=== PATIENT | male | born 1945 | race Caucasian/White ===

== ENCOUNTER 2019-01-21 10:11 | Outpatient (CLI) | payer BC, SELFPAY ==
[2019-01-23 10:56] LABS: PSA, Diagnostic <0.1 ng/ml (0-6.5)
== END 2019-01-21 10:31 ==
PROVIDERS: Urology; PCP Family Medicine; Visit Provider Nurse Practitioner
DX: C61 Malignant neoplasm of prostate (principal)
CPT/HCPCS: 36415; 84153

== ENCOUNTER 2020-08-07 11:25 | Outpatient (CLI) | payer BC, SELFPAY ==
[2020-08-09 11:47] LABS: PSA, Ultrasensitive 0.02 ng/mL (<= 6.5)
[2020-08-12 11:53] LABS: Testosterone, Total 380 ng/dL (240-950)
== END 2020-08-07 11:45 ==
PROVIDERS: PCP Family Medicine
DX: C61 Malignant neoplasm of prostate (principal)
CPT/HCPCS: 36415; 84153; 84403

== ENCOUNTER 2021-08-01 11:49 | Outpatient (CLI) | payer BC, SELFPAY ==
[2021-08-02 14:54] LABS: PSA, Ultrasensitive 0.03 ng/mL (<= 6.5)
[2021-08-05 15:25] LABS: Testosterone, Total 395 ng/dL (240-950)
== END 2021-08-01 11:50 | disposition home or self-care (01) ==
LOC: LBO 11:53
PROVIDERS: PCP Family Medicine; Visit Provider Nurse Practitioner Family
DX: C61 Malignant neoplasm of prostate (principal)
CPT/HCPCS: 36415; 84153; 84403

== ENCOUNTER 2022-07-24 15:08 | Outpatient (CLI) | payer BC, SELFPAY ==
--- OUTSIDE RECORDS SUMMARY | 2022-07-24 15:17 | XMS_ITS | Clinical Summary ---
:1945 Author Organization [facility] [place] [address] Care Team Providers Name Role Phone Santos Guallpa MD Primary Care Provider Allergies Active Allergy Reactions Severity Noted Date Comments Gentamicin Hives 03/30/2012 Medications Medication Sig Dispensed Refills Start Date End Date Status moxifloxacin (Vigamox) Place 1 drop 3 mL 0 05/31/2020 Active 0.5 % Drops into the left eye 4 times daily. Additional Information Patient not taking. Reported on 06/08/2022 levothyroxine (Synthroid) 100 Take 100 mcg by mouth 0 05/24/2020 Active mcg Tablet daily. aspirin EC 81 mg Tablet, TAKE ONE TABLET BY 0 2020 Active Delayed Release (E.C.) MOUTH EVERY DAY atorvastatin (Lipitor) 20 mg TAKE ONE TABLET BY 0 Active Tablet MOUTH EVERY DAY metoprolol succinate XL TAKE ONE TABLET BY 0 021 Active (Toprol-XL) 50 mg Tablet MOUTH EVERY DAY Sustained Release 24 hr lisinopriL (Zestril) 10 mg TAKE ONE TABLET BY 0 10/09 Active Tablet MOUTH EVERY DAY losartan (Cozaar) 50 mg Tablet TAKE ONE TABLET BY 0 12/08/2021 Active MOUTH EVERY DAY FOR 30 DAYS tamsulosin (Flomax) 0.4 mg Take 1 capsule by 90 tablet 3 01/26 Active Capsule mouth nightly. nitrofurantoin (Macrobid) 100 Take 1 capsule by 14 capsule 0 0 01/30/2022 Active mg Capsule mouth 2 times daily. Additional Information Patient not taking. Reported on 06/08/2022 Active Problems Problem Noted Date Lower urinary tract symptoms 01/26/2022 Lesion of left eyelid 05/26/2018 Malignant neoplasm of prostate 11/28/2013 Overview: Formatting of this note is dif ferent from the original. Prostate Cancer Notes 10/18/2015 Date of Presentation 11/19/2011 Age at Presentation 66 years old PSA at Presentation 7.7 on dutasteride Presence of Symptoms at Presentation Pos itive--urinary retention requiring CIC Ethnicity White Result of ANDREAS normal Date of TRUS and Biopsy 02/15/2012 Volume in cc 57 cc Maynor grade/score a+b=c 3+4=7 Total Cores 13 biopsy cores Positive cores 2 positive biopsy cores Bone Scan at Presentation -negative for bone met Prostate confined yes ELYSSA--extracapsular extension - negative for extension outside the prostate capsule SV--seminal vesicles - negative for exte nsion to the seminal vesicle Regular Lymph Nodes -negative Distant Mets -negative CT Abdomen/Pelvis at Presentation Done o n 01/04/2012 Prostate Confined positive Zacarias Involvement Negative node involvem ent on CT scan Metastasis No Metastases Primary Therapy Prostatectomy done by Dr Teresa Carey at [facility] Prostatectomy Date 06/03/2012 Pelvic Lymphnode Dissection 0 positive o f 18 lymph nodes removed Histologic Type/pathology detail 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 -[place] 3+3-=6 with tertiary Maynor 4 --bilateral lobes -margins negative -negative PNI (perineural invasion) --negative LVI (lymphovascular invasion) Percent of Gland Involvement 5 % Post Primary Therapy - Cristi Date 012 Bone scan 01/04/2014--negative Post Primary Therapy - Cristi PSA 0.04 ri sing to 0.30 prior to salvage radiation Salvage Therapy Radiation therapy under RTOG protocol 0534 Radiation Therapy Treatment prostate bed Total Dose (Gy) 68.4 Gy Number of fractions 38 treatments Post salvage cristi/date < 0.03 on -2014 Late effects of treatment Follow-up exam 06/22/2012 Urinary retention 02/15/2012 Chronic kidney disease, stage III (moderate) 1 Resolved Problems Problem Noted Date Resolved Date Elevated PSA 02/15/2012 06/08/2022 Encounters Date Type Specialty Care Team Description 06/08/2022 Office Visit Urology Teresa Carey, Elevated ser um creatinine; Lower urinary t ract symptoms; Urinary retenti on; Malignant neopl asm of prostate 06/08/2022 Laboratory Appointment Lab Boris gerber neoplasm of prostate 06/08/2022 Hospital Encounter Radiology Teresa Carey, Malign ant neoplasm of prostate from Last 3 Months Family History Medical History Relation Comments Breast Cancer Mother Breast Cancer Sister 1 Breast Cancer Sister 2 leukemia, at 53 Glaucoma Neg Hx Macular Degeneration Neg Hx Retinal Detachment Neg Hx Relation Status Comments Mother Sister 1 Sister 2 Social History Tobacco Use Types Packs/Day Years Used Date Never Smoker Smokeless Tobacco: Never Used Alcohol Use Standard Drinks/Week Comments No 0 (1 standard drink = 0.6 oz pure alcoho l) Sex Assigned at Date Recorded Not on file Last Filed Vital Signs Vital Sign Reading Time Taken Comments Blood Pressure 183/91 06/08/2022 3:24 PM EDT Pulse 70 06/08/2022 3:24 PM EDT Temperature 36.4 ??C (97.5 ??F) 08/12/2021 1:49 PM EDT Respiratory Rate 20 08/12/2021 1:49 PM EDT Oxygen Saturation 100% 08/12/2021 1:49 PM EDT Inhaled Oxygen Concentration - - Weight 76.9 kg (169 lb 9.6 oz) 08/12/2021 1:49 PM EDT Height 167.6 cm (5' 6) 01/27/2021 3:05 PM EDT Body Mass Index 27.37 01/27/2021 3:05 PM EDT Plan of Treatment Upcoming Encounters Date Type Specialty Care Team Description 07/30/2022 Office Visit Radiation Oncology Alecia Lion, STATISTICAL TYPIST [facility] [place], [place] [address] (Wo rk) Health Maintenance Due Date Last Done Comments Covid-19 Vaccine (#1) 1950 Hepatitis C Screening 1963 Tdap adult 1964 Tetanus vaccine 1964 Zoster vaccine (1 of 2) 1995 Advance Directive 2000 Pneumoccocal Vaccine: 65+ (1 - PCV) 2010 Influenza (Flu) vaccine (1 of 1 - Influenza standard 07/09/2022 series) Medical Devices Implanted Type Area Vaccine Specialist Device Shelf Model / Identifier Expiration Serial / Lot Date Mesh,Prolite Ultr,Std,6x4in ([id number]) - [id number] IMPLANTS Left: DO NOT USE 01/06/2017 [id number] / Implanted: Qty: 1 on 06/23/2012 at [facility] Pelvis [place] [id number] / [facility] - [id number] Procedures Procedure Name Priority Date/Time Associated Comments Diagnosis US RETROPERITONEAL Routine 06/08/2022 2:29 Malignant neoplasm Results for this COMPLETE PM EDT of prostate procedure are i n the results section. HC VENIPUNCTURE STAT 06/08/2022 1:20 Malignant neoplasm Res ults for this PM EDT of prostate procedure are i n the results section. from Last 3 Months Results US Retroperitoneal Complete (06/08/2022 2:29 PM EDT) Anatomical Region Laterality Modality Abdomen Ultrasound Specimen (Source) Anatomical Collection Method Collection Time Re ceived Time Location / / Volume Laterality 06/08/2022 2:30 PM EDT Impressions 06/08/2022 3:43 PM EDT 1. ??Limited visualization of the left kidney. Left renal cortical thinning/scarring with mild pelviectasi s and visualized proximal ureterectasis, which does not change significantly on post void imaging. 2. ??Normal right renal cortical thickn ess without collecting system dilatation. 3. ??Avascular septated right mid to in ferior pole renal cyst measuring up to 2.8 cm. 4. ??Mobile bladder debris present. No appreciable bladder wall thickening. Minimal post void bladder residual. Thank you for letting us participate in the care of this patient. If you are a health care [facility] er and have any questions regarding this report, please contact the number above. For patients who have ques tions, please contact the [facility] professio nal that requested your imaging first. ? Maritza Mustafa, Staff Physician Electronically Signed Final Report ?? 03:43 pm Narrative 06/08/2022 3:43 PM EDT Renal ? (Signed Final 06/08/2022 03:43 pm) PATIENT INFO: ID #: ? [id number] ?: ??[birth year] (76 yrs)(M) Name: ? MOLINA RANDHAWA ?Visit Date: 06/08/2022 02:30 pm PERFORMED BY: Performed By: ? Marisel WRIGHT, Da oglesby Attending: ?Moon KNAPP, Maritza Montiel Referred By: ?TERESA CAREY Location: ? [place] SERVICE(S) PROVIDED: URETRO - Retroperitoneal Complete - IM [id number] ? [id number] INDICATIONS: Hx of hydronephrosis likely due to poor bladder emptying. ? residual hydronephrosis. Please recheck for burnett ge in hydro after double void COMPARISON: CT pelvis 01/04/14, limited CT pelvis/lo wer abdomen (kidneys incompletely imaged) 01/12/14 RIGHT KIDNEY: Size (cm) ?L: ??11.0 Cortical Thickness: ?Normal Cortical Echogenicity: ?? Normal Hydronephrosis: ?No sonogr aphic evidence Ureter: ?Not v isualized Comment: ?Cyst with avascular septa tion mid/lower pole ? measuring 2.1 x 2.8 x 2.0 cm LEFT KIDNEY: Size (cm) ?L: ??9.5 Cortical Thickness: ?Thinning/sc arring Cortical Echogenicity: ?? Normal Hydronephrosis: ?Mild pelv iectasis Ureter: ?Mild dilatation where seen proximally Comment: ?Limited views. ??No signi ficant change in mild ? pelviectasis and prox imal ureterectasis on post- ? void images. URINARY BLADDER: Right Urinary Jet: Visualized Left Urinary Jet: ??Visualized Pre-void (cm) ? L: ??8.3 ? A P: ??7.5 ? TV: ??7.6 Vol (ml): ?247.7 Post-void (cm) ?L: ??2.8 ? A P: ??2.2 ? TV: ??3.1 Vol (ml): ?10.0 Comment: ?Partially distended, norm al contour. Mobile debris ? present. ??On pre-voi d images, no appreciable ? bladder wall thickeni ng. Procedure Note Maritza Mustafa MD - 06/08/2022Formatt ing of this note might be different from the original. Renal (Signed Final 06/08/2022 03:43 pm ) PATIENT INFO: ID #: [id number] : [birth year] (76 y rs)(M) Name: MOLINA RANDHAWA Visit Date: 11/2021 02:30 pm PERFORMED BY: Performed By: Catie Joiner RDMS Attending: Maritza Mustafa MD Referred By: TERESA CAREY Location: [place] SERVICE(S) PROVIDED: URETRO - Retroperitoneal Complete [place] [facility] [id number] [id number] INDICATIONS: Hx of hydronephrosis likely due to poor bladder emptying. ? residual hydronephrosis. Please recheck for burnett ge in hydro after double void COMPARISON: CT pelvis 01/04/14, limited CT pelvis/lo wer abdomen (kidneys incompletely imaged) 01/12/14 RIGHT KIDNEY: Size (cm) L: 11.0 Cortical Thickness: Normal Cortical Echogenicity: Normal Hydronephrosis: No sonographic evidence Ureter: Not visualized Comment: Cyst with avascular septation mid/lower pole measuring 2.1 x 2.8 x 2.0 cm LEFT KIDNEY: Size (cm) L: 9.5 Cortical Thickness: Thinning/scarring Cortical Echogenicity: Normal Hydronephrosis: Mild pelviectasis Ureter: Mild dilatation where seen prox imally Comment: Limited views. No significant change in mild pelviectasis and proximal ureterectasis on post- void images. URINARY BLADDER: Right Urinary Jet: Visualized Left Urinary Jet: Visualized Pre-void (cm) L: 8.3 AP: 7.5 TV: 7.6 Vol (ml): 247.7 Post-void (cm) L: 2.8 AP: 2.2 TV: 3.1 Vol (ml): 10.0 Comment: Partially distended, normal co ntour. Mobile debris present. On pre-void images, no appreci able bladder wall thickening. IMPRESSION 1. Limited visualization of the left ki dney. Left renal cortical thinning/scarring with mild pelviectasi s and visualized proximal ureterectasis, which does not change significantly on post void imaging. 2. Normal right renal cortical thicknes s without collecting system dilatation. 3. Avascular septated right mid to infe rior pole renal cyst measuring up to 2.8 cm. 4. Mobile bladder debris present. No ap preciable bladder wall thickening. Minimal post void bladder residual. Thank you for letting us participate in the care of this patient. If you are a [facility] er and have any questions regarding this report, please contact the number above. For patients who have ques tions, please contact the [facility] professio nal that requested your imaging first. Maritza Mustafa, Staff Physician Electronically Signed Final Report 06/08 03:43 pm Teresa Carey MD IMG GEN ORDERABLES (ABNORMAL) Basic Metabolic Panel (non-fasting) (06/08/2022 1:20 PM EDT) P athologist Signature Glucose Lvl 78 65 - 199 [facility] mg/dL [facility] Comment: Diabetes: >=200 mg/dL plus symp toms BUN 26 (H) 10 - 20 mg/dL [facility] Creatinine 1.57 (H) 0.80 - 1.50 mg/dL [facility] Sodium 138 135 - 145 mmol/L [facility] Potassium 4.7 3.5 - 5.0 mmol/L [facility] Comment: Please note: ??Patients with WBC >100,00 0 may have falsely elevated Potassium levels. ??For accurate Potassium quantif ication in these patients send serum separator tube (gold top) for subsequent determinations. ??Contact the Clinical Chemistry Laboratory if there are any qu estions. Chloride 104 98 - 107 mmol/L [facility] CO2 24 22 - 31 mmol/L [facility] Anion Gap 10 5 - 15 mmol/L [facility] Calcium 9.2 8.5 - 10.5 mg/dL [facility] Estimated GFR 45 (L) >=60 mL/min/1.73 m?? [facility] Comment: This patient's estimated GFR was calcula lev using the 2020 CKD-EPI equation. The estimated GFR can vary from the raghav ured GFR by up to 30% in the absence of rapidly changing kidney function. Assess ment of the estimated GFR is not appropriate when creatinine concentratio ns are rapidly changing. For clinical situations in which a more precise estim ate of GFR is necessary, consider alternative methods of GFR estimation faustin ch as a 24-hour urine creatinine clearance. Assignment of CKD stage 1-5 for patients with an eGFR near the transition point between stages may be based on clinical assessment of muscle mass and symptoms in addition to eGFR. Specimen Anatomical Collection Method Collection Time Receive d Time (Source) Location / / Volume Laterality Blood 06/08/2022 1:20 PM 2 1:30 EDT PM EDT Resulting Agency Comment Spec In Lab Teresa Carey MD CHEMISTRY ORDERABLES Performing Organization Address City/State/[place] [address] from Last 3 Months Insurance Payer Benefit Plan / Subscriber ID Effective Dates Phone Addre ss Type Group MEDICARE MEDICARE PART A [id number] 2010-Present [id number] [place] [phone] [employer] [facility] [id number] 2010-Present [address] [place] [address] Advance Directives Latest Code Status on File Code Status Date Activated Date Inactivated Comments Full Code 06/05/2012 6:04 PM 06/06/2012 3:55 PM Does patient have decision making capacity? Yes, order is based on Patient wishes. Full Code 06/03/2012 3:32 PM 06/04/2012 4:40 PM Order Status: Initial Order Does patient have decision making capacity? Yes, Order is based on Patients wishes. Full Code 04/11/2012 2:31 AM 04/12/2012 2:30 PM Does patient have decision making capacity? Yes, order is based on Patient wishes. Care Teams Conference Center Manager Relationship Specialty Start Date End Date Santos Guallpa MD PCP - General 10/14/11 [address] [place] [phone]
--- OUTSIDE RECORDS SUMMARY | 2022-07-24 15:17 | XMS_ITS | Encounter Summary ---
:1945 Author Organization [facility] Address [facility] [address] [place] [address] Care Team Providers Name Role Phone Santos Guallpa MD Primary Care Provider Encounter Details Date Type Department Care Team Description 06/08/2022 Office [place] [facility] [place] MD Elevated serum creatinine; [facility] er urinary tract symptoms; Drive DR Urinary retention; [place], [place] UROLOGY Malignant neoplasm of prostate [id number] [place] [address] [phone] Social History Tobacco Use Types Packs/Day Years Used Date Never Smoker Smokeless Tobacco: Never Used Alcohol Use Standard Drinks/Week Comments No 0 (1 standard drink = 0.6 oz pure alcoho l) Sex Assigned at Date Recorded Not on file documented as of this encounter Last Filed Vital Signs Vital Sign Reading Time Taken Comments Blood Pressure 183/91 06/08/2022 3:24 PM EDT Pulse 70 06/08/2022 3:24 PM EDT Temperature - - Respiratory Rate - - Oxygen Saturation - - Inhaled Oxygen Concentration - - Weight - - Height - - Body Mass Index - - documented in this encounter Progress Notes Mary Jane Hook APRN - 06/08/2022 3:00 PM EDT Patient Name: Date of Service: 06/08/2022 Primary Care Provider: Santos Guallpa MD Reason for Visit: Dalton Pereira is a 76 y.o. 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 Mildly dilated left ureter. 06/03/2012: Robot assisted radical prostatectomy fo [id number] Maynor 3+3=6 (with tertiary pattern 4) 18 nodes negative. Margins negative. Preop PSA 8.27 Preop patient in retention requiring CIC. Preop UDS s/w hypotonic bladder. 06/23/2012: Left inguinal hernia repair 03/2014 Completed 6840 CGy XRT for rising PSA to 0.3 Recovered well He last saw Dr. Wolfe in 03/2015 when his PSA was still <0.03. He will see [facility] in 07/2022. PSA due in 01/2022 He returns for follow up, generally doing well. Has had slow stream, unchanged, not better with flomax. He went to the ED for chest pain prior to 01/[address] showing bilateral hydro, possibly related to high pressure voiding. He had a cysto and was noted to have mild stricturing. He feels he is still voiding well. No gross hematuria. He is h ydrating. He does not want to cath. No kidney altering meds. He presents today for follow up. 01/26/2022: IPSS 20.5/35 (0/4.5/3.5/3.5/4/2/3) with a bother of 3 Prostate IPSS and CINDY(Pt Entered): last 5 values Prostate Today's Scores 08/26/2012 11/24/2012 05/16/2013 11/17/2013 06/08/2022 Sexual Health Inventory for Men Incomplete 1 (Severe ED) 3 (Severe ED) 3 (Severe ED) - International Prostate Symptom Score 8 (Moderate LUTS) 2 ( Mild LUTS) 1 ( Mild LUTS) 3 ( Mild LUTS) 12 (Moderate LUTS) No erections. His erections were minimal preop and he was not sexually active. This is stable and heis content. No new back or bone pain, no weight loss that is unexpected. , or appetite change. Patient Active Problem List Diagnosis Code ??? Urinary retention R33.9 ??? Elevated PSA R97.20 ??? Follow-up exam Z09 ??? Malignant neoplasm of prostate C61 ??? Lesion of left eyelid H02.9 ??? Chronic kidney disease, stage III (moderate) N18.30 ??? Lower urinary tract symptoms R39.9 Past Surgical History: Procedure Laterality Date ??? APPENDECTOMY ??? CORNEA LESION EXCISION Right FB removed 1992 ??? PRO COLONOSCOPY, DIAGNOSTIC 12/12/2013 COLONOSCOPY, DIAGNOSTIC performed by Kenna Knapp MD at [facility] ENDOSCOPY ??? PRO LAP, PROSTATECTOMY, RADICAL, W/NERVE SPARE 06/03/2012 @LAPAROSCOPIC PROSTATECTOMY, ROBOTICS ASSISTED performed by TERESA RODRIGUEZ at [facility] MAIN OR ??? PRO REMOVE PELVIS LYMPH NODES 06/03/2012 @LYMPHADENECTOMY, PELVIC, INCLUDING MULTIPLE NODES-JAZMINE performed by TERESA RODRIGUEZ at [facility] MAIN OR ??? PRO REPAIR ING HERNIA, 5+Y/O, THERESA 06/23/2012 HERNIA REPAIR, INITIAL INGUINAL AGE 5 OR OVER, REDUCIBLE INCARCERATED performed by JARVIS IRWIN at [facility] MAIN OR Examination: Appears well Abd: soft, nontender, no masses or CVA tenderness Musculoskeletal and neurologic: grossly normal Labs: PSA 04/2014 0.08 05/2013 0.09 02/2013 0.1 08/2012 PSA 0.13 11/2012 PSA 0.12 09/2013 0.14 11/2013 PSA 0.18 03/2015: < 0.03 06/2015: 0.04 10/2015: <0.03 12/2014 <0.03 06/2016: <0.03 06/2017: 0.02 06/218 0.03 12/2019 0.02 01/2021: 0.04 01/2022: 0.03 01/2021 U/A 60 WBC 1 RBC. Culture enterococcus 02/2022 Cr 1.4, LFT's normal Hb 16.7, Plt 222 06/2022: cre 1.57 and GFR 45 PVR 11/2012: 52cc 01/2022: with scanner: 279-300 cc 02/2022 PVR 11cc after double void (and cystodilitation 06/2022: with scanner Imaging 02/08/2022 CT [place] Bilateral hydronephrosis L>R. No clear cause. No other significant abnormality 06/2022: renal US: right renal cyst, no stones or masses. Left hydro even postvoid. Bilateral jets noted. Something is being measured at the dome of the bladder-reviewed with Dr. Rodriguez likely collapsedbladder, renal US and labs reviewed with Dr. Rodriguez. Renal cyst with septation PVR 10 cc. Cystoscopy 02/2022: Slightly narrow prostatic urethra able to pass the 17 cystoscope with mild difficulty. Mildly dilated left ureter. Cytology 01/2022 Negative Impression: #1: pT2 Juliette 3+3=6 prostate cancer sp Radical prostatectomy & XRT JOSÉ LUIS. PSA undetectable #2: Inguinal hernia repair #3: poor emptying, some degree of urethral stricture sp dilitation #4: Bilateral hydronephrosis L>R, but 06/2022 right resolved. Persistent left hydro even postvoid. #5: dome of bladder finding-collapsed bladder #6: septated renal cyst Plan: PSA 01/2023. He will see [facility] in 07/2022. We discussed CIC and his renal function. He is not interested in cathing. His PVR is low today. We discussed overhydration, which he will pursue. We will consider nephrology referral in the future. Repeat labs in 6 weeks, they will call me for the results. Will consider repeat cysto if gross hematuria given what they are marking on the bladder today. 02/2022 cysto was normal, likely collapsed bladder. Renal cyst not obviously concerning, no renal imaging in 6 months. epf in 01/2023 with us. All questions answered to his apparent satisfaction. This is a joint note in which the patient was seen by both Mary Jane Arce APRN and RICCO Matos. Parts of which were written by Dr. Teresa Rodriguez and others by Mary Jane Arce APRN. Mary Jane Arce APRN: history and physical examination/documentation Reviewed labs and imaging with RICCO Gates : Reviewed he history and physical examination and confirmed the pertinent findings Reviewed the labs and imaging Contributed to the Impression and Plan Mary Jane Arce APRN and RICCO Matos documented in this encounter Plan of Treatment Upcoming Encounters Date Type Specialty Care Team Description 07/30/2022 Office Visit Radiation Oncology Alecia Lion, COMMUNITY ADMINISTRATOR [facility] [place], [place] [address] (Wo rk) Scheduled Orders Name Type Priority Associated Diagnoses Order S chedule Comprehensive metabolic Lab STAT Elevated serum Ex pected: 06/08/2022, panel (non-fasting) creatinine Expires: 12/08/2022 PSA (Ultrasensitive) Lab STAT Malignant neoplasm o f Expected: 12/09/2022 prostate (Approximate), Expires: 2022 documented as of this encounter Visit Diagnoses Diagnosis Elevated serum creatinine Other nonspecific findings on examinatio n of blood Lower urinary tract symptoms Other symptoms involving urinary system Urinary retention Retention of urine, unspecified Malignant neoplasm of prostate documented in this encounter Care Teams Memory Care Program Director Relationship Specialty Start Date End Date Santos Guallpa MD PCP - General 10/14/[address] [place] [phone] documented as of this encounter
--- OUTSIDE RECORDS SUMMARY | 2022-07-24 15:17 | XMS_ITS | Encounter Summary ---
:1945 Author Organization [facility] Address [address] [place] [place] [address] Care Team Providers Name Role Phone Santos Guallpa MD Primary Care Provider Encounter Details Date Type Department Care Team Description 03/06/2022 Office Visit Urology at [facility] Teresa Rodriguez MD Malignant neoplasm of [facility] pro state (Primary Dx) Drive [facility] [id number] [place] [id number] [phone] Social History Tobacco Use Types Packs/Day Years Used Date Never Smoker Smokeless Tobacco: Never Used Alcohol Use Standard Drinks/Week Comments No 0 (1 standard drink = 0.6 oz pure alcoho l) Sex Assigned at Date Recorded Not on file documented as of this encounter Last Filed Vital Signs Vital Sign Reading Time Taken Comments Blood Pressure 157/84 03/06/2022 1:21 PM EDT Pulse 67 03/06/2022 1:21 PM EDT Temperature - - Respiratory Rate - - Oxygen Saturation - - Inhaled Oxygen Concentration - - Weight - - Height - - Body Mass Index - - documented in this encounter Patient Instructions Patient InstructionsRafferChe gilliam CCMA - 03/06/2022 1:53 PM EDT Instructions following Cystoscopy Activity: As tolerated by your comfort level. Fluids: You should increase your water today. Avoid coffee, tea and cola. You do not need to exceed 64 ounces of water today. Urination: You will likely have a small amount of blood in your urine for the next several days. This is normal; however, if you are passing large amounts of blood clots or are unable to void please call our office at [phone] before 5PM or [phone] after hours. Please call if: * you have copious blood in your urine * fevers greater than 101.3 F * you are unable to void The number for questions is [phone] before 5 PM weekdays and [phone] after 5 PM and weekends. Follow-up: documented in this encounter Progress Notes Teresa Rodriguez MD - 03/06/2022 1:00 PM EDT Patient Name: Date of Service: 03/06/2022 Primary Care Provider: Santos Guallpa MD Reason for Visit: Molina Pereira is a 76 y.o. male who returns for a cystoscopy for evaluation ofvoiding dysfunction. 06/03/2012: Robot assisted radical prostatectomy fo [id number] Maynor 3+3=6 (with tertiary pattern 4) 18 nodes negative. Margins negative. Preop PSA 8.27 Preop patient in retention requiring CIC. Preop UDS s/w hypotonic bladder. 06/23/2012: Left inguinal hernia repair 03/2014 Completed 6840 CGy XRT for rising PSA to 0.3 Recovered well He last saw Dr. Wolfe in 03/2015 when his PSA was still <0.03. He returns for follow up, generally doing well. He has a slow stream, sometimes fine, maybe slightly worsening over time. Has to strain at times. Can't write his name in the snow. He never wants a cath if he doesn't have to. He wakes 3 times at night. Voids small amounts, sometimes frequently. If he strains, he leaks urine, he will wear a washcloth. Drinks only water. Bowels normal. No hematuria or UTIs. Biggest problem: waking at night. Flomax did not help No erections. His erections were minimal preop and he was not sexually active. This is stable and heis content. No bowel problems No new back or bone pain, no weight loss that is unexpected. , or appetite change. Since I last saw him urinary symptoms unchanged, not improved by flomax. Went to ER for chest pain. CT showed bilateral hydronephroisis to the bladder. I suspect this maybe related to some high pressure voiding 01/26/2022: IPSS 20.5/35 (0/4.5/3.5/3.5/4//) with a bother of 3 Examination: Appears well Abd: soft, nontender, no [...] 1.4, LFT's normal Hb 16.7, Plt 222 PVR 11/2012: 52cc 01/2022: with scanner: 279-300 cc 02/2022 PVR 11cc after double void (and cystodilitation Imaging 02/08/2022 CT [place] country Bilateral hydronephrosis L>R. No clear cause. No other significant abnormality Cystoscopy 02/2022 Slightly narrow prostatic urethra able to pass the 17 cystoscope with mild difficulty. Mildly dilated left ureter. 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 PSA undetectable #2: Inguinal hernia repair #3: poor emptying, some degree of urethral stricture sp dilitation #4: Bilateral hydronephrosis L>R Plan: Films for review 6 weeks with renal U/S, PVR, IPSS and BMP May need to do CIC Discussed l All questions answered to his apparent satisfaction. documented in this encounter Procedure Notes Teresa Rodriguez MD - 03/06/2022 1:00 PM EDTAssociated Order(s): CYSTOSCOPY Pre-Procedure Diagnose(s): Malignant neoplasm of prostate Procedure: Flexible Cystoscopy Surgeon: Teresa Rodriguez Preoperative Diagnosis: History of prostatectomy, now voiding issues Post Operative Diagnosis: Mild membranous urethral stricture Complications: None Procedure: Urinalysis revealed no evidence of an active urinary tract infection. After informed consent was obtained and the external genitalia appropriately cleaned and draped, lidocaine was instilled into the urethra to achieve topical anaesthesia. The flexible telescope was inserted into the urethra and advanced into the bladder under direct vision. The bladder was systematically inspected through 360 degrees with the flexible telescope including retroversion. The anterior urethroscopy was normal. There was some mild narrowing at the level of the membranous urethra. I was able to pass 17 jamaican scope thrpugh with mild pressure The prostatic fossa was absemt The ureteral orifices were in normal position and effluxed clear urine. The left appeared to be refluxing The bladder was otherwise normal. There were no bladder tumors, mucosal abnormalities or bladder stones. The cystoscope was removed. The patient tolerated the procedure without difficulty. There were no complications. Teresa Rodriguez documented in this encounter Plan of Treatment Upcoming Encounters Date Type Specialty Care Team Description 07/30/2022 Office Visit Radiation Oncology Alecia Lion, EXPLOSIVE ORDNANCE MANAGER [facility] RADIATION [place], [place] [address] (Wo rk) documented as of this encounter Procedures Procedure Name Priority Date/Time Associated Diagnosis Comme nts CYSTOSCOPY Routine 03/06/2022 1:00 PM Malignant neoplasm of Results for this EDT prostate procedure are i n the results section . documented in this encounter Results US Retroperitoneal Complete (06/08/2022 2:29 PM [...] wall thickening. Minimal post void bladder residual. Electronically signed by: Maritza Mustafa MD, [facility] ([phone]), at 06/08/2022 3:37 PM Thank you for letting us participate in the care of this patient. If you are a [facility] er and have any questions regarding this report, please contact the number above. For patients who have ques tions, please contact the [facility] professio nal that requested your imaging first. ? Maritza Mustafa, Staff Physician Electronically Signed Final Report ?? 03:43 pm Narrative 06/08/2022 3:43 PM EDT Renal ? (Signed Final 06/08/2022 03:43 pm) PATIENT INFO: ID #: ? [id number] ?: ??[birth year] (76 yrs)(M) Name: ? MOLINA PEREIRA ?Visit Date: 06/08/2022 02:30 pm PERFORMED BY: Performed By: ? Da Joiner RDMS Attending: ?Maritza Mustafa MD Referred By: ?TERESA RODRIGUEZ Location: ? [facility] SERVICE(S) PROVIDED: URETRO - Retroperitoneal Complete - IMG 3517 ? [id number] INDICATIONS: Hx of hydronephrosis likely due to [...] 03:43 pm ) PATIENT INFO: ID #: [id number] : [birth year] (76 y rs)(M) Name: MOLINA PEREIRA Visit Date: 11/2021 02:30 pm PERFORMED BY: Performed By: Catie Joiner RDMS Attending: Maritza Mustafa MD Referred By: TERESA RODRIGUEZ Location: [facility] SERVICE(S) PROVIDED: URETRO - Retroperitoneal Complete - [facility] 3517 [id number] INDICATIONS: Hx of hydronephrosis likely due to [...] of this patient. If you are a [facility] er and have any questions regarding this report, please contact the number above. For patients who have ques tions, please contact the [facility] professio nal that requested your imaging first. Maritza Mustafa, Staff Physician Electronically Signed Final Report 06/08 03:43 pm Teresa Rodriguez MD IMG US GEN ORDERABLES (ABNORMAL) Basic Metabolic Panel (non-fasting) (06/08/2022 1:20 PM EDT) athologist Signature Glucose Lvl 78 65 - 199 [facility] mg/dL [facility] Comment: Diabetes: >=200 mg/dL plus symp toms BUN 26 (H) 10 - 20 mg/dL [facility] Creatinine 1.57 (H) 0.80 - 1.50 mg/dL [facility] Sodium 138 135 - 145 mmol/L [facility] Potassium 4.7 3.5 - 5.0 mmol/L [facility] Comment: Please note: ??Patients with WBC >100,00 0 may have falsely elevated Potassium levels. ??For accurate Potassium quantif ication in these patients send serum separator tube (gold top) for subsequent determinations. ??Contact the Clinical Chemistry Laboratory if there are any qu estions. Chloride 104 98 - 107 mmol/L [facility] CO2 24 22 - 31 mmol/L [facility] Anion Gap 10 5 - 15 mmol/L [facility] Calcium 9.2 8.5 - 10.5 mg/dL [facility] Estimated GFR 45 (L) >=60 mL/min/1.73 m?? [facility] Comment: This patient's estimated GFR was [...] Resulting Agency Comment Spec In Lab Teresa Rodriguez MD CHEMISTRY ORDERABLES Performing Organization Address City/State/ZIP [place] [address] Cystoscopy (03/06/2022 1:00 PM EDT) Narrative Teresa Rodriguez MD - 03/06/2022 1:00 PM EDT Teresa Rodriguez MD ? 03/06/2022 ??2:08 PM Procedure: Flexible Cystoscopy Surgeon: Teresa Rodriguez Preoperative Diagnosis: History of prost atectomy, now voiding issues Post Operative Diagnosis: Mild membranou s urethral stricture Complications: None Procedure: Urinalysis revealed no evidence of an ac tive urinary tract infection. After informed consent was obtained and the external genitalia appropriately cleaned and draped, lidoca ine was instilled into the urethra to achieve topical anaesthes ia. The flexible telescope was inserted into the urethra and advanced into the bladder under direct vision. Th e bladder was systematically inspected through 360 deg heide with the flexible telescope including retroversion. The anterior urethroscopy was normal. Th ere was some mild narrowing at the level of the membranous urethra. I was able to pass 17 jamaican scope thrpugh with mild p ressure The prostatic fossa was absemt The ureteral orifices were in normal pos ition and effluxed clear urine. The left appeared to be refluxing The bladder was otherwise normal. There were no bladder tumors, mucosal abnormalities or bladder stones. The cystoscope was removed. The patient tolerated the procedure without difficulty. There were no compli cations. Teresa Rodriguez Teresa Rodriguez MD PROCEDURE ORDERABLES documented in this encounter Visit Diagnoses Diagnosis Malignant neoplasm of prostate - Primary Malignant neoplasm of prostate documented in this encounter Care Teams Net Architect Relationship Specialty Start Date End Date Santos Guallpa MD PCP - General 10/14/[address] [place] [phone] documented as of this encounter
--- OUTSIDE RECORDS SUMMARY | 2022-07-24 15:17 | XMS_ITS | Encounter Summary ---
:1945 [place] [address] Care Team Providers Name Role Phone Santos Guallpa MD Primary Care Provider Encounter Details Date Type Department Care Team Description 06/08/2022 Laboratory Appointment Lab 3L [facility] Mike Malignant neoplasm of [facility] [place] [phone] Social History Tobacco Use Types Packs/Day Years Used Date Never Smoker Smokeless Tobacco: Never Used Alcohol Use Standard Drinks/Week Comments No 0 (1 standard drink = 0.6 oz pure alcoho l) Sex Assigned at Date Recorded Not on file documented as of this encounter Plan of Treatment Upcoming Encounters Date Type Specialty Care Team Description 07/30/2022 Office Visit Radiation Oncology Alecia Lion APRN [facility] RADIATION [place], [place] [address] (Wo rk) documented as of this encounter Procedures Procedure Name Priority Date/Time Associated Diagnosis Comme nts VENIPUNCTURE STAT 06/08/2022 1:20 PM Malignant neoplasm of Results for this EDT prostate procedure are i n the results section. documented in this encounter Results (ABNORMAL) Basic Metabolic Panel (non-fasting) (06/08/2022 1:20 PM EDT) athologist Signature Glucose Lvl 78 65 - 199 [facility] mg/dL [facility] Comment: Diabetes: >=200 mg/dL plus symp toms BUN 26 (H) 10 - 20 mg/dL [facility] Creatinine 1.57 (H) 0.80 - 1.50 mg/dL [facility] Sodium 138 135 - 145 mmol/L [facility] Potassium 4.7 3.5 - 5.0 mmol/L [facility] Comment: Please note: ??Patients with WBC >100,00 0 may have falsely elevated Potassium levels. ??For accurate Potassium quantif ication in these patients send serum separator tube (gold top) for subsequent determinations. ??Contact the Clinical Chemistry Laboratory if there are any qu estions. Chloride 104 98 - 107 mmol/L [facility] CO2 24 22 - 31 mmol/L [facility] Anion Gap 10 5 - 15 mmol/L [facility] Calcium 9.2 8.5 - 10.5 mg/dL [facility] Estimated GFR 45 (L) >=60 mL/min/1.73 m?? [facility] Comment: This patient's estimated GFR [...] EDT Resulting Agency Comment Spec In Lab John Rodriguez MD CHEMISTRY ORDERABLES Performing Organization Address City/State/[place] [address] documented in this encounter Visit Diagnoses Diagnosis Malignant neoplasm of prostate documented in this encounter Care Teams Clip On Sunglasses Assembler Relationship Specialty Start Date End Date Santos Guallpa MD PCP - General 10/14/[address] [place] [phone] documented as of this encounter
--- OUTSIDE RECORDS SUMMARY | 2022-07-24 15:17 | XMS_ITS | Encounter Summary ---
:1945 [place] [address] Care Team Providers Name Role Phone Santos Guallpa MD Primary Care Provider Encounter Details Date Type Department Care Team Description 01/26/2022 Laboratory Appointment Lab 3L Ghassan Mckeon [place] [phone] Social History Tobacco Use Types Packs/Day Years Used Date Never Smoker Smokeless Tobacco: Never Used Alcohol Use Standard Drinks/Week Comments No 0 (1 standard drink = 0.6 oz pure alcoho l) Sex Assigned at Date Recorded Not on file documented as of this encounter Plan of Treatment Upcoming Encounters Date Type Specialty Care Team Description 07/30/2022 Office Visit Radiation Oncology Alecia Lion APRN [facility] RADIATION [place], [place] [address] (Wo rk) documented as of this encounter Procedures Procedure Name Priority Date/Time Associated Diagnosis Comme [facility] PROSTATE STAT 01/26/2022 11:06 AM Malignant neoplasm Re sults for this SPECIFIC ANTIGEN EDT of prostate procedure a re in the results section. documented in this encounter Results PSA (Ultrasensitive) (01/26/2022 11:06 AM EDT) P athologist Signature PSA Total 0.03 0.00 - GHASSAN BROWNECOCK (Ultrasensitiv 4.00 ng/mL [facility] Comment: PLEASE NOTE: The above reference interva l is intended for healthy males with an intact prostate. Values within this refe rence interval may indicate recurrence in men who have undergone radical prosta tectomy. Specimen Anatomical Collection Method Collection Time Receive d Time (Source) Location / / Volume Laterality Blood 01/26/2022 11:06 01/26/2022 AM EDT 11:14 AM EDT Resulting Agency Comment Spec In Lab Mary Jane Arce APRN CHEMISTRY ORDERABLES Performing Organization Address City/State/ZIP Code Phon e Number [place] [phone] H[address] documented in this encounter Visit Diagnoses Diagnosis Malignant neoplasm of prostate documented in this encounter Care Teams Structural Steel Erector Relationship Specialty Start Date End Date Santos Guallpa MD PCP - General 10/14/[address] [place] [phone] documented as of this encounter
--- OUTSIDE RECORDS SUMMARY | 2022-07-24 15:17 | XMS_ITS | Encounter Summary ---
:1945 Author Organization [facility] [place] [address] Care Team Providers Name Role Phone Santos Guallpa MD Primary Care Provider Encounter Details Date Type Department Care Team Description 06/08/2022 Hospital Encounter Ultrasound at [facility] Teresa Rodriguez, Malignant neoplasm [facility] of prostate Drive [place], [place] CENTER [address] UROLOGY [phone] [place] [address] Social History Tobacco Use Types Packs/Day Years Used Date Never Smoker Smokeless Tobacco: Never Used Alcohol Use Standard Drinks/Week Comments No 0 (1 standard drink = 0.6 oz pure alcoho l) Sex Assigned at Date Recorded Not on file documented as of this encounter Medications at Time of Discharge Medication Sig Dispensed Refills Start Date End Date nitrofurantoin (Macrobid) Take 1 capsule by 14 capsule 0 100 mg Capsule mouth 2 times daily. lisinopriL (Zestril) 10 mg TAKE ONE TABLET BY 0 1 12/30/2020 Tablet MOUTH EVERY DAY losartan (Cozaar) 50 mg TAKE ONE TABLET BY 0 11/10 Tablet MOUTH EVERY DAY FOR 30 DAYS tamsulosin (Flomax) 0.4 mg Take 1 capsule by 90 tablet 3 Capsule mouth nightly. aspirin EC 81 mg Tablet, TAKE ONE TABLET BY 0 03/2021 Delayed Release (E.C.) MOUTH EVERY DAY atorvastatin (Lipitor) 20 TAKE ONE TABLET BY 0 mg Tablet MOUTH EVERY DAY metoprolol succinate XL TAKE ONE TABLET BY 0 03/2021 (Toprol-XL) 50 mg Tablet MOUTH EVERY DAY Sustained Release 24 hr levothyroxine (Synthroid) Take 100 mcg by 0 05/24 100 mcg Tablet mouth daily. moxifloxacin (Vigamox) 0.5 Place 1 drop into 3 mL 0 % Drops the left eye 4 times daily. documented as of this encounter Plan of Treatment Upcoming Encounters Date Type Specialty Care Team Description 07/30/2022 Office Visit Radiation Oncology Alecia Lion, [facility] RADIATION [place], [place] [address] (Wo rk) documented as of this encounter Procedures Procedure Name Priority Date/Time Associated Comments Diagnosis US RETROPERITONEAL Routine 06/08/2022 2:29 Malignant neoplasm Results for this COMPLETE PM EDT of prostate procedure are i n the results section. documented in this encounter Results US Retroperitoneal [...] residual. Electronically signed by: Maritza Mustafa MD, [facility] ([phone]), at 06/08/2022 3:37 PM Thank you for letting us participate in the care of this patient. If you are a health care [facility] er and have any questions regarding this report, please contact the number above. For patients who have ques tions, please contact the [facility] that requested your imaging first. ? Maritza Mustafa, Staff Physician Electronically Signed Final Report ?? 03:43 pm Narrative 06/08/2022 3:43 PM EDT Renal ? (Signed Final 06/08/2022 03:43 pm) PATIENT INFO: ID #: ? [id number] ?: ??[birth year] (76 yrs)(M) Name: ? MOLINA PEREIRA ?Visit Date: 06/08/2022 02:30 pm PERFORMED BY: Performed By: ? Da Joiner RDMS Attending: ?Moon KNAPP, Maritza Montiel Referred By: ?TERESA RODRIGUEZ Location: ? [place] SERVICE(S) PROVIDED: URETRO - Retroperitoneal Complete - IMG 3517 ? [id number] INDICATIONS: Hx of hydronephrosis likely due to [...] 03:43 pm ) PATIENT INFO: ID #: [id number] : [birth year] (76 y rs)(M) Name: MOLINA PEREIRA Visit Date: 11/2021 02:30 pm PERFORMED BY: Performed By: Catie Joiner RDMS Attending: Maritza Mustafa MD Referred By: TERESA RODRIGUEZ Location: [place] SERVICE(S) PROVIDED: URETRO - Retroperitoneal Complete - [facility] 3517 [id number] INDICATIONS: Hx of hydronephrosis likely due to [...] of this patient. If you are a [facility] care [facility] er and have any questions regarding this report, please contact the number above. For patients who have ques tions, please contact the [facility] professio nal that requested your imaging first. Maritza Mustafa, Staff Physician Electronically Signed Final Report 06/08 03:43 pm Teresa Rodriguez MD IMG US GEN ORDERABLES documented in this encounter Visit Diagnoses Diagnosis Malignant neoplasm of prostate documented in this encounter Care Teams Budget Manager Relationship Specialty Start Date End Date Santos Guallpa MD PCP - General 10/14/[address] [place] [phone] documented as of this encounter
--- OUTSIDE RECORDS SUMMARY | 2022-07-24 15:17 | XMS_ITS | Encounter Summary ---
:1945 Author Organization [facility] [place] [address] Care Team Providers Name Role Phone Santos Guallpa MD Primary Care Provider Encounter Details Date Type Department Care Team Description 01/30/2022 Telephone Urology at [facility] Mary Jane Hook, [facility] [place] [phone] [facility] [phone] UROLOGY DEPT. [place], [place] [address] (Wo rk) Social History Tobacco Use Types Packs/Day Years Used Date Never Smoker Smokeless Tobacco: Never Used Alcohol Use Standard Drinks/Week Comments No 0 (1 standard drink = 0.6 oz pure alcoho l) Sex Assigned at Date Recorded Not on file documented as of this encounter Miscellaneous Notes Telephone Encounter - Mary Jane Hook APRN - 01/30/2022 4:48 PM EDT Images from the original note were not included. Urine culture Clean Catch Urine Order: [id number] Status: Edited Result - FINAL ?? Visible to patient: Yes (not seen) ?? Next appt: 03/06/2022 at 01:00 PM in Urology (TERESA CAREY MD) ?? Dx: Malignant neoplasm of prostate; Urina... ?? Specimen Information: Clean Catch Urine ?? 0 Result Notes ?? 1 Patient Communication Component Urine Culture ??Abnormal?? 10,000-49,000 cfu/ml Enterococcus faecalis 1,000-9,000 cfu/ml mixed mucosal valerie Resulting Agency [facility] Lab Susceptibility Enterococcus faecalis MICROSCAN METHOD Ampicillin Sensitive Ciprofloxacin Sensitive Levofloxacin Sensitive Nitrofurantoin Sensitive Penicillin Sensitive Vancomycin Sensitive ?? Linear View Called pt with culture results. Allergies to gent. Will prescribe him macrobid 100 mg po twice dailyfor 7 days. Will see if this helps his urinary symptoms. He feels well, but will try the antibiotics to see if this helps overall with his emptying. documented in this encounter Plan of Treatment Upcoming Encounters Date Type Specialty Care Team Description 07/30/2022 Office Visit Radiation Oncology Alecia Lion APRN [facility] RADIATION [place], [place] [address] (Wo rk) documented as of this encounter Visit Diagnoses Not on filedocumented in this encounter Care Teams Video Software Engineer Relationship Specialty Start Date End Date Santos Guallpa MD PCP - General 10/14/11 [address] [place] [phone] documented as of this encounter
--- OUTSIDE RECORDS SUMMARY | 2022-07-24 15:18 | XMS_ITS | Encounter Summary ---
:1945 Author Organization [facility] [place] [address] Care Team Providers Name Role Phone Santos Guallpa MD Primary Care Provider Encounter Details Date Type Department Care Team Description 03/09/2017 Orders Only Urology at [facility] John Rodriguez [place] [phone] UROLOGY [phone] [place], [place] [address] (Wo rk) Social History Tobacco [...] Office Visit Radiation Oncology Alecia Lion APRN [facility] ER RADIATION [place], [place] [address] (Wo rk) documented as of this encounter Visit Diagnoses Not on filedocumented in this encounter Care Teams Ham Smoker Relationship Specialty Start Date End Date Santos Guallpa MD PCP - General 10/14/11 [address] [place] [phone] documented as of this encounter
--- OUTSIDE RECORDS SUMMARY | 2022-07-24 15:18 | XMS_ITS | Encounter Summary ---
:1945 Author Organization [facility] [place] [address] Care Team Providers Name Role Phone Santos Guallpa MD Primary Care Provider Encounter Details Date Type Department Care Team Description 02/28/2020 Notes Only Radiation Oncology a t [facility] Radha Parisi APRN [facility] [place] [address] [place] [address] [phone] (Wo rk) Social History Tobacco Use Types Packs/Day Years Used Date Never Smoker Smokeless Tobacco: Never Used Alcohol Use Standard Drinks/Week Comments No 0 (1 standard drink = 0.6 oz pure alcoho l) Sex Assigned at Date Recorded Not on file documented as of this encounter Progress Notes Radha Parisi APRN - 02/28/2020 2:44 PM EDT I called and spoke with Mrs. Pereira (patient not available) re: follow up schedule. I saw him in 08/26 for evaluation. The payroll secretary called to schedule him for his six month follow up in February, however he declined the visit. It turns out that the patient was seen by Dr. Rodriguez in urology on 01/22/20 with PSA level (stable). No ANDREAS or exam. Dr. Seigne plans on seeing him annually with PSA. The patient declined my follow up visit because he was just here less than a month ago, due to long distance travel, and pandemic risk. He does plan on continuing follow up- I will make our next visit six months from 01/22/20- around midSept- lab and exam including ANDREAS per protocol. The protocol calls for every 6 months PSA/Testosterone and Annual H/P/ANDREAS. He can see Dr. Rodriguez every January/ I'll see him (or arrange for him to be seen in [facility] every July for labs, exam and ANDREAS per protocol. Radha Parisi, ASHLYN, ANP, POULTRY DRESSER, AOCNP Radiation Oncology documented in this encounter Plan of Treatment Upcoming Encounters Date Type Specialty Care Team Description 07/30/2022 Office Visit Radiation Oncology Alecia Lion APRN [facility] ER RADIATION [place], [place] [address] (Wo rk) documented as of this encounter Visit Diagnoses Not on filedocumented in this encounter Care Teams Sole Molder Relationship Specialty Start Date End Date Santos Guallpa MD PCP - General 10/14/[address] [place] [phone] documented as of this encounter
--- OUTSIDE RECORDS SUMMARY | 2022-07-24 15:18 | XMS_ITS | Encounter Summary ---
:1945 [place] [address] Care Team Providers Name Role Phone Santos Guallpa MD Primary Care Provider Encounter Details Date Type Department Care Team Description 08/15/2019 Orders Only Radiation Oncology at [place], Joshua Lozada alignant neoplasm of [facility] prostate [facility] [place] [address] RADIATION ONCOLOGY [phone] [place], [place] [address] Social History Tobacco Use Types Packs/Day Years Used Date Never Smoker Smokeless Tobacco: Never Used Alcohol Use Standard Drinks/Week Comments No 0 (1 standard drink = 0.6 oz pure alcoho l) Sex Assigned at Date Recorded Not on file documented as of this encounter Plan of Treatment Upcoming Encounters Date Type Specialty Care Team Description 07/30/2022 Office Visit Radiation Oncology Alecia Lion APRN [facility] RADIATION [place] [address] (Wo rk) documented as of this encounter Results Research Venipuncture (08/21/2019 12:15 PM EDT) Analysis Performed At [facility] Time Signature Research [facility] Venipuncture [facility] Specimen Anatomical Collection Method Collection Time Receive d Time (Source) Location / / Volume Laterality Blood specimen 08/21/2019 12:15 9 (specimen) PM EDT 12:23 PM EDT Resulting Agency Comment Spec In Lab Alexis Rhoades MD CHEMISTRY ORDERABLES Performing Organization Address City/State/ZIP [place] [address] documented in this encounter Visit Diagnoses Diagnosis Malignant neoplasm of prostate documented in this encounter Care Teams Respiratory Care Assistant Relationship Specialty Start Date End Date Santos Guallpa MD PCP - General 10/14/[address] [place] [phone] documented as of this encounter
--- OUTSIDE RECORDS SUMMARY | 2022-07-24 15:18 | XMS_ITS | Encounter Summary ---
:1945 Author Organization [facility] [place] [address] Care Team Providers Name Role Phone Santos Guallpa MD Primary Care Provider Reason for Visit Reason Onset Date Comments Appointment 06/03/2020 Encounter Details Date Type Department Care Team Description 06/03/2020 Telephone Ophthalmology [facility] Chelsea Hutchinson, MELANI Appointment [facility] [place] [address] OPHTHALMOLOGY DEPT [phone] [place], [place] [address] (Wo rk) Social History Tobacco Use Types Packs/Day Years Used Date Never Smoker Smokeless Tobacco: Never Used Alcohol Use Standard Drinks/Week Comments No 0 (1 standard drink = 0.6 oz pure alcoho l) Sex Assigned at Date Recorded Not on file documented as of this encounter Miscellaneous Notes Telephone Encounter - Claudia Taylor - 06/03/2020 4:53 PM EDT Called pt to [facility] appt for: 1 week (around 06/07/2020), or if symptoms worsen or fail to improve. Check out comments: NO DILATION, cornea check Pt said the eye was feeling as good as it going to and declined to [facility] appt. He said It isn't wortha day on the road, the eye was as good as it was going to get but would not answer the question putto him when he asked if he was declining appt. He would not rogelio. documented in this encounter Plan of Treatment Upcoming Encounters Date Type Specialty Care Team Description 07/30/2022 Office Visit Radiation Oncology Alecia Lion, EQUITY RESEARCH ASSOCIATE [facility] ER RADIATION [place], [place] [address] (Wo rk) documented as of this encounter Visit Diagnoses Not on filedocumented in this encounter Care Teams Field Identification Specialist Relationship Specialty Start Date End Date Santos Guallpa MD PCP - General 10/14/[address] [place] [phone] documented as of this encounter
--- OUTSIDE RECORDS SUMMARY | 2022-07-24 15:18 | XMS_ITS | Encounter Summary ---
:1945 Author Organization [facility] [place] [address] Care Team Providers Name Role Phone Santos Guallpa MD Primary Care Provider Reason for Visit Reason Comments Radiation Follow-up Encounter Details Date Type Department Care Team Description 03/18/2015 Office Visit Radiation Oncology at [facility], Alec Sunshine Ma lignant neoplasm of [facility] prostate [facility] [address] [place], [place]IATION [place] [address] [place] [address] [phone] Social History Tobacco Use Types Packs/Day Years Used Date Never Smoker Smokeless Tobacco: Never Used Alcohol Use Standard Drinks/Week Comments No 0 (1 standard drink = 0.6 oz pure alcoho l) Sex Assigned at Date Recorded Not on file documented as of this encounter Last Filed Vital Signs Vital Sign Reading Time Taken Comments Blood Pressure 172/86 03/18/2015 1:44 PM EDT Pulse 78 03/18/2015 1:44 PM EDT Temperature 37.2 ??C (99 ??F) 03/18/2015 1:44 PM EDT Respiratory Rate - - Oxygen Saturation 95% 03/18/2015 1:44 PM EDT Inhaled Oxygen Concentration - - Weight 80.3 kg (177 lb) 03/18/2015 1:44 PM EDT Height - - Body Mass Index 28.57 05/21/2014 8:19 AM EDT documented in this encounter Progress Notes Alec Wolfe MD - 03/18/2015 1:36 PM EDT RADIATION ONCOLOGY FOLLOW-UP VISIT NOTE Identification: Dalton Pereira is a 69 y.o. year-old male with history of prostate cancer s/p Radical Prostatectomy 05/2012, pT2c, Bulverde 3+3=6, Margin negative, Node negative (Pre-operative [id number] 3+4=7, PSA 7.7 on dutasteride) with detectable PSA post-operatively was is rising, at 0.30. Radiotherapy: 6840 cGy to the Prostatic fossa, completed 03/21/14 On study RTOG 0534 Interim History: Mr. Pereira returns his PSA is undetectable and he is not limited at all functionally. No incontinence. No hematuria or dysuria. Normal bowels without pain, blood or diarrhea. 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 IPSS stable, 5. CINDY=0 Allergies: Allergies Allergen Reactions ??? Gentamicin Hives Medications: No current outpatient prescriptions on file prior to visit. No current facility-administered medications on file prior to visit. Review of Systems: Gen: Energy good. No fevers. : See interim history GI: See interim history Physical Exam: There were no vitals filed for this visit. Gen: Well appearing, NAD ANDREAS: Empty fossa, no nodules. AAOX3, interactive and asks appropriate questions. Ambulatory Labs: . PSA Total Date Value Ref Range Status 03/18/2015 <0.03 0.00 - 4.00 ng/mL Final 12/17/2014 0.04 0.00 - 4.00 ng/mL Final 09/20/2014 0.04 0.00 - 4.00 ng/mL Final 06/21/2014 0.04 0.00 - 4.00 ng/mL Final 05/02/2014 0.08 0.00 - 4.00 ng/mL Final 01/01/2014 0.30 0.00 - 4.00 ng/mL Final 11/20/2013 0.18 0.00 - 4.00 ng/mL Final 09/29/2013 0.14 0.00 - 4.00 ng/mL Final 05/17/2013 0.09 0.00 - 4.00 ng/mL Final 11/28/2012 0.12 0.00 - 4.00 ng/mL Final 08/29/2012 0.13 0.00 - 4.00 ng/mL Final 01/13/2012 7.71* 0.00 - 4.00 ng/mL Final 12/21/2011 8.27* 0.00 - 4.00 ng/mL Final Recent Results (from the past 24 hour(s)) PSA Result Value Ref Range PSA Total <0.03 0.00 - 4.00 ng/mL TESTOSTERONE, TOTAL Result Value Ref Range Testo Total 3.29 2.80 - 8.00 ng/mL COMPREHENSIVE METABOLIC PANEL (NON-FASTING) Result Value Ref Range Glucose Lvl 77 60 - 199 mg/dL BUN 20 10 - 20 mg/dL Creatinine 1.24 0.80 - 1.50 mg/dL Sodium 140 135 - 145 mmol/L Potassium 4.0 3.5 - 5.0 mmol/L Chloride 101 98 - 107 mmol/L CO2 26 22 - 31 mmol/L Anion Gap 13 5 - 15 mmol/L Calcium 9.2 8.5 - 10.5 mg/dL Total Protein 7.2 6.1 - 8.0 gm/dL Albumin 4.3 3.2 - 5.2 gm/dL AST 16 0 - 39 unit/L ALT 20 0 - 55 unit/L Alk Phos 85 40 - 120 unit/L Total Bilirubin 0.8 0.2 - 1.3 mg/dL Bili, Direct 0.1 0.0 - 0.3 mg/dL Estimated GFR 58 (*) >=60 Testo Total Date Value Ref Range Status 03/18/2015 3.29 2.80 - 8.00 ng/mL Final Reference Ranges: Males (7to18 years) Females (8-18 years) Mynor Stage ng/ml ng/ml 1 <0.03 <0.03 to 0.06 2 <0.03 to 4.32 <0.03 to 0.10 3 0.65 to 7.78 <0.03 to 0.24 4 1.80 to 7.63 <0.03 to 0.27 5 1.88 to 8.82 <0.05 to 0.38 Males 18 years to adult Females 18 years to adult 2.80 to 8.00 ng/ml 0.06 to 0.82 ng/ml Stated adult reference ranges derived from review of Jeff E170 Testosterone reagent package insert Stated pediatric reference ranges derived from review of Jeff E170 Testosterone II reagent package insert 05/17, V2. 12/17/2014 3.34 2.80 - 8.00 ng/mL Final Reference Ranges: Males (7to18 years) Females (8-18 years) Mynor Stage ng/ml ng/ml 1 <0.03 <0.03 to 0.06 2 <0.03 to 4.32 <0.03 to 0.10 3 0.65 to 7.78 <0.03 to 0.24 4 1.80 to 7.63 <0.03 to 0.27 5 1.88 to 8.82 <0.05 to 0.38 Males 18 years to adult Females 18 years to adult 2.80 to 8.00 ng/ml 0.06 to 0.82 ng/ml Stated adult reference ranges derived from review of Jeff E170 Testosterone reagent package insert 09/12, Stated pediatric reference ranges derived from review of Jeff E170 Testosterone II reagent package insert 05/17, V2. 09/20/2014 2.72* 2.80 - 8.00 ng/mL Final Reference Ranges: Males (7to18 years) Females (8-18 years) Mynor Stage ng/ml ng/ml 1 <0.03 <0.03 to 0.06 2 <0.03 to 4.32 <0.03 to 0.10 3 0.65 to 7.78 <0.03 to 0.24 4 1.80 to 7.63 <0.03 to 0.27 5 1.88 to 8.82 <0.05 to 0.38 Males 18 years to adult Females 18 years to adult 2.80 to 8.00 ng/ml 0.06 to 0.82 ng/ml Stated adult reference ranges derived from review of Jeff E170 Testosterone reagent package insert 09/12, Stated pediatric reference ranges derived from review of Jeff E170 Testosterone II reagent package insert 05/17, V2. 06/21/2014 3.60 2.80 - 8.00 ng/mL Final Reference Ranges: Males (7to18 years) Females (8-18 years) Mynor Stage ng/ml ng/ml 1 <0.03 <0.03 to 0.06 2 <0.03 to 4.32 <0.03 to 0.10 3 0.65 to 7.78 <0.03 to 0.24 4 1.80 to 7.63 <0.03 to 0.27 5 1.88 to 8.82 <0.05 to 0.38 Males 18 years to adult Females 18 years to adult 2.80 to 8.00 ng/ml 0.06 to 0.82 ng/ml Stated adult reference ranges derived from review of Doctor Evidence E170 Testosterone reagent package insert Stated pediatric reference ranges derived from review of Jeff E170 Testosterone II reagent package insert 05/17, V2. 05/02/2014 3.68 2.80 - 8.00 ng/mL Final Reference Ranges: Males (7to18 years) Females (8-18 years) Mynor Stage ng/ml ng/ml 1 <0.03 <0.03 to 0.06 2 <0.03 to 4.32 <0.03 to 0.10 3 0.65 to 7.78 <0.03 to 0.24 4 1.80 to 7.63 <0.03 to 0.27 5 1.88 to 8.82 <0.05 to 0.38 Males 18 years to adult Females 18 years to adult 2.80 to 8.00 ng/ml 0.06 to 0.82 ng/ml Stated adult reference ranges derived from review of Jeff E170 Testosterone reagent package insert Stated pediatric reference ranges derived from review of Jeff E170 Testosterone II reagent package insert 05/17, V2. 01/01/2014 4.00 2.80 - 8.00 ng/mL Final Reference Ranges: Males (7to18 years) Females (8-18 years) Mynor Stage ng/ml ng/ml 1 <0.03 <0.03 to 0.06 2 <0.03 to 4.32 <0.03 to 0.10 3 0.65 to 7.78 <0.03 to 0.24 4 1.80 to 7.63 <0.03 to 0.27 5 1.88 to 8.82 <0.05 to 0.38 Males 18 years to adult Females 18 years to adult 2.80 to 8.00 ng/ml 0.06 to 0.82 ng/ml Stated adult reference ranges derived from review of Doctor Evidence E170 Testosterone reagent package insert 11/05, V8 Stated pediatric reference ranges derived from review of Jeff E170 Testosterone II reagent package insert 05/17, V2. Assessment: Dalton Pereira is a 69 y.o. year-old male with history of prostate cancer s/p RadicalProstatectomy 05/2012, pT2c, Bulverde 3+3=6, Margin negative, Node negative (Pre-operative [id number] Bulverde 3+4=7, PSA 7.7 on dutasteride) with detectable PSA post-operatively was is rising, at 0.30, he is s/p nichols radiation completed 03/21/14, PSA undetectable. We discussed his undetectable PSA today, he has JOSÉ LUIS. PSA monitoring will need to continue. No toxicity. We discussed potential late toxicities. He is fully functional All questions addressed. Plan: 1. FU in 6 months with PSA. He has FU with Urology planned for June. Total visit time was 10 minutes. 5 minutes were spent in face to face counseling and coordination ofcare. documented in this encounter Plan of Treatment Upcoming Encounters Date Type Specialty Care Team Description 07/30/2022 Office Visit Radiation Oncology Alecia Lion, [employer] [employer] [facility] ER RADIATION [place], [place] [address] (Wo rk) documented as of this encounter Procedures Procedure Name Priority Date/Time Associated Comments Diagnosis TESTOSTERONE, TOTAL Routine 03/18/2015 11:33 Malignant neoplas m Results for this AM EDT of prostate procedure are i n the results section. PSA (ULTRASENSITIVE) Routine 03/18/2015 11:33 Malignant neopla sm Results for this AM EDT of prostate procedure are i n the results section. COMPREHENSIVE Routine 03/18/2015 11:33 Malignant neoplasm Resu lts for this METABOLIC PANEL AM EDT of prostate procedure ar e in (NON-FASTING) the results section. documented in this encounter Results PSA (10/16/2015 7:53 AM EST) P athologist Signature PSA Total <0.03 0.00 - CERNER (Ultrasensitiv 4.00 ng/mL MILLENNIUM e) Specimen Anatomical Collection Method Collection Time Receive d Time (Source) Location / / Volume Laterality Blood specimen 10/16/2015 7:53 AM 015 8:05 (specimen) EST AM EST Resulting Agency Comment Spec In Lab Alec Wolfe MD CHEMISTRY ORDERABLES Performing Organization Address City/State/ZIP Code [place] [address] CERNER MILLENNIUM (ABNORMAL) Comprehensive metabolic panel (non-fasting) (03/18/2015 11:33 AM EDT) P athologist Signature Glucose Lvl 77 60 - 199 CERNER mg/dL MILLENNIUM Comment: Diabetes: >=200 mg/dL plus symp toms BUN 20 10 - 20 mg/dL CERNER MILLENNIU M Creatinine 1.24 0.80 - 1.50 mg/dL CERNER MILL ENNIUM Comment: Please note that the pediatric reference intervals supplied above were not validated at [facility]. Results from pediatri c patients should be interpreted in conjunction to the patient's age, height and muscle mass. Sodium 140 135 - 145 mmol/L CERNER SOFIA NIUM Potassium 4.0 3.5 - 5.0 mmol/L CERNER SOFIA NIUM Comment: Please note: ??Patients with WBC >100,00 0 may have falsely elevated Potassium levels. ??For accurate Potassium quantif ication in these patients send serum separator tube (gold top) for subsequent determinations. ??Contact the Clinical Chemistry Laboratory if there are any qu estions. Chloride 101 98 - 107 mmol/L CERNER MILLENN IUM CO2 26 22 - 31 mmol/L CERNER MILLENNI UM Anion Gap 13 5 - 15 mmol/L CERNER MILLENNIU M Calcium 9.2 8.5 - 10.5 mg/dL CERNER SOFIA NIUM Total Protein 7.2 6.1 - 8.0 gm/dL CERNER MIL LENNIUM Albumin 4.3 3.2 - 5.2 gm/dL CERNER MILLENN IUM AST 16 0 - 39 unit/L CERNER MILLENNIU M ALT 20 0 - 55 unit/L CERNER MILLENNIU M Alk Phos 85 40 - 120 unit/L CERNER MILLENN IUM Total Bilirubin 0.8 0.2 - 1.3 mg/dL CERNER M ILLENNIUM Bili, Direct 0.1 0.0 - 0.3 mg/dL VIKTOR MILL ENNIUM Estimated GFR 58 (L) >=60 VIKTOR CORNEJO M Comment: This estimated GFR (eGFR) value was calc ulated using the MDRD equation which has been validated on patients between t he ages of 18 and 70. The MDRD should not be used to assess kidney function in patients < 18 years of age or in patients with extremes of body mass, or in patients with acute kidney failure. This value should be multiplied by 1.2 f or patients. For further information please copy and past e the following links into your internet browser. http://[employer]/DHnkdep http://[employer]/DHMCnkf Specimen Anatomical Collection Method Collection Time Receive d Time (Source) Location / / Volume Laterality Blood specimen 03/18/2015 11:33 5 (specimen) AM EDT 11:51 AM EDT Resulting Agency Comment Spec In Lab Alec Wolfe MD CHEMISTRY ORDERABLES Performing Organization Address City/State/ZIP Code Phon e Number [place] [phone] VIKTOR GALVAN Testosterone, total (03/18/2015 11:33 AM EDT) athologist Signature Testo Total 3.29 2.80 - 8.00 CERNER ng/mL [facility] Comment: Reference Ranges: ? Males (7t o18 years) ?Females (8-18 years) Mynor Stage ?ng/m l ? ng/ml ? 1 ? <0.0 3 ? <0.03 to 0.06 ? 2 ? <0.0 3 to 4.32 ? <0.03 to 0.10 ? 3 ? 0.65 to 7.78 ?<0.03 to 0.24 ? 4 ? 1.80 to 7.63 ?<0.03 to 0.27 ? 5 ? 1.88 to 8.82 ?<0.05 to 0.38 ?Males 1 8 years to adult ? Females 18 years to adult ? 2.80 t o 8.00 ng/ml ?0.06 to 0.82 ng/ml Stated adult reference ranges derived fr om review of Jeff E170 Testosterone reagent package insert 09/12, V8 Stated pediatric reference ranges derive d from review of Jeff E170 Testosterone II reagent package insert 0 05/17, V2. Specimen Anatomical Collection Method Collection Time Receive d Time (Source) Location / / Volume Laterality Blood specimen 03/18/2015 11:33 5 (specimen) AM EDT 11:51 AM EDT Resulting Agency Comment Spec In Lab Alec Wolfe MD CHEMISTRY ORDERABLES Performing Organization Address City/State/[place] [address] VIKTOR VARMAIUM PSA (03/18/2015 11:33 AM EDT) P athologist Signature PSA Total <0.03 0.00 - CERNER (Ultrasensitiv 4.00 ng/mL MILLENNIUM e) Specimen Anatomical Collection Method Collection Time Receive d Time (Source) Location / / Volume Laterality Blood specimen 03/18/2015 11:33 5 (specimen) AM EDT 11:51 AM EDT Resulting Agency Comment Spec In Lab Alec Wolfe MD CHEMISTRY ORDERABLES Performing Organization Address City/State/ZIP Code Phon e Number [place] [phone] [facility] documented in this encounter Visit Diagnoses Diagnosis Malignant neoplasm of prostate documented in this encounter Care Teams Pattern Grader Cutter Relationship Specialty Start Date End Date Santos Guallpa MD PCP - General 10/14/[address] [place] [phone] documented as of this encounter
--- OUTSIDE RECORDS SUMMARY | 2022-07-24 15:18 | XMS_ITS | Encounter Summary ---
:1945 [place] [address] Care Team Providers Name Role Phone Santos Guallpa MD Primary Care Provider Encounter Details Date Type Department Care Team Description 07/04/2018 Laboratory Appointment Lab 3L Ghassan [place] [phone] Social History Tobacco Use Types Packs/Day Years Used Date Never Smoker Smokeless Tobacco: Never Used Alcohol Use Standard Drinks/Week Comments No 0 (1 standard drink = 0.6 oz pure alcoho l) Sex Assigned at Date Recorded Not on file documented as of this encounter Plan of Treatment Upcoming Encounters Date Type Specialty Care Team Description 07/30/2022 Office Visit Radiation Oncology Alecia Lion APRN [facility] RADIATION [place], [place] [address] (Wo rk) documented as of this encounter Procedures Procedure Name Priority Date/Time Associated Diagnosis Comme nts PSA STAT 07/04/2018 8:16 AM Malignant neoplasm Res ults for this (ULTRASENSITIVE) EDT of prostate procedure a re in the results section. documented in this encounter Results PSA (07/04/2018 8:16 AM EDT) P athologist Signature PSA Total 0.03 0.00 - GHASSAN MCKEON (Ultrasensitiv 4.00 ng/mL [facility] LABORATORY Specimen Anatomical Collection Method Collection Time Receive d Time (Source) Location / / Volume Laterality Blood specimen 07/04/2018 8:16 AM 018 8:30 (specimen) EDT AM EDT Resulting Agency Comment Spec In Lab John Rodriguez MD CHEMISTRY ORDERABLES Performing Organization Address City/State/ZIP Code Phon e Number [place] [phone] documented in this encounter Visit Diagnoses Diagnosis Malignant neoplasm of prostate documented in this encounter Care Teams Operations Support Coordinator Relationship Specialty Start Date End Date Santos Guallpa MD PCP - General 10/14/[address] [place] [phone] documented as of this encounter
--- OUTSIDE RECORDS SUMMARY | 2022-07-24 15:18 | XMS_ITS | Encounter Summary ---
:1945 Author Organization [facility] [place] [address] Care Team Providers Name Role Phone Santos Guallpa MD Primary Care Provider Encounter Details Date Type Department Care Team Description 08/12/2021 Office Visit Radiation Oncology at [facility] Ma lignant neoplasm of [facility] RETORT COOLER prostate (Primary Dx) [address] [place] [address] RADIATION ONCOLOGY [phone] [place], [place] [address] Social History Tobacco Use Types Packs/Day Years Used Date Never Smoker Smokeless Tobacco: Never Used Alcohol Use Standard Drinks/Week Comments No 0 (1 standard drink = 0.6 oz pure alcoho l) Sex Assigned at Date Recorded Not on file documented as of this encounter Last Filed Vital Signs Vital Sign Reading Time Taken Comments Blood Pressure 163/69 08/12/2021 1:49 PM EDT Pulse 69 08/12/2021 1:49 PM EDT Temperature 36.4 ??C (97.5 ??F) 08/12/2021 1:49 PM EDT Respiratory Rate 20 08/12/2021 1:49 PM EDT Oxygen Saturation 100% 08/12/2021 1:49 PM EDT Inhaled Oxygen Concentration - - Weight 76.9 kg (169 lb 9.6 oz) 08/12/2021 1:49 PM EDT Height - - Body Mass Index 27.37 01/27/2021 3:05 PM EDT documented in this encounter Progress Notes AyadAlecia madrigal, RETORT COOLER - 08/12/2021 1:45 PM EDTSummary: 75 year old male dx prostate cancer s/p Radical Prostatectomy 05/2012. Rising PSA post prostatectomy and tx w/ salvage radiaiton completed o 03/21/2014 [facility] [place] [address] Phone: RADIATION ONCOLOGY FOLLOW UP NOTE Date of visit: 08/12/2021 Patient Dalton Pereira 1945 PCP: Santos Guallpa MD Urologist: Radiation oncologist: Dr. Alexis Rhoades Chief Complaint: follow up/labs/leuprolide for prostate cancer Time since completed RT: completed on 03/21/2014 ADT:Never had ADT Current treatment:surveillance post prostatectomy 2011 and salvage xrt in 2013. Dalton Pereira is a 74 y.o. male with history of prostate cancer s/p Radical Prostatectomy 05/2012, pT2c, [place] 3+3=6, Margin negative, Node negative (Pre- operative [id number] Maynor 3+4=7, PSA 7.7 on dutasteride) with detectable PSA post-operatively that hanh to 0.30. He was treated with salvage radiation therapy to a dose of 68.4 Gy which was completed on 03/21/2014 under RTOG trial 0534. He is inclinic for scheduled follow up. ? HPI Mr. Dalton Pereira has history of prostate cancer ([id number] Maynor 3+4=7, PSA 7.7 on dutasteride with neurogenic bladder and need for CIC who is s/p prostatectomy that presents due to rising PSA. ?? He had surgery performed on 06/03/12 which revealed: ---Pathologic Diagnosis--- A - Soft tissue, (additional tissue): Fibroadipose tissue, negative for malignancy. B - Additional bladder and neck, biopsies: Benign prostatic glands and stroma. C - Left pelvic lymph nodes, lymphadenectomy: Seven lymph nodes, negative for malignancy (0/7). D - Right pelvic lymph nodes, lymphadenectomy: Eleven lymph nodes, negative for malignancy (0/11). E - Specimen type: Proctectomy Histologic type: Adenocarcinoma Maynor grades: 3 + 3, teritary pattern 4 is 3% Maynor score: 6 Location of tumor: Bilateral lobes % prostate involved by tumor: 5% Extracapsular extension (ELYSSA):Absent Seminal vesicle invasion: Absent Margins: Margins uninvolved by invasive carcinoma Perineural invasion: Present Lymphovascular invasion: Absent Additional findings: Stromal and glandular hyperplasia ?? Salvage Therapy On study RTOG 0534 TREATMENT PLAN: Salvage radiation therapy Interim HPI: Mr Pereira states that he feels quite well, no complaints. Energy and being able to get things done. 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 He is usually outside working with any of these things and so is very physically active and busy. Removes potato bugs from plants 3x day! 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 He basically has no new symptoms from his last visit he states he is up about 3 times at night but goes right back to sleep. If he has problems falling asleep he discussed the rosary until he nods off. He denies any hematuria no blood in stool he does not have any bone pain. 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 . ?? Medications 01/27/21 4696 Medication Sig Taking? aspirin EC 81 mg Tablet, Delayed Release (E.C.) TAKE ONE TABLET BY MOUTH EVERY DAY atorvastatin (Lipitor) 20 mg Tablet TAKE ONE TABLET BY MOUTH EVERY DAY metoprolol succinate XL (Toprol-XL) 50 mg Tablet Sustained Release 24 hr TAKE ONE TABLET BY MOUTH EVERY DAY levothyroxine (Synthroid) 100 mcg Tablet Take 100 mcg by mouth daily. moxifloxacin (Vigamox) 0.5 % Drops Place 1 drop into the left eye 4 times daily. Patient not taking: Reported on 08/09/2020 Allergies Allergen Reactions ??? Gentamicin Hives Past Medical History: Diagnosis Date ??? Allergic state ??? Chronic kidney disease has urine retention issue, has improved ??? Follow-up exam 06/22/2012 ??? Hyperlipidemia ??? Malignant neoplasm of prostate 11/28/2013 ??? Urinary retention 02/15/2012 ??? 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 APPENDECTOMY ??? CORNEA LESION EXCISION Right FB removed 1992 ??? PRO COLONOSCOPY, DIAGNOSTIC 12/12/2013 COLONOSCOPY, DIAGNOSTIC performed by Kenna Knapp MD at [facility] ENDOSCOPY ??? PRO LAP, PROSTATECTOMY, RADICAL, W/NERVE SPARE 06/03/2012 @LAPAROSCOPIC PROSTATECTOMY, ROBOTICS ASSISTED performed by TERESA CAREY at [facility] MAIN OR ??? PRO REMOVE PELVIS LYMPH NODES 06/03/2012 @LYMPHADENECTOMY, PELVIC, INCLUDING MULTIPLE NODES-JAZMINE performed by TERESA CAREY at [facility] MAIN OR ??? PRO REPAIR ING HERNIA, 5+Y/O, THERESA 06/23/2012 HERNIA REPAIR, INITIAL INGUINAL AGE 5 OR OVER, REDUCIBLE INCARCERATED performed by JARVIS IRWIN at [facility] MAIN OR Family History Problem Relation Age of Onset ??? Breast Cancer Mother ??? Breast Cancer Sister ??? Breast Cancer Sister leukemia, at 53 ??? Glaucoma Neg Hx ??? Macular Degeneration Neg Hx ??? Retinal Detachment Neg Hx Social History Tobacco Use ??? Smoking status: Never Smoker ??? Smokeless tobacco: Never Used Vaping Use ??? Vaping Use: Never used Substance Use Topics ??? Alcohol use: No ??? 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 Fatigue:He can work all day! Has cows and gardens and stays very active Weight/appetite/diet, no changes, eats well Respiratory:no resp probs GI:no issues, no blood in urine :doing well, no hematuria Endocrine:not on lupron Sexual health:ED And has had difficulty with sex earlier in years past. This is not an issue for them Muscle skeletal:no problems Bone health: taking Vit D/ Calcium Neuro:no focal deficits Mood:Mood is good Sleep: sleeps well, gets to sleep saying rosary Function:romo Exercise:everyday with cows, treadmill in the winter Smoking:no Alcohol:NO Support/ social relationships: primary support and children and grandchildren Advanced directives not discussed Financial/transportation concerns:all set for now Performance Status: KPS Score ECOG Grade Definition x 90-100 0 Fully active, able to carry on all pre-disease performance without restriction 70-80 1 Restricted in physically strenuous activity but ambulatory and able to carry out work of a light or sedentary nature, e.g., light house work, office work 50-60 2 Ambulatory and capable of all selfcare but unable to carry out any work activities; up and about more than 50% of waking hours 30-40 3 Capable of only limited selfcare; confined to bed or chair more than 50% of waking hours 10-20 4 Completely disabled; cannot carry on any selfcare; totally confined to bed or chair Physical Examination: Body mass index is 27.37 kg/m??. BP 163/69 (Patient Position: Sitting) Pulse 69 Temp 36.4 ??C (97.5 ??F) (Temporal) Resp 20 Wt 76.9 kg (169 lb 9.6 oz) Constitutional: seen in clinic , no distress HENT: normocephalic, anicteric, neck supple, no adenopathy Cardiovascular: Rate and Rhythm: Normal rate and regular rhythm. Heart sounds: Normal heart sounds. No murmur Pulmonary: Effort: Pulmonary effort is normal. Breath sounds: Normal breath sounds. No wheezing or rales. Abdomen: Soft, flat, no HSM, no masses, non-tender, active bowel sounds Genitourinary: Rectum: deferred No inguinal adenopathy Musculoskeletal: Normal range of motion. General: No swelling or deformity. No spinal percussion tenderness No CVA tenderness Comments: Ambulates without assistance Skin: General: Skin is warm and dry. Hygiene not priority, works in garden and with cows all day and is mid-day in his chores Neurological: General: No focal deficit present. Mental Status: alert and oriented to person, place, and time. Gait: Gait normal. Psychiatric: Mood and Affect: Mood normal. Behavior: Behavior normal. Thought Content: Thought content normal. Judgment: Judgment normal. New Labs Reviewed this visit: Date PSA Test Notes 08/01/21 0.03 395 01/25/21 0.04 08/07/2020 0.02 12/2019 0.02 06/2018 0.03 06/2017 0.02 10/2015 <0.03 06/2015 0.04 03/2015 < 0.03 11/2013 0.18 09/2013 0.14 11/2012 0.12 08/2012 0.13 Assessment: 75 y.o. presenting for follow up/ lab for prostate cancer. He is s/p Radical Prostatectomy 05/2012. Rising PSA post prostatectomy and tx w/ salvage radiaiton completed o 03/21/2014. He has minimal LUTs, no hematuria, no blood in stool or bowel irregularity. He has had ED for years and not a problem for him. 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 Has a low stable PSA 0.03 and we reviewed the hx of his PSAs. He is quite firm about no covid vaccination. No respiratory sx at this time. He and really raise their own food as he believes tough times ahead and believes in being self sufficient. 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 His parents remembered the Sinhala flu pandemic and shared stories. He is happy to return in 6 months for recheck of his PSA. Medical Decision Making/Recommendations/Plan: # prostate cancer: reviewed PSA results . No concerning reported symptoms or physical examination findings today # effects of EBRT: Acute: 1. LUTS (lower urinary tract symptoms) 2. Bowel dysfunction 3. Sexual health/Erectile Dysfunction 4. Fatigue 5. Mood changes Late: We reviewed potential late effects of radiation that require medical evaluation including : 1. Changes in urinary flow/difficulty passing urine (scarring from radiation) 2. Blood in urine (may be infection, inflammation bladder wall (cystitis), formation of telangiectasia (small, thin blood vessels that are dilated or broken, near the surface of the bladder and may bleed) or bladder/genitourinary cancer 3. Blood in bowel movements (stools)- maybe from hemorrhoids, telangiectasia from radiation, colorectal cancer Symptoms that you should bring to the attention of your provider: Difficulty or changes in your urine flow Blood in your urine or stool # ADT: No ADT being used # survivorship/lifestyle/wellness: Genetic Risk Evaluation: Body weight/nutrition, no changes Exercise:all day every day with farm. Bone health:no bone pain Annual exam with PCP: Up to date on vaccinations:He will NOT get covid vaccine as does not believe in it. # resources provided:none at this time # referrals done: None at this time # follow up: Per NCCN guidelines, PSA and history/physical every 6-12 months X 5 years, then annually. Annual ANDREAS (unless PSA undetectable or prostatectomy). PSA may be checked more frequently depending on risk level or other patient specific factors. Next visit:6 month f/u Labs: PSA, testosterone Dalton Pereira had the opportunity to ask questions and I answered them to the best of my knowledge. Dalton Pereira agreed to contact radiation oncology in between visits if he has any questions/concerns or new symptoms in regards to the radiation therapy/prostate cancer Alecia Lion MSN, RETORT COOLER, CUSTOM CLOTHIER-C Nurse Practitioner Radiation Oncology documented in this encounter Plan of Treatment Upcoming Encounters Date Type Specialty Care Team Description 07/30/2022 Office Visit Radiation Oncology Alecia Lion APRN [facility] RADIATION ONCOLO [place], [place] [address] (Wo rk) Scheduled Orders Name Type Priority Associated Diagnoses Order S chedule PSA (Ultrasensitive) Lab Routine Malignant neoplasm o f Expected: 02/13/2022 prostate (Approximate), Expires: 08/15/2022 Testosterone, total Lab Routine Malignant neoplasm of Expected: 02/13/2022 prostate (Approximate), Expires: 08/13/2022 documented as of this encounter Visit Diagnoses Diagnosis Malignant neoplasm of prostate - Primary documented in this encounter Care Teams Utility Helicopter Repairer Relationship Specialty Start Date End Date Santos Guallpa MD PCP - General 10/14/[address] [place] [address] [phone] documented as of this encounter
--- OUTSIDE RECORDS SUMMARY | 2022-07-24 15:18 | XMS_ITS | Encounter Summary ---
:1945 Author Organization [facility] [address] Care Team Providers Name Role Phone Santos Guallpa MD Primary Care Provider Encounter Details Date Type Department Care Team Description 10/16/2015 Transcribe Orders Laboratory Santos Guallpa [facility] [place] [address] [phone] [place] [address] (Wo rk) Social History Tobacco Use Types [...] Office Visit Radiation Oncology Alecia Lion APRN [facility] RADIATION [place], [place] [address] (Wo rk) documented as of this encounter Visit Diagnoses Not on filedocumented in this encounter Care Teams Customs Port Director Relationship Specialty Start Date End Date Santos Guallpa MD PCP - General 10/14/[address] [place] [address] documented as of this encounter
--- OUTSIDE RECORDS SUMMARY | 2022-07-24 15:18 | XMS_ITS | Encounter Summary ---
:1945 Author Organization [facility] [place] [address] Care Team Providers Name Role Phone Santos Guallpa MD Primary Care Provider Encounter Details Date Type Department Care Team Description 03/16/2016 Telephone Hematology and Oncol ogy at [facility] Natalia Hicks, [place] [address] Social History Tobacco Use Types Packs/Day Years Used Date Never Smoker Smokeless Tobacco: Never Used Alcohol Use Standard Drinks/Week Comments No 0 (1 standard drink = 0.6 oz pure alcoho l) Sex Assigned at Date Recorded Not on file documented as of this encounter Miscellaneous Notes Telephone Encounter - Natalia Hicks RN - 03/16/2016 1:23 PM EDT [id number] A Phase III Trial of Short Term Androgen Deprivation with Pelvic Lymph Node or Prostate Bed Only Radiotherapy (SPPORT) in Prostate Cancer Patients with a Rising PSA After Radical Prostatectomy Dalton Maravilla was scheduled for 2 year f/u today with Alyson LOVING. He was to have blood drawn for PSA and testosterone and study kit. He was scheduled to see the research nurse. He was a no show for this appointment. Called his home phone to ask to re schedule-left message. He lives in [facility] so may want to be seen in [facility] office. documented in this encounter Plan of Treatment Upcoming Encounters Date Type Specialty Care Team Description 07/30/2022 Office Visit Radiation Oncology Alecia Lion, PULLBOAT ENGINEER [facility] RADIATION [place], [place] [address] (Wo rk) documented as of this encounter Visit Diagnoses Not on filedocumented in this encounter Care Teams Telegraph Service Rater Relationship Specialty Start Date End Date Santos Guallpa MD PCP - General 10/14/[address] [place] [phone] documented as of this encounter
--- OUTSIDE RECORDS SUMMARY | 2022-07-24 15:18 | XMS_ITS | Encounter Summary ---
:1945 Author Organization [facility] [place] [address] Care Team Providers Name Role Phone Ho Parham MD Primary Care Provider Encounter Details Date Type Department Care Team Description 06/10/2015 Follow-Up Urology at [facility] John Rodriguez MD Malignant neoplasm of [facility] [place] [address] UROLOGY [phone] [place] [id number] (Wo rk) Social History Tobacco Use Types Packs/Day Years Used Date Never Smoker Smokeless Tobacco: Never Used Alcohol Use Standard Drinks/Week Comments No 0 (1 standard drink = 0.6 oz pure alcoho l) Sex Assigned at Date Recorded Not on file documented as of this encounter Last Filed Vital Signs Vital Sign Reading Time Taken Comments Blood Pressure 154/78 06/10/2015 1:38 PM EDT Pulse 82 06/10/2015 1:38 PM EDT Temperature - - Respiratory Rate - - Oxygen Saturation 97% 06/10/2015 1:38 PM EDT Inhaled Oxygen Concentration - - Weight 79.4 kg (175 lb) 06/10/2015 1:38 PM EDT Height 167.6 cm (5' 6) 06/10/2015 1:38 PM EDT Body Mass Index 28.25 06/10/2015 1:38 PM EDT documented in this encounter Progress Notes Mary Jane Hook APRN - 06/10/2015 1:17 PM EDT Patient Name: Date of Service: 06/10/2015 Primary Care Provider: HO PARHAM MD (General) Reason for Visit: Dalton Pereira is a 69 y.o. male who returns for follow up. 06/03/2012: Robot assisted radical prostatectomy fo [id number] [place] 3+3=6 (with tertiary pattern 4) 18 nodes negative. Margins negative. Preop PSA 8.27 Preop patient in retention requiring CIC. Preop UDS s/w hypotonic bladder. 06/23/2012: Left inguinal hernia repair 03/2014 Completed 6840 CGy XRT for rising PSA to 0.3 Recovered well He last saw Dr. Wolfe in 03/2015 when his PSA was still <0.03. He returns for follow up Currently: He is voiding well. Stream good. No leaking. No pads No erections. His erections were minimal preop and he was not sexually active. This is stable and heis content. No bowel problems No new back or bone pain, no weight loss, or appetite change. There has been no change in PMhx/Pshx since last visit. Examination: Appears well No adenoapthy in neck or groin Abdomen Benign. Labs: PSA 04/2014 0.08 05/2013 0.09 02/2013 0.1 08/2012 PSA 0.13 11/2012 PSA 0.12 09/2013 0.14 11/2013 PSA 0.18 03/2015: < 0.03 06/2015: 0.04 X-rays: None PVR 11/2012: 52cc Impression: #1: pT2 [place] 3+3=6 prostate cancer sp Radical prostatectomy & XRT JOSÉ LUIS #2: Inguinal hernia repair #3: Substantial improvement in urinary function Plan: 3 month with a PSA with PCP epf in 6 months with us with PSA. We discussed his PSA today and that it is slightly up from < 0.03. He understands this and that we are monitoring Care was discussed with Dr. Rodriguez. Mary Jane Arce APRN documented in this encounter Plan of Treatment Upcoming Encounters Date Type Specialty Care Team Description 07/30/2022 Office Visit Radiation Oncology Alecia Lion, SALES AGENT [facility] RADIATION [place], [place] [address] (Wo rk) documented as of this encounter Procedures Procedure Name Priority Date/Time Associated Diagnosis Comme nts PSA STAT 06/10/2015 12:45 PM Malignant neoplasm Re sults for this (ULTRASENSITIVE) EDT of prostate procedure a re in the results section. documented in this encounter Results PSA (12/16/2015 11:28 AM EST) P athologist Signature PSA Total <0.03 0.00 - CERNER (Ultrasensitiv 4.00 ng/mL MILLENNIUM e) Specimen Anatomical Collection Method Collection Time Receive d Time (Source) Location / / Volume Laterality Blood specimen 12/16/2015 11:28 6 (specimen) AM EST 11:32 AM EST Resulting Agency Comment Spec In Lab John Rodriguez MD CHEMISTRY ORDERABLES Performing Organization Address City/State/ZIP [place] [address] [facility] PSA (06/10/2015 12:45 PM EDT) P athologist Signature PSA Total 0.04 0.00 - CERNER (Ultrasensitiv 4.00 ng/mL MILLENNIUM e) Specimen Anatomical Collection Method Collection Time Receive d Time (Source) Location / / Volume Laterality Blood specimen 06/10/2015 12:45 5 (specimen) PM EDT 12:58 PM EDT Resulting Agency Comment Spec In Lab John Rodriguez MD CHEMISTRY ORDERABLES Performing Organization Address City/State/ZIP [place] [address] [facility] documented in this encounter Visit Diagnoses Diagnosis Malignant neoplasm of prostate documented in this encounter Care Teams Bottom Buffer Relationship Specialty Start Date End Date Ho Parham MD PCP - General 10/14/[address] [place] [phone] documented as of this encounter
--- OUTSIDE RECORDS SUMMARY | 2022-07-24 15:18 | XMS_ITS | Encounter Summary ---
:1945 Author Organization [facility] [place] [address] Care Team Providers Name Role Phone Santos Guallpa MD Primary Care Provider Reason for Visit Reason Onset Date Comments Procedure 05/26/2018 Encounter Details Date Type Department Care Team Description 05/26/2018 Procedure visit Ophthalmology at [facility] Ronda Lamb, Lesion of eyelid [facility] [place] [phone] [facility] [phone] OPHTHALMOLOGY DEPT [place], [place] [address] Social History Tobacco Use Types Packs/Day Years Used Date Never Smoker Smokeless Tobacco: Never Used Alcohol Use Standard Drinks/Week Comments No 0 (1 standard drink = 0.6 oz pure alcoho l) Sex Assigned at Date Recorded Not on file documented as of this encounter Patient Instructions Patient InstructionsRonda Cuellar MD - 05/26/2018 11:45 AM EDT - Use erythromycin ointment 3x/day to the left eyelid incisions for 3 days. This may blur your vision slightly. - There are no activity restrictions. - Please call ROSA M for worsening eyelid redness, pain, discharge. - I will call you with the pathology results. - F/u in 2 weeks documented in this encounter Progress Notes Ronda uCellar MD - 05/26/2018 10:56 AM EDT Please see procedure note for details. Ronda Cuellar MD documented in this encounter Plan of Treatment Upcoming Encounters Date Type Specialty Care Team Description 07/30/2022 Office Visit Radiation Oncology Alecia Lion, STEEL ERECTING PUSHER [facility] ER RADIATION ON[place], [place] [address] (Wo rk) documented as of this encounter Procedures Procedure Name Priority Date/Time Associated Diagnosis Comme nts SURGICAL PATHOLOGY Routine 05/26/2018 11:05 AM Re sults for this REPORT EDT procedure are i n the results section. EXCISION OF LID Routine 05/26/2018 10:57 AM Lesion of eyelid R esults for this LESION - OS - LEFT EDT procedure are in EYE the results section. SPECIMEN TO Routine 05/26/2018 10:56 AM Results for this PATHOLOGY EDT procedure are i n the results section. SPECIMEN TO Routine 05/26/2018 10:56 AM Lesion of eyelid Resu lts for this PATHOLOGY EDT procedure are i n the results section. documented in this encounter Results Surgical Pathology Report (05/26/2018 11:05 AM EDT) Component Value Ref Test Analysis Performed At [facility] Range Method Time Signature Surgical [id number] ? Location: [address] [place] [address] Report The signing pathologist has (i) examined the relevant preparation(s) for the [facility]ORIAL specimen(s) and (ii) rendered or confirmed the diagnosis(es) . HOSPITAL LABORATORY . ?Surgic al Pathology DIAGNOSIS A. Skin, left lower lid, biopsy: - Squamous papilloma B. Skin, left upper lid, biopsy: - Verruca vulgaris Electronically signed by: ??Dalton Pastor MD Verified: ??05/31/2018 ?Dermatopathologist Performed at: ??-[facility] [place], [place], [place] CLINICAL INFORMATION Specimen Submitted: A - Skin, left lower lid, biopsy (1) B - Skin, left upper lid, biopsy (1) Clinical History and Diagnosis: A - Left lower lid lesion, slowly growing over 10 years B - Left upper lid lesion growing x months SPECIMEN PROCESSING A - Labeled/Fixative: Lower, formalin. Quantity/Size: Single, 0.6 x 0.5 x 0.1 cm. Tissue Description: Shave of a brown skin papule. Sections/Processing: Inked and bisected. (T1) B - Labeled/Fixative: Upper, formalin. Quantity/Size: Single, 0.3 x 0.3 x 0.1 cm. Tissue Description: Gaxiola-trevizo skin papule. Sections/Processing: Submitted in toto. (T1) pee Specimen (Source) Anatomical Collection Method Collection Time Re ceived Time Location / / Volume Laterality 05/26/2018 11:05 AM EDT Ronda Cuellar MD PATHOLOGY/CYTOLOGY ORDERABLE S Performing Organization Address City/State/Z[place] [address] Lid Lesion Excision - OS - Left Eye (05/26/2018 10:57 AM EDT) Anatomical Region Laterality Modality Other Specimen (Source) Anatomical Location Collection Method / Collectio n Time Received Time / Laterality Volume Narrative 05/26/2018 10:57 AM EDT Pre-Op Patient understands the risks and benefi ts of the treatment as outlined on the consent. Anesthesia Anesthetic medications included Lidocain e 2%. Post-op The patient tolerated the procedure well . There were no complications. The patient received written and verbal post procedure care education. Notes Pre op diagnosis: Lid lesion x2, left up per and lower eyelid Postop diagnosis: same Procedure: Excisional biopsy of lid lesi on x2, left upper and lower eyelid Anesthesia: local Surgeon: Ronda Cuellar MD Specimen: lid lesion Indications for procedure: Dalton ohara with left upper and lower eyelid lesions that were growing. ??Surg keila was recommended for diagnostic purposes and not for cosmetic reasons. Description of procedure: Indications, r isks, benefits, and alternatives of the procedure were reviewed with Valente hernandez and informed consent was signed. ??A time out was performed. ??Th en 2% lidocaine + epi was injected underneath each lesion. Good analgesia w as achieved. Each lesion was grasped one at a time with toothed force ps and excised with Henrietta scissors, and then passed off as separat e specimens. Hemostasis was achieved with gentle pressure and high t emp cautery. The patient tolerated the procedure well and was discharged in stable condition. Post op instructions: - Erythromycin ointment 3x/day to the le ft eyelid incisions for 3 days. ?? - No activity restrictions. ?? - F/u in 2 weeks, sooner if worsening ey elid redness, pain, discharge - Dalton expressed understanding. Ronda Cuellar MD OPHTHALMOLOGY SERVICES ORDER SUSAN Specimen to Pathology (05/26/2018 10:56 AM EDT) Specimen Anatomical Collection Method Collection Time Receive d Time (Source) Location / / Volume Laterality AP Specimen 05/26/2018 10:56 05/26/2018 AM EDT 10:56 AM EDT Narrative [facility] - 05/26/2018 10:56 AM EDT Specimen requisition ordered. ??Separate Pathology report to follow Ronda Cuellar MD PATHOLOGY/CYTOLOGY ORDERABLE S Performing Organization Address [facility]/[place] [address] Specimen to Pathology (05/26/2018 10:56 AM EDT) Specimen Anatomical Collection Method Collection Time Receive d Time (Source) Location / / Volume Laterality AP Specimen 05/26/2018 10:56 05/26/2018 AM EDT 10:56 AM EDT Narrative [facility] - 05/26/2018 10:56 AM EDT Specimen requisition ordered. ??Separate Pathology report to follow Ronda Cuellar MD PATHOLOGY/CYTOLOGY ORDERABLE S Performing Organization Address [facility] [place] [address] documented in this encounter Visit Diagnoses Diagnosis Lesion of eyelid Unspecified disorder of eyelid documented in this encounter Care Teams Couturiere Relationship Specialty Start Date End Date Santos Guallpa MD PCP - General 10/14/11 [address] [place] [phone] documented as of this encounter
--- OUTSIDE RECORDS SUMMARY | 2022-07-24 15:18 | XMS_ITS | Encounter Summary ---
:1945 Author Organization [facility] [place] [address] Care Team Providers Name Role Phone Santos Guallpa MD Primary Care Provider Encounter Details Date Type Department Care Team Description 03/28/2019 Orders Only Radiation Oncology at [place], Joshua Lozada alignant neoplasm of [facility] [place] [place] [facility] [place] [phone] RADIATION ONCOLOGY [phone] [place], [place] [address] Social History Tobacco Use Types [...] Office Visit Radiation Oncology Alecia Lion APRN [facility] RADIATION [place] [address] (Wo rk) documented as of this encounter Visit Diagnoses Diagnosis Malignant neoplasm of prostate documented in this encounter Care Teams Test Carrier Relationship Specialty Start Date End Date Santos Guallpa MD PCP - General 10/14/[address] [place] [phone] documented as of this encounter
--- OUTSIDE RECORDS SUMMARY | 2022-07-24 15:18 | XMS_ITS | Encounter Summary ---
:1945 [place] [address] Care Team Providers Name Role Phone Santos Guallpa MD Primary Care Provider Encounter Details Date Type Department Care Team Description 01/22/2020 Laboratory Appointment Lab 3L Ghassan Mckeon [place] [id number] Social History Tobacco Use Types Packs/Day Years Used Date Never Smoker Smokeless Tobacco: Never Used Alcohol Use Standard Drinks/Week Comments No 0 (1 standard drink = 0.6 oz pure alcoho l) Sex Assigned at Date Recorded Not on file documented as of this encounter Plan of Treatment Upcoming Encounters Date Type Specialty Care Team Description 07/30/2022 Office Visit Radiation Oncology Alecia Lion APRN [facility] RADIATION [place], [place] [address] (Wo rk) documented as of this encounter Procedures Procedure Name Priority Date/Time Associated Diagnosis Comme nts PROSTATE Routine 01/22/2020 1:25 PM Malignant neoplasm Res ults for this SPECIFIC ANTIGEN EDT of prostate procedure a re in the results section. documented in this encounter Results PSA (Ultrasensitive) (01/22/2020 1:25 PM EDT) athologist Signature PSA Total 0.02 0.00 - GHASSAN MCKEON (Ultrasensitiv 4.00 ng/mL [facility] LABORATORY Specimen Anatomical Collection Method Collection Time Receive d Time (Source) Location / / Volume Laterality Blood specimen 01/22/2020 1:25 PM 020 1:33 (specimen) EDT PM EDT Resulting Agency Comment Spec In Lab Radha Parisi MOLD PULLER CHEMISTRY ORDERABLES Performing Organization Address City/State/[place] [address] documented in this encounter Visit Diagnoses Diagnosis Malignant neoplasm of prostate documented in this encounter Care Teams Tape Transferrer Relationship Specialty Start Date End Date Santos Guallpa MD PCP - General 10/14/[address] [place] [phone] documented as of this encounter
--- OUTSIDE RECORDS SUMMARY | 2022-07-24 15:18 | XMS_ITS | Encounter Summary ---
:1945 Author Organization [facility] Address [facility] [place] [address] Care Team Providers Name Role Phone Santos Guallpa MD Primary Care Provider Reason for Visit Reason Comments Follow-up Encounter Details Date Type Department Care Team Description 01/26/2022 Office Visit Urology at [facility] John Rodriguez MD Malignant neoplasm of prostate; [facility] Low er urinary tract symptoms; Drive DR Urinary retention [place], [place] UROLOGY [phone] [place] [address] [phone] Social History Tobacco Use Types Packs/Day Years Used Date Never Smoker Smokeless Tobacco: Never Used Alcohol Use Standard Drinks/Week Comments No 0 (1 standard drink = 0.6 oz pure alcoho l) Sex Assigned at Date Recorded Not on file documented as of this encounter Last Filed Vital Signs Vital Sign Reading Time Taken Comments Blood Pressure 156/77 01/26/2022 1:03 PM EDT Pulse 67 01/26/2022 1:03 PM EDT Temperature - - Respiratory Rate - - Oxygen Saturation - - Inhaled Oxygen Concentration - - Weight - - Height - - Body Mass Index - - documented in this encounter Progress Notes Mary Jane Hook APRN - 01/26/2022 1:00 PM EDT Patient Name: Date of Service: 01/26/2022 Primary Care Provider: Santos Guallpa MD Reason for Visit: Dalton Pereira is a 76 y.o. male who returns for follow up. 06/03/2012: Robot assisted radical prostatectomy fo [id number] [place] 3+3=6 (with tertiary pattern 4) 18 nodes [...] or UTIs. Biggest problem: waking at night. No erections. His erections were minimal preop and he was not sexually active. This is stable and heis content. No bowel problems 01/26/2022: IPSS 20.5/35 (0/4.5/3.5/3.5/4/2/3) with a bother of 3 He does not want a catheter though No new back or bone pain, no weight loss that is unexpected. , or appetite change. His PCP has been following his PCP. There has been no change in PMhx/Pshx since last visit. Examination: Appears well Abd: soft, nontender, no masses or CVA tenderness Musculoskeletal and neurologic: grossly normal Labs: PSA 04/2014 0.08 05/2013 0.09 02/2013 0.1 08/2012 PSA 0.13 11/2012 PSA 0.12 09/2013 0.14 11/2013 PSA 0.18 03/2015: < 0.03 06/2015: 0.04 10/2015: <0.03 12/2014 <0.03 06/2016: <0.03 06/2017: 0.02 06/218 0.03 12/2019 0.02 01/2021: 0.04 01/2022: 0.03 PVR 11/2012: 52cc 01/2022: with scanner: 279-300 cc Impression: #1: pT2 [place] 3+3=6 prostate cancer sp Radical prostatectomy & XRT JOSÉ LUIS. PSA undetectable #2: Inguinal hernia repair #3: poor emptying Plan: We discussed the risk of urethral stricture and poor emptying vs bladder function issues and poor emptying. Dr. Rodriguez discussed alpha vlad with patient vs possible cysto and dilation. He has opted to try flomax 0.4 mg po nightly-teaching done Cytology, UA and culture today IPSS today and in 4-6 weeks. PVR in 4-6 weeks as well. cre with PCP tomorrow. epf in 4-6 weeks with possible cystoscopy. He would like to come back here or f/u in 1 year with a PSA All questions answered to his apparent satisfaction. This is a joint note in which the patient was seen by both Mary Jane Arce APRN and RICCO Matos. Parts of which were written by Dr. John Rodriguez and others by Mary Jane Arce APRN. Mary Jane Arce APRN: history and physical examination/documentation Reviewed labs and imaging with RICCO Gates : Reviewed he history and physical examination and confirmed the pertinent findings Reviewed the labs and imaging Contributed to the Impression and Plan Mary Jane Arce APRN and RICCO Matos APRN documented in this encounter Plan of Treatment Upcoming Encounters Date Type Specialty Care Team Description 07/30/2022 Office Visit Radiation Oncology Alceia Lion APRN [facility] RADIATION ONCAHSAN [facility] [place] [address] (Wo rk) Scheduled Orders Name Type Priority Associated Diagnoses Order S chedule PSA (Ultrasensitive) Lab STAT Malignant neoplasm o f Expected: 01/26/2023 prostate (Approximate), Expires: 01/26/2023 documented as of this encounter Procedures Procedure Name Priority Date/Time Associated Comments Diagnosis NON-POT FIRER FINAL REPORT Routine 01/26/2022 1:59 PM R esults for this EDT procedure are i n the results section. CYTOPATHOLOGY Routine 01/26/2022 1:59 PM Malignant neoplasm Re sults for this NON-GYNECOLOGICAL EDT of prostate procedure are in Urinary retention the result s section. HC URINALYSIS ROUTINE Routine 01/26/2022 1:58 PM Malignant navjot plasm Results for this EDT of prostate procedure are in Lower urinary tract the resu lts symptoms section. Urinary retention HC URINE CULTURE Routine 01/26/2022 1:58 PM Malignant neoplasm Results for this EDT of prostate procedure are in Lower urinary tract the resu lts symptoms section. Urinary retention documented in this encounter Results Non-Business Services Tech Final Report (01/26/2022 1:59 PM EDT) Component Value Ref Test Analysis Performed At [facility] Range Method Time Signature Non-Business Services Tech Final [id number] ? Location: [address] [place] [address] The signing pathologist has (i) examined the relevant preparation(s) for the [facility] specimen(s) and (ii) rendered or confirmed the diagnosis(es) . HOSPITAL LABORATORY . ? No n-Business Services Tech Final DIAGNOSIS Negative for High Grade Urothelial Carcinoma See discussion. Electronically signed by: ?Raleigh Caicedo MD Verified: ??01/28/2022 16:14 ??Pathologist Performed at: ??-[facility] Dept. of Pathology, [place], [place] DISCUSSION Urine, voided: Predominantly mixed inflammatory cells. Reference: Verna DL, ?? Kristina JANSEN, Eda ??DFI. The [employer] System for Reporting Urinary Cytology. Woods: Larson; 2016. CLINICAL INFORMATION Specimen Source : Urine, voided Pertinent Clinical Data and Significant Therapy: Hematuria Clinical Impression : Urinary retention Pertinent Radiologic Findings ??: (not provided) Gross Description: Received ??fresh, approximately 20 mL to fernando volume of ?? cloudy, yellow fluid. Total Preparation: Liquid-Based Prep 1. Specimen (Source) Anatomical Collection Method Collection Time Re ceived Time Location / / Volume Laterality 01/26/2022 1:59 PM EDT Mary Jane Arce APRN PATHOLOGY/CYTOLOGY ORDERABLE S Performing Organization Address City/[facility]/[place] [address] Cytopathology Non-Gynecological (01/26/2022 1:59 PM EDT) Specimen Anatomical Collection Method Collection Time Receive d Time (Source) Location / / Volume Laterality AP Specimen 01/26/2022 1:59 PM 2 1:59 EDT PM EDT Narrative [facility] - 01/26/2022 1:59 PM EDT Specimen requisition ordered. ??Separate Pathology report to follow Mary Jane Arce APRN PATHOLOGY/CYTOLOGY ORDERABLE S Performing Organization Address City/[facility]/[place] [address] (ABNORMAL) Urine culture Clean Catch Urine (01/26/2022 1:58 PM EDT) [facility] Method Time Signature Urine Culture 10,000-49,000 cfu/ml Gerald FERRELL 1,000-9,000 cfu/ml mixed mucosal valerie [facility] LABORATORY Organism Enterococcus GHASSAN faecalis (A) [facility] Specimen Anatomical Collection Method Collection Time Receive d Time (Source) Location / / Volume Laterality Clean Catch 01/26/2022 1:58 PM 2 4:31 Urine EDT PM EDT Resulting Agency Comment Spec In Lab Organism Antibiotic Method Susceptibility Enterococcus faecalis Ampicillin MICROSCAN METHOD Sensitive Enterococcus faecalis Ciprofloxacin MICROSCAN METHOD Sensitive Enterococcus faecalis Levofloxacin MICROSCAN METHOD Sensitive Enterococcus faecalis Nitrofurantoin MICROSCAN METHOD Sensitive Enterococcus faecalis Penicillin MICROSCAN METHOD Sensitive Enterococcus faecalis Vancomycin MICROSCAN METHOD Sensitive Mary Jane Arce APRN MICROBIOLOGY - GENERAL ORDER SUSAN Performing Organization Address City/[facility]/ZIP [facility] [place] [address] (ABNORMAL) _Urinalysis with microscopic (01/26/2022 1:58 PM EDT) [facility] Method Time Signature Glucose UA Negative Negative [facility] mg/dL [facility] Protein UA Negative Negative [facility] mg/dL [facility] Bilirubin UA Negative Negative [facility] mg/dL [facility] Comment: Clinical correlation required for positi ve Urine Bilirubin results as false positive may occur with some drugs and d rug related products. If a false positive is suspected a serum total bili abad should be considered if clinically indicated. Urobilinogen UA Normal Normal mg/dL [facility] LAB[facility] pH UA 6.0 5.0 - 8.0 [facility] LABOR[facility] Blood UA Negative Negative mg/dL [facility] Ketones UA Negative Negative mg/dL [facility] Nitrite UA Negative Negative [facility] Leukocytes UA Large (A) Negative [facility] LABORATORY Appearance UA Clear Clear [facility] Spec Dilley UA 1.009 1.005 - 1.030 [facility] LAB[facility] Color UA Yellow Yellow [facility] RBC UA 1 0 - 3 /HPF [facility] WBC UA 51 (H) 0 - 3 /HPF [facility] Bacteria UA Occasional (A) None /HPF [facility] LABOR[facility]ORY Squam Epith UA 2 <=4 /HPF [facility] Specimen Anatomical Collection Method Collection Time Receive d Time (Source) Location / / Volume Laterality Urine 01/26/2022 1:58 PM 2 3:36 EDT PM EDT Resulting Agency Comment Spec In Lab Mary Jane Arce APRN URINE ORDERABLES Performing Organization Address City/State/[place] [address] documented in this encounter Visit Diagnoses Diagnosis Malignant neoplasm of prostate Lower urinary tract symptoms Other symptoms involving urinary system Urinary retention Retention of urine, unspecified documented in this encounter Care Teams Research Assistant Relationship Specialty Start Date End Date Santos Guallpa MD PCP - General 10/14/11 [address] [place] [phone] documented as of this encounter
--- OUTSIDE RECORDS SUMMARY | 2022-07-24 15:18 | XMS_ITS | Encounter Summary ---
:1945 Author Organization [facility] [place] [address] Care Team Providers Name Role Phone Santos Guallpa MD Primary Care Provider Reason for Visit Reason Comments Radiation Follow-up prostate cancer Encounter Details Date Type Department Care Team Description 08/06/2016 Office Visit Radiation Oncology at [place], Andrew Banegas neoplasm of [facility] ART CONSERVATOR prostate [address] [place], [place] RADIATION ONCOL OGY [address] [place], [place] [phone] (Wo rk) Social History Tobacco Use Types Packs/Day Years Used Date Never Smoker Smokeless Tobacco: Never Used Alcohol Use Standard Drinks/Week Comments No 0 (1 standard drink = 0.6 oz pure alcoho l) Sex Assigned at Date Recorded Not on file documented as of this encounter Last Filed Vital Signs Vital Sign Reading Time Taken Comments Blood Pressure 176/71 08/06/2016 2:44 PM EDT Pulse 56 08/06/2016 2:44 PM EDT Temperature 36.5 ??C (97.7 ??F) 08/06/2016 2:44 PM EDT Respiratory Rate 18 08/06/2016 2:44 PM EDT Oxygen Saturation 96% 08/06/2016 2:44 PM EDT Inhaled Oxygen Concentration - - Weight 78.8 kg (173 lb 12.8 oz) 08/06/2016 2:44 PM EDT Height - - Body Mass Index 28.05 06/17/2016 4:10 PM EDT documented in this encounter Progress Notes Alyson Reaves, ART CONSERVATOR - 08/06/2016 2:30 PM EDT Patient ID: Dalton Pereira is a 70 y.o. male with history of prostate cancer s/p Radical Prostatectomy 05/2012, pT2c, Belleville 3+3=6, Margin negative, Node negative (Pre-operative [id number] Belleville 3+4=7, PSA 7.7 on dutasteride) with detectable PSA post-operatively that hanh to 0.30. He was treated with salvage radiation therapy to a dose of 68.4 Gy which was completed on 03/21/2014 under RTOG trial 0534. He is in clinic for scheduled follow up. HPI Mr. Dalton Pereira has history of prostate cancer ([id number] Belleville 3+4=7, PSA 7.7 on dutasteride with neurogenic bladder and need for CIC who is s/p prostatectomy that presents due to rising PSA. He had surgery performed on 06/03/12 which [...] - Specimen type: Proctectomy Histologic type: Adenocarcinoma Belleville grades: 3 + 3, teritary pattern 4 is 3% Maynor score: 6 Location of tumor: Bilateral lobes % prostate involved by tumor: 5% Extracapsular extension (ELYSSA):Absent Seminal vesicle invasion: Absent Margins: Margins uninvolved by invasive carcinoma Perineural invasion: Present Lymphovascular invasion: Absent Additional findings: Stromal and glandular hyperplasia His urinary function is much improved. He has no incontinence, he does has some frequency. He is impotent. Overall he feels well. He has had a detectable PSA post surgery that has been stable in the range of0.1-0.13. An outside PSA was performed in August that was 0.4. Last PSA here in May was 0.09. Salvage Therapy On study RTOG 0534 TREATMENT PLAN: Salvage radiation therapy Course: C1 PROSTATE BED 185 Plan Start Tx Last Tx Elapsed Days Fractions Dose (cGy) PROS BED VMAT 01/29/2014 03/21/2014 51 38 /38 @ 180.0 cGy 6840 / 6840 Energy Mode: 10X Treatment Type: Rapid Arc Reference Point: PROS BED RX Total C1 PROSTATE BED dose: 6840.0 cGy Prostate cancer survivor care plan reviewed with patient 12/16/2015--copy mailed to PCP Prostate Cancer Notes 10/18/2015 Date of Presentation 11/19/2011 Age at Presentation 66 years old PSA at Presentation 7.7 on dutasteride Presence of Symptoms at Presentation Positive--urinary retention requiring CIC Ethnicity White Result of ANDREAS normal Date of TRUS and Biopsy 02/15/2012 Volume in cc 57 cc Belleville grade/score a+b=c 3+4=7 Total Cores 13 biopsy cores Positive cores 2 positive biopsy cores Bone Scan at Presentation -negative for bone met Prostate confined yes ELYSSA--extracapsular extension - negative for extension outside the prostate capsule SV--seminal vesicles - negative for extension to the seminal vesicle Regular Lymph Nodes -negative Distant Mets -negative CT Abdomen/Pelvis at Presentation Done on 01/04/2012 Prostate Confined positive Zacarias Involvement Negative node involvement on CT scan Metastasis No Metastases Primary Therapy Prostatectomy done by Dr Teresa Rodriguez at [facility] Prostatectomy Date 06/03/2012 Pelvic Lymphnode Dissection 0 positive of 18 lymph nodes removed Histologic Type/pathology detail Adenocarcinoma --negative extracapsular extension -negative seminal vesicle -Belleville 3+3-=6 with tertiary Maynor 4 --bilateral lobes -margins negative -negative PNI (perineural invasion) --negative LVI (lymphovascular invasion) Percent of Gland Involvement 5 % Post Primary Therapy - Cristi Date 06/21/2012 Post Primary Therapy - Cristi PSA 0.04 rising to 0.30 prior to salvage radiation Bone scan 01/04/2014--negative Salvage Therapy Radiation therapy under RTOG protocol 0534 Radiation Therapy Treatment prostate bed Total Dose (Gy) 68.4 Gy Number of fractions 38 treatments Post salvage cristi/date < 0.03 on -03/18/2015 Late effects of treatment Patient Active Problem List Diagnosis Code ??? Urinary retention R33.9 ??? Elevated PSA R97.2 ??? Follow-up exam Z09 ??? Malignant neoplasm of prostate C61 Past Surgical History Procedure Laterality Date ??? Pro lap, prostatectomy, radical, w/nerve spare 06/03/2012 @LAPAROSCOPIC PROSTATECTOMY, ROBOTICS ASSISTED performed by TERESA RODRIGUEZ at [facility] OR ??? Pro remove pelvis lymph nodes 06/03/2012 @LYMPHADENECTOMY, PELVIC, INCLUDING MULTIPLE NODES-JAZMINE performed by TERESA RODRIGUEZ at [facility] MA[facility] OR ??? Pro repair ing hernia, 5+y/o, charlie 06/23/2012 HERNIA REPAIR, INITIAL INGUINAL AGE 5 OR OVER, REDUCIBLE INCARCERATED performed by JARVIS IRWIN at [facility] MA[facility] OR ??? Appendectomy ??? Pro colonoscopy, diagnostic 12/12/2013 COLONOSCOPY, DIAGNOSTIC performed by Kenna Knapp MD at [facility] ENDOSCOPY Allergies Allergen Reactions ??? Gentamicin Hives No current outpatient prescriptions on file prior to visit. No current facility-administered medications on file prior to visit. Social History Social History ??? Marital status: Spouse name: N/A ??? Number of children: N/A ??? 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 [employer] Social History Main Topics ??? Smoking status: Never Smoker ??? Smokeless tobacco: Never Used ??? Alcohol use No ??? Drug use: No ??? Sexual activity: Yes Partners: Female Comment: none since surgery Other Topics Concern ??? 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 Advance Directive: See advance care planning note--wants his to be his DPOA Interim History: Mr Pereira reports that he is doing well at this time. 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 He remains very active and busyand tolerates the activity well. He reports no urinary issues at this time with an IPSS of 3. He has no urinary retention, no dysuria, no hematuria and he denies incontinence. He indicates that he is delighted with his current urinaryfunction International Prostate Symptom Score Total Score__3__ 0 1 2 3 4 5 Not at all Less than one time in five Less than half of the time About half of the time More than half of the time Almost always Incomplete emptying X frequency X intermittency X urgency X Weak streamX X Flow resistance X Not at all Every eight hours Every four hours Every three hours Every 2 hours Every hour nocturia X His bowels have been moving regularly with no hematochezia, no melena, no constipation and no diarrhea. He is not sexually active which preceded his cancer treatment by many years. This is not an issue for him. He otherwise is well. He reports no pain. Review of Systems Constitutional: Negative. Negative for activity change, appetite change, fatigue and unexpected weight change. HENT: Negative. Respiratory: Negative. Negative for cough, chest tightness and shortness of breath. Cardiovascular: Negative. Negative for chest pain and leg swelling. Gastrointestinal: Negative. Negative for abdominal distention, abdominal pain, anal bleeding, blood in stool, constipation and diarrhea. Genitourinary: Negative. Negative for decreased urine volume, difficulty urinating, dysuria, enuresis, frequency, hematuria and urgency. See interim history Musculoskeletal: Negative. Negative for arthralgias and back pain. Skin: Negative. Neurological: Negative. Hematological: Negative. Psychiatric/Behavioral: Negative. Performance Status Assessment: ?? KPS ?? Score?? ECOG Grade?? Definition?X 90-100?? 0?? Fully active, able to carry on all pre-disease performance without restriction?? KPS: 100 Objective: Physical Exam Constitutional: He is oriented to person, place, and time. He appears well- developed and well-nourished. No distress. HENT: Head: Normocephalic and atraumatic. Eyes: Conjunctivae and EOM are normal. Right eye exhibits no discharge. Left eye exhibits no discharge. No scleral icterus. Neck: Neck supple. Cardiovascular: Normal rate, regular rhythm and normal heart sounds. Exam reveals no gallop and no friction rub. No murmur heard. Pulmonary/Chest: Effort normal and breath sounds normal. No respiratory distress. He has no wheezes.He has no rales. He exhibits no tenderness. Abdominal: Soft. Normal appearance and bowel sounds are normal. He exhibits no distension. There is no hepatomegaly. There is no tenderness. There is no rebound and no CVA tenderness. Genitourinary: Genitourinary Comments: Post prostatectomy Musculoskeletal: Normal range of motion. He exhibits no edema, tenderness or deformity. Lymphadenopathy: Head (right side): No submental, no submandibular, no tonsillar, no preauricular, no posterior auricular and no occipital adenopathy present. Head (left side): No submental, no submandibular, no tonsillar, no preauricular, no posterior auricular and no occipital adenopathy present. He has no cervical adenopathy. He has no axillary adenopathy. Right: No inguinal and no supraclavicular adenopathy present. Left: No inguinal and no supraclavicular adenopathy present. Neurological: He is alert and oriented to person, place, and time. He exhibits normal muscle tone. Coordination normal. Skin: Skin is warm and dry. No rash noted. He is not diaphoretic. No erythema. No pallor. Sun damaged skin Psychiatric: He has a normal mood and affect. His behavior is normal. Judgment and thought content normal. Vitals reviewed. date PSA Testosterone 06/17/2016 < 0.03 04/01/2016 < 0.1 (undetectable 256 12/16/2015 < 0.03 10/16/2015 < 0.03 06/10/2015 0.04 03/18/2015 <0.03 3.29 12/17/2014 0.04 09/20/2014 0.04 2.72 06/21/2014 0.04 3.60 05/02/2014 0.08 3.68 01/01/2014 0.30 4.00 11/20/2013 0.18 09/29/2013 0.14 05/17/2013 0.09 11/28/2012 0.12 08/29/2012 0.13 01/13/2012 7.71* 12/21/2011 8.27* Assessment and Plan: Dalton Pereira is a very pleasant 70 y.o. year-old male with history of prostate cancer s/p Radical Prostatectomy 05/2012, pT2c, Maynor 3+3=6, Margin negative, Node negative (Pre-operative [id number] Maynor 3+4=7, PSA 7.7 on dutasteride) with detectable PSA post-operatively which hanh to 0.30, prior to salvage radiation therapy.. He was treated with salvage radiation 68.4 Gy which was completed 03/21/14. His PSA remains undetectable which is reassuring. We reviewed his labs and clinical status. He is to return to clinic per RTOG protocol for repeat PSA and ongoing monitoring. He is to call with any questions or concerns. documented in this encounter Plan of Treatment Upcoming Encounters Date Type Specialty Care Team Description 07/30/2022 Office Visit Radiation Oncology Alecia Lion APRN [facility] RADIATION ONCOLO [place], [place] [address] (Wo rk) documented as of this encounter Results PSA (07/06/2017 9:20 AM EDT) athologist Signature PSA Total 0.02 0.00 - [facility] (Ultrasensitiv 4.00 ng/mL [facility] LABORATORY Specimen Anatomical Collection Method Collection Time Receive d Time (Source) Location / / Volume Laterality Blood specimen 07/06/2017 9:20 AM 017 9:23 (specimen) EDT AM EDT Resulting Agency Comment Spec In Lab Isaiah Jung MD CHEMISTRY ORDERABLES Performing Organization Address City/State/[place] [address] documented in this encounter Visit Diagnoses Diagnosis Malignant neoplasm of prostate documented in this encounter Care Teams Software Test Manager Relationship Specialty Start Date End Date Santos Guallpa MD PCP - General 10/14/[address] [place] [phone] documented as of this encounter
--- OUTSIDE RECORDS SUMMARY | 2022-07-24 15:18 | XMS_ITS | Encounter Summary ---
:1945 Author Organization [facility] [place] [address] Care Team Providers Name Role Phone Santos Guallpa MD Primary Care Provider Reason for Visit Reason Comments Lid Lesion Encounter Details Date Type Department Care Team Description 05/26/2018 Office Visit Ophthalmology at [facility] C Ronda Cuellar, Lesion of left eyelid [facility] [place] [address] [place] [address] OPHTHALMOLOGY [place], [place] [address] Social History Tobacco Use Types Packs/Day Years Used Date Never Smoker Smokeless Tobacco: Never Used Alcohol Use Standard Drinks/Week Comments No 0 (1 standard drink = 0.6 oz pure alcoho l) Sex Assigned at Date Recorded Not on file documented as of this encounter Progress Notes Ronda Cuellar MD - 05/26/2018 10:45 AM EDT Images from the original note were not included. Encounter Diagnosis Name Primary? Lesion of left eyelid Dalton Pereira, a 72 y.o. male with the following problem(s): 1. Lid lesion, left lower lid and left upper lid: growing, recommend excisional biopsy. - Discussed risks, benefits, and alternatives including bleeding, infection, recurrence, and need for additional surgery. - Findings and concerns discussed with Dalton and he expressed understanding. FOLLOW UP - same day MSO Photo(s) taken by Ronda Cuellar MD with patient's verbal permission for use for clinical and education purposes documented in this encounter Plan of Treatment Upcoming Encounters Date Type Specialty Care Team Description 07/30/2022 Office Visit Radiation Oncology Ayad Alecia M, LINEN TECH [facility] RADIATION [place], [place] [address] (Wo rk) documented as of this encounter Procedures Procedure Name Priority Date/Time Associated Comments Diagnosis EXTERNAL PHOTOGRAPHY Routine 05/26/2018 10:54 Lesion of left R esults for this - OS - LEFT EYE AM EDT eyelid procedure ar e in the results section. documented in this encounter Results EXTERNAL PHOTOGRAPHY - OS - LEFT EYE (05/26/2018 10:54 AM EDT) Anatomical Region Laterality Modality Other Specimen (Source) Anatomical Location Collection Method / Collectio n Time Received Time / Laterality Volume Narrative 05/26/2018 10:54 AM EDT This result has an attachment that is no t available. BIBI and LLL lesions Ronda Cuellar MD OPHTHALMOLOGY SERVICES ORDER SUSAN documented in this encounter Visit Diagnoses Diagnosis Lesion of left eyelid documented in this encounter Care Teams Hospital Superintendent Relationship Specialty Start Date End Date Santos Guallpa MD PCP - General 10/14/[address] [place] [phone] documented as of this encounter
--- OUTSIDE RECORDS SUMMARY | 2022-07-24 15:18 | XMS_ITS | Encounter Summary ---
:1945 Author Organization [facility] [place] [address] Care Team Providers Name Role Phone Santos Guallpa MD Primary Care Provider Reason for Visit Reason Comments Follow-up Encounter Details Date Type Department Care Team Description 07/04/2018 Office Visit [place] [facility] [place] Rodriguez MD Malignant neoplasm of [facility] [address] [place], [place] UROLOGY [address] [place] [address] [phone] Social History Tobacco Use Types Packs/Day Years Used Date Never Smoker Smokeless Tobacco: Never Used Alcohol Use Standard Drinks/Week Comments No 0 (1 standard drink = 0.6 oz pure alcoho l) Sex Assigned at Date Recorded Not on file documented as of this encounter Last Filed Vital Signs Vital Sign Reading Time Taken Comments Blood Pressure 195/87 07/04/2018 9:54 AM EDT Pulse 68 07/04/2018 9:54 AM EDT Temperature 36.6 ??C (97.8 ??F) 07/04/2018 9:54 AM EDT Respiratory Rate - - Oxygen Saturation 96% 07/04/2018 9:54 AM EDT Inhaled Oxygen Concentration - - Weight - - Height - - Body Mass Index - - documented in this encounter Progress Notes John Rodriguez MD - 07/04/2018 10:00 AM EDT Patient Name: Date of Service: 07/04/2018 Primary Care Provider: Santos Guallpa MD Reason for Visit: Dalton Pereira is a 72 y.o. male who returns for follow up. 06/03/2012: Robot assisted radical prostatectomy fo [id number] Maynor 3+3=6 (with tertiary pattern 4) 18 [...] voiding well. Stream good. No leaking. No pads. nocturria No erections. His erections were minimal preop and he was not sexually active. This is stable and heis content. No bowel problems No new back or bone pain, no weight loss, or appetite change. There has been no change in PMhx/Pshx since last visit. Examination: Appears well Not examined today Labs: PSA 04/2014 0.08 05/2013 0.09 02/2013 0.1 08/2012 PSA 0.13 11/2012 PSA 0.12 09/2013 0.14 11/2013 PSA 0.18 03/2015: < 0.03 06/2015: 0.04 10/2015: <0.03 12/2014 <0.03 06/2016: <0.03 06/2017: 0.02 06/218 0.03 X-rays: None PVR 11/2012: 52cc Impression: #1: pT2 Maynor 3+3=6 prostate cancer sp Radical prostatectomy & XRT JOSÉ LUIS. PSA undetectable #2: Inguinal hernia repair #3: Substantial improvement in urinary function Plan: PSA with Alyson Juarez in 6 months 1 year with ia documented in this encounter Plan of Treatment Upcoming Encounters Date Type Specialty Care Team Description 07/30/2022 Office Visit Radiation Oncology Ayad, Alecia M, BAKERY ASSOCIATE [facility] RADIATION [place]COL[place], [place] [address] (Wo rk) documented as of this encounter Visit Diagnoses Diagnosis Malignant neoplasm of prostate documented in this encounter Care Teams Order Desk Caller Relationship Specialty Start Date End Date Santos Guallpa MD PCP - General 10/14/[address] [place] [phone] documented as of this encounter
--- OUTSIDE RECORDS SUMMARY | 2022-07-24 15:18 | XMS_ITS | Encounter Summary ---
:1945 Author Organization [facility] [place] [address] Care Team Providers Name Role Phone Santos Guallpa MD Primary Care Provider Encounter Details Date Type Department Care Team Description 10/16/2015 Hospital Encounter Hematology and Maligna nt neoplasm of Oncology at [facility] [place] [place] [address] Social History Tobacco Use Types Packs/Day [...] Office Visit Radiation Oncology Alecia Lion APRN [facility] RADIATION [place], [place] [address] (Wo rk) documented as of this encounter Procedures Procedure Name Priority Date/Time Associated Diagnosis Comme nts PSA Routine 10/16/2015 7:53 AM Malignant neoplasm Res ults for this (ULTRASENSITIVE) EST of prostate procedure a re in the [...] Organization Address City/State/[place] [address] [facility] documented in this encounter Visit Diagnoses Diagnosis Malignant neoplasm of prostate documented in this encounter Care Teams Director Social Relationship Specialty Start Date End Date Santos Guallpa MD PCP - General 10/14/[address] [place] [phone] documented as of this encounter
--- OUTSIDE RECORDS SUMMARY | 2022-07-24 15:18 | XMS_ITS | Encounter Summary ---
:1945 Author Organization [facility] Address [facility] [place] [address] Care Team Providers Name Role Phone Santos Guallpa MD Primary Care Provider Reason for Visit Reason Comments Follow-up Encounter Details Date Type Department Care Team Description 01/22/2020 Office [place] [facility] [place] Rodriguez MD Malignant neoplasm of [facility] pro state (Primary Dx) Drive [address] [place], [place] UROLOGY [address] [place] [id number] [phone] Social History Tobacco Use Types Packs/Day Years Used Date Never Smoker Smokeless Tobacco: Never Used Alcohol Use Standard Drinks/Week Comments No 0 (1 standard drink = 0.6 oz pure alcoho l) Sex Assigned at Date Recorded Not on file documented as of this encounter Last Filed Vital Signs Vital Sign Reading Time Taken Comments Blood Pressure 186/102 01/22/2020 3:30 PM EDT Pulse 74 01/22/2020 3:30 PM EDT Temperature 36.7 ??C (98 ??F) 01/22/2020 3:30 PM EDT Respiratory Rate - - Oxygen Saturation - - Inhaled Oxygen Concentration - - Weight - - Height - - Body Mass Index - - documented in this encounter Progress Notes John Rodriguez MD - 01/22/2020 3:20 PM EDT Patient Name: Date of Service: 01/22/2020 Primary Care Provider: Santos Guallpa MD Reason for Visit: Dalton Pereira is a 74 y.o. male who returns for follow up. 06/03/2012: Robot assisted radical prostatectomy fo [id number] Maynor 3+3=6 (with tertiary pattern 4) 18 [...] <0.03 06/2017: 0.02 06/218 0.03 12/2019 0.02 X-rays: None PVR 11/2012: 52cc Impression: #1: pT2 Maynor 3+3=6 prostate cancer sp Radical prostatectomy & XRT JOSÉ LUIS. PSA undetectable #2: Inguinal hernia repair #3: Substantial improvement in urinary function Plan: He would like to come back here or f/u in 1 year with a PSA documented in this encounter Plan of Treatment Upcoming Encounters Date Type Specialty Care Team Description 07/30/2022 Office Visit Radiation Oncology Ayad, Alecia M, FOOD MOBILE DRIVER [facility] RADI[facility] ONCOLO [facility] [place] [address] (Wo rk) documented as of this encounter Visit Diagnoses Diagnosis Malignant neoplasm of prostate - Primary documented in this encounter Care Teams Mathematics Education Professor Relationship Specialty Start Date End Date Santos Guallpa MD PCP - General 10/14/[address] [place] [phone] documented as of this encounter
--- OUTSIDE RECORDS SUMMARY | 2022-07-24 15:18 | XMS_ITS | Encounter Summary ---
:1945 Author Organization [facility] [place] [address] Care Team Providers Name Role Phone Santos Guallpa MD Primary Care Provider Encounter Details Date Type Department Care Team Description 02/03/2016 Orders Only Hematology and Alexis Rhoades Malignan t [place]oplasm [place] [facility] [place] [facility] [place] [address] RADIATION ONCOLOGY [phone] [place], [place] [address] Social History Tobacco Use Types [...] Office Visit Radiation Oncology Alecia Lion APRN [facility] RADIATION [place] [address] (Wo rk) documented as of this encounter Visit Diagnoses Diagnosis Malignant neoplasm of prostate documented in this encounter Care Teams Director Medical Economics Relationship Specialty Start Date End Date Santos Guallpa MD PCP - General 10/14/[address] [place] [phone] documented as of this encounter
--- OUTSIDE RECORDS SUMMARY | 2022-07-24 15:18 | XMS_ITS | Encounter Summary ---
:1945 Author Organization [facility] [address] Care Team Providers Name Role Phone Santos Guallpa MD Primary Care Provider Encounter Details Date Type Department Care Team Description 05/26/2019 Telephone Hematology and Oncology at Jing Antonio, [place] [phone] Social History Tobacco Use Types Packs/Day Years Used Date Never Smoker Smokeless Tobacco: Never Used Alcohol Use Standard Drinks/Week Comments No 0 (1 standard drink = 0.6 oz pure alcoho l) Sex Assigned at Date Recorded Not on file documented as of this encounter Miscellaneous Notes Telephone Encounter - Dianna Antonio RN - 05/26/2019 11:16 AM EDT RESEARCH NURSE TELEPHONE NOTE R0534: A Phase III Trial Of Short Term Androgen Deprivation With Pelvic Lymph Node Or Prostate Bed Only Radiotherapy (SPPORT) In Prostate Cancer Patients With A Rising Psa After Radical Prostatectomy Date: 26 May 2019 Time: 1115 Reason for call: Missed Study Lab Draw Call placed to phone number of record in an attempt to reach Mr. Pereira, who was here today for anannual ophthalmology appointment, and a study lab kit draw per protocol. Mr. Maravilla was noted to have failed to arrive at any Lab for the scheduled draw. Reached voicemail, left message explaining the missed draw appointment and asked for return call to reschedule at their convenience. documented in this encounter Plan of Treatment Upcoming Encounters Date Type Specialty Care Team Description 07/30/2022 Office Visit Radiation Oncology Alecia Lion, SLIDING JOINT MAKER [facility] ER RADIATION [place], [place] [address] (Wo rk) documented as of this encounter Visit Diagnoses Diagnosis Malignant neoplasm of prostate documented in this encounter Care Teams Crewman Armoured Personnel Carrier M113 Relationship Specialty Start Date End Date Santos Guallpa MD PCP - General 10/14/[address] [place] [address] [phone] documented as of this encounter
--- OUTSIDE RECORDS SUMMARY | 2022-07-24 15:18 | XMS_ITS | Encounter Summary ---
:1945 Author Organization [facility] [place] [address] Care Team Providers Name Role Phone Santos Guallpa MD Primary Care Provider Encounter Details Date Type Department Care Team Description 03/18/2015 Office Visit [place] [phone] Social History Tobacco Use Types Packs/Day [...] Office Visit Radiation Oncology Alecia Lion APRN [facility] ER RADIATION [place], [place] [address] (Wo rk) documented as of this encounter Visit Diagnoses Not on filedocumented in this encounter Care Teams Customer Program Manager Relationship Specialty Start Date End Date Santos Guallpa MD PCP - General 10/14/[address] [place] [phone] documented as of this encounter
--- OUTSIDE RECORDS SUMMARY | 2022-07-24 15:18 | XMS_ITS | Encounter Summary ---
:1945 [place] [address] Care Team Providers Name Role Phone Santos Guallpa MD Primary Care Provider Reason for Visit Reason Comments Radiation Follow-up Prostate Cancer Encounter Details Date Type Department Care Team Description 12/16/2015 Office Visit Radiation Oncology at Alyson Reaves Mal ignant neoplasm of [address] [place] [address] [phone] (Wo rk) Social History Tobacco Use Types Packs/Day Years Used Date Never Smoker Smokeless Tobacco: Never Used Alcohol Use Standard Drinks/Week Comments No 0 (1 standard drink = 0.6 oz pure alcoho l) Sex Assigned at Date Recorded Not on file documented as of this encounter Progress Notes Alyson Reaves APRN - 12/16/2015 11:44 AM EST Patient ID: Dalton Pereira is a 70 y.o. male with history of prostate cancer s/p Radical Prostatectomy 05/2012, pT2c, [place] 3+3=6, Margin negative, Node negative (Pre-operative [id number] [place] 3+4=7, PSA 7.7 on dutasteride) with detectable PSA post-operatively that hanh to 0.30. He was treated with salvage radiation therapy to a dose of 68.4 Gy which was completed on 03/21/2014 under RTOG trial 0534. He is in clinic for scheduled follow up. HPI Mr. Dalton Pereira has history of prostate cancer ([id number] Maynor 3+4=7, PSA 7.7 on dutasteride with [...] - Specimen type: Proctectomy Histologic type: Adenocarcinoma Leetsdale grades: 3 + 3, teritary pattern 4 [...] Prostatectomy done by Dr Teresa Rodriguez at [facility] Prostatectomy Date 06/03/2012 Pelvic Lymphnode Dissection 0 positive of 18 lymph nodes removed Histologic Type/pathology detail Adenocarcinoma --negative extracapsular extension -negative seminal vesicle -Maynor 3+3-=6 with tertiary Leetsdale 4 --bilateral lobes -margins negative -negative PNI [...] ROBOTICS ASSISTED performed by TERESA RODRIGUEZ at [facility] MAIN OR ??? Pro remove pelvis lymph nodes 06/03/2012 @LYMPHADENECTOMY, PELVIC, INCLUDING MULTIPLE NODES-JAZMINE performed by TERESA RODRIGUEZ at [facility] MAIN OR ??? Pro repair ing hernia, 5+y/o, charlie 06/23/2012 HERNIA REPAIR, INITIAL INGUINAL AGE 5 OR OVER, REDUCIBLE INCARCERATED performed by JARVIS IRWIN at [facility] MAIN OR ??? Appendectomy ??? Pro colonoscopy, diagnostic 12/12/2013 COLONOSCOPY, DIAGNOSTIC performed by Kenna Knapp MD at [facility] ENDOSCOPY Allergies Allergen Reactions ??? Gentamicin Hives No current outpatient prescriptions on file prior to visit. No current facility-administered medications on file prior to visit. History Social History ??? Marital Status: Spouse Name: N/A Number of Children: N/A ??? 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 [employer] Social History Main Topics ??? Smoking status: Never Smoker ??? Smokeless tobacco: Never Used ??? Alcohol Use: No ??? Drug Use: No ??? 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 He remains very active and busy and tolerates the activity well. He reports no urinary issues at this time with an IPSS of 3. He has no urinary retention, no dysuria, no hematuria and he denies incontinence. International Prostate Symptom Score Total Score__3__ 0 [...] Every 2 hours Every hour nocturia X X His bowels have been moving regularly [...] leg swelling. Gastrointestinal: Negative. Negative for abdominal pain, diarrhea, constipation, blood in stool, abdominal distention and anal bleeding. Genitourinary: Negative. Negative for dysuria, urgency, frequency, hematuria, decreased urine volume, enuresis and difficulty urinating. See interim history Musculoskeletal: Negative. Negative for back pain and arthralgias. Skin: Negative. Neurological: Negative. Hematological: Negative. Psychiatric/Behavioral: Negative. Vitals Office Visit from 12/16/2015 in Urology Weight - Scale 79.379 kg (175 lb) Height 167.6 cm (5' 6) BSA (Calculated - sq m) 1.92 sq meters BMI (Calculated) 28.3 Heart Rate 64 BP 164/74 mmHg KPS: 100 Objective: Physical Exam Constitutional: He [...] rales. He exhibits no tenderness. Abdominal: Soft. Bowel sounds are normal. He exhibits no distension. There is no tenderness. There is no rebound. Genitourinary: Post prostatectomy Musculoskeletal: Normal range of motion. He exhibits no edema or tenderness. Lymphadenopathy: Head (right side): No submental, no [...] is not diaphoretic. No erythema. No pallor. Psychiatric: He has a normal mood and affect. His behavior is normal. Judgment and thought content normal. Vitals reviewed. Recent Results (from the past 24 hour(s)) PSA Result Value Ref Range PSA Total <0.03 0.00 - 4.00 ng/mL date PSA Testosterone 12/16/2015 < 0.03 10/16/2015 < 0.03 06/10/2015 0.04 03/18/2015 <0.03 3.29 12/17/2014 0.04 09/20/2014 0.04 2.72 06/21/2014 0.04 3.60 05/02/2014 0.08 3.68 01/01/2014 0.30 4.00 11/20/2013 0.18 09/29/2013 0.14 05/17/2013 0.09 11/28/2012 0.12 08/29/2012 0.13 01/13/2012 7.71* 12/21/2011 8.27* Assessment and Plan: Dalton Pereira is a very pleasant 69 y.o. year-old male with history of prostate cancer s/p Radical Prostatectomy 05/2012, pT2c, [place] 3+3=6, Margin negative, Node negative (Pre-operative [id number] [place] 3+4=7, PSA 7.7 on dutasteride) with detectable PSA post-operatively which hanh to 0.30, prior to salvage radiation therapy.. He was treated with nichols radiation 68.4 Gy which was completed 03/21/14. His PSA is undetectable today which is reassuring. We reviewed his labs and clinical status. Follow-up for a total of 35 minutes, with 30 minutes of that time spent discussing his current clinical condition, reviewing his prostate Cancer Survivor Care Plan which includes review of his prostatecancer history, treatment history, health behaviors to promote wellness, ongoing surveillance, late effects of treatments and symptoms to report as well as planning further management. He is to return to clinic per RTOG protocol for repeat PSA and ongoing monitoring. We will arrange to see him in [facility] given proximity to his home. documented in this encounter Plan of Treatment Upcoming Encounters Date Type Specialty Care Team Description 07/30/2022 Office Visit Radiation Oncology Alecia Lion APRN [facility] ER [address] [place], [place] [address] (Wo rk) documented as of this encounter Procedures Procedure Name Priority Date/Time Associated Diagnosis Comme nts LAB SCAN 04/01/2016 12:00 AM EDT documented in this encounter Results SCAN DOC: LAB (04/01/2016 12:00 AM EDT) Narrative This result has an attachment that is no t available. Scanning Provider MEDIA MGR SCAN EXT ORDR/RSLT documented in this encounter Visit Diagnoses Diagnosis Malignant neoplasm of prostate documented in this encounter Care Teams Scraper Tender Relationship Specialty Start Date End Date Santos Guallpa MD PCP - General 10/14/[address] [place] [phone] documented as of this encounter
--- OUTSIDE RECORDS SUMMARY | 2022-07-24 15:18 | XMS_ITS | Encounter Summary ---
:1945 Author Organization [facility] [place] [address] Care Team Providers Name Role Phone Santos Guallpa MD Primary Care Provider Encounter Details Date Type Department Care Team Description 08/09/2020 Office Visit Radiation Oncology at Elza Gutierrez Ma lignant neoplasm of [facility] [address] [address] RADIATION ONCOLOGY [phone] [place], [place] [address] Social History Tobacco Use Types Packs/Day Years Used Date Never Smoker Smokeless Tobacco: Never Used Alcohol Use Standard Drinks/Week Comments No 0 (1 standard drink = 0.6 oz pure alcoho l) Sex Assigned at Date Recorded Not on file documented as of this encounter Last Filed Vital Signs Vital Sign Reading Time Taken Comments Blood Pressure 186/92 08/09/2020 10:36 AM EDT Pulse 63 08/09/2020 10:36 AM EDT Temperature 36.4 ??C (97.5 ??F) 08/09/2020 10:36 AM EDT Respiratory Rate 20 08/09/2020 10:36 AM EDT Oxygen Saturation 98% 08/09/2020 10:36 AM EDT Inhaled Oxygen Concentration - - Weight 81.2 kg (179 lb) 08/09/2020 10:36 AM EDT Height - - Body Mass Index 28.89 01/26/2019 1:02 PM EDT documented in this encounter Patient Instructions Patient InstructionsElza Gutierrez APRN - 08/09/2020 10:30 AM EDT He will be seen in [address] Rodriguez and then 1 yr in [facility] per protocol documented in this encounter Progress Notes Elza Gutierrez APRN - 08/09/2020 10:30 AM EDT Images from the original note were not included. Patient ID: Dalton Pereira is a 74 y.o. male with history of prostate cancer s/p Radical Prostatectomy 05/2012, pT2c, Casco 3+3=6, Margin negative, Node negative (Pre-operative [id number] Casco 3+4=7, PSA 7.7 on dutasteride) with detectable PSA post-operatively that hanh to 0.30. He was treated with salvage radiation therapy to a dose of 68.4 Gy which was completed on 03/21/2014 under RTOG trial 0534. He is in clinic for scheduled follow up. HPI Mr. Dalton Pereira has history of prostate cancer ([id number] Maynor 3+4=7, PSA 7.7 on dutasteride with [...] + 3, teritary pattern 4 is 3% Casco score: 6 Location of tumor: Bilateral lobes % prostate involved by tumor: 5% Extracapsular extension (ELYSSA):Absent Seminal vesicle invasion: Absent Margins: Margins uninvolved by invasive carcinoma Perineural invasion: Present Lymphovascular invasion: Absent Additional findings: Stromal and glandular hyperplasia Interim history His urinary function is much improved. He has no incontinence, he does has some frequency. He is impotent.this is unchanged from his previous visit. He does have nocturia and is up about 3 times at night but this is not bothersome to him. Overall he feels well. He has some vision issues which he is being seen for. He is not on any new medications and has no new medical problems. 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 Salvage Therapy On study RTOG 0534 TREATMENT [...] Prostatectomy done by Dr Teresa Rodriguez at [facility] Prostatectomy Date 06/03/2012 Pelvic Lymphnode Dissection 0 positive of 18 lymph nodes removed Histologic Type/pathology detail Adenocarcinoma --negative extracapsular extension -negative seminal vesicle -Casco 3+3-=6 with tertiary Maynor 4 --bilateral lobes [...] Chronic kidney disease, stage III (moderate) N18.30 Past Surgical History: Procedure Laterality Date ??? APPENDECTOMY ??? CORNEA LESION EXCISION Right FB removed 1992 ??? PRO COLONOSCOPY, DIAGNOSTIC 12/12/2013 COLONOSCOPY, DIAGNOSTIC performed by Kenna Knapp MD at [facility] ENDOSCOPY ??? PRO LAP, PROSTATECTOMY, RADICAL, W/NERVE SPARE 06/03/2012 @LAPAROSCOPIC PROSTATECTOMY, ROBOTICS ASSISTED performed by TERESA RODRIGUEZ at [facility] MAIN OR ??? PRO REMOVE PELVIS LYMPH NODES 06/03/2012 @LYMPHADENECTOMY, PELVIC, INCLUDING MULTIPLE NODES-JAZMINE performed by TERESA RODRIGUEZ at [facility] MAIN OR ??? PRO REPAIR ING HERNIA, 5+Y/O, THERESA 06/23/2012 HERNIA REPAIR, INITIAL INGUINAL AGE 5 OR OVER, REDUCIBLE INCARCERATED performed by JARVIS IRWIN at [facility] MAIN OR Allergies Allergen Reactions ??? Gentamicin Hives Current Outpatient Medications on File Prior to Visit Medication Sig Dispense Refill ??? [DISCONTINUED] levothyroxine (SYNTHROID) 75 mcg Tablet ??? levothyroxine (Synthroid) 100 mcg Tablet Take 100 mcg by mouth daily. ??? moxifloxacin (Vigamox) 0.5 % Drops Place 1 drop into the left eye 4 times daily. (Patient not taking: Reported on 08/09/2020) 3 mL 0 No current facility-administered medications on file prior to visit. Social History Socioeconomic History ??? Marital status: Spouse name: Not on file ??? Number of children: Not on file ??? Years of education: Not on file ??? Highest education level: Not on file Occupational History ??? 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 Occupation: [employer] Social Needs ??? Financial resource strain: Not on file ??? Food insecurity Worry: Not on file Inability: Not on file ??? Transportation needs Medical: Not on file Non-medical: Not on file Tobacco Use ??? Smoking status: Never Smoker ??? Smokeless tobacco: Never Used Substance and Sexual Activity ??? Alcohol use: No ??? Drug use: No ??? Sexual activity: Yes Partners: Female Comment: none since surgery Lifestyle ??? Physical activity Days per week: Not on file Minutes per session: Not on file ??? Stress: Not on file Relationships ??? Social connections Talks on phone: Not on file Gets together: Not on file Attends bahai service: Not on file Active member of club or organization: Not on file Attends meetings of clubs or organizations: Not on file Relationship status: Not on file ??? Intimate partner violence Fear of current or ex partner: Not on file Emotionally abused: Not on file Physically abused: Not on file Forced sexual activity: Not on file Other Topics Concern ??? 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 Advance Directive: See advance care planning note--wants his to be his DPO Review of Systems Constitutional: Negative. Negative for [...] all pre-disease performance without restriction?? KPS: 100 Temp: [36.4 ??C (97.5 ??F)] Heart Rate: [63] Resp: [20] BP: (186)/(92) SpO2: [98 %] Heart Rate from SpO2: -- Objective: Physical Exam Constitutional: He is oriented [...] There is no hepatomegaly. There is no abdominal tenderness. There is no rebound and no CVA tenderness. Genitourinary: Genitourinary Comments: Post prostatectomy ANDREAS declined. Musculoskeletal: Normal range of motion. General: No tenderness, deformity or edema. Lymphadenopathy: Head (right side): No submental, no submandibular, no tonsillar, no preauricular, no posterior auricular and no occipital adenopathy present. Head (left side): No submental, no submandibular, no tonsillar, no preauricular, no posterior auricular and no occipital adenopathy present. He has no cervical adenopathy. He has no axillary adenopathy. Right: No supraclavicular adenopathy present. Left: No supraclavicular adenopathy present. Neurological: He is alert and oriented to person, place, and time. He exhibits normal muscle tone. Coordination normal. Skin: Skin is warm and dry. No rash noted. He is not diaphoretic. No erythema. No pallor. Sun damaged skin Psychiatric: He has a normal mood and affect. His behavior is normal. Judgment and thought content normal. Vitals reviewed. date PSA Testosterone 08/07/2020 0.02 01/12/2020 0.02 08/21/19 0.03 01/21/2019 < 0.1 12/17/2017 < 0.1 -undetectable 01/26/2017 < 0.1 --UNDETECTABLE) 06/17/2016 < 0.03 04/01/2016 < 0.1 (undetectable 256 12/16/2015 < 0.03 10/16/2015 < 0.03 06/10/2015 0.04 03/18/2015 <0.03 3.29 12/17/2014 0.04 09/20/2014 0.04 2.72 06/21/2014 0.04 3.60 05/02/2014 0.08 3.68 01/01/2014 0.30 4.00 11/20/2013 0.18 09/29/2013 0.14 05/17/2013 0.09 11/28/2012 0.12 08/29/2012 0.13 01/13/2012 7.71* 12/21/2011 8.27* Assessment and Plan: Dalton Pereira is a very pleasant 74 y.o. male with history of prostate cancer s/p Radical Prostatectomy 05/2012, pT2c, Maynor 3+3=6, Margin negative, Node negative (Pre-operative [id number] Maynor 3+4=7, PSA 7.7 on dutasteride) with detectable PSA post-operatively which hanh to 0.30, prior to salvage radiation therapy.. He was treated with salvage radiation 68.4 Gy which was completed 03/21/14. I reviewed his lab results with him. He is pleased that he continues to do well. In regards to his elevated blood pressure, he needs to see his PCP - which he will do in the near future. He is to return to clinic per RTOG protocol for repeat PSA and ongoing monitoring. He will see Dr Rodriguez in six months and be seen in rad onc in a year He is to call with any questions or concerns. documented in this encounter Plan of Treatment Upcoming Encounters Date Type Specialty Care Team Description 07/30/2022 Office Visit Radiation Oncology Alecia Lion APRN [facility] RADIATION [place], [place] [address] (Wo rk) documented as of this encounter Visit Diagnoses Diagnosis Malignant neoplasm of prostate documented in this encounter Care Teams Document Control Clerk Relationship Specialty Start Date End Date Santos Guallpa MD PCP - General 10/14/[address] [place] [address] [phone] documented as of this encounter
--- OUTSIDE RECORDS SUMMARY | 2022-07-24 15:18 | XMS_ITS | Encounter Summary ---
:1945 Author Organization [facility] [address] Care Team Providers Name Role Phone Santos Guallpa MD Primary Care Provider Reason for Visit Reason Comments Follow-up Encounter Details Date Type Department Care Team Description 07/06/2017 [place] [facility] [place] MD Malignant ne[place] [facility] [address] [place] [address] [phone] Social History Tobacco Use Types Packs/Day Years Used Date Never Smoker Smokeless Tobacco: Never Used Alcohol Use Standard Drinks/Week Comments No 0 (1 standard drink = 0.6 oz pure alcoho l) Sex Assigned at Date Recorded Not on file documented as of this encounter Last Filed Vital Signs Vital Sign Reading Time Taken Comments Blood Pressure 158/87 07/06/2017 10:21 AM EDT Pulse 71 07/06/2017 10:21 AM EDT Temperature - - Respiratory Rate - - Oxygen Saturation - - Inhaled Oxygen Concentration - - Weight - - Height - - Body Mass Index - - documented in this encounter Progress Notes John Rodriguez MD - 07/06/2017 10:40 AM EDT Patient Name: Date of Service: 07/06/2017 Primary Care Provider: Santos Guallpa MD Reason for Visit: Dalton Pereira is a 71 y.o. male who returns for follow up. 06/03/2012: Robot assisted radical prostatectomy fo [id number] Maynor 3+3=6 (with tertiary pattern 4) 18 [...] <0.03 12/2014 <0.03 06/2016: <0.03 06/2017: 0.02 X-rays: None PVR 11/2012: 52cc Impression: #1: pT2 Purvis 3+3=6 prostate cancer sp Radical prostatectomy & XRT JOSÉ LUIS. PSA undetectable #2: Inguinal hernia repair #3: Substantial improvement in urinary function Plan: PSA with Alyson Juarez in 6 months 1 year with nm documented in this encounter Plan of Treatment Upcoming Encounters Date Type Specialty Care Team Description 07/30/2022 Office Visit Radiation Oncology Alecia Lion APRN [facility] RADIATION [place], [place] [address] (Wo rk) Scheduled Orders Name Type Priority Associated Diagnoses Order S chedule PSA Lab STAT Malignant neoplasm of prosta te Expected: 07/06/2018 (Approximate), Expires: 2017 documented as of this encounter Results PSA (07/04/2018 8:16 AM EDT) P athologist Signature PSA Total 0.03 0.00 - [facility] (Ultrasensitiv 4.00 ng/mL [facility] LABORATORY Specimen Anatomical Collection Method Collection Time Receive d Time (Source) Location / / Volume Laterality Blood specimen 07/04/2018 8:16 AM 018 8:30 (specimen) EDT AM EDT Resulting Agency Comment Spec In Lab John Rodriguez MD CHEMISTRY ORDERABLES Performing Organization Address City/State/ZIP Code Phon e Number [place] [phone] documented in this encounter Visit Diagnoses Diagnosis Malignant neoplasm of prostate documented in this encounter Care Teams Offset Printing Operator Relationship Specialty Start Date End Date Santos Guallpa MD PCP - General 10/14/[address] [place] [phone] documented as of this encounter
--- OUTSIDE RECORDS SUMMARY | 2022-07-24 15:18 | XMS_ITS | Encounter Summary ---
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 CLERK prostate [address] [place], [place] RADIATION ONCOL OGY [address] [place], [place] [phone] (Wo rk) Social History Tobacco Use Types Packs/Day Years Used Date Never Smoker Smokeless Tobacco: Never Used Alcohol Use Standard Drinks/Week Comments No 0 (1 standard drink = 0.6 oz pure alcoho l) Sex Assigned at Date Recorded Not on file documented as of this encounter Last Filed Vital Signs Vital Sign Reading Time Taken Comments Blood Pressure 158/80 02/04/2017 1:07 PM EDT Pulse 81 02/04/2017 1:07 PM EDT Temperature 36.5 ??C (97.7 ??F) 02/04/2017 1:07 PM EDT Respiratory Rate 18 02/04/2017 1:07 PM EDT Oxygen Saturation 97% 02/04/2017 1:07 PM EDT Inhaled Oxygen Concentration - - Weight 77 kg (169 lb 12.8 oz) 02/04/2017 1:07 PM EDT Height - - Body Mass Index 27.41 06/17/2016 4:10 PM EDT documented in this encounter Patient Instructions Patient InstructionsPaAlyson scott APRN - 02/04/2017 1:00 PM EDT date PSA Testosterone 01/26/2017 < 0.1 --UNDETECTABLE) 06/17/2016 < 0.03 04/01/2016 < 0.1 (undetectable 256 12/16/2015 < 0.03 10/16/2015 < 0.03 06/10/2015 0.04 03/18/2015 <0.03 3.29 12/17/2014 0.04 09/20/2014 0.04 2.72 06/21/2014 0.04 3.60 05/02/2014 0.08 3.68 01/01/2014 0.30 4.00 11/20/2013 0.18 09/29/2013 0.14 05/17/2013 0.09 11/28/2012 0.12 08/29/2012 0.13 01/13/2012 7.71* 12/21/2011 8.27* Vitals Office Visit from 02/04/2017 in [facility] Radiation Oncology Weight - Scale 77 kg (169 lb 12.8 oz) Temp 36.5 ??C (97.7 ??F) Temp Source Oral Heart Rate 81 Heart Rate Source NIBP Resp 18 BP 158/80 BP Location Right arm Patient Position Sitting SpO2 97 % documented in this encounter Progress Notes Alyson Reaves APRN - 02/04/2017 1:00 PM EDT Patient ID: Dalton Pereira is a 71 y.o. male with history of prostate cancer s/p Radical Prostatectomy 05/2012, pT2c, Warren 3+3=6, Margin negative, Node negative (Pre-operative [id number] Warren 3+4=7, PSA 7.7 on dutasteride) with detectable PSA post-operatively that hanh to 0.30. He was treated with salvage radiation therapy to a dose of 68.4 Gy which was completed on 03/21/2014 under RTOG trial 0534. He is in clinic for scheduled follow up. 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 APPENDECTOMY ??? PRO COLONOSCOPY, DIAGNOSTIC 12/12/2013 COLONOSCOPY, DIAGNOSTIC performed by Kenna Knapp MD at [facility] ENDOSCOPY ??? PRO LAP, PROSTATECTOMY, RADICAL, W/NERVE SPARE 06/03/2012 @LAPAROSCOPIC PROSTATECTOMY, ROBOTICS ASSISTED performed by TERESA RODRIGUEZ at [facility] MAIN OR ??? PRO REMOVE PELVIS LYMPH NODES 06/03/2012 @LYMPHADENECTOMY, PELVIC, INCLUDING MULTIPLE NODES-JAZMINE performed by TERESA RODRIGUEZ at [facility] MAIN OR ??? PRO REPAIR ING HERNIA, 5+Y/O, THERESA 06/23/2012 HERNIA REPAIR, INITIAL INGUINAL AGE 5 OR OVER, REDUCIBLE INCARCERATED performed by JARVIS IRWIN at [facility] MAIN OR Allergies Allergen Reactions ??? Gentamicin Hives No current outpatient prescriptions on file prior to visit. No current facility-administered medications on file prior to visit. Social History Social History ??? Marital status: Spouse name: N/A ??? Number of children: N/A ??? 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 The winter has been more quiet for him and he is eager to have the warmer weather return. He reports no urinary issues at this time with an IPSS of 4. He has no urinary retention, no dysuria, [...] all pre-disease performance without restriction?? KPS: 100 Vitals Office Visit from 02/04/2017 in [facility] Radiation Oncology Weight - Scale 77 kg (169 lb 12.8 oz) Temp 36.5 ??C (97.7 ??F) Temp Source Oral Heart Rate 81 Heart Rate Source NIBP Resp 18 BP 158/80 BP Location Right arm Patient Position Sitting SpO2 97 % Objective: Physical Exam Constitutional: He is oriented [...] content normal. Vitals reviewed. date PSA Testosterone 01/26/2017 < 0.1 --UNDETECTABLE) 06/17/2016 < 0.03 [...] Maynor 3+3=6, Margin negative, Node negative (Pre-operative [id number] Warren 3+4=7, PSA 7.7 on dutasteride) with detectable [...] Office Visit Radiation Oncology Alecia Lion APRN [facility] MEDICAL [facility] RADIATION [place], [place] [address] (Wo rk) documented as of this encounter Visit Diagnoses Diagnosis Malignant neoplasm of prostate documented in this encounter Care Teams Tooth Clerk Relationship Specialty Start Date End Date Santos Guallpa MD PCP - General 10/14/[address] [place] [phone] documented as of this encounter
--- OUTSIDE RECORDS SUMMARY | 2022-07-24 15:18 | XMS_ITS | Encounter Summary ---
:1945 Author Organization [facility] [place] [address] Care Team Providers Name Role Phone Santos Guallpa MD Primary Care Provider Encounter Details Date Type Department Care Team Description 12/16/2015 Hospital Encounter Hematology and Maligna nt neoplasm of Oncology [place] [facility] [place] [address] Social History Tobacco Use Types Packs/Day [...] Office Visit Radiation Oncology Alecia Lion APRN [facility] RADIATION [place], [place] [address] (Wo rk) documented as of this encounter Procedures Procedure Name Priority Date/Time Associated Diagnosis Comme nts PSA STAT 12/16/2015 11:28 AM Malignant neoplasm Re sults for this (ULTRASENSITIVE) EST of prostate procedure a re in the results section. documented in this encounter Results PSA (12/16/2015 11:28 AM EST) P athologist Signature PSA Total <0.03 0.00 - CERNER (Ultrasensitiv 4.00 ng/mL [facility]) Specimen Anatomical Collection Method Collection Time Receive d Time (Source) Location / / Volume Laterality Blood specimen 12/16/2015 11:28 6 (specimen) AM EST 11:32 AM EST Resulting Agency Comment Spec In Lab John Rodriguez MD CHEMISTRY ORDERABLES Performing Organization Address City/State/[place] [address] [facility] documented in this encounter Visit Diagnoses Diagnosis Malignant neoplasm of prostate documented in this encounter Care Teams Fruit Distributor Relationship Specialty Start Date End Date Santos Guallpa MD PCP - General 10/14/[address] [place] [phone] documented as of this encounter
--- OUTSIDE RECORDS SUMMARY | 2022-07-24 15:18 | XMS_ITS | Encounter Summary ---
:1945 Author Organization [facility] [place] [address] Care Team Providers Name Role Phone Santos Guallpa MD Primary Care Provider Encounter Details Date Type Department Care Team Description 10/16/2015 Hospital Encounter Hematology [place] [address] Social History Tobacco Use Types Packs/Day [...] Office Visit Radiation Oncology Alecia Lion APRN [facility] RADIATION [place], [place] [address] (Wo rk) documented as of this encounter Procedures Procedure Name Priority Date/Time Associated Comments Diagnosis HEMOGRAM Routine 10/16/2015 7:53 AM Results f or this EST procedure are i n the results section. DIFFERENTIAL, Routine 10/16/2015 7:53 AM Results for this AUTOMATED EST procedure are i n the results section. GOLD TUBE HOLD Routine 10/16/2015 7:53 AM Results for this EST procedure are i n the results section. PHOSPHORUS Routine 10/16/2015 7:53 AM Results f or this EST procedure are i n the results section. ALBUMIN LEVEL Routine 10/16/2015 7:53 AM Results for this EST procedure are i n the results section. LIPID PANEL (REFLEX Routine 10/16/2015 7:53 AM Re sults for this DIRECT LDL) EST procedure are i n the results section. BASIC METABOLIC Routine 10/16/2015 7:53 AM Result s for this PANEL (NON-FASTING) EST procedur e are in the results section. documented in this encounter Results (ABNORMAL) Phosphorus (10/16/2015 7:53 AM EST) athologist Signature Phosphorus 2.4 (L) 2.5 - 4.5 CERNER mg/dL MILLENNIUM Specimen Anatomical Collection Method Collection Time Receive d Time (Source) Location / / Volume Laterality Blood specimen Venous Draw / 10/16/2015 7:53 AM 2014 8:34 (specimen) Unknown EST AM EST Resulting Agency Comment Spec In Lab Santos Guallpa MD CHEMISTRY ORDERABLES Performing Organization Address City/[facility]/ZIP Code Phon e Number [address] CERNER MILLENNIUM Albumin Level (10/16/2015 7:53 AM EST) athologist Signature Albumin 4.3 3.2 - 5.2 CERNER gm/dL MILLENNIUM Specimen Anatomical Collection Method Collection Time Receive d Time (Source) Location / / Volume Laterality Blood specimen Venous Draw / 10/16/2015 7:53 AM 2014 8:34 (specimen) Unknown EST AM EST Resulting Agency Comment Spec In Lab Santos Guallpa MD CHEMISTRY ORDERABLES Performing Organization Address City/[facility]/ZIP [facility] Phon e Number [address] CERNER MILLENNIUM (ABNORMAL) Basic Metabolic Panel (non-fasting) (10/16/2015 7:53 AM EST) athologist Signature Glucose Lvl 113 65 - 199 CERNER mg/dL MILLENNIUM Comment: Diabetes: >=200 mg/dL plus symp toms BUN 19 10 - 20 mg/dL CERNER MILLENNIU M Creatinine 1.24 0.80 - 1.50 mg/dL CERNER MILL ENNIUM Comment: Please note that the pediatric reference intervals supplied above were not validated at [facility]. Results from pediatri c patients should be interpreted in conjunction to the patient's age, height and muscle mass. Sodium 139 135 - 145 mmol/L CERNER SOFIA NIUM Potassium 4.1 3.5 - 5.0 mmol/L CERNER SOFIA NIUM Comment: Please note: ??Patients with WBC >100,00 0 may have falsely elevated Potassium levels. ??For accurate Potassium quantif ication in these patients send serum separator tube (gold top) for subsequent determinations. ??Contact the Clinical Chemistry Laboratory if there are any qu estions. Chloride 101 98 - 107 mmol/L CERNER MILLENN IUM CO2 Not Perf 22 - 31 mmol/L CERNER MILLENNI UM Comment: Cap removed prior to being reci eved for testing unable to perform test. Anion Gap Unable to Calculate 5 - 15 mmol/L CERNER MILLENNIUM Calcium 9.2 8.5 - 10.5 mg/dL CERNER SOFIA NIUM Estimated GFR 58 (L) >=60 CERNER MILLENNIU M Comment: This estimated GFR (eGFR) value [...] the following links into your internet browser. http://[employer]/DHnkdep http://[employer]/DHnkf Specimen Anatomical Collection Method Collection Time Receive d Time (Source) Location / / Volume Laterality Blood specimen Venous Draw / 10/16/2015 7:53 AM 2014 8:34 (specimen) Unknown EST AM EST Resulting Agency Comment Spec In Lab Santos Guallpa MD CHEMISTRY ORDERABLES Performing Organization Address City/State/ZIP [place] [address] CERNER MILLENNIUM Gold Tube HOLD (10/16/2015 7:53 AM EST) P athologist Signature Gold Hold Sample in [facility] lab. [facility] Specimen Anatomical Collection Method Collection Time Receive d Time (Source) Location / / Volume Laterality Blood specimen Venous Draw / 10/16/2015 7:53 AM 2014 8:05 (specimen) Unknown EST AM EST Santos Guallpa MD CHEMISTRY ORDERABLES Performing Organization Address City/State/[place]IP [place] [address] [facility] (ABNORMAL) Lipid panel (fasting) (10/16/2015 7:53 AM EST) athologist Signature Chol, Total 208 (H) <=199 CERNER mg/dL [facility] Comment: Recommendations of the NCEP Adult Treatm ent Panel for the following risk cutoff thresholds for the [place] populatio n: Desirable: <200 mg/dL Borderline High: 200-239 mg/dL High: > or = 240 mg/dL Triglycerides 93 <=149 mg/dL [facility] Comment: Reference Range: Normal triglycerides: ??<150 mg/dL Borderline high: ??150-199 mg/dL High: ??200-499 mg/dL Very high: ??>oo=654 mg/dL JUSTINO 2001; 285(19):0206-9125 HDL 52 >=40 mg/dL [facility] Comment: Reference range: ??Low HDL: ?? < 40 mg/dL ??Normal: ?40-60 mg/dL ??Desirable: > 60 mg/dL JUSTINO 2001; 285(19):3933-9003 LDL Cholesterol 137 (H) <=99 mg/dL [facility] Comment: Reference range: ?? Optimal: ?<100 mg/dL ?? Near Optimal/Above Optimal: ?? 100-1 29 mg/dL ?? Borderline high: ?130-159 mg/dL ?? High: ? 160-189 mg/dL ?? Very high: ?>vo=232 mg/dL JUSTINO 2001: 285(19):9924-0563 Chol/HDL Ratio 4.0 ratio CERNER MILLENNI UM Comment: A Cholesterol to HDL ratio below 4:1 is desirable. ??Studies suggest that increased CAD risk occurs at ratios abov e 5 for females and above 6 for men. ? [place] Heart Association ??(htt p://www.americanheart.org) ? [place] Int Med, 1994; 121:641 ? AM J Med, 1998; 105(1A):48S Specimen Anatomical Collection Method Collection Time Receive d Time (Source) Location / / Volume Laterality Blood specimen Venous Draw / 10/16/2015 7:53 AM 2014 8:33 (specimen) Unknown EST AM EST Resulting Agency Comment Spec In Lab Santos Guallpa MD CHEMISTRY ORDERABLES Performing Organization Address City/State/[place] [address] CERNER MILLENNIUM (ABNORMAL) Differential, Automated (10/16/2015 7:53 AM EST) [facility] gist Method Time Signature Neutrophils % 74.6 % CERNER MILLENNIUM Neutr Abs (ANC) 4.79 1.50 - CERNER 6.30 MILLENNIUM x10(3)/mcL Lymphocytes % 14.0 % CERNER MILLENNIUM Lymphocytes Abs 0.9 (L) 1.0 - 3.6 CERNER x10(3)/mcL MILLENNIUM Monocytes % 9.3 % CERNER MILLENNIUM Monocyte Abs 0.6 0.2 - 1.0 CERNER x10(3)/mcL MILLENNIUM Eosinophils % 1.7 % CERNER MILLENNIUM Eosinophils Abs 0.1 0.0 - 0.5 CERNER x10(3)/mcL MILLENNIUM Basophils % 0.2 % CERNER MILLENNIUM Basophils Abs 0.0 0.0 - 0.2 CERNER x10(3)/mcL MILLENNIUM Immature Gran % 0.20 % CERNER MILLENNIUM Comment: Immature granulocytes(IG's)percentage an d absolute count will include metamyelocytes, myelocytes, and promyelo cytes. Blood smears from CBCs yielding IG's will be scanned manually for levi fung. If this scan disagrees with the automated IG or if promyelocytes are not ed, a manual differential will be performed. Mitzi Gran Abs 0.01 0.00 - 0.05 x10(3)/mcL CER NER MILLENNIUM Specimen Anatomical Collection Method Collection Time Receive d Time (Source) Location / / Volume Laterality Blood specimen Venous Draw / 10/16/2015 7:53 AM 2014 8:05 (specimen) Unknown EST AM EST Resulting Agency Comment Spec In Lab Santos Guallpa MD HEMATOLOGY ORDERABLES Performing Organization Address City/State/[place] [address] CERNER MILLENNIUM (ABNORMAL) Hemogram (10/16/2015 7:53 AM EST) P athologist Signature WBC 6.4 4.0 - 10.0 CERNER x10(3)/mcL MILLENNIUM RBC 5.81 4.63 - CERNER 6.08 MILLENNIUM x10(6)/mcL Hemoglobin 17.6 (H) 13.7 - CERNER 17.5 gm/dL MILLENNIUM Hematocrit 49.9 40.0 - CERNER 51.0 % MILLENNIUM MCV 85.9 79.0 - CERNER 92.0 fL MILLENNIUM MCH 30.3 25.6 - CERNER 32.2 pg MILLENNIUM MCHC 35.3 32.0 - CERNER 36.5 gm/dL MILLENNIUM Platelets 187 145 - 370 CERNER x10(3)/mcL MILLENNIUM RDWSD 43.3 35.0 - CERNER 46.0 fL MILLENNIUM RDWCV 14.0 10.9 - CERNER 14.4 % MILLENNIUM MPV 11.9 9.0 - 12.0 CERNER fL MILLENNIUM Specimen Anatomical Collection Method Collection Time Receive d Time (Source) Location / / Volume Laterality Blood specimen Venous Draw / 10/16/2015 7:53 AM 2014 8:05 (specimen) Unknown EST AM EST Resulting Agency Comment Spec In Lab Santos Guallpa MD HEMATOLOGY ORDERABLES Performing Organization Address City/[facility]/[place] [address] CERNER MILLENNIUM documented in this encounter Visit Diagnoses Not on filedocumented in this encounter Care Teams Technical Service Engineer Relationship Specialty Start Date End Date Santos Guallpa MD PCP - General 10/14/[address] [place] [phone] documented as of this encounter
--- OUTSIDE RECORDS SUMMARY | 2022-07-24 15:18 | XMS_ITS | Encounter Summary ---
:1945 Author Organization [facility] Address [facility] [place] [address] Care Team Providers Name Role Phone Santos Guallpa MD Primary Care Provider Encounter Details Date Type Department Care Team Description 06/10/2015 Orders Only Urology at [facility] [place] [place] John Rodriguez MD Malignant neoplasm of [facility] [place] [address] UROLOGY [phone] [place], [place] [address] Social History Tobacco Use Types [...] Office Visit Radiation Oncology Alecia Lion APRN [facility] RADIATION [place] [address] (Wo rk) documented as of this encounter Results PSA (06/10/2015 12:45 PM EDT) athologist Signature PSA Total 0.04 0.00 - CERNER (Ultrasensitiv 4.00 ng/mL MILLENNIUM e) Specimen Anatomical Collection Method Collection Time Receive d Time (Source) Location / / Volume Laterality Blood specimen 06/10/2015 12:45 5 (specimen) PM EDT 12:58 PM EDT Resulting Agency Comment Spec In Lab John Rodriguez MD CHEMISTRY ORDERABLES Performing Organization Address City/State/[place] [address] [facility] documented in this encounter Visit Diagnoses Diagnosis Malignant neoplasm of prostate documented in this encounter Care Teams Toys And Games Hand Finisher Relationship Specialty Start Date End Date Santos Guallpa MD PCP - General 10/14/[address] [place] [phone] documented as of this encounter
--- OUTSIDE RECORDS SUMMARY | 2022-07-24 15:18 | XMS_ITS | Encounter Summary ---
:1945 Author Organization [facility] Address [facility] [place] [address] Care Team Providers Name Role Phone Santos Guallpa MD Primary Care Provider Encounter Details Date Type Department Care Team Description 01/27/2021 Orders Only [place] [facility] [place] MD Malignant neoplasm of [facility] [place] [address] UROLOGY [phone] [place], [place] [address] Social History Tobacco Use Types [...] Office Visit Radiation Oncology Alecia Lion APRN [facility] RADIATION [place] [address] (Wo rk) documented as of this encounter Results PSA (Ultrasensitive) (01/27/2021 1:25 PM EDT) athologist Signature PSA Total 0.04 0.00 - [facility] (Ultrasensitiv 4.00 ng/mL [facility] LABORATORY Comment: PLEASE NOTE: The above reference interva l is intended for healthy males with an intact prostate. Values within this refe rence interval may indicate recurrence in men who have undergone radical prosta tectomy. Specimen Anatomical Collection Method Collection Time Receive d Time (Source) Location / / Volume Laterality Blood specimen 01/27/2021 1:25 PM 021 1:41 (specimen) EDT PM EDT Resulting Agency Comment Spec In Lab John Rodriguez MD CHEMISTRY ORDERABLES Performing Organization Address City/State/ZIP Code Phon e Number [place] [phone] documented in this encounter Visit Diagnoses Diagnosis Malignant neoplasm of prostate documented in this encounter Care Teams Health Center Assistant Relationship Specialty Start Date End Date Santos Guallpa MD PCP - General 10/14/[address] [place] [phone] documented as of this encounter
--- OUTSIDE RECORDS SUMMARY | 2022-07-24 15:18 | XMS_ITS | Encounter Summary ---
:1945 Author Organization [facility] [place] [address] Care Team Providers Name Role Phone Ho Parham MD Primary Care Provider Reason for Visit Reason Comments Follow-up Encounter Details Date Type Department Care Team Description 12/16/2015 Office Visit Urology at [facility] John Rodriguez MD Malignant neoplasm of [facility] [address] [place] UROLOGY [address] [place] [phone] Social History Tobacco Use Types Packs/Day Years Used Date Never Smoker Smokeless Tobacco: Never Used Alcohol Use Standard Drinks/Week Comments No 0 (1 standard drink = 0.6 oz pure alcoho l) Sex Assigned at Date Recorded Not on file documented as of this encounter Last Filed Vital Signs Vital Sign Reading Time Taken Comments Blood Pressure 164/74 12/16/2015 10:49 AM EST Pulse 64 12/16/2015 10:49 AM EST Temperature - - Respiratory Rate - - Oxygen Saturation - - Inhaled Oxygen Concentration - - Weight 79.4 kg (175 lb) 12/16/2015 10:49 AM EST Height 167.6 cm (5' 6) 12/16/2015 10:49 AM EST Body Mass Index 28.25 12/16/2015 10:49 AM EST documented in this encounter Progress Notes John Rodriguez MD - 12/16/2015 11:02 AM EST Patient Name: Date of Service: 12/16/2015 Primary Care Provider: HO PARHAM MD Reason for Visit: Dalton Pereira is a 70 y.o. male who returns for follow up. 06/03/2012: Robot assisted radical prostatectomy fo [id number] Maynor 3+3=6 (with tertiary pattern 4) 18 [...] < 0.03 06/2015: 0.04 10/2015: <0.03 12/2014 Pending X-rays: None PVR 11/2012: 52cc Impression: #1: pT2 [place] 3+3=6 prostate cancer sp Radical prostatectomy & XRT JOSÉ LUIS. PSA undetectable 10/2015 #2: Inguinal hernia repair #3: Substantial improvement in urinary function Plan: If PSA OK 6 months with PSA. documented in this encounter Plan of Treatment Upcoming Encounters Date Type Specialty Care Team Description 07/30/2022 Office Visit Radiation Oncology Alecia Lion, GENERAL LABORER [facility] RADIATION [place], [place] [address] (Wo rk) documented as of this encounter Procedures Procedure Name Priority Date/Time Associated Diagnosis Comme nts LAB SCAN 04/01/2016 12:00 AM EDT documented in this encounter Results PSA (06/17/2016 2:36 PM EDT) P athologist Signature PSA Total <0.03 0.00 - [facility] (Ultrasensitiv 4.00 ng/mL [facility] LABORATORY Specimen Anatomical Collection Method Collection Time Receive d Time (Source) Location / / Volume Laterality Blood specimen 06/17/2016 2:36 PM 016 3:00 (specimen) EDT PM EDT Resulting Agency Comment Spec In Lab John Rodriguez MD CHEMISTRY ORDERABLES Performing Organization Address City/State/[place] [address] SCAN DOC: LAB (04/01/2016 12:00 AM EDT) Narrative This result has an attachment that is no t available. Scanning Provider MEDIA MGR SCAN EXT ORDR/RSLT documented in this encounter Visit Diagnoses Diagnosis Malignant neoplasm of prostate documented in this encounter Care Teams Logging Contractor Relationship Specialty Start Date End Date Ho Parham MD PCP - General 10/14/[address] [place] [phone] documented as of this encounter
--- OUTSIDE RECORDS SUMMARY | 2022-07-24 15:18 | XMS_ITS | Encounter Summary ---
:1945 Author Organization [facility] Address [address] [place] [address] Care Team Providers Name Role Phone Santos Guallpa MD Primary Care Provider Reason for Visit Reason Comments Eye Exam Encounter Details Date Type Department Care Team Description 05/26/2019 Office Visit Ophthalmology at [facility] C Chelsea Hutchinson, Combined forms of age-relate d cataract of both eyes; [facility] Pterygium of right eye; Drive [facility] Lesion of eyelid; [place] [address] CENTER Astigmatism with presbyopia, bilateral [phone] OPHTHALMOLOGY DEPT [place], [place] [address] Social History Tobacco Use Types Packs/Day Years Used Date Never Smoker Smokeless Tobacco: Never Used Alcohol Use Standard Drinks/Week Comments No 0 (1 standard drink = 0.6 oz pure alcoho l) Sex Assigned at Date Recorded Not on file documented as of this encounter Patient Instructions Patient InstructionsChelsea Hutchinson, OD - 05/26/2019 10:20 AM EDT , use AM and PM PRESERVATIVE FREE drops noted below 4 to 6 times per day. Do NOT use ???Visine or anything that says ???gets the red out?? . AM Drops (Use 4-6 times per day) - DAYTIME DROPS TheraTears Refresh GenTeal Systane PM Drops (Use once at night in both eyes before you go to bed) - NIGHT-TIME DROPS Refresh PM Systane Gel GenTeal Gel documented in this encounter Progress Notes Chelsea Hutchinson, OD - 05/26/2019 10:20 AM EDT Encounter Diagnoses Name Primary? Combined forms of age-related cataract of both eyes ??? Pterygium of right eye ??? Lesion of eyelid ??? Astigmatism with presbyopia, bilateral Dalton Pereira is a 73 y.o. with the following ophthalmic problems: Assessment and Plan: Cataracts OU - Monitor for now, sooner with changes in vision. H/O Eyelid Lesions OS, removed. - Managed by Dr. Cuellar Pterygium OD - UV protection & PF ATs for comfort advised. Refractive Error OU - Pt declined. - Findings and concerns discussed with Dalton and he expressed understanding. -Upon Return CEE in 1 year, sooner with changes in sx/vision. documented in this encounter Plan of Treatment Upcoming Encounters Date Type Specialty Care Team Description 07/30/2022 Office Visit Radiation Oncology Alecia Lion, CRYPTOLOGIC SUPPORT SPECIALIST [facility] RADIATION [place], [place] [address] (Wo rk) documented as of this encounter Visit Diagnoses Diagnosis Combined forms of age-related cataract o f both eyes Other and combined forms of senile catar act Pterygium of right eye Pterygium, unspecified Lesion of eyelid Unspecified disorder of eyelid Astigmatism with presbyopia, bilateral documented in this encounter Care Teams Clinical Secretary Relationship Specialty Start Date End Date Santos Guallpa MD PCP - General 10/14/[address] [place] [phone] documented as of this encounter
--- OUTSIDE RECORDS SUMMARY | 2022-07-24 15:18 | XMS_ITS | Encounter Summary ---
:1945 Author Organization [facility] [place] [address] Care Team Providers Name Role Phone Santos Guallpa MD Primary Care Provider Reason for Visit Reason Comments Radiation Follow-up Encounter Details Date Type Department Care Team Description 08/21/2019 Office Visit Radiation Oncology at [facility], Malignant neoplasm of [facility] [employer] RE[employer]TER prostate [facility] [address] [place], [place] [phone] Social History Tobacco Use Types Packs/Day Years Used Date Never Smoker Smokeless Tobacco: Never Used Alcohol Use Standard Drinks/Week Comments No 0 (1 standard drink = 0.6 oz pure alcoho l) Sex Assigned at Date Recorded Not on file documented as of this encounter Last Filed Vital Signs Vital Sign Reading Time Taken Comments Blood Pressure 172/76 08/21/2019 1:14 PM EDT Pulse 68 08/21/2019 1:14 PM EDT Temperature 36.6 ??C (97.9 ??F) 08/21/2019 1:14 PM EDT Respiratory Rate 22 08/21/2019 1:14 PM EDT Oxygen Saturation 96% 08/21/2019 1:14 PM EDT room ai r Inhaled Oxygen Concentration - - Weight - - Height - - Body Mass Index - - documented in this encounter Progress Notes Radha Parisi APRN - 08/21/2019 2:00 PM EDT Subjective: Patient ID: Dalton Pereira is a 73 y.o. male. CC: follow up prostate cancer Time since completed salvage EBRT: 03/21/14: 5 years, 5 mos Current tx: surveillance Protocol: RTOG 0534 HPI Dalton Pereira is a 73 y.o. male presenting for follow up after completion of salvage EBRT for prostate cancer on 03/21/14. Hx: s/p Radical Prostatectomy 06/03/2012, pT2c, Maynor 3+3=6, Margin negative, Node negative (Pre-operative [id number] Maynor 3+4=7, PSA 7.7 on dutasteride) with detectable PSA post-operatively that roseto 0.30. He was treated with salvage radiation therapy to a dose of 68.4 Gy (prostate bed) completedon 03/21/14, under RTOG trial 0534. No ADT. Last seen by Alyson Reaves APRN on 01/26/19- PSA undetectable. INTERIM HX: No new medical problems or hospitalizations Review of Systems Constitutional: Negative for appetite change, fatigue and unexpected weight change. Eyes: Positive for visual disturbance (has noticed grainess/floaters in left eye that resolved; wears readers). Respiratory: Negative for cough, chest tightness and shortness of breath. Cardiovascular: Negative for chest pain and leg swelling. Gastrointestinal: Negative for blood in stool, constipation and diarrhea. Regular; had screening colonoscopy in past Genitourinary: Negative for dysuria, frequency, hematuria and urgency. Notes urine stream slower at night; up around 3-4 X night no big deal; during day, no problem with urination frequency, no blood in urine ED: no erection since surgery; okay with him and Musculoskeletal: Positive for back pain (only if he works really hard- extreme work ). Less steady on feet; more careful, occasional falls when outside working, climbing Neurological: Negative for dizziness, seizures, numbness and headaches. Psychiatric/Behavioral: Positive for sleep disturbance (up to urinate). Negative for dysphoric mood.The patient is not nervous/anxious. 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 KPS Score ECOG Grade Definition x 90-100 0 Fully active, able to carry on all pre-disease performance without restriction ?? Objective: Physical Exam Constitutional: He is oriented to person, place, and time. He appears well- developed and well-nourished. No distress. Seen alone HENT: Head: Normocephalic. Mouth/Throat: No oropharyngeal exudate. Eyes: Conjunctivae are normal. No scleral icterus. Neck: Normal range of motion. Neck supple. Cardiovascular: Normal rate, regular rhythm and normal heart sounds. No murmur heard. Pulmonary/Chest: Effort normal and breath sounds normal. No respiratory distress. He has no wheezes.He has no rales. Abdominal: Soft. Bowel sounds are normal. He exhibits no distension and no mass. There is no tenderness. There is no guarding. Genitourinary: Genitourinary Comments: Patient declined rectal exam; no inguinal adenopathy Musculoskeletal: Normal range of motion. He exhibits no edema or deformity. Neurological: He is alert and oriented to person, place, and time. Skin: Skin is warm and dry. Psychiatric: He has a normal mood and affect. His behavior is normal. Judgment and thought content normal. Most Recent Vitals: 08/21/19 1314 BP: 172/76 Pulse: 68 Resp: 22 Temp: 36.6 ??C (97.9 ??F) SpO2: 96% Wt & BMI By Encounter Date Office Visit from 01/26/2019 in Radiation Oncology at [facility] Office Visit from 12/23/2017 in Radiation Oncology at [facility] Weight 78.7 kg (173 lb 6.4 oz) 1 01/26/2019 1302 78.3 kg (172 lb 9.6 oz) 1 12/23/2017 1141 BMI 27.98 1 01/26/2019 1302 -- Labs reviewed today: 08/21/19 Recent Results (from the past 24 hour(s)) Research Venipuncture Result Value Ref Range Research Venipuncture Drawn PSA Result Value Ref Range PSA Total 0.03 0.00 - 4.00 ng/mL Date PSA Testo Notes 08/21/19 0.03 [facility] 01/21/2019 < 0.1 ?? Outside lab 12/17/2017 < 0.1 ?? 01/26/2017 < 0.1 ?? 06/17/2016 < 0.03 ?? 04/01/2016 < 0.1 256 12/16/2015 < 0.03 ?? 10/16/2015 < 0.03 ?? 06/10/2015 0.04 ?? 03/18/2015 <0.03 3.29 12/17/2014 0.04 ?? 09/20/2014 0.04 2.72 06/21/2014 0.04 3.60 05/02/2014 0.08 3.68 Completed salvage EBRT 03/21/14 01/01/2014 0.30 4.00 11/20/2013 0.18 ?? 09/29/2013 0.14 ?? 05/17/2013 0.09 ?? 11/28/2012 0.12 ?? 08/29/2012 0.13 ?? Prostatectomy 06/03/12 01/13/2012 7.71* ?? 12/21/2011 8.27* Assessment and Plan: Dalton Pereira is a 73 y.o. male presenting for follow up after completion of salvage EBRT for prostate cancer on 03/21/14. # Prostate cancer: discussed with patient PSA result 0.03- previous level was done at a different hospital lab- result was <0.1- not it's not clear if this is an increase or not. Per protocol, definition of biochemical relapse is PSA >2.0. I reviewed this with Mr. Pereira. He has no clinical signs of disease today # effects of EBRT: he did not complete the IPSS/CINDY surveys. ED since surgery. Mild urinary slowingand up 3-4 X times at night but not a problem for him. No change from previous. # follow up per protocol in six months for labs , exam. Note [place] [facility]. I'll check with ur coordinator/nurse to see if he can be followed in [facility] after his 6 year visit here in [place]. Dalton Pereira had the opportunity to ask questions and I answered them to the best of my knowledge. Dalotn Pereira agreed to call radiation oncology in between visits if he/she has any questions/concerns or new symptoms in regards to the radiation therapy. [facility]ha Parisi, ASHLYN, ANP, MARKET NEWS REPORTER, AOCNP Nurse Practitioner Radiation Oncology documented in this encounter Plan of Treatment Upcoming Encounters Date Type Specialty Care Team Description 07/30/2022 Office Visit Radiation Oncology Alecia Lion APRN [facility] RADIATION [place], [place] [address] (Wo rk) documented as of this encounter Results PSA (Ultrasensitive) (01/22/2020 1:25 PM EDT) athologist Signature PSA Total 0.02 0.00 - [facility] (Ultrasensitiv 4.00 ng/mL [facility] LABORATORY Specimen Anatomical Collection Method Collection Time Receive d Time (Source) Location / / Volume Laterality Blood specimen 01/22/2020 1:25 PM 020 1:33 (specimen) EDT PM EDT Resulting Agency Comment Spec In Lab Radha Parisi APRN CHEMISTRY ORDERABLES Performing Organization Address City/State/[place] [address] documented in this encounter Visit Diagnoses Diagnosis Malignant neoplasm of prostate documented in this encounter Care Teams Allied Health Professional Relationship Specialty Start Date End Date Santos Guallpa MD PCP - General 10/14/[address] [place] [address] [phone] documented as of this encounter
--- OUTSIDE RECORDS SUMMARY | 2022-07-24 15:18 | XMS_ITS | Encounter Summary ---
:1945 Author Organization [facility] [place] [address] Care Team Providers Name Role Phone Santos Guallpa MD Primary Care Provider Encounter Details Date Type Department Care Team Description 01/27/2021 Laboratory Appointment Lab 3L Ghassan Mckeon Malignant neoplasm of [facility] [place] [phone] Social History Tobacco Use Types Packs/Day Years Used Date Never Smoker Smokeless Tobacco: Never Used Alcohol Use Standard Drinks/Week Comments No 0 (1 standard drink = 0.6 oz pure alcoho l) Sex Assigned at Date Recorded Not on file documented as of this encounter Plan of Treatment Upcoming Encounters Date Type Specialty Care Team Description 07/30/2022 Office Visit Radiation Oncology Alecia Lion APRN [facility] RADIATION [place], [place] [address] (Wo rk) documented as of this encounter Procedures Procedure Name Priority Date/Time Associated Diagnosis Comme [facility] VENIPUNCTURE STAT 01/27/2021 1:25 PM Malignant neoplasm of Results for this EDT prostate procedure are i n the results section. documented in this encounter Results PSA (Ultrasensitive) (01/27/2021 1:25 PM EDT) athologist Signature PSA Total 0.04 0.00 - GHASSAN MCKEON (Ultrasensitiv 4.00 ng/mL [facility] LABORATORY Comment: PLEASE NOTE: The above reference [...] Organization Address City/State/[place] [address] documented in this encounter Visit Diagnoses Diagnosis Malignant neoplasm of prostate documented in this encounter Care Teams Traffic Control Supervisor Relationship Specialty Start Date End Date Santos Guallpa MD PCP - General 10/14/[address] [place] [phone] documented as of this encounter
--- OUTSIDE RECORDS SUMMARY | 2022-07-24 15:18 | XMS_ITS | Encounter Summary ---
:1945 Author Organization [facility] Address [address] [place] [address] Care Team Providers Name Role Phone Santos Guallpa MD Primary Care Provider Reason for Visit Reason Comments Eye Exam Encounter Details Date Type Department Care Team Description 05/31/2020 Office Visit Ophthalmology at [facility] C Chelsea Hutchinson, Combined forms of age-relate d cataract of both eyes; [facility] Pteryg[facility] of right eye; Drive [facility] Corneal foreign body, left, initial encounter; [place] [address] CENTER Astigmatism with presbyopia, bilateral [phone] OPHTHALMOLOGY DEPT [place], [place] [address] Social History Tobacco Use Types Packs/Day Years Used Date Never Smoker Smokeless Tobacco: Never Used Alcohol Use Standard Drinks/Week Comments No 0 (1 standard drink = 0.6 oz pure alcoho l) Sex Assigned at Date Recorded Not on file documented as of this encounter Patient Instructions Patient InstructionsChelsea Hutchinson, OD - 05/31/2020 10:00 AM EDT For dry eye, use AM and PM PRESERVATIVE FREE drops [...] encounter Progress Notes Chelsea Hutchinson, OD - 05/31/2020 10:00 AM EDT Encounter Diagnoses Name Primary? Combined forms of age-related cataract of both eyes ??? Pterygium of right eye ??? Corneal foreign body, left, initial encounter ??? Astigmatism with presbyopia, bilateral Dalton Pereira is a 74 y.o. with the following ophthalmic problems: Assessment and Plan: Cataracts OU - Monitor for now, sooner with changes in vision. Corneal Foreign Body OS, removed without complications - Rx Vigamox QID OS only x 10 days, PF ATs hourly while awake OU - RTC 1 week for follow up for cornea/ant seg check H/O Eyelid Lesions OS, removed. - Managed by Dr. Cuellar Pterygium OD - UV protection & PF ATs for comfort advised. Refractive Error OU - Pt declined. - Findings and concerns discussed with Dalton and he expressed understanding. -Upon Return - RTC 1 week for follow up for cornea/ant seg check documented in this encounter Plan of Treatment Upcoming Encounters Date Type Specialty Care Team Description 07/30/2022 Office Visit Radiation Oncology Alecia Lion APRN [facility] RADIATION [place], [place] [address] (Wo rk) documented as of this encounter Visit Diagnoses Diagnosis Combined forms of age-related cataract o f both eyes Other and combined forms of senile catar act Pterygium of right eye Pterygium, unspecified Corneal foreign body, left, initial enco unter Astigmatism with presbyopia, bilateral documented in this encounter Care Teams Rod Buster Helper Relationship Specialty Start Date End Date Santos Guallpa MD PCP - General 10/14/[address] [place] [phone] documented as of this encounter
--- OUTSIDE RECORDS SUMMARY | 2022-07-24 15:18 | XMS_ITS | Encounter Summary ---
:1945 Author Organization [facility] Address [place] [address] Care Team Providers Name Role Phone Santos Guallpa MD Primary Care Provider Reason for Visit Reason Comments Eye Exam Lid Lesion Encounter Details Date Type Department Care Team Description 05/19/2018 Office Visit Ophthalmology at [facility] C Chelsea Hutchinson, Combined forms of age-relate d cataract of both eyes; [facility] Lesion of right eyelid; Drive [facility] Pterygium of right eye; [place] [address] CENTER Astigmatism with presbyopia, bilateral [phone] OPHTHALMOLOGY DEPT [place], [place] [address] Social History Tobacco Use Types Packs/Day Years Used Date Never Smoker Smokeless Tobacco: Never Used Alcohol Use Standard Drinks/Week Comments No 0 (1 standard drink = 0.6 oz pure alcoho l) Sex Assigned at Date Recorded Not on file documented as of this encounter Patient Instructions Patient InstructionsChelsea Hutchinson, OD - 05/19/2018 8:15 AM EDT use AM and PM PRESERVATIVE FREE drops [...] encounter Progress Notes Chelsea Hutchinson, OD - 05/19/2018 8:15 AM EDT Encounter Diagnoses Name Primary? Combined forms of age-related cataract of both eyes ??? Lesion of right eyelid ??? Pterygium of right eye ??? Astigmatism with presbyopia, bilateral Dalton Pereira is a 72 y.o. with the following ophthalmic problems: Assessment and Plan: Cataracts OU - Monitor for now, sooner with changes in vision. Eyelid Lesions OS - Refer to Dr. Cuellar for eval in 4-6 wks Pterygium OD - UV protection & PF ATs for comfort advised. Refractive Error OU - Pt declined. - Findings and concerns discussed with Dalton and he expressed understanding. -Upon Return Refer to Dr. Cuellar for eval in 4-6 wks CEE in 1 year, sooner with changes in sx/vision. documented in this encounter Plan of Treatment Upcoming Encounters Date Type Specialty Care Team Description 07/30/2022 Office Visit Radiation Oncology Alecia Lion, SHADE CLASSIFIER [facility] RADIATION [place], [place] [address] (Wo rk) documented as of this encounter Visit Diagnoses Diagnosis Combined forms of age-related cataract o f both eyes Other and combined forms of senile catar act Lesion of right eyelid Pterygium of right eye Pterygium, unspecified Astigmatism with presbyopia, bilateral documented in this encounter Care Teams Racecourse Barrier Attendant Relationship Specialty Start Date End Date Santos Guallpa MD PCP - General 10/14/[address] [place] [phone] documented as of this encounter
--- OUTSIDE RECORDS SUMMARY | 2022-07-24 15:18 | XMS_ITS | Encounter Summary ---
:1945 Author Organization [facility] [place] [address] Care Team Providers Name Role Phone Santos Guallpa MD Primary Care Provider Encounter Details Date Type Department Care Team Description 06/17/2016 Laboratory Appointment Lab at [facility] Malignant neoplasm of [facility] [place] [phone] Social History Tobacco Use Types Packs/Day Years Used Date Never Smoker Smokeless Tobacco: Never Used Alcohol Use Standard Drinks/Week Comments No 0 (1 standard drink = 0.6 oz pure alcoho l) Sex Assigned at Date Recorded Not on file documented as of this encounter Plan of Treatment Upcoming Encounters Date Type Specialty Care Team Description 07/30/2022 Office Visit Radiation Oncology Alecia Lion APRN [facility] RADIATION [place], [place] [address] (Wo rk) documented as of this encounter Procedures Procedure Name Priority Date/Time Associated Diagnosis Comme nts PSA STAT 06/17/2016 2:36 PM Malignant neoplasm Res ults for this (ULTRASENSITIVE) EDT of prostate procedure a re in the results section. documented in this encounter Results PSA (06/17/2016 2:36 PM EDT) P athologist Signature PSA Total <0.03 0.00 - [facility] JONES (Ultrasensitiv 4.00 ng/mL [facility] LABORATORY Specimen Anatomical Collection Method Collection Time Receive d Time (Source) Location / / Volume Laterality Blood specimen 06/17/2016 2:36 PM 016 3:00 (specimen) EDT PM EDT Resulting Agency Comment Spec In Lab John Rodriguez MD CHEMISTRY ORDERABLES Performing Organization Address City/State/[place] [address] documented in this encounter Visit Diagnoses Diagnosis Malignant neoplasm of prostate documented in this encounter Care Teams Receiving Coordinator Relationship Specialty Start Date End Date Santos Guallpa MD PCP - General 10/14/[address] [place] [phone] documented as of this encounter
--- OUTSIDE RECORDS SUMMARY | 2022-07-24 15:18 | XMS_ITS | Encounter Summary ---
:1945 Author Organization [facility] [place] [address] Care Team Providers Name Role Phone Santos Guallpa MD Primary Care Provider Encounter Details Date Type Department Care Team Description 08/16/2019 Telephone Radiation Oncology a t [facility] [place] [address] Social History Tobacco Use Types Packs/Day [...] Alecia Lion APRN [facility] ER RADIATION [place], [place] [address] (Wo rk) documented as of this encounter Visit Diagnoses Not on filedocumented in this encounter Care Teams Hand Bookbinder Relationship Specialty Start Date End Date Santos Guallpa MD PCP - General 10/14/[address] [place] [phone] documented as of this encounter
--- OUTSIDE RECORDS SUMMARY | 2022-07-24 15:18 | XMS_ITS | Encounter Summary ---
:1945 Author Organization [facility] [address] Care Team Providers Name Role Phone Santos Guallpa MD Primary Care Provider Encounter Details Date Type Department Care Team Description 06/02/2018 Telephone Ophthalmology at [facility] C Ronda Cuellar MD [facility] [phone] OPHTHALMOLOGY DEPT [phone] [place], [place] [address] (Wo rk) Social History Tobacco Use Types Packs/Day Years Used Date Never Smoker Smokeless Tobacco: Never Used Alcohol Use Standard Drinks/Week Comments No 0 (1 standard drink = 0.6 oz pure alcoho l) Sex Assigned at Date Recorded Not on file documented as of this encounter Miscellaneous Notes Telephone Encounter - Ronda Cuellar MD - 06/02/2018 9:56 AM EDT The lesion that I biopsied showed: DIAGNOSIS A. Skin, left lower lid, biopsy: - Squamous papilloma B. Skin, left upper lid, biopsy: - Verruca vulgaris This lesion is benign and no further treatment is required. I called Dalton to discuss the results. I left a message. documented in this encounter Plan of Treatment Upcoming Encounters Date Type Specialty Care Team Description 07/30/2022 Office Visit Radiation Oncology Alecia Lion, BENCH ASSEMBLER OPERATOR [facility] ER RADIATION [place], [place] [address] (Wo rk) documented as of this encounter Visit Diagnoses Not on filedocumented in this encounter Care Teams Electron Beam Welding Machine Operator Relationship Specialty Start Date End Date Santos Guallpa MD PCP - General 10/14/[address] [place] [phone] documented as of this encounter
--- OUTSIDE RECORDS SUMMARY | 2022-07-24 15:18 | XMS_ITS | Encounter Summary ---
:1945 Author Organization [facility] [place] [address] Care Team Providers Name Role Phone Santos Guallpa MD Primary Care Provider Encounter Details Date Type Department Care Team Description 03/19/2016 Telephone Radiation Oncology a t [facility] [place] [address] Social History Tobacco Use Types Packs/Day Years Used Date Never Smoker Smokeless Tobacco: Never Used Alcohol Use Standard Drinks/Week Comments No 0 (1 standard drink = 0.6 oz pure alcoho l) Sex Assigned at Date Recorded Not on file documented as of this encounter Miscellaneous Notes Telephone Encounter - Parris Zimmerman I - 03/19/2016 8:20 AM EDT Left message to reschedule 2 yr f/u with Alyson Reaves documented in this encounter Plan of Treatment Upcoming Encounters Date Type Specialty Care Team Description 07/30/2022 Office Visit Radiation Oncology Alecia Lion, ONLINE [facility] RADIATION [place], [place] [address] (Wo rk) documented as of this encounter Visit Diagnoses Not on filedocumented in this encounter Care Teams Power Wheelchair Mechanic Relationship Specialty Start Date End Date Santos Guallpa MD PCP - General 10/14/[address] [place] [address] [phone] documented as of this encounter
--- OUTSIDE RECORDS SUMMARY | 2022-07-24 15:18 | XMS_ITS | Encounter Summary ---
:1945 [place] [address] Care Team Providers Name Role Phone Santos Guallpa MD Primary Care Provider Reason for Visit Reason Comments Radiation Follow-up prostate cancer Encounter Details Date Type Department Care Team Description 10/16/2015 Office Visit Radiation Oncology at Alyson Reaves Mal ignant neoplasm of [address] [place] [address] [phone] (Wo rk) Social History Tobacco Use Types Packs/Day Years Used Date Never Smoker Smokeless Tobacco: Never Used Alcohol Use Standard Drinks/Week Comments No 0 (1 standard drink = 0.6 oz pure alcoho l) Sex Assigned at Date Recorded Not on file documented as of this encounter Last Filed Vital Signs Vital Sign Reading Time Taken Comments Blood Pressure 156/83 10/16/2015 8:41 AM EST Pulse 72 10/16/2015 8:41 AM EST Temperature - - Respiratory Rate 16 10/16/2015 8:41 AM EST Oxygen Saturation 97% 10/16/2015 8:41 AM EST Inhaled Oxygen Concentration - - Weight 78.8 kg (173 lb 12.8 oz) 10/16/2015 8:41 AM EST Height - - Body Mass Index 28.05 06/10/2015 1:38 PM EDT documented in this encounter Patient Instructions Patient InstructionsPace, Alyson Lewis, CHAIRMAN & CEO - 10/16/2015 8:34 AM EST Recent Results (from the past 24 hour(s)) PSA Result Value Ref Range PSA Total <0.03 0.00 - 4.00 ng/mL Hemogram Result Value Ref Range WBC 6.4 4.0 - 10.0 x10(3)/mcL RBC 5.81 4.63 - 6.08 x10(6)/mcL Hemoglobin 17.6 (H) 13.7 - 17.5 gm/dL Hematocrit 49.9 40.0 - 51.0 % MCV 85.9 79.0 - 92.0 fL MCH 30.3 25.6 - 32.2 pg MCHC 35.3 32.0 - 36.5 gm/dL Platelets 187 145 - 370 x10(3)/mcL RDWSD 43.3 35.0 - 46.0 fL RDWCV 14.0 10.9 - 14.4 % MPV 11.9 9.0 - 12.0 fL Differential, Automated Result Value Ref Range Neutrophils % 74.6 % Neutr Abs (ANC) 4.79 1.50 - 6.30 x10(3)/mcL Lymphocytes % 14.0 % Lymphocytes Abs 0.9 (L) 1.0 - 3.6 x10(3)/mcL Monocytes % 9.3 % Monocyte Abs 0.6 0.2 - 1.0 x10(3)/mcL Eosinophils % 1.7 % Eosinophils Abs 0.1 0.0 - 0.5 x10(3)/mcL Basophils % 0.2 % Basophils Abs 0.0 0.0 - 0.2 x10(3)/mcL Immature Gran % 0.20 % Mitzi Gran Abs 0.01 0.00 - 0.05 x10(3)/mcL Lipid panel (fasting) Result Value Ref Range Chol, Total 208 (H) <=199 mg/dL Triglycerides 93 <=149 mg/dL HDL 52 >=40 mg/dL LDL Cholesterol 137 (H) <=99 mg/dL Chol/HDL Ratio 4.0 ratio Gold Tube HOLD Result Value Ref Range Gold Hold Sample in lab. Basic Metabolic Panel (non-fasting) Result Value Ref Range Glucose Lvl 113 65 - 199 mg/dL BUN 19 10 - 20 mg/dL Creatinine 1.24 0.80 - 1.50 mg/dL Sodium 139 135 - 145 mmol/L Potassium 4.1 3.5 - 5.0 mmol/L Chloride 101 98 - 107 mmol/L CO2 Not Perf 22 - 31 mmol/L Anion Gap Unable to Calculate 5 - 15 mmol/L Calcium 9.2 8.5 - 10.5 mg/dL Estimated GFR 58 (L) >=60 Albumin Level Result Value Ref Range Albumin 4.3 3.2 - 5.2 gm/dL Phosphorus Result Value Ref Range Phosphorus 2.4 (L) 2.5 - 4.5 mg/dL Vitals Office Visit from 10/16/2015 in [facility] Rad Onc 2K Weight - Scale 78.835 kg (173 lb 12.8 oz) Heart Rate 72 Resp 16 BP 156/83 mmHg BP Location Right arm Patient Position Sitting SpO2 97 % documented in this encounter Progress Notes Alyson Reaves APRN - 10/16/2015 8:28 AM EST Patient ID: Dalton Pereira is a 69 y.o. male with history of prostate cancer s/p Radical Prostatectomy 05/2012, pT2c, [place] 3+3=6, Margin negative, Node negative (Pre-operative [id number] Maynor 3+4=7, PSA 7.7 on dutasteride) with detectable PSA post-operatively that hanh to 0.30. He was treated with salvage radiation therapy to a dose of 68.4 Gy which was completed on 03/21/2014 under RTOG trial 0534. He is in clinic for scheduled follow up. HPI Mr. Dalton Pereira has history of prostate cancer ([id number] [place] 3+4=7, PSA 7.7 on dutasteride with neurogenic [...] + 3, teritary pattern 4 is 3% [place] score: 6 Location of tumor: Bilateral lobes [...] Total C1 PROSTATE BED dose: 6840.0 cGy Treatment summary Prostate Cancer Notes 10/18/2015 Date of Presentation 11/19/2011 Age at Presentation 66 years old PSA at Presentation 7.7 on dutasteride Presence of Symptoms at Presentation Positive--urinary retention requiring CIC Ethnicity White Result of ANDREAS normal Date of TRUS and Biopsy 02/15/2012 Volume in cc 57 cc [place] grade/score a+b=c 3+4=7 Total Cores 13 biopsy cores Positive cores 2 positive biopsy cores Bone Scan at Presentation -negative for bone met Date of Bone Scan 01/04/2015 Prostate confined yes ELYSSA--extracapsular extension - negative for extension outside the prostate capsule SV--seminal vesicles - negative for extension to the seminal vesicle Regular Lymph Nodes -negative Distant Mets -negative CT Abdomen/Pelvis at Presentation Done on 01/04/2012 Prostate Confined positive Zacarias Involvement Negative node involvement on CT scan Metastasis No Metastases Primary Therapy Prostatectomy done by Dr Teresa Rodriguez at [facility] Prostatectomy Date 06/03/2012 Pelvic Lymphnode Dissection 0 positive of 18 lymph nodes removed Histologic Type/pathology detail Adenocarcinoma --negative extracapsular extension -negative seminal vesicle -May[place] 3+3-=6 with tertiary Maynor 4 --bilateral lobes -margins negative -negative PNI (perineural invasion) --negative LVI (lymphovascular invasion) Percent of Gland Involvement 5 % Post Primary Therapy - Cristi Date 06/21/2012 Post Primary Therapy - Cristi PSA 0.04 rising to 0.30 prior to salvage radiation Salvage [...] ROBOTICS ASSISTED performed by TERESA RODRIGUEZ at [facility] OR ??? Pro remove pelvis lymph nodes 06/03/2012 @LYMPHADENECTOMY, PELVIC, INCLUDING MULTIPLE NODES-JAZMINE performed by TERESA RODRIGUEZ at [facility] MAIN OR ??? Pro repair ing hernia, 5+y/o, charlie 06/23/2012 HERNIA REPAIR, INITIAL INGUINAL AGE 5 OR OVER, REDUCIBLE INCARCERATED performed by JARVIS IRWIN at [facility] OR ??? Appendectomy ??? Pro colonoscopy, diagnostic 12/12/2013 COLONOSCOPY, DIAGNOSTIC performed by Kenna Knapp MD at [facility] ENDOSCOPY Allergies Allergen Reactions ??? Gentamicin Hives No current outpatient prescriptions on file prior to visit. No current facility-administered medications on file prior to visit. History Social History ??? Marital Status: Spouse Name: N/A Number of Children: N/A ??? 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 [employer] Social History Main Topics ??? [...] time. 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 He reports no urinary issues at this time with an IPSS of 5. He has no urinary retention, no dysuria, no hematuria and he denies incontinence. International Prostate Symptom Score Total Score__5__ 0 1 2 3 4 5 Not [...] issue for him. He otherwise is well. Review of Systems Constitutional: Negative. Negative for diaphoresis, activity change, fatigue and unexpected weight change. HENT: Negative. Respiratory: Negative. Negative for cough, chest tightness and shortness of breath. Cardiovascular: Negative. Negative for chest pain and leg swelling. Gastrointestinal: Negative. Negative for abdominal pain, diarrhea, constipation, blood in stool and abdominal distention. Genitourinary: Negative. Negative for dysuria, urgency, frequency, hematuria, decreased urine volume, enuresis and difficulty urinating. Musculoskeletal: Negative. Negative for back pain and arthralgias. Skin: Negative. Neurological: Negative. Hematological: Negative. Psychiatric/Behavioral: Negative. Vitals Office Visit from 10/16/2015 in [facility] Onc 2K Weight - Scale 78.835 kg (173 lb 12.8 oz) Heart Rate 72 Resp 16 BP 156/83 mmHg BP Location Right arm Patient Position Sitting SpO2 97 % KPS: 100 Objective: Physical Exam Constitutional: He appears well-developed and well-nourished. No distress. HENT: Head: Normocephalic and atraumatic. Eyes: Conjunctivae and EOM are normal. Right eye exhibits no discharge. Left eye exhibits no discharge. No scleral icterus. Neck: Neck supple. Lymphadenopathy: Head (right side): No submental, no [...] No inguinal and no supraclavicular adenopathy present. Skin: He is not diaphoretic. Vitals reviewed. Recent Results (from the past 72 hour(s)) PSA Result Value Ref Range PSA Total <0.03 0.00 - 4.00 ng/mL Hemogram Result Value Ref Range WBC 6.4 4.0 - 10.0 x10(3)/mcL RBC 5.81 4.63 - 6.08 x10(6)/mcL Hemoglobin 17.6 (H) 13.7 - 17.5 gm/dL Hematocrit 49.9 40.0 - 51.0 % MCV 85.9 79.0 - 92.0 fL MCH 30.3 25.6 - 32.2 pg MCHC 35.3 32.0 - 36.5 gm/dL Platelets 187 145 - 370 x10(3)/mcL RDWSD 43.3 35.0 - 46.0 fL RDWCV 14.0 10.9 - 14.4 % MPV 11.9 9.0 - 12.0 fL Differential, Automated Result Value Ref Range Neutrophils % 74.6 % Neutr Abs (ANC) 4.79 1.50 - 6.30 x10(3)/mcL Lymphocytes % 14.0 % Lymphocytes Abs 0.9 (L) 1.0 - 3.6 x10(3)/mcL Monocytes % 9.3 % Monocyte Abs 0.6 0.2 - 1.0 x10(3)/mcL Eosinophils % 1.7 % Eosinophils Abs 0.1 0.0 - 0.5 x10(3)/mcL Basophils % 0.2 % Basophils Abs 0.0 0.0 - 0.2 x10(3)/mcL Immature Gran % 0.20 % Mitzi Gran Abs 0.01 0.00 - 0.05 x10(3)/mcL Lipid panel (fasting) Result Value Ref Range Chol, Total 208 (H) <=199 mg/dL Triglycerides 93 <=149 mg/dL HDL 52 >=40 mg/dL LDL Cholesterol 137 (H) <=99 mg/dL Chol/HDL Ratio 4.0 ratio Gold Tube HOLD Result Value Ref Range Gold Hold Sample in lab. Basic Metabolic Panel (non-fasting) Result Value Ref Range Glucose Lvl 113 65 - 199 mg/dL BUN 19 10 - 20 mg/dL Creatinine 1.24 0.80 - 1.50 mg/dL Sodium 139 135 - 145 mmol/L Potassium 4.1 3.5 - 5.0 mmol/L Chloride 101 98 - 107 mmol/L CO2 Not Perf 22 - 31 mmol/L Anion Gap Unable to Calculate 5 - 15 mmol/L Calcium 9.2 8.5 - 10.5 mg/dL Estimated GFR 58 (L) >=60 Albumin Level Result Value Ref Range Albumin 4.3 3.2 - 5.2 gm/dL Phosphorus Result Value Ref Range Phosphorus 2.4 (L) 2.5 - 4.5 mg/dL date PSA Testosterone 10/16/2015 < 0.03 06/10/2015 0.04 03/18/2015 <0.03 3.29 12/17/2014 0.04 09/20/2014 0.04 2.72 06/21/2014 0.04 3.60 05/02/2014 0.08 3.68 01/01/2014 0.30 4.00 11/20/2013 0.18 09/29/2013 0.14 05/17/2013 0.09 11/28/2012 0.12 08/29/2012 0.13 01/13/2012 7.71* 12/21/2011 8.27* Assessment and Plan: Dalton Pereira is a 69 y.o. year-old male with history of prostate cancer s/p Radical Prostatectomy 05/2012, pT2c, [place] 3+3=6, Margin negative, Node negative (Pre-operative [id number] [place] 3+4=7, PSA 7.7 on dutasteride) with detectable PSA post-operatively which hanh to 0.30, prior to salvage radiation therapy.. He was treated with nichols radiation 68.4 Gy which was completed 03/21/14. His PSA isundetectable today which is reassuring. We reviewed his labs and clinical status. He is to return to clinic per RTOG criteria in six months for repeat PSA and ongoing monitoring and to review his prostate cancer survivor care plan. We will arrange to see him in [facility] given proximity to his home. documented in this encounter Plan of Treatment Upcoming Encounters Date Type Specialty Care Team Description 07/30/2022 Office Visit Radiation Oncology Alecia Lion APRN [facility] ER RADIATION [place], [place] [address] (Wo rk) documented as of this encounter Visit Diagnoses Diagnosis Malignant neoplasm of prostate documented in this encounter Care Teams Child Care Giver Relationship Specialty Start Date End Date Santos Guallpa MD PCP - General 10/14/[address] [place] [phone] documented as of this encounter
--- OUTSIDE RECORDS SUMMARY | 2022-07-24 15:18 | XMS_ITS | Encounter Summary ---
:1945 Author Organization [facility] [place] [address] Care Team Providers Name Role Phone Ho Parham MD Primary Care Provider Reason for Visit Reason Comments Follow-up Encounter Details Date Type Department Care Team Description 06/17/2016 Office Visit Urology at [facility] John Rodriguez MD Malignant neoplasm of [facility] [address] [place]OLOGY [address] [place] [address] [phone] Social History Tobacco Use Types Packs/Day Years Used Date Never Smoker Smokeless Tobacco: Never Used Alcohol Use Standard Drinks/Week Comments No 0 (1 standard drink = 0.6 oz pure alcoho l) Sex Assigned at Date Recorded Not on file documented as of this encounter Last Filed Vital Signs Vital Sign Reading Time Taken Comments Blood Pressure 151/75 06/17/2016 4:10 PM EDT Pulse 64 06/17/2016 4:10 PM EDT Temperature 36.5 ??C (97.7 ??F) 06/17/2016 4:10 PM EDT Respiratory Rate 20 06/17/2016 4:10 PM EDT Oxygen Saturation 96% 06/17/2016 4:10 PM EDT Inhaled Oxygen Concentration - - Weight 79.4 kg (175 lb) 06/17/2016 4:10 PM EDT Height 167.6 cm (5' 6) 06/17/2016 4:10 PM EDT Body Mass Index 28.25 06/17/2016 4:10 PM EDT documented in this encounter Progress Notes John Rodriguez MD - 06/17/2016 4:00 PM EDT Patient Name: Date of Service: 06/17/2016 Primary Care Provider: HO PARHAM MD Reason for Visit: Dalton Pereira is a 70 y.o. male who returns for follow up. 06/03/2012: Robot assisted radical prostatectomy fo [id number] Margie 3+3=6 (with tertiary pattern 4) 18 nodes [...] 0.04 10/2015: <0.03 12/2014 <0.03 06/2016: <0.03 X-rays: None PVR 11/2012: 52cc Impression: #1: pT2 [place] 3+3=6 prostate cancer sp Radical prostatectomy & XRT JOSÉ LUIS. PSA undetectable #2: Inguinal hernia repair #3: Substantial improvement in urinary function Plan: PSA with Alyson Juarez in 6 months 1 year with ut documented in this encounter Plan of Treatment Upcoming Encounters Date Type Specialty Care Team Description 07/30/2022 Office Visit Radiation Oncology Alecia Lion, BOOKSTORE CLERK [facility] ER RADIATION [place], [place] [address] (Wo rk) documented as of this encounter Visit Diagnoses Diagnosis Malignant neoplasm of prostate documented in this encounter Care Teams Production Machine Shop Supervisor Relationship Specialty Start Date End Date Ho Parham MD PCP - General 10/14/[address] [place] [address] [phone] documented as of this encounter
--- OUTSIDE RECORDS SUMMARY | 2022-07-24 15:18 | XMS_ITS | Encounter Summary ---
:1945 Author Organization [place] [address] Care Team Providers Name Role Phone Santos Guallpa MD Primary Care Provider Reason for Visit Reason Comments Radiation Follow-up prostate cancer Encounter Details Date Type Department Care Team Description 12/23/2017 Office Visit Radiation Oncology at [place], Andrew Banegas neoplasm of [facility] VP INFORMATICS prostate [address] [place], [place] RADIATION ONCOL OGY [address] [place], [place] [phone] (Wo rk) Social History Tobacco Use Types Packs/Day Years Used Date Never Smoker Smokeless Tobacco: Never Used Alcohol Use Standard Drinks/Week Comments No 0 (1 standard drink = 0.6 oz pure alcoho l) Sex Assigned at Date Recorded Not on file documented as of this encounter Last Filed Vital Signs Vital Sign Reading Time Taken Comments Blood Pressure 169/75 12/23/2017 11:41 AM EST Pulse 78 12/23/2017 11:41 AM EST Temperature 36.6 ??C (97.9 ??F) 12/23/2017 11:41 AM EST Respiratory Rate 18 12/23/2017 11:41 AM EST Oxygen Saturation 96% 12/23/2017 11:41 AM EST Inhaled Oxygen Concentration - - Weight 78.3 kg (172 lb 9.6 oz) 12/23/2017 11:41 AM EST Height - - Body Mass Index 27.86 06/17/2016 4:10 PM EDT documented in this encounter Patient Instructions Patient InstructionsAlyson Reaves APRN - 12/23/2017 11:15 AM EST date PSA Testosterone 12/17/2017 < 0.1 -undetectable 01/26/2017 < 0.1 --UNDETECTABLE) 06/17/2016 < 0.03 04/01/2016 < 0.1 (undetectable 256 12/16/2015 < 0.03 10/16/2015 < 0.03 06/10/2015 0.04 03/18/2015 <0.03 3.29 12/17/2014 0.04 09/20/2014 0.04 2.72 06/21/2014 0.04 3.60 05/02/2014 0.08 3.68 01/01/2014 0.30 4.00 11/20/2013 0.18 09/29/2013 0.14 05/17/2013 0.09 11/28/2012 0.12 08/29/2012 0.13 01/13/2012 7.71* 12/21/2011 8.27* Vitals Office Visit from 12/23/2017 in Radiation Oncology at [facility] Weight 78.3 kg (172 lb 9.6 oz) Temp 36.6 ??C (97.9 ??F) Heart Rate 78 Resp 18 BP 169/75 SpO2 96 % documented in this encounter Progress Notes Alyson Reaves APRN - 12/23/2017 11:15 AM EST Images from the original note were not included. Patient ID: Dalton Pereira is a 72 y.o. male with history of prostate cancer s/p Radical Prostatectomy 05/2012, pT2c, [place] 3+3=6, Margin negative, Node negative (Pre-operative [id number] [place] 3+4=7, PSA 7.7 on dutasteride) with detectable PSA post-operatively that hanh to 0.30. He was treated with salvage radiation therapy to a dose of 68.4 Gy which was completed on 03/21/2014 under RTOG trial 0534. He is in clinic for scheduled follow up. HPI MrAbad Pereira has history of prostate cancer ([id number] [place] 3+4=7, PSA 7.7 on dutasteride with [...] - Specimen type: Proctectomy Histologic type: Adenocarcinoma Hamer grades: 3 + 3, teritary pattern 4 is 3% Hamer score: 6 Location of tumor: Bilateral lobes [...] Prostatectomy done by Dr Teresa Rodriguez at [facility] Prostatectomy Date 06/03/2012 Pelvic Lymphnode Dissection [...] DIAGNOSTIC performed by Kenna Knapp MD at [facility] ENDOSCOPY ??? PRO LAP, PROSTATECTOMY, RADICAL, W/NERVE SPARE 06/03/2012 @LAPAROSCOPIC PROSTATECTOMY, ROBOTICS ASSISTED performed by TERESA RODRIGUEZ at [facility] OR ??? PRO REMOVE PELVIS LYMPH NODES 06/03/2012 @LYMPHADENECTOMY, PELVIC, INCLUDING MULTIPLE NODES-JAZMINE performed by TERESA RODRIGUEZ at [facility] OR ??? PRO REPAIR ING HERNIA, 5+Y/O, THERESA 06/23/2012 HERNIA REPAIR, INITIAL INGUINAL AGE 5 OR OVER, REDUCIBLE INCARCERATED performed by JARVIS IRWIN at [facility] OR Allergies Allergen Reactions ??? Gentamicin Hives No current outpatient prescriptions on file prior to visit. No current facility-administered medications on file prior to visit. Social History Social History ??? Marital status: Spouse name: N/A ??? Number of children: N/A ??? 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 [employer] Social History Main Topics ??? [...] Mr Pereira reports that he is doing generally well at this time. 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 The winter has been more quietfor him and he is eager to have the warmer weather return. He reports no urinary issues at this time with an IPSS of 5. He has no urinary retention, no dysuria, no hematuria and he denies incontinence. He indicates that he is delighted with his current urinaryfunction International Prostate Symptom Score Total Score__5__ 0 [...] otherwise is well. He reports no pain. Distress screening; score is 0 Review of Systems Constitutional: Negative. Negative for [...] restriction?? KPS: 100 Vitals Office Visit from 12/23/2017 in Radiation Oncology at [facility] Weight 78.3 kg (172 lb 9.6 oz) Temp 36.6 ??C (97.9 ??F) Heart Rate 78 Resp 18 BP 169/75 SpO2 96 % Objective: Physical Exam Constitutional: He is [...] content normal. Vitals reviewed. date PSA Testosterone 12/17/2017 < 0.1 -undetectable 01/26/2017 < 0.1 [...] Plan: Dalton Pereira is a very pleasant 71 y.o. year-old male with history of prostate cancer s/p Radical Prostatectomy 05/2012, pT2c, [place] 3+3=6, Margin negative, Node negative (Pre-operative [id number] [place] 3+4=7, PSA 7.7 on dutasteride) with detectable [...] Office Visit Radiation Oncology Ayad, Alecia M, VP INFORMATICS [facility] ER RADIATION [place], [place] [address] (Wo rk) documented as of this encounter Procedures Procedure Name Priority Date/Time Associated Diagnosis Comme nts LAB SCAN 12/17/2017 12:00 AM Results for this EST procedure are i n the results section . LAB SCAN 01/26/2017 12:00 AM Results for this EDT procedure are i n the results section . documented in this encounter Results SCAN DOC: LAB (12/17/2017 12:00 AM EST) Narrative 12/17/2017 12:00 AM EST This result has an attachment that is no t available. Ordered by an unspecified provider. Scanning Provider MEDIA MGR SCAN EXT ORDR/RSLT SCAN DOC: LAB (01/26/2017 12:00 AM EDT) Narrative 01/26/2017 12:00 AM EDT This result has an attachment that is no t available. Ordered by an unspecified provider. Scanning Provider MEDIA MGR SCAN EXT ORDR/RSLT documented in this encounter Visit Diagnoses Diagnosis Malignant neoplasm of prostate documented in this encounter Care Teams Pass Worker Relationship Specialty Start Date End Date Santos Guallpa MD PCP - General 10/14/[address] [place] [address] [phone] documented as of this encounter
--- OUTSIDE RECORDS SUMMARY | 2022-07-24 15:18 | XMS_ITS | Encounter Summary ---
:1945 Author Organization [facility] [place] [address] Care Team Providers Name Role Phone Santos Guallpa MD Primary Care Provider Reason for Visit Reason Comments Radiation Follow-up prostate cancer Encounter Details Date Type Department Care Team Description 04/02/2016 Office Visit Radiation Oncology at [place], Andrew Banegas neoplasm of [facility] [employer] prostate [address] [place], [place] RADIATION ONCOL OGY [address] [place], [place] [phone] (Wo rk) Social History Tobacco Use Types Packs/Day Years Used Date Never Smoker Smokeless Tobacco: Never Used Alcohol Use Standard Drinks/Week Comments No 0 (1 standard drink = 0.6 oz pure alcoho l) Sex Assigned at Date Recorded Not on file documented as of this encounter Last Filed Vital Signs Vital Sign Reading Time Taken Comments Blood Pressure 148/72 04/02/2016 1:56 PM EDT Pulse 71 04/02/2016 1:56 PM EDT Temperature 36.6 ??C (97.9 ??F) 04/02/2016 1:56 PM EDT Respiratory Rate - - Oxygen Saturation 96% 04/02/2016 1:56 PM EDT Inhaled Oxygen Concentration - - Weight 79.8 kg (176 lb) 04/02/2016 1:56 PM EDT Height - - Body Mass Index 28.41 12/16/2015 10:49 AM EST documented in this encounter Patient Instructions Patient InstructionsPaAlyson scott APRN - 04/02/2016 2:08 PM EDT date PSA Testosterone 04/01/2016 < 0.1 (undetectable ) 256 12/16/2015 < 0.03 10/16/2015 < 0.03 06/10/2015 0.04 03/18/2015 <0.03 3.29 12/17/2014 0.04 09/20/2014 0.04 2.72 06/21/2014 0.04 3.60 05/02/2014 0.08 3.68 01/01/2014 0.30 4.00 11/20/2013 0.18 09/29/2013 0.14 05/17/2013 0.09 11/28/2012 0.12 08/29/2012 0.13 01/13/2012 7.71* 12/21/2011 8.27* Vitals Office Visit from 04/02/2016 in [facility] Radiation Oncology Weight - Scale 79.8 kg (176 lb) Temp 36.6 ??C (97.9 ??F) Temp Source Oral Heart Rate 71 Heart Rate Source NIBP BP 148/72 BP Location Left arm Patient Position Sitting SpO2 96 % documented in this encounter Progress Notes Alyson Reaves APRN - 04/02/2016 11:27 AM EDT Patient ID: Dalton Pereira is a 70 y.o. male with history of prostate cancer s/p Radical Prostatectomy 05/2012, pT2c, [place] 3+3=6, Margin negative, Node negative (Pre-operative [id number] [place] 3+4=7, PSA 7.7 on dutasteride) with detectable PSA post-operatively that hanh to 0.30. He was treated with salvage radiation therapy to a dose of 68.4 Gy which was completed on 03/21/2014 under RTOG trial 0534. He is in clinic for scheduled follow up. HPI Mr. Dalton Pereira has history of prostate cancer ([id number] [place] 3+4=7, PSA 7.7 on dutasteride with neurogenic [...] - Specimen type: Proctectomy Histologic type: Adenocarcinoma [place] grades: 3 + 3, teritary pattern 4 [...] Prostatectomy done by Dr Teresa Rodriguez at [facility] Prostatectomy Date 06/03/2012 Pelvic Lymphnode Dissection 0 positive of 18 lymph nodes removed Histologic Type/pathology detail Adenocarcinoma --negative extracapsular extension -negative seminal vesicle -[place] 3+3-=6 with tertiary [place] 4 --bilateral lobes -margins negative -negative PNI [...] ROBOTICS ASSISTED performed by TERESA RODRIGUEZ at [facility] MAIN OR ??? Pro remove pelvis lymph nodes 06/03/2012 @LYMPHADENECTOMY, PELVIC, INCLUDING MULTIPLE NODES-JAZMINE performed by TERESA RODRIGUEZ at [facility] MAIN OR ??? Pro repair ing hernia, 5+y/o, charlie 06/23/2012 HERNIA REPAIR, INITIAL INGUINAL AGE 5 OR OVER, REDUCIBLE INCARCERATED performed by JARVIS IRWIN at [facility] MAIN OR ??? Appendectomy ??? Pro colonoscopy, diagnostic 12/12/2013 COLONOSCOPY, DIAGNOSTIC performed by Kenna Knapp MD at [facility] ENDOSCOPY Allergies Allergen Reactions ??? Gentamicin Hives No current outpatient prescriptions on file prior to visit. No current facility-administered medications on file prior to visit. History Social History ??? Marital status: Spouse name: N/A ??? Number of children: N/A ??? 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 [employer] Social History Main Topics ??? Smoking status: Never Smoker ??? Smokeless tobacco: Never Used ??? Alcohol use: No ??? Drug use: [...] no tenderness. There is no rebound. Genitourinary: Genitourinary Comments: Post prostatectomy Musculoskeletal: Normal [...] content normal. Vitals reviewed. date PSA Testosterone 04/01/2016 < 0.1 (undetectable 256 12/16/2015 < [...] [place] 3+3=6, Margin negative, Node negative (Pre-operative [id number] [place] 3+4=7, PSA 7.7 on dutasteride) with detectable [...] Visit Radiation Oncology Alecia Lion APRN [facility] [place] [address] (Wo rk) documented as of this encounter Visit Diagnoses Diagnosis Malignant neoplasm of prostate documented in this encounter Care Teams Charge Entry Relationship Specialty Start Date End Date Santos Guallpa MD PCP - General 10/14/[address] [place] [phone] documented as of this encounter
--- OUTSIDE RECORDS SUMMARY | 2022-07-24 15:18 | XMS_ITS | Encounter Summary ---
:1945 Author Organization [facility] [place] [address] Care Team Providers Name Role Phone Santos Guallpa MD Primary Care Provider Encounter Details Date Type Department Care Team Description 12/17/2014 Hospital Encounter Laboratory John Rodriguez MD Prostate cancer [facility] [address] [place] UROLOGY [address] [place] [address] [phone] Social History Tobacco Use Types Packs/Day Years Used Date Never Smoker Smokeless Tobacco: Never Used Alcohol Use Standard Drinks/Week Comments No 0 (1 standard drink = 0.6 oz pure alcoho l) Sex Assigned at Date Recorded Not on file documented as of this encounter Plan of Treatment Upcoming Encounters Date Type Specialty Care Team Description 07/30/2022 Office Visit Radiation Oncology Alecia Lion APRN [facility] RADIATION [place], [place] [address] (Wo rk) documented as of this encounter Visit Diagnoses Diagnosis Prostate cancer Malignant neoplasm of prostate documented in this encounter Care Teams Accordion Repairer Relationship Specialty Start Date End Date Santos Guallpa MD PCP - General 10/14/11 [address] [place] [phone] documented as of this encounter
--- OUTSIDE RECORDS SUMMARY | 2022-07-24 15:18 | XMS_ITS | Encounter Summary ---
:1945 [place] [address] Care Team Providers Name Role Phone Santos Guallpa MD Primary Care Provider Encounter Details Date Type Department Care Team Description 10/11/2014 Orders Only Radiation Oncology at [facility], Alec Sunshine Ma lignant neoplasm of Rolanda Mckeon MD [facility] [address] [place] [address] [place] [address] [phone] Social History Tobacco Use Types Packs/Day Years [...] Lion APRN [facility] RADIATION [place], [place] [address] (Wo rk) documented as of this encounter Results Testosterone, total (12/17/2014 8:47 AM EST) athologist Signature Testo Total 3.34 2.80 - 8.00 CERNER ng/mL MILLENNIUM Comment: Reference Ranges: ? Males (7t o18 [...] reference ranges derived fr om review of [employer] E170 Testosterone reagent package insert 09/12, V8 Stated pediatric reference ranges derive d from review of Jeff E170 Testosterone II reagent package insert 0 05/17, V2. Specimen Anatomical Collection Method Collection Time Receive d Time (Source) Location / / Volume Laterality Blood specimen 12/17/2014 8:47 AM 015 8:50 (specimen) EST AM EST Resulting Agency Comment Spec In Lab Alec Wolfe MD CHEMISTRY ORDERABLES Performing Organization Address City/State/ZIP Code Phon e Number [address] [facility] documented in this encounter Visit Diagnoses Diagnosis Malignant neoplasm of prostate documented in this encounter Care Teams Food Mobile Driver Relationship Specialty Start Date End Date Santos Guallpa MD PCP - General 10/14/[address] [place] [phone] documented as of this encounter
--- OUTSIDE RECORDS SUMMARY | 2022-07-24 15:18 | XMS_ITS | Encounter Summary ---
:1945 Author Organization [facility] [place] [address] Care Team Providers Name Role Phone Santos Guallpa MD Primary Care Provider Encounter Details Date Type Department Care Team Description 08/21/2019 Hospital Encounter Hematology and Maligna [place] [address] Social History Tobacco Use Types Packs/Day Years Used Date Never Smoker Smokeless Tobacco: Never Used Alcohol Use Standard Drinks/Week Comments No 0 (1 standard drink = 0.6 oz pure alcoho l) Sex Assigned at Date Recorded Not on file documented as of this encounter Medications at Time of Discharge Medication Sig Dispensed Refills Start Date End Date levothyroxine (SYNTHROID) 75 mcg Tablet 0 08/17/2019 08/09/2020 documented as of this encounter Plan of Treatment Upcoming Encounters Date Type Specialty Care Team Description 07/30/2022 Office Visit Radiation Oncology Alecia Lion APRN [facility] RADIATION [place], [place] [address] (Wo rk) Scheduled Orders Name Type Priority Associated Diagnoses Order S chedule PSA Lab Routine Malignant neoplasm of prosta te 1 Occurrences starting 08/21/2019 until 9 documented as of this encounter Procedures Procedure Name Priority Date/Time Associated Comments Diagnosis PSA (ULTRASENSITIVE) Routine 08/21/2019 12:20 Res ults for this PM EDT procedure are i n the results section. HC VENIPUNCTURE Routine 08/21/2019 12:15 Malignant neoplasm Re sults for this PM EDT of prostate procedure are i n the results section. documented in this encounter Results PSA (08/21/2019 12:20 PM EDT) athologist Signature PSA Total 0.03 0.00 - [facility] (Ultrasensitiv 4.00 ng/mL [facility] LABORATORY Specimen Anatomical Collection Method Collection Time Receive d Time (Source) Location / / Volume Laterality Blood specimen Venous Draw / 08/21/2019 12:20 08/21/20 19 (specimen) Unknown PM EDT 12:30 PM EDT Resulting Agency Comment Spec In Lab Alyson Reaves APRN CHEMISTRY ORDERABLES Performing Organization Address City/State/ZIP Code Phon e Number [address] Research Venipuncture (08/21/2019 12:15 PM EDT) Analysis Performed At Patho logist Time Signature Research Drawn [facility] Venipuncture [facility] Specimen Anatomical Collection Method Collection Time Receive d Time (Source) Location / / Volume Laterality Blood specimen 08/21/2019 12:15 9 (specimen) PM EDT 12:23 PM EDT Resulting Agency Comment Spec In Lab Alexis Rhoades MD CHEMISTRY ORDERABLES Performing Organization Address City/[facility]/[place] [address] documented in this encounter Visit Diagnoses Diagnosis Malignant neoplasm of prostate documented in this encounter Care Teams Three Dimensional Art Instructor Relationship Specialty Start Date End Date Santos Guallpa MD PCP - General 10/14/[address] [place] [phone] documented as of this encounter
--- OUTSIDE RECORDS SUMMARY | 2022-07-24 15:18 | XMS_ITS | Encounter Summary ---
:1945 [place] [address] Care Team Providers Name Role Phone Santos Guallpa MD Primary Care Provider Reason for Visit Reason Comments Radiation Follow-up Encounter Details Date Type Department Care Team Description 12/17/2014 Office Visit Radiation Oncology at Alec Wolfe Ma lignant neoplasm of Rolanda Mckeon MD [facility] [address] RADIATION ONCOLOGY [place], [place] [address] [phone] Social History Tobacco Use Types Packs/Day Years Used Date Never Smoker Smokeless Tobacco: Never Used Alcohol Use Standard Drinks/Week Comments No 0 (1 standard drink = 0.6 oz pure alcoho l) Sex Assigned at Date Recorded Not on file documented as of this encounter Last Filed Vital Signs Vital Sign Reading Time Taken Comments Blood Pressure 150/80 12/17/2014 9:47 AM EST Pulse - - Temperature - - Respiratory Rate 16 12/17/2014 9:47 AM EST Oxygen Saturation - - Inhaled Oxygen Concentration - - Weight 79.8 kg (176 lb) 12/17/2014 9:47 AM EST Height - - Body Mass Index 28.41 05/21/2014 8:19 AM EDT documented in this encounter Progress Notes Alec Wolfe MD - 12/17/2014 9:58 AM EST RADIATION ONCOLOGY FOLLOW-UP VISIT NOTE Identification: Dalton Pereira is a 69 y.o. year-old male with history of prostate cancer s/p Radical Prostatectomy 05/2012, pT2c, [place] 3+3=6, Margin negative, Node negative (Pre-operative [id number] 3+4=7, PSA 7.7 on dutasteride) with detectable PSA post-operatively was is rising, at 0.30. Radiotherapy: 6840 cGy to the Prostatic fossa, completed 03/21/14 On study RTOG 0534 Interim History: Mr. Pereira returns and continues to do well. 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 Prior visit had intermittent urgent stools, this has resolved. No pain or blood. No diarrhea. Urinary function remains good. No incontinence. No hematuria or dysuria. Nocturia 1-2X. IPSS today 5, last visit 3. PSA today remains at 0.04 Allergies: Allergies Allergen Reactions ??? Gentamicin Hives Medications: No current outpatient prescriptions on file prior to visit. No current facility-administered medications on file prior to visit. Review of Systems: Gen: Energy good. No fevers. : See interim history GI: See interim history Physical Exam: Filed Vitals: 12/17/14 0947 BP: 150/80 Resp: 16 Gen: Well appearing, NAD ANDREAS: Empty fossa, no nodules. AAOX3, interactive and asks appropriate questions. Ambulatory Labs: . PSA Total Date Value Ref Range Status 12/17/2014 0.04 0.00 - 4.00 ng/mL Final [...] PSA Result Value Ref Range PSA Total 0.04 0.00 - 4.00 ng/mL Testo Total Date Value Ref Range Status 12/17/2014 3.34 2.80 - 8.00 ng/mL Final [...] insert 09/12, V8 Stated pediatric reference ranges derived from [...] insert 09/12, V8 Stated pediatric reference ranges derived from [...] Jeff E170 Testosterone reagent package insert 09/12, V Stated pediatric reference ranges derived from review [...] insert 09/12, V8 Stated pediatric reference ranges derived from [...] insert 09/12, V8 Stated pediatric reference ranges derived from review of Jeff E170 Testosterone II reagent package insert 05/17, V2. Assessment: Dalton Pereira is a 69 y.o. year-old male with history of prostate cancer s/p RadicalProstatectomy 05/2012, pT2c, [place] 3+3=6, Margin negative, Node negative (Pre-operative [id number] [place] 3+4=7, PSA 7.7 on dutasteride) with detectable PSA post-operatively was is rising, at 0.30, he is s/p nichols radiation completed 03/21/14, PSA stable at 0.04 We discussed his PSA today, remains at 0.04. We discussed again that is is nearly undetectable. We reviewed that a PSA rise would mean disease has not been cured. PSA monitoring will need to continue. His toxicity from radiation is minimal, bowel irritation improved. He is fully functional All questions addressed. Plan: 1. FU in 3 months with labs. Total visit time was 10 minutes. 5 minutes were spent in face to face counseling and coordination ofcare. documented in this encounter Plan of Treatment Upcoming Encounters Date Type Specialty Care Team Description 07/30/2022 Office Visit Radiation Oncology Alecia Lion APRN [facility] [place] [address] (Wo rk) documented as of this encounter Procedures Procedure Name Priority Date/Time Associated Comments Diagnosis TESTOSTERONE, TOTAL STAT 12/17/2014 8:47 AM Malignant neopl asm Results for this EST of prostate procedure are i n the results section. PSA (ULTRASENSITIVE) Routine 12/17/2014 8:47 AM Malignant neop lasm Results for this EST of prostate procedure are i n the results section. COMPREHENSIVE Routine 12/17/2014 8:47 AM Results for this METABOLIC PANEL EST procedure ar e in (NON-FASTING) the results section. documented in this encounter Results (ABNORMAL) Comprehensive metabolic panel (non-fasting) (03/18/2015 11:33 AM EDT) P athologist Signature Glucose Lvl 77 60 - 199 CERNER mg/dL MILLENNIUM Comment: Diabetes: >=200 mg/dL plus symp toms BUN 20 10 - 20 mg/dL CERNER MILLENNIU M Creatinine 1.24 0.80 - 1.50 mg/dL CERNER MILL ENNIUM Comment: Please note that the pediatric reference intervals supplied above were not validated at [facility]. Results from pediatri c patients should be [...] Bili, Direct 0.1 0.0 - 0.3 mg/dL CERNER MILL ENNIUM Estimated GFR 58 (L) >=60 CERNER MILLENNIU [...] the following links into your internet browser. [email or web address] Specimen Anatomical Collection Method Collection Time Receive d Time (Source) Location / / Volume Laterality Blood specimen 03/18/2015 11:33 5 (specimen) AM EDT 11:51 AM EDT Resulting Agency Comment Spec In Lab Alec Wolfe MD CHEMISTRY ORDERABLES Performing Organization Address City/State/[place] [address] CERNER MILLENNIUM Testosterone, total (03/18/2015 11:33 AM EDT) athologist Signature Testo Total 3.29 2.80 - 8.00 CERNER ng/mL [facility] Comment: Reference Ranges: ? Males (7t [...] reference ranges derived fr om review of [employer] E170 Testosterone reagent package insert 09/12, V8 Stated pediatric reference ranges derive d from review of [employer] E170 Testosterone II reagent package insert 0 05/17, V2. Specimen Anatomical Collection Method Collection Time Receive d Time (Source) Location / / Volume Laterality Blood specimen 03/18/2015 11:33 5 (specimen) AM EDT 11:51 AM EDT Resulting Agency Comment Spec In Lab Alec Wolfe MD CHEMISTRY ORDERABLES Performing Organization Address City/State/ZIP Code Phon e Number [address] [facility] PSA (03/18/2015 11:33 AM EDT) P athologist [...] Organization Address City/State/[place] [address] CERNER MILLENNIUM (ABNORMAL) Comprehensive metabolic panel (non-fasting) (12/17/2014 8:47 AM EST) athologist Signature Glucose Lvl 101 60 - 199 CERNER mg/dL MILLENNIUM Comment: Diabetes: >=200 mg/dL plus symp toms BUN 24 (H) 10 - 20 mg/dL CERNER MILLENNIU M Creatinine 1.18 0.80 - 1.50 mg/dL CERNER MILL ENNIUM Comment: Please note that the pediatric reference intervals supplied above were not validated at [facility]. Results from pediatri c patients should be interpreted in conjunction to the patient's age, height and muscle mass. Sodium 139 135 - 145 mmol/L CERNER SOFIA NIUM Potassium 4.2 3.5 - 5.0 mmol/L CERNER SOFIA NIUM Comment: Please note: ??Patients with WBC >100,00 0 may have falsely elevated Potassium levels. ??For accurate Potassium quantif ication in these patients send serum separator tube (gold top) for subsequent determinations. ??Contact the Clinical Chemistry Laboratory if there are any qu estions. Chloride 102 98 - 107 mmol/L CERNER MILLENN IUM CO2 Not Perf 22 - 31 mmol/L CERNER MILLENNI UM Comment: Add-on request. Sample too old to perform test. Anion Gap Unable to Calculate 5 - 15 mmol/L CERNER MILLENNIUM Calcium 9.5 8.5 - 10.5 mg/dL CERNER SOFIA NIUM Total Protein 7.0 6.4 - 8.3 gm/dL CERNER MIL LENNIUM Albumin 4.4 3.2 - 5.2 gm/dL CERNER MILLENN IUM AST 17 0 - 39 unit/L CERNER MILLENNIU M ALT 15 0 - 55 unit/L CERNER MILLENNIU M Alk Phos 77 40 - 120 unit/L CERNER MILLENN IUM Total Bilirubin 0.6 0.2 - 1.3 mg/dL CERNER M ILLENNIUM Bili, Direct 0.1 0.0 - 0.3 mg/dL CERNER MILL ENNIUM Estimated GFR >60 >=60 CERNER MILLENNIU M Comment: This estimated [...] the following links into your internet browser. [email or web address] Specimen Anatomical Collection Method Collection Time Receive d Time (Source) Location / / Volume Laterality Blood specimen Venous Draw / 12/17/2014 8:47 AM 2014 8:51 (specimen) Unknown EST AM EST Resulting Agency Comment Spec In Lab Alec Wolfe MD CHEMISTRY ORDERABLES Performing Organization Address City/State/[place] [address] CERNER MILLENNIUM Testosterone, total (12/17/2014 8:47 AM EST) athologist Signature Testo Total 3.34 2.80 - 8.00 CERNER ng/mL [facility] Comment: Reference Ranges: ? Males (7t o18 [...] reference ranges derived fr om review of [employer] E170 Testosterone reagent package insert 09/12, V8 Stated pediatric reference ranges derive d from review of [employer] E170 Testosterone II reagent package insert 0 05/17, V2. Specimen Anatomical Collection Method Collection Time Receive d Time (Source) Location / / Volume Laterality Blood specimen 12/17/2014 8:47 AM 015 8:50 (specimen) EST AM EST Resulting Agency Comment Spec In Lab Alec Wolfe MD CHEMISTRY ORDERABLES Performing Organization Address City/[facility]/ZIP Code Phon e Number [address] CERNER MILLENNIUM PSA (12/17/2014 8:47 AM EST) P athologist Signature PSA Total 0.04 0.00 - CERNER (Ultrasensitiv 4.00 ng/mL MILLENNIUM e) Specimen Anatomical Collection Method Collection Time Receive d Time (Source) Location / / Volume Laterality Blood specimen 12/17/2014 8:47 AM 015 8:50 (specimen) EST AM EST Resulting Agency Comment Spec In Lab Alec Wolfe MD CHEMISTRY ORDERABLES Performing Organization Address City/[facility]/ZIP Code Phon e Number [address] LABOR[address] [facility] documented in this encounter Visit Diagnoses Diagnosis Malignant neoplasm of prostate documented in this encounter Care Teams Supply Chain Director Relationship Specialty Start Date End Date Santos Guallpa MD PCP - General 10/14/[address] [place] [phone] documented as of this encounter
--- OUTSIDE RECORDS SUMMARY | 2022-07-24 15:18 | XMS_ITS | Encounter Summary ---
:1945 [place] [address] Care Team Providers Name Role Phone Santos Guallpa MD Primary Care Provider Encounter Details Date Type Department Care Team Description 07/06/2017 Laboratory Appointment Lab 3L Ghassan Mckeon [place] [phone] Social History Tobacco Use Types Packs/Day Years Used Date Never Smoker Smokeless Tobacco: Never Used Alcohol Use Standard Drinks/Week Comments No 0 (1 standard drink = 0.6 oz pure alcoho l) Sex Assigned at Date Recorded Not on file documented as of this encounter Plan of Treatment Upcoming Encounters Date Type Specialty Care Team Description 07/30/2022 Office Visit Radiation Oncology Alecia Lion APRN [facility] RADIATION [place], [place] [address] (Wo rk) documented as of this encounter Procedures Procedure Name Priority Date/Time Associated Diagnosis Comme nts PSA Routine 07/06/2017 9:20 AM Malignant neoplasm Res ults for this (ULTRASENSITIVE) EDT of prostate procedure a re in the results section. documented in this encounter Results PSA (07/06/2017 9:20 AM EDT) P athologist Signature PSA Total 0.02 0.00 - GHASSAN MCKEON (Ultrasensitiv 4.00 ng/mL [facility] LABORATORY Specimen Anatomical Collection Method Collection Time Receive d Time (Source) Location / / Volume Laterality Blood specimen 07/06/2017 9:20 AM 017 9:23 (specimen) EDT AM EDT Resulting Agency Comment Spec In Lab Isaiah Jung MD CHEMISTRY ORDERABLES Performing Organization Address City/State/ZIP Code Phon e Number [place] [phone] documented in this encounter Visit Diagnoses Diagnosis Malignant neoplasm of prostate documented in this encounter Care Teams Classification Analyst Relationship Specialty Start Date End Date Santos Guallpa MD PCP - General 10/14/[address] [place] [phone] documented as of this encounter
--- OUTSIDE RECORDS SUMMARY | 2022-07-24 15:18 | XMS_ITS | Encounter Summary ---
:1945 Author Organization [facility] [place] [address] Care Team Providers Name Role Phone Santos Guallpa MD Primary Care Provider Reason for Visit Reason Comments Radiation Follow-up prostate cancer Encounter Details Date Type Department Care Team Description 01/26/2019 Office Visit Radiation Oncology at [place], Andrwe Banegas neoplasm of [facility] FLAT KNITTER HELPER prostate [address] [place], [place] RADIATION ONCOL OGY [address] [place], [place] [phone] (Wo rk) Social History Tobacco Use Types Packs/Day Years Used Date Never Smoker Smokeless Tobacco: Never Used Alcohol Use Standard Drinks/Week Comments No 0 (1 standard drink = 0.6 oz pure alcoho l) Sex Assigned at Date Recorded Not on file documented as of this encounter Last Filed Vital Signs Vital Sign Reading Time Taken Comments Blood Pressure 173/85 01/26/2019 1:02 PM EDT Pulse 82 01/26/2019 1:02 PM EDT Temperature 36.9 ??C (98.4 ??F) 01/26/2019 1:02 PM EDT Respiratory Rate 20 01/26/2019 1:02 PM EDT Oxygen Saturation 95% 01/26/2019 1:02 PM EDT Inhaled Oxygen Concentration - - Weight 78.7 kg (173 lb 6.4 oz) 01/26/2019 1:02 PM EDT Height 167.6 cm (5' 6) 01/26/2019 1:02 PM EDT Body Mass Index 27.99 01/26/2019 1:02 PM EDT documented in this encounter Patient Instructions Patient InstructionsAlyson Reaves APRN - 01/26/2019 1:00 PM EDT date PSA Testosterone 01/21/2019 < 0.1 12/17/2017 < 0.1 -undetectable 01/26/2017 < 0.1 --UNDETECTABLE) 06/17/2016 < 0.03 04/01/2016 < 0.1 (undetectable 256 12/16/2015 < 0.03 10/16/2015 < 0.03 06/10/2015 0.04 03/18/2015 <0.03 3.29 12/17/2014 0.04 09/20/2014 0.04 2.72 06/21/2014 0.04 3.60 05/02/2014 0.08 3.68 01/01/2014 0.30 4.00 11/20/2013 0.18 09/29/2013 0.14 05/17/2013 0.09 11/28/2012 0.12 08/29/2012 0.13 01/13/2012 7.71* 12/21/2011 8.27* documented in this encounter Progress Notes Alyson Reaves APRN - 01/26/2019 1:00 PM EDT Images from the original note were not included. Patient ID: Dalton Pereira is a 73 y.o. male with history of prostate cancer s/p Radical Prostatectomy 05/2012, pT2c, Maynor 3+3=6, Margin negative, Node negative (Pre-operative [id number] Belding 3+4=7, PSA 7.7 on dutasteride) with detectable PSA post-operatively that hanh to 0.30. He was treated with salvage radiation therapy to a dose of 68.4 Gy which was completed on 03/21/2014 under RTOG trial 0534. He is in clinic for scheduled follow up. HPI Mr. Dalton Pereira has history of prostate cancer ([id number] Belding 3+4=7, PSA 7.7 on dutasteride with neurogenic [...] - Specimen type: Proctectomy Histologic type: Adenocarcinoma Belding grades: 3 + 3, teritary pattern 4 is 3% Belding score: 6 Location of tumor: Bilateral lobes [...] Prostatectomy done by Dr Teresa Rodriguez at [facility] Prostatectomy Date 06/03/2012 Pelvic Lymphnode Dissection [...] C61 ??? Lesion of left eyelid H02.9 Past Surgical History: Procedure Laterality Date ??? APPENDECTOMY ??? CORNEA LESION EXCISION Right FB removed 1992 ??? PRO COLONOSCOPY, DIAGNOSTIC 12/12/2013 COLONOSCOPY, DIAGNOSTIC performed by Kenna Knapp MD at [facility] ENDOSCOPY ??? PRO LAP, PROSTATECTOMY, RADICAL, W/NERVE SPARE 06/03/2012 @LAPAROSCOPIC PROSTATECTOMY, ROBOTICS ASSISTED performed by TERESA RODRIGUEZ at [facility] MAIN OR ??? PRO REMOVE PELVIS LYMPH NODES 06/03/2012 @LYMPHADENECTOMY, PELVIC, INCLUDING MULTIPLE NODES-JAZMINE performed by TERESA RODRIGUEZ at [facility] MAIN OR ??? PRO REPAIR ING HERNIA, 5+Y/O, THERESA 06/23/2012 HERNIA REPAIR, INITIAL INGUINAL AGE 5 OR OVER, REDUCIBLE INCARCERATED performed by JARVIS IRWIN at [facility] MAIN OR Allergies Allergen Reactions ??? Gentamicin Hives No current outpatient medications on file prior to visit. No current facility-administered medications on file prior to visit. Social History Socioeconomic History ??? Marital status: Spouse name: Not on file ??? Number of children: Not on file ??? Years of education: Not on file ??? Highest education level: Not on file Occupational History ??? 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 Occupation: [employer] Social Needs ??? Financial resource strain: Not on file ??? Food insecurity: Worry: Not on file Inability: Not on file ??? Transportation needs: Medical: Not on file Non-medical: Not on file Tobacco Use ??? Smoking status: Never Smoker ??? Smokeless tobacco: Never Used Substance and Sexual Activity ??? Alcohol use: No ??? Drug use: No ??? Sexual activity: Yes Partners: Female Comment: none since surgery Lifestyle ??? Physical activity: Days per week: Not on file Minutes per session: Not on file ??? Stress: Not on file Relationships ??? Social connections: Talks on phone: Not on file Gets together: Not on file Attends caodaism service: Not on file Active member of club or organization: Not on file Attends meetings of clubs or organizations: Not on file Relationship status: Not on file ??? Intimate partner violence: Fear of current or ex partner: Not [...] grains for feed. The winter has been quiet for him and he is eager to have the warmer weather return. He reports no urinary issues at this time with an IPSS that is unchange. He has no urinary retention, no dysuria, no hematuria and he denies incontinence. He indicates that he is delighted with his current urinary function International Prostate Symptom Score Total Score__5__ 0 [...] otherwise is well. He reports no pain. Expanded Prostate Cancer Index Composite For Clinical Practice (Epic-Cp) Question 01/26/2019 ??1:57 PM EDT - Filed by Alyson Reaves APRN on 01/26/2019 Urinary function problem Very small problem Urinary control Occasional dribbling # of pads used per day None Urinary dripping/leakage problem Very small problem 5. How big a problem, if any, has each of the following been for you? Pain or burning with urination No problem Weak urine stream/incomplete bladder emptying Very small problem Need to urinate frequently Very small problem 6. How big a problem, if any, has each of the following been for you? Rectal pain or urgency of bowel movements No problem Increased frequency of your bowel movements No problem Overall problems with your bowel movements No problem Bloody stools No problem Ability to reach orgasm Very poor to none Quality of your erections None at all Problem with sexual function or lack of it No problem 10. How big a problem, if any, has each of the following been for you? Hot flashes or breast tenderness/enlargement No problem Feeling depressed No problem Lack of energy Very small problem Urinary Incontinence Symptom Score (range: 0 - 12) 2 Urinary Irritation/Obstructive Symptom Score (range: 0 - 12) 2 Bowel Symptom Score (range: 0 - 16) 0 Vitality/Hormonal Symptom Score (range: 0 - 12) 1 Overall Prostate Cancer QOL Score (range: 0 - 60) 5 Review of Systems Constitutional: Negative. Negative for [...] restriction?? KPS: 100 Vitals Office Visit from 01/26/2019 in Radiation Oncology at [facility] Weight 78.7 kg (173 lb 6.4 oz) Height 167.6 cm (5' 6) BSA (Calculated - sq m) 1.91 sq meters BMI (Calculated) 27.98 Temp 36.9 ??C (98.4 ??F) Temp src Oral Heart Rate 82 Heart Rate Source NIBP Resp 20 BP 173/85 BP Location Right arm Patient Position Sitting SpO2 95 % Objective: Physical Exam Constitutional: He is [...] content normal. Vitals reviewed. date PSA Testosterone 01/21/2019 < 0.1 12/17/2017 < 0.1 -undetectable [...] Plan: Dalton Pereira is a very pleasant 73 y.o. year-old male with history of prostate cancer s/p Radical Prostatectomy 05/2012, pT2c, Belding 3+3=6, Margin negative, Node negative (Pre-operative [id number] Maynor 3+4=7, PSA 7.7 on dutasteride) with [...] Radiation Oncology Alecia Lion APRN [facility] RADIATION [facility] [place] [address] (Wo rk) Scheduled Orders Name Type Priority Associated Diagnoses Order S chedule PSA Lab Routine Malignant neoplasm of prosta te Expected: 01/26/2020 (Approximate), Expires: 2019 documented as of this encounter Visit Diagnoses Diagnosis Malignant neoplasm of prostate documented in this encounter Care Teams Sales And Operations Trainee Relationship Specialty Start Date End Date Santos Guallpa MD PCP - General 10/14/[address] [place] [phone] documented as of this encounter
--- OUTSIDE RECORDS SUMMARY | 2022-07-24 15:18 | XMS_ITS | Encounter Summary ---
:1945 Author Organization [facility] [place] [address] Care Team Providers Name Role Phone Santos Guallpa MD Primary Care Provider Encounter Details Date Type Department Care Team Description 01/27/2021 Office Visit Urology at [facility] John Rodriguez MD Malignant neoplasm of [facility] [address] [place] [facility] [address] [place] [address] [phone] Social History Tobacco Use Types Packs/Day Years Used Date Never Smoker Smokeless Tobacco: Never Used Alcohol Use Standard Drinks/Week Comments No 0 (1 standard drink = 0.6 oz pure alcoho l) Sex Assigned at Date Recorded Not on file documented as of this encounter Last Filed Vital Signs Vital Sign Reading Time Taken Comments Blood Pressure 204/90 01/27/2021 3:05 PM EDT Pulse 64 01/27/2021 3:05 PM EDT Temperature - - Respiratory Rate - - Oxygen Saturation 99% 01/27/2021 3:05 PM EDT Inhaled Oxygen Concentration - - Weight 78.5 kg (173 lb) 01/27/2021 3:05 PM EDT Height 167.6 cm (5' 6) 01/27/2021 3:05 PM EDT Body Mass Index 27.92 01/27/2021 3:05 PM EDT documented in this encounter Progress Notes Mary Jane Hook, BORING AND FILLING MACHINE OPERATOR - 01/27/2021 3:40 PM EDT Patient Name: Date of Service: 01/27/2021 Primary Care Provider: Santos Guallpa MD Reason for Visit: Dalton Pereira is a 75 y.o. male who returns for follow up. 06/03/2012: Robot assisted radical prostatectomy fo [id number] Maynor 3+3=6 (with tertiary pattern 4) 18 nodes negative. Margins negative. Preop PSA 8.27 Preop patient in retention requiring CIC. Preop UDS s/w hypotonic bladder. 06/23/2012: Left inguinal hernia repair 03/2014 Completed 6840 CGy XRT for rising PSA to 0.3 Recovered well He last saw Dr. Wolfe in 03/2015 when his PSA was still <0.03. He returns for follow up He is voiding well. Stream good. No leaking. No pads. nocturia x 2 and he can tolerate this. He is not interested in cathing. He does not want a PVR today. He double voids. Rarely leaks if shoveling hard. No erections. His erections were minimal preop and he was not sexually active. This is stable and heis content. No bowel problems No new back or bone pain, no weight loss, or appetite change. His PCP has been following his PCP. There has been no change in PMhx/Pshx since last visit. Examination: Appears well Not examined today otherwise Labs: PSA 04/2014 0.08 05/2013 0.09 02/2013 0.1 08/2012 PSA 0.13 11/2012 PSA 0.12 09/2013 0.14 11/2013 PSA 0.18 03/2015: < 0.03 06/2015: 0.04 10/2015: <0.03 12/2014 <0.03 06/2016: <0.03 06/2017: 0.02 06/218 0.03 12/2019 0.02 01/2021: 0.04 PVR 11/2012: 52cc Impression: #1: pT2 Maynor 3+3=6 prostate cancer sp Radical prostatectomy & XRT JOSÉ LUIS. PSA undetectable #2: Inguinal hernia repair #3: Substantial improvement in urinary function Plan: He would like to come back here or f/u in 1 year with a PSA He defers PVR today, he feels he empties well. BP follow up with PCP. We discussed how high his BP is today. He is not taking one of his meds. His blood pressure is 145/80s at home. He has no symptoms today, he will follow up with his PCP. He is exercising and trying to eat well now. All questions answered to his apparent satisfaction. [...] Radiation Oncology Alecia Lion APRN [facility] RADIATION [place], [place] [address] (Wo rk) documented as of this encounter Results PSA (Ultrasensitive) (01/26/2022 11:06 AM EDT) athologist Signature PSA Total 0.03 0.00 - GHASSAN ROBERT (Ultrasensitiv 4.00 ng/mL [facility] LABORATORY Comment: PLEASE NOTE: The [...] Organization Address City/State/ZIP Code Phon e Number [place] [id number] documented in this encounter Visit Diagnoses Diagnosis Malignant neoplasm of prostate documented in this encounter Care Teams Tube Turner Relationship Specialty Start Date End Date Santos Guallpa MD PCP - General 10/14/[address] [place] [phone] documented as of this encounter
--- OUTSIDE RECORDS SUMMARY | 2022-07-24 15:19 | XMS_ITS | Encounter Summary ---
:1945 Author Organization [facility] [address] Care Team Providers Name Role Phone Santos Guallpa MD Primary Care Provider Reason for Visit Reason Comments Follow-up Cath removal Encounter Details Date Type Department Care Team Description 07/14/2012 Office Visit [facility]rology at [facility] Follow-up exam (Primary Dx); [facility] Nita dyer [place] [address] Social History Tobacco Use Types Packs/Day Years Used Date Never Smoker Smokeless Tobacco: Never Used Alcohol Use Standard Drinks/Week Comments No 0 (1 standard drink = 0.6 oz pure alcoho l) Sex Assigned at Date Recorded Not on file documented as of this encounter Patient Instructions Patient InstructionsIsai Benedict LPN - 07/14/2012 3:27 PM EDT Please remember to pickle pumper your prescription for the antibiotic Ciprofloxacin from your pharmacy. Please take the antibiotic twice daily for 3 days. Remember to take the second tablet today. Your urine was sent for culture to determine if you have a urinary tract infection or not. The culture will take approximately 48hrs to finalize. If the culture is positive, meaning you had an infection, we will call you and treat you. If the results are negative, meaning you do not have an infection,there is no further treatment required. Please call if you are unable to urinate and if you are unable to urinate and experience abdominal discomfort. Over the weekend and after 5pm, please call the main hospital number [phone] and ask for the Urology Resident government relations director. During the day please call [phone] for the main Urology Department. Please follow up with Dr. Rodriguez 3 months after your surgery with a PSA prior. documented in this encounter Progress Notes Isai Benedict LPN - 07/14/2012 2:00 PM EDT Patient presents today for a voiding trial and catheter removal s/p prostatectomy with Dr. Rodriguez on06/03/12 and left inguinal hernia with Dr. Fernandez on 06/22/12. A urine sample was obtained prior to thefoley catheter removal and sent for culture.The patient will take Ciprofloxacin 500mg 1 po bid x's 3days pending culture results. All incisions well approximated. No signs of infection noted. Procedure: 180cc normal saline instilled via nielsen catheter. Balloon deflated. Nielsen gently removed. Patient voided 200 cc's. FOS good. Good control. Kegals practiced at this time. All instructions and literature reviewed with patient. Patient verbalized understanding of instructions. The patient will be notified when the culture results are available. PVR: 30cc measured in the supine position with the bladder scanner shortly after the patient had voided. Follow up 3 months after surgery with Dr. Rodriguez with a PSA prior. Appointment was made today on [facility] out of clinic. ISAI BENEDICT LPN documented in this encounter Plan of Treatment Upcoming Encounters Date Type Specialty Care Team Description 07/30/2022 Office Visit Radiation Oncology Alecia Lion, [facility] RADIATION [place], [place] [address] (Wo rk) documented as of this encounter Results PSA (08/29/2012 1:47 PM EDT) P athologist Signature PSA Total 0.13 0.00 - CERNER (Ultrasensitiv 4.00 ng/mL MILLENNIUM e) Specimen Anatomical Collection Method Collection Time Receive d Time (Source) Location / / Volume Laterality Blood specimen 08/29/2012 1:47 PM 012 1:51 (specimen) EDT PM EDT Resulting Agency Comment Spec In Lab John Rodriguez MD CHEMISTRY ORDERABLES Performing Organization Address City/State/[place] [address] CERNER MILLENNIUM documented in this encounter Visit Diagnoses Diagnosis Follow-up exam - Primary Unspecified follow-up examination Malignant neoplasm of prostate documented in this encounter Care Teams Cigar Tobacco Processing Supervisor Relationship Specialty Start Date End Date Santos Guallpa MD PCP - General 10/14/[address] [place] [phone] documented as of this encounter
--- OUTSIDE RECORDS SUMMARY | 2022-07-24 15:19 | XMS_ITS | Encounter Summary ---
:1945 Author Organization [facility] Address [facility] [place] [address] Care Team Providers Name Role Phone Santos Guallpa MD Primary Care Provider Reason for Visit Reason Comments Follow Up Surgery Encounter Details Date Type Department Care Team Description 07/14/2012 Office Visit General Surgery at [facility], Pos t-operative [facility] MANAGER PROCESS (Primary Dx) [facility] [address] [place], [place] GENERAL SURGERY [address] [place] [address] [phone] Social History Tobacco Use Types Packs/Day Years Used Date Never Smoker Smokeless Tobacco: Never Used Alcohol Use Standard Drinks/Week Comments No 0 (1 standard drink = 0.6 oz pure alcoho l) Sex Assigned at Date Recorded Not on file documented as of this encounter Progress Notes Kathi Veloz, MANAGER PROCESS - 07/15/2012 3:48 PM EDT Dalton Pereira is here for hospital check 06/22/12: left inguinal hernia repair with mesh-Fernandez Feel very well, denies fever malaise, new bulges. Eating well, voiding via nielsen and moving bowels Dalton is s/p prostatectomy and will have his nielsen removed in urology today. Denies any abdominal pain, denies any incisional pain. Exam:well appearing, moves easily about the exam room and onto the exam table. Abd soft non tender non distended, no bulge with valsalva, incision nicely healed, no erythema, fluctuance or calor. Examined standing and supine. Impression/Plan: Unremarkable post discharge course No palpable or visual evidence of recurrence At this time there is no scheduled general surgery FU indicated. However, the patient knows to feel free to call us should there be any question, concern, or should anything specific arise. documented in this encounter Plan of Treatment Upcoming Encounters Date Type Specialty Care Team Description 07/30/2022 Office Visit Radiation Oncology Alecia Lion APRN [facility] RADIATION [place], [place] [address] (Wo rk) documented as of this encounter Visit Diagnoses Diagnosis Post-operative state - Primary Other postprocedural status documented in this encounter Care Teams Patient Services Manager Relationship Specialty Start Date End Date Santos Guallpa MD PCP - General 10/14/11 [address] [place] [phone] documented as of this encounter
--- OUTSIDE RECORDS SUMMARY | 2022-07-24 15:19 | XMS_ITS | Encounter Summary ---
:1945 Author Organization [facility] [place] [address] Care Team Providers Name Role Phone Santos Guallpa MD Primary Care Provider Encounter Details Date Type Department Care Team Description 03/01/2014 Orders Only Radiation Oncology at [facility], [place] Blue cancer Rolanda Mckeon MD (Primary Dx) [facility] [address] [address] [place] [address] [phone] Social History Tobacco Use Types Packs/Day Years [...] Visit Radiation Oncology Alecia Lion APRN [facility] RADIATION [place], [place] [address] (Wo rk) documented as of this encounter Visit Diagnoses Diagnosis Prostate cancer - Primary Malignant neoplasm of prostate documented in this encounter Care Teams Ground Defence Officer Relationship Specialty Start Date End Date Santos Guallpa MD PCP - General 10/14/[address] [place] [phone] documented as of this encounter
--- OUTSIDE RECORDS SUMMARY | 2022-07-24 15:19 | XMS_ITS | Encounter Summary ---
:1945 Author Organization [facility] Address [facility] [place] [address] Care Team Providers Name Role Phone Ho Parham MD Primary Care Provider Reason for Visit Reason Comments Follow-up Encounter Details Date Type Department Care Team Description 11/20/2013 Office Visit Urology at [facility] John Rodriguez MD Malignant neoplasm of [facility] pro state (Primary Dx) Drive [address] [place] [facility] [address] [place] [address] [phone] Social History Tobacco Use Types Packs/Day Years Used Date Never Smoker Smokeless Tobacco: Never Used Alcohol Use Standard Drinks/Week Comments No 0 (1 standard drink = 0.6 oz pure alcoho l) Sex Assigned at Date Recorded Not on file documented as of this encounter Last Filed Vital Signs Vital Sign Reading Time Taken Comments Blood Pressure 136/81 11/20/2013 2:52 PM EST Pulse 90 11/20/2013 2:52 PM EST Temperature - - Respiratory Rate 18 11/20/2013 2:52 PM EST Oxygen Saturation - - Inhaled Oxygen Concentration - - Weight 77.1 kg (170 lb) 11/20/2013 2:52 PM EST Height 168.9 cm (5' 6.5) 11/20/2013 2:52 PM EST Body Mass Index 27.03 11/20/2013 2:52 PM EST documented in this encounter Progress Notes John Rodriguez MD - 11/20/2013 3:01 PM EST Patient Name: Date of Service: 11/20/2013 Primary Care Provider: HO PARHAM MD Reason for Visit: Dalton Pereira is a 67 y.o. male who returns for follow up. 06/03/2012: Robot assisted radical prostatectomy fo [id number] Maynor 3+3=6 (with tertiary pattern 4) 18 nodes negative. Margins negative. Preop PSA 8.27 Preop patient in retention requiring CIC. Preop UDS s/w hypotonic bladder. 06/23/2012: Left inguinal hernia repair Currently: He is voiding well. Stream good. His urine control is good. He does wear a pad for heavy work No erections. His erections were minimal preop and he was not sexually active. There has been no change in PMhx/Pshx since last visit. Examination: No adenoapthy Abdomen Benign. Rectal flat prostatic fossa Labs: 05/2013 0.09 02/20130.1 08/2012 PSA 0.13 11/2012 PSA 0.12 09/2013 0.14 11/2013 PSA0.18 X-rays: None PVR 11/2012: 52cc Impression: #1: pT2 [place] 3+3=6 prostate cancer sp Radical prostatectomy with slowly rising PSA #2: Inguinal hernia repair #3: Substantial improvement in urinary function Plan: Proceed with XRT to prostatic bed F/U in 6 months with a PSA John Rodriguez documented in this encounter Miscellaneous Notes Addendum Note - Isai Benedict LPN - 04/20/2014 7:49 AM EDT Addended by: ISAI BENEDICT on: 04/20/2014 07:49 AM Modules accepted: Orders documented in this encounter Plan of Treatment Upcoming Encounters Date Type Specialty Care Team Description 07/30/2022 Office Visit Radiation Oncology Alecia Lion, SUPERVISOR SEWING DEPARTMENT [facility] RADIATION [place], [place] [address] (Wo rk) documented as of this encounter Visit Diagnoses Diagnosis Malignant neoplasm of prostate - Primary documented in this encounter Care Teams Wax Pot Tender Relationship Specialty Start Date End Date Ho Parham MD PCP - General 10/14/11 [address] [place] [phone] documented as of this encounter
--- OUTSIDE RECORDS SUMMARY | 2022-07-24 15:19 | XMS_ITS | Encounter Summary ---
:1945 Author Organization [facility] [place] [address] Care Team Providers Name Role Phone Santos Guallpa MD Primary Care Provider Encounter Details Date Type Department Care Team Description 03/01/2013 Telephone [place]rology [place] [facility] [place] Rodriguez MD [facility] [place] [phone] UROLOGY [phone] [place], [place] [address] (Wo rk) Social History Tobacco Use Types Packs/Day Years Used Date Never Smoker Smokeless Tobacco: Never Used Alcohol Use Standard Drinks/Week Comments No 0 (1 standard drink = 0.6 oz pure alcoho l) Sex Assigned at Date Recorded Not on file documented as of this encounter Miscellaneous Notes Telephone Encounter - John Rodriguez MD - 03/01/2013 1:49 PM EDT 02/27/2013; PSA with PCP 0.1 Would not recommend any changes. He has appt with me in 05/2013 with a PSA I left a message to this effect on his answering machine. John Rodriguez documented in this encounter Plan of Treatment Upcoming Encounters Date Type Specialty Care Team Description 07/30/2022 Office Visit Radiation Oncology Alecia Lion, CRUDE OIL TREATER [facility] RADIATION [place], [place] [address] (Wo rk) documented as of this encounter Visit Diagnoses Not on filedocumented in this encounter Care Teams Eligibility Technician Relationship Specialty Start Date End Date Santos Guallpa MD PCP - General 10/14/[address] [place] [address] [phone] documented as of this encounter
--- OUTSIDE RECORDS SUMMARY | 2022-07-24 15:19 | XMS_ITS | Encounter Summary ---
:1945 [place] [address] Care Team Providers Name Role Phone Santos Guallpa MD Primary Care Provider Reason for Visit Reason Comments Simulation Encounter Details Date Type Department Care Team Description 01/12/2014 Ancillary Radiation Oncology Alec Wolfe Malig nant neoplasm Appointment at Rolanda Mckeon MD of [facility]i RADIATION [place], [place] ONCOLOGY [address] [place], [place] [phone] [facility] Social History Tobacco Use Types Packs/Day Years Used Date Never Smoker Smokeless Tobacco: Never Used Alcohol Use Standard Drinks/Week Comments No 0 (1 standard drink = 0.6 oz pure alcoho l) Sex Assigned at Date Recorded Not on file documented as of this encounter Last Filed Vital Signs Vital Sign Reading Time Taken Comments Blood Pressure 155/77 01/12/2014 2:03 PM EST Pulse 76 01/12/2014 2:03 PM EST Temperature 36.4 ??C (97.5 ??F) 01/12/2014 2:03 PM EST Respiratory Rate 18 01/12/2014 2:03 PM EST Oxygen Saturation 97% 01/12/2014 2:03 PM EST Inhaled Oxygen Concentration - - Weight 79.4 kg (175 lb) 01/12/2014 2:03 PM EST Height - - Body Mass Index 27.82 11/20/2013 2:52 PM EST documented in this encounter Progress Notes Alec Wolfe MD - 01/12/2014 3:58 PM EST RADIATION ONCOLOGY SIMULATION NOTE Identification: Gilson Pereira is a 68 y.o. male with history of prostate cancer s/p Radical Prostatectomy 05/2012, pT2c, Morrison 3+3=6, Margin negative, Node negative (Pre- operative [id number] Morrison 3+4=7, PSA 7.7 on dutasteride) with detectable PSA post-operatively that is rising Narrative: The patient was consented and brought back to the CT simulation suite. He laid supine on the CT table. His head rested in a neutral cup , his legs were positioned appropriately. A urethrogram was performed using a penile clamp and betadyne prior to contrast administration. 2.[address] slices were obtained through the pelvis . These images were reconstructed and reviewed . The isocenter was set . He was tattooed for integrity of set-up. He tolerated this procedure well without any complications. Treatment Plan: Post-prostatectomy radiotherapy. IMRT/IGRT will be utilized to spare normal tissues such as rectum, bladder, and the femoral heads. Jessica Garcia RN - 01/12/2014 2:18 PM EST Radiation Oncology Simulation Note gilson is here for radiation planning , undergoing a simulation to the pelvis for prostate cancer treatment . Usual radiation oncology routines and purpose of on treatment visits were explained. Site to be treated: prostate Anticipatory Guidance: Pt on study, requirements done. Discussed knowledge of treatment area and monitoring for skin changes, also reviewed potential side effects for him to be aware. documented in this encounter Plan of Treatment Upcoming Encounters Date Type Specialty Care Team Description 07/30/2022 Office Visit Radiation Oncology Alecia Lion APRN [facility] [address] [place], [place] [address] (Wo rk) documented as of this encounter Visit Diagnoses Diagnosis Malignant neoplasm of prostate documented in this encounter Care Teams Patient Coordinator Relationship Specialty Start Date End Date Santos Guallpa MD PCP - General 10/14/[address] [place] [address] [phone] documented as of this encounter
--- OUTSIDE RECORDS SUMMARY | 2022-07-24 15:19 | XMS_ITS | Encounter Summary ---
:1945 Author Organization [facility] [place] [address] Care Team Providers Name Role Phone Santos Guallpa MD Primary Care Provider Encounter Details Date Type Department Care Team Description 02/01/2014 Ancillary Appointment Hematology Oncology at [facility] [address] [place] [phone] Social History Tobacco Use Types Packs/Day Years Used Date Never Smoker Smokeless Tobacco: Never Used Alcohol Use Standard Drinks/Week Comments No 0 (1 standard drink = 0.6 oz pure alcoho l) Sex Assigned at Date Recorded Not on file documented as of this encounter Progress Notes [facility] RD - 02/01/2014 9:22 AM EDT [facility] Initial Dietitian Assessment Seen By: Kia Pro, MS, RD, LD Referred by: Bibi Walls APRN Reason for visit: Doesn't want to get how we was and wants to prevent dialysis from ever happening. Patient and diagnosis: Dalton Pereira is a 68 y.o. male with history of prostate cancer s/p Radical Prostatectomy 05/2012, pT2c, Maynor 3+3=6, Margin negative, Node negative (Pre-operative [id number] Maynor 3+4=7, PSA 7.7 on dutasteride) with detectable PSA post-operatively that is rising Assessment: HPI: Patient Active Problem List Diagnosis Code ??? Urinary retention 788.20 ??? Elevated PSA 790.93 ??? Follow-up exam V67.9 ??? Malignant neoplasm of prostate 185 Meds: none Labs: NNL Ht: 168.9 cm Wt: 79.4 kg Or 175 lbs on 01/12/14 Wt Hx: UBW: On home scale, 165 lbs % UBW: IBW: 63.4 +/- 10% % IBW: 125% BMI: 26.2 ___ Edema ___ Ascites ___Muscle wasting Calorie needs: 1300 - 1500 Protein needs: 76 Fluid needs: 1.5 - 2 L Food Intake: Food availability/purchasing, meal planning and preparation: He and do. 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 He mentioned he was told sugar feeds cancer. We discussed this theory and I also provided him written information explaining this. I also outlined and discussed the evidence outlining how to reduce recurrence including the following: -- Obtain and maintain a healthy weight. -- Vigorous physical activity: 300 min/wk of moderate-vigorous physical activity with 2 days resistance/strength training. -- Adopt a plant-based diet: this would include lean meat sources (fish, skinless poultry, eggs, low-fat dairy), fruits, vegetables, and whole grains. Minimize processed foods. -- Avoid excess use of MVI and heavily fortified foods -- Soy is safe to consume, yet choose foods in whole, most-complete form (i.e. Soy milk, tofu, edemame) -- Eat 3 oz of O-3 fish X3/wk -- Limit consumption of dairy to > 1500 mg/d -- Supplement Vit D or get adequate sun exposure. Nutrition Intervention: Educational Handouts provided: -- [email or web address]: Sugar and Cancer: Is there a Connection? -- ON_DPG: Reduce Risk of Prostate Recurrance Other Recommendations: Monitoring and Evaluation: Will follow up with Mr. Pereira per his request. More than 30 of this 60 minute visit was spent in direct patient nutrition counseling. Thank you for this consult. documented in this encounter Plan of Treatment Upcoming Encounters Date Type Specialty Care Team Description 07/30/2022 Office Visit Radiation Oncology Alecia Lion, LIAISON PLANNER [facility] RADIATION [place], [place] [address] (Wo rk) documented as of this encounter Visit Diagnoses Not on filedocumented in this encounter Care Teams Rooming House Inspector Relationship Specialty Start Date End Date Santos Guallpa MD PCP - General 10/14/[address] [place] [phone] documented as of this encounter
--- OUTSIDE RECORDS SUMMARY | 2022-07-24 15:19 | XMS_ITS | Encounter Summary ---
:1945 Author Organization [facility] [place] [address] Care Team Providers Name Role Phone Santos Guallpa MD Primary Care Provider Encounter Details Date Type Department Care Team Description 12/12/2013 Hospital Encounter [place] [facility] [place]uleyka Fofana MD [facility] [address] [place]STRO[place] [address] [facility] Kenna Joyner MD [facility] [address] GASTROENTER[place] [address] [place] [phone] Social History Tobacco Use Types Packs/Day Years Used Date Never Smoker Smokeless Tobacco: Never Used Alcohol Use Standard Drinks/Week Comments No 0 (1 standard drink = 0.6 oz pure alcoho l) Sex Assigned at Date Recorded Not on file documented as of this encounter Last Filed Vital Signs Vital Sign Reading Time Taken Comments Blood Pressure 127/74 12/12/2013 1:50 PM EST Pulse 78 12/12/2013 1:50 PM EST Temperature 36.6 ??C (97.9 ??F) 12/12/2013 12:17 PM EST Respiratory Rate 20 12/12/2013 1:50 PM EST Oxygen Saturation 95% 12/12/2013 1:50 PM EST Inhaled Oxygen Concentration - - Weight - - Height - - Body Mass Index - - documented in this encounter Discharge Instructions Discharge InstructionsBerny Gutierrez RN - 12/12/2013 2:03 PM EST Colonoscopy What to expect after the procedure You may feel a little more gassy or bloated than usual. This is normal. You should expect the return of normal bowel function in the 2 to 3 days. Activity Because of the sedation that you received your judgement and reaction time are effected ?? Go home and rest quietly for the remainder of the day. You may resume your normal activities tomorrow. ?? Change from one position to the next slowly. You may lose your balance unexpectedly ?? Be careful on stairs, as you may be unsteady on your feet FOR THE NEXT 24 HRS ?? DO NOT DRIVE OR OPERATE ANY MACHINERY ?? DO NOT DRINK ALCOHOLIC BEVERAGES ?? DO NOT SIGN LEGAL DOCUMENTS ?? If you are a smoker: DO NOT SMOKE WHILE YOU ARE ALONE Diet ?? Start by eating small portions of foods that ordinarily will not upset your stomach . Avoid gas producing foods for the next few days. ?? Be gentle with what you choose to start eating. ?? Drink plenty of fluids ( unless your doctor has told you not to). IV SITE-- slight redness, or tenderness is normal. You can use warm compresses if you become concerned. If the tenderness +/or redness increases or foul drainage and a red streak occurs, please contact your primary doctor immediately. When shoud you call for help? Call 911 anytime you think you may need emergency care. For example: If you pass out ( loss of consciousness) If you pass maroon or bloody stools If you have severe belly pain Call your doctor now or seek immediate medical care: If your stools are black and tarlike If your stools have streaks of blood, but you did not have a biopsy or any polyps removed If you have belly pain, or your belly is swollen and firm If you vomit If you have a fever If you are very dizzy Watch closely for changes in your health, and be sure to contact your doctor if you have any problems Your doctor will let you know when you will need your next colonoscopy. The results of your test andyour risk for colorectal cancer will help your doctor decide how often you need to be checked. If you have questions or concerns, you can call us: [facility] [phone] 8a-5p Same Day Endo [phone] 7a-8p Otherwise contact [phone] and ask to speak to the cloth shader television camera operator. Follow up care is a parekh part of your treatment and safety. Be sure to make and go to all appointments, and call your doctor if you are having problems. Discharge instructions reviewed with patient who expresses understanding. Patient InstructionsButKenna womack MD - 12/12/2013 1:54 PM EST Please see Recommendations in the Provation procedure report which is documented in the procedural note in E-DH. documented in this encounter H&P Notes Kenna Knapp MD - 12/12/2013 1:17 PM EST Gastroenterology and Hepatology Pre-Procedure History and Physical Exam Procedure: Colonoscopy: Indication: screening Patient Active Problem List Diagnosis Code ??? Urinary retention 788.20 ??? Elevated PSA 790.93 ??? Follow-up exam V67.9 ??? Malignant neoplasm of prostate 185 EXAM: HEENT: Airway examined, oropharynx clear LUNGS: Clear to auscultation HEART: Regular rate and rhythm, normal S1, S2 ABDOMEN: Normal bowel sounds, soft, non tender, non distended, A/P Proceed with the planned endoscopic procedure. Risks and benefits of the procedure explained to the patient. Consent signed. documented in this encounter Miscellaneous Notes Miscellaneous - Provider, Scanning - 12/12/2013 11:01 PM EST Miscellaneous - Provider, Scanning - 12/12/2013 2:56 PM EST Op Note - Kenna Knapp MD - 12/12/2013 1:54 PM EST [facility] [place] Note Patient Name: Dalton Pereira : [id number] MR#: [id number] Case Date: 12/12/2013 Surgeon: Surgeon(s) and Role: * Kenna Knapp MD - Primary Preoperative diagnosis: Screening Full procedure note is documented under the Procedure section of eD. documented in this encounter Plan of Treatment Upcoming Encounters Date Type Specialty Care Team Description 07/30/2022 Office Visit Radiation Oncology Alecia Lion APRN [facility] RADIATION [place], [place] [address] (Wo rk) documented as of this encounter Procedures Procedure Name Priority Date/Time Associated Comments Diagnosis COLONOSCOPY, 12/12/2013 1:24 PM Screening DIAGNOSTIC EST COLONOSCOPY Routine 12/12/2013 1:04 PM Results f or this EST procedure are i n the results section. documented in this encounter Results COLONOSCOPY (12/12/2013 1:04 PM EST) Component Value Ref Test Analysis Performed At [facility] gist Range Method Time Signature COLONOSCOPY [facility] PROVATION Endoscopy Patient Name: Dalton Pereira ? Procedure Date: 12/12/2013 1:04 PM ? Date of : 1945 ? Age: 68 ? Order #: [id number] ? Procedure: ? Colonoscopy Indications: ? Screening for colorectal malignant ? neoplasm Patient Profile: ? s/p prostate ca, hernia repair, ? appendectomy Providers: ? Kenna Knapp MD, Félix landry, ? RN, Heath Billings N, ? Alec Choudhary, Retirement Manager Referring MD: ?Santos Guallpa MD Medicines: ? Midazolam 3.5 mg IV, Meperidine 10 0 ? mg IV. This resulted in the p atient ? being appropriately sedated a nd ? comfortable throughout the pr ocedure, ? which he tolerated extremely well Complications: ? No immediate complications. Procedure: ? Pre-Anesthesia Assessment: ? - Prior to the procedure, a H istory ? and Physical was performed, a nd ? patient medications, allergie s and ? sensitivities were reviewed. The ? patient's tolerance of previo us ? anesthesia was reviewed. ? - The risks and benefits of t he ? procedure and the sedation op tions ? and risks were discussed with the ? patient. All questions were a nswered ? and informed consent was obta ined. ? - Airway Examination: normal ? oropharyngeal airway and neck ? mobility. ? - Respiratory Examination: cl ear to ? auscultation. ? - CV Examination: normal. ? - ASA Grade Assessment: II - A ? patient with mild systemic di sease. ? - After reviewing the risks a nd ? benefits, the patient was cruz med in ? satisfactory condition to und ergo the ? procedure. ? - The anesthesia plan was to use ? moderate sedation/analgesia ? (conscious sedation). ? - Immediately prior to admini stration ? of medications, the patient w as ? re-assessed for adequacy to r eceive ? sedatives. ? - Sedation was administered b y an ? endoscopy nurse. The sedation level ? attained was moderate. ? - The heart rate, respiratory rate, ? oxygen saturations, blood pre ssure, ? adequacy of pulmonary ventila tion, ? and response to care were mon itored ? throughout the procedure. ? - The physical status of the patient ? was re-assessed after the pro cedure. ? The procedure, indications, b enefits, ? risks and alternatives were e xplained ? to the patient. Specifically ? discussed were potential ? complications including, but not ? limited to, bleeding, perfora tion, ? infection, missing a cancer, and ? adverse medication reactions. The ? patient was placed in the lef t ? lateral decubitus position, a nd a ? digital rectal exam was perfo rmed. ? The Colonoscope was inserted in the ? anus and under direct visuali zation, ? advanced to the terminal ileu m, with ? identification of the appendi ceal ? orifice and IC valve. Careful ? inspection was made as the ? colonoscope was withdrawn. Th e ? quality of the bowel preparat ion was ? good. ? Findings: ? The entire examined colon appeared normal. ? Impression: ?- The entire examined colon is nor mal. Recommendation: ?- Current recommendations for averag e ? risk individuals is to repeat ? colonoscopy in 10 years for s creening ? purposes. He will f/u with hi s PCP ? - Return to primary care phys ician. ? Kenna Knapp MD 12/12/2013 1:59 PM This report has been signed electronically. Number of Addenda: 0 Note Initiated On: 12/12/2013 1:04 PM Specimen (Source) Anatomical Collection Method Collection Time Re ceived Time Location / / Volume Laterality 12/12/2013 1:04 PM EST Santos Guallpa MD GENERAL SURGICAL ORDERABLES Performing Organization Address City/State/ZIP Code Phon e Number PROVATION documented in this encounter Visit Diagnoses Not on filedocumented in this encounter Administered Medications Inactive Administered Medications - up to 3 most recent administrations Medication Order MAR Action Action Date Dose Rate Site sodium chloride 0.9% New Bag 12/12/2013 12:45 PM EST 30 mL/hr 30 mL/hr infusion 30 mL/hr, Intravenous, CONTINUOUS, Starting on Tu12/12/13 at 1245, Until Wed12/12/13 at 1443, Endoscopy (Day of Procedure) documented in this encounter Active and Recently Administered Medications Times are shown in EST. Continuous Medication Order 12/10/2013 12/11/2013 12/12/2013 sodium chloride 0.9% infusion (CANCELED) 1245 (New Bag - Provider: Mark Kline RN) 30 mL/hr, at 30 mL/hr, Intravenous, CONT INUOUS, Starting 12/12/13 at 1245, Until 12/12/13 at 1443, Endo (Day of Procedure) PRN Medication Order 12/10/2013 12/11/2013 12/12/2013 meperidine (PF) (DEMEROL) 100 mg/mL carpuject (CANCELED) 1328 (Given - Provider: Dianna Chavez RN)1336 (Given - Provider: Dianna Chavez RN)1341 (Given - Provider: Dianna Chavez RN) ONCE PRN, Starting 12/12/13 at 1328, U ntil 12/12/13 at 1443, Pain, Intra- Operative (Intra-Procedure), Routine midazolam (PF) (VERSED) 1 mg/mL injection (CANCELED) 1328 (Given - Provider: Dianna Chavez RN)1331 (Given - Provider: Dianna Chavez, JESSICA)1336 (Given - Provider: Dianna Chavez RN)1341 (Given - Provider: Dianna Chavez RN) ONCE PRN, Starting 12/12/13 at 1328, U ntil 12/12/13 at 1443, Sleep, Intra- Operative (Intra-Procedure), Routine documented in this encounter Care Teams Store Stock Help Relationship Specialty Start Date End Date Santos Guallpa MD PCP - General 10/14/[address] [place] [phone] documented as of this encounter
--- OUTSIDE RECORDS SUMMARY | 2022-07-24 15:19 | XMS_ITS | Encounter Summary ---
:1945 [place] [address] Care Team Providers Name Role Phone Santos Guallpa MD Primary Care Provider Reason for Visit Reason Comments Radiation Follow-up Encounter Details Date Type Department Care Team Description 09/20/2014 Office Visit Radiation Oncology at [facility] Wolfe Ma lignant neoplasm of Rolanda Mckeon MD [facility] [address] RADIATION ONCOLOGY [place], [place] [phone] Social History Tobacco Use Types Packs/Day Years Used Date Never Smoker Smokeless Tobacco: Never Used Alcohol Use Standard Drinks/Week Comments No 0 (1 standard drink = 0.6 oz pure alcoho l) Sex Assigned at Date Recorded Not on file documented as of this encounter Last Filed Vital Signs Vital Sign Reading Time Taken Comments Blood Pressure 170/85 09/20/2014 1:46 PM EST Pulse 78 09/20/2014 1:46 PM EST Temperature - - Respiratory Rate 18 09/20/2014 1:46 PM EST Oxygen Saturation - - Inhaled Oxygen Concentration - - Weight - - Height - - Body Mass Index - - documented in this encounter Progress Notes Alec Wolfe MD - 09/20/2014 2:02 PM EST RADIATION ONCOLOGY FOLLOW-UP VISIT NOTE Identification: Dalton Pereira is a 68 y.o. year-old male with history of prostate cancer s/p Radical Prostatectomy 05/2012, pT2c, [place] 3+3=6, Margin negative, Node negative (Pre-operative [id number] 3+4=7, PSA 7.7 on dutasteride) with detectable PSA post-operatively was is rising, at 0.30. Radiotherapy: 6840 cGy to the Prostatic fossa, completed 03/21/14 On study RTOG [id number] Interim History: Mr. Pereira returns for follow-up now 6 months post salvage radiation. 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 No limitations. KPS 100. Urgent stools are intermittent. He doesn't feel this is much different than his baseline prior to treatment. No diarrhea or blood. Urinary function remains good. No incontinence. No hematuria or dysuria. Nocturia stable at X2. IPSS today 3, last visit 3. PSA today remains 0.04 Allergies: Allergies Allergen Reactions ??? Gentamicin Hives Medications: No current outpatient prescriptions on file prior to visit. No current facility-administered medications on file prior to visit. Review of Systems: Gen: Energy good. No fevers. : See interim history GI: See interim history Physical Exam: Filed Vitals: 09/20/14 1346 BP: 170/85 Pulse: 78 Resp: 18 Gen: Well appearing, NAD ANDREAS: Empty fossa, no nodules. AAOX3, interactive and asks appropriate questions. Ambulatory Labs: . PSA Total Date Value Range Status 09/20/2014 0.04 0.00 - 4.00 ng/mL Final [...] Recent Results (from the past 24 hour(s)) COMPREHENSIVE METABOLIC PANEL (NON-FASTING) Result Value Range Glucose Lvl 96 60 - 199 mg/dL BUN 21 (*) 10 - 20 mg/dL Creatinine 1.22 0.80 - 1.50 mg/dL Sodium 142 135 - 145 mmol/L Potassium 4.0 3.5 - 5.0 mmol/L Chloride 104 98 - 107 mmol/L CO2 25 22 - 31 mmol/L Anion Gap 13 5 - 15 mmol/L Calcium 9.4 8.5 - 10.5 mg/dL Total Protein 6.9 6.4 - 8.3 gm/dL Albumin 4.4 3.2 - 5.2 gm/dL AST 19 0 - 39 unit/L ALT 20 0 - 55 unit/L Alk Phos 85 40 - 120 unit/L Total Bilirubin 0.7 0.2 - 1.3 mg/dL Bili, Direct 0.2 0.0 - 0.3 mg/dL Estimated GFR 59 (*) >=60 PSA Result Value Range PSA Total 0.04 0.00 - 4.00 ng/mL TESTOSTERONE, TOTAL Result Value Range Testo Total 2.72 (*) 2.80 - 8.00 ng/mL HEMOGRAM Result Value Range WBC 8.1 4.0 - 10.0 x10(3)/mcL RBC 5.59 4.63 - 6.08 x10(6)/mcL Hemoglobin 17.1 13.7 - 17.5 gm/dL Hematocrit 49.3 40.0 - 51.0 % MCV 88.2 79.0 - 92.0 fL MCH 30.6 25.6 - 32.2 pg MCHC 34.7 32.0 - 36.5 gm/dL Platelets 196 145 - 370 x10(3)/mcL RDWSD 42.9 35.0 - 46.0 fL RDWCV 13.3 10.9 - 14.4 % MPV 11.6 9.0 - 12.0 fL DIFFERENTIAL, AUTOMATED Result Value Range Neutrophils % 75.2 Neutr Abs (ANC) 6.06 1.50 - 6.30 x10(3)/mcL Lymphocytes % 10.2 Lymphocytes Abs 0.8 (*) 1.0 - 3.6 x10(3)/mcL Monocytes % 11.9 Monocyte Abs 1.0 0.2 - 1.0 x10(3)/mcL Eosinophils % 2.2 Eosinophils Abs 0.2 0.0 - 0.5 x10(3)/mcL Basophils % 0.4 Basophils Abs 0.0 0.0 - 0.2 x10(3)/mcL Immature Gran % 0.10 Mizti Gran Abs 0.01 0.00 - 0.05 x10(3)/mcL Assessment: Dalton Pereira is a 68 y.o. year-old male with history of prostate cancer s/p RadicalProstatectomy 05/2012, pT2c, [place] 3+3=6, Margin negative, Node negative (Pre-operative [id number] [place] 3+4=7, PSA 7.7 on dutasteride) with detectable PSA post-operatively was is rising, at 0.30, he is s/p nichols radiation completed 03/21/14, PSA stable at 0.04 We discussed his PSA today, remains at 0.04. We discussed that is is nearly undetectable. PSA monitoring will need to continue. His toxicity from radiation is minimal. He is fully functional All questions addressed. [...] [facility] RADIATION [place], [place] [address] (Wo rk) documented as of this encounter Procedures Procedure Name Priority Date/Time Associated Comments Diagnosis HEMOGRAM STAT 09/20/2014 12:33 Malignant neoplasm Resul ts for this PM EST of prostate procedure are i n the results section. DIFFERENTIAL, STAT 09/20/2014 12:33 Malignant neoplasm Resu lts for this AUTOMATED PM EST of prostate procedure are i n the results section. CBC (WITH DIFF) STAT 09/20/2014 12:33 Malignant neoplasm PM EST of prostate TESTOSTERONE, TOTAL STAT 09/20/2014 12:33 Malignant neoplas m Results for this PM EST of prostate procedure are i n the results section. PSA (ULTRASENSITIVE) STAT 09/20/2014 12:33 Malignant neopla sm Results for this PM EST of prostate procedure are i n the results section. COMPREHENSIVE STAT 09/20/2014 12:33 Malignant neoplasm Resu lts for this METABOLIC PANEL PM EST of prostate procedure ar e in (NON-FASTING) the results section. documented in this encounter Results PSA (12/17/2014 8:47 AM EST) P athologist [...] Organization Address City/State/[place] [address] CERNER MILLENNIUM (ABNORMAL) Differential, Automated (09/20/2014 12:33 PM EST) Patholo gist Method Time Signature Neutrophils % 75.2 % CERNER MILLENNIUM Neutr Abs (ANC) 6.06 1.50 - CERNER 6.30 MILLENNIUM x10(3)/mcL Lymphocytes % 10.2 % CERNER MILLENNIUM Lymphocytes Abs 0.8 (L) 1.0 - 3.6 CERNER x10(3)/mcL MILLENNIUM Monocytes % 11.9 % CERNER MILLENNIUM Monocyte Abs 1.0 0.2 - 1.0 CERNER x10(3)/mcL MILLENNIUM Eosinophils % 2.2 % CERNER MILLENNIUM Eosinophils Abs 0.2 0.0 - 0.5 CERNER x10(3)/mcL MILLENNIUM Basophils % 0.4 % CERNER MILLENNIUM Basophils Abs 0.0 0.0 - 0.2 CERNER x10(3)/mcL MILLENNIUM Immature Gran % 0.10 % CERNER MILLENNIUM Comment: Immature granulocytes(IG's)percentage an d absolute count will include metamyelocytes, myelocytes, and promyelo cytes. Blood smears from CBCs yielding IG's will be scanned manually for concor dance. If this scan disagrees with the automated IG or if promyelocytes are not ed, a manual differential will be performed. Mitzi Gran Abs 0.01 0.00 - 0.05 x10(3)/mcL CER NER MILLENNIUM Specimen Anatomical Collection Method Collection Time Receive d Time (Source) Location / / Volume Laterality Blood specimen 09/20/2014 12:33 4 (specimen) PM EST 12:39 PM EST Resulting Agency Comment Spec In Lab Alec Wolfe MD HEMATOLOGY ORDERABLES Performing Organization Address City/[facility] Code Phon e Number [address] CERNER MILLENNIUM Hemogram (09/20/2014 12:33 PM EST) P athologist Signature WBC 8.1 4.0 - 10.0 CERNER x10(3)/mcL MILLENNIUM RBC 5.59 4.63 - 6.08 CERNER x10(6)/mcL MILLENNIUM Hemoglobin 17.1 13.7 - 17.5 CERNER gm/dL MILLENNIUM Hematocrit 49.3 40.0 - 51.0 CERNER % MILLENNIUM MCV 88.2 79.0 - 92.0 CERNER fL MILLENNIUM MCH 30.6 25.6 - 32.2 CERNER pg MILLENNIUM MCHC 34.7 32.0 - 36.5 CERNER gm/dL MILLENNIUM Platelets 196 145 - 370 CERNER x10(3)/mcL MILLENNIUM RDWSD 42.9 35.0 - 46.0 CERNER fL MILLENNIUM RDWCV 13.3 10.9 - 14.4 CERNER % MILLENNIUM MPV 11.6 9.0 - 12.0 CERNER fL MILLENNIUM Specimen Anatomical Collection Method Collection Time Receive d Time (Source) Location / / Volume Laterality Blood specimen 09/20/2014 12:33 4 (specimen) PM EST 12:39 PM EST Resulting Agency Comment Spec In Lab Alec Wolfe MD HEMATOLOGY ORDERABLES Performing Organization Address City/[facility]/[place] [address] [facility]ER [facility] (ABNORMAL) Testosterone, total (09/20/2014 12:33 PM EST) athologist Signature Testo Total 2.72 (L) 2.80 - CERNER 8.00 ng/mL [facility] Comment: Reference Ranges: ? Males (7t [id number] [...] Location / / Volume Laterality Blood specimen 09/20/2014 12:33 4 (specimen) PM EST 12:39 PM EST Resulting Agency Comment Spec In Lab Alec Wolfe MD CHEMISTRY ORDERABLES Performing Organization Address [facility]/ZIP [facility] Phon e Number [address] [facility] PSA (09/20/2014 12:33 PM EST) athologist Signature PSA Total 0.04 0.00 - CERNER (Ultrasensitiv 4.00 ng/mL [facility]) Specimen Anatomical Collection Method Collection Time Receive d Time (Source) Location / / Volume Laterality Blood specimen 09/20/2014 12:33 4 (specimen) PM EST 12:39 PM EST Resulting Agency Comment Spec In Lab Alec Wolfe MD CHEMISTRY ORDERABLES Performing Organization Address City/[facility] Phon e Number [address] [facility] ([facility]NORMAL) Comprehensive metabolic panel (non-fasting) (09/20/2014 12:33 PM EST) athologist Signature Glucose Lvl 96 60 - 199 CERNER mg/dL MILLENNIUM Comment: Diabetes: >=200 mg/dL plus symp toms BUN 21 (H) 10 - 20 mg/dL CERNER MILLENNIU M Creatinine 1.22 0.80 - 1.50 mg/dL CERNER MILL ENNIUM Comment: Please note that the pediatric reference intervals supplied above were not validated at [facility]. Results from pediatri c patients should be interpreted in conjunction to the patient's age, height and muscle mass. Sodium 142 135 - 145 mmol/L CERNER SOFIA NIUM [...] estions. Chloride 104 98 - 107 mmol/L CERNER MILLENN IUM CO2 25 22 - 31 mmol/L CERNER MILLENNI UM Anion Gap 13 5 - 15 mmol/L CERNER MILLENNIU M Calcium 9.4 8.5 - 10.5 mg/dL CERNER SOFIA NIUM Total Protein 6.9 6.4 - 8.3 gm/dL CERNER MIL LENNIUM Albumin 4.4 3.2 - 5.2 gm/dL CERNER MILLENN IUM AST 19 0 - 39 unit/L CERNER MILLENNIU M ALT 20 0 - 55 unit/L CERNER MILLENNIU M Alk Phos 85 40 - 120 unit/L CERNER MILLENN IUM Total Bilirubin 0.7 0.2 - 1.3 mg/dL CERNER M ILLENNIUM Bili, Direct 0.2 0.0 - 0.3 mg/dL CERNER MILL ENNIUM Estimated GFR 59 (L) >=60 CERNER MILLENNIU M Comment: This [...] the following links into your internet browser. [email or web address]/DHnkdep [email or web address]/DHMCnkf Specimen Anatomical Collection Method Collection Time Receive d Time (Source) Location / / Volume Laterality Blood specimen 09/20/2014 12:33 4 (specimen) PM EST 12:39 PM EST Resulting Agency Comment Spec In Lab Alec Wolfe MD CHEMISTRY ORDERABLES Performing Organization Address City/State/[place] [address] [facility] LABORATORY [facility] documented in this encounter Visit Diagnoses Diagnosis Malignant neoplasm of prostate documented in this encounter Care Teams Baker Chef Relationship Specialty Start Date End Date Santos Guallpa MD PCP - General 10/14/[address] [place] [phone] documented as of this encounter
--- OUTSIDE RECORDS SUMMARY | 2022-07-24 15:19 | XMS_ITS | Encounter Summary ---
:1945 Author Organization [facility] [place] [address] Care Team Providers Name Role Phone Ho Guallpa MD Primary Care Provider Encounter Details Date Type Department Care Team Description 07/14/2012 Office Visit Urology at [facility] Ho Ibanez MD [facility] [address] [place] [address] Urinary retention [facility] Ho Ibanez MD [facility] [place] [address] [place] [phone] Social History Tobacco Use Types Packs/Day Years Used Date Never Smoker Smokeless Tobacco: Never Used Alcohol Use Standard Drinks/Week Comments No 0 (1 standard drink = 0.6 oz pure alcoho l) Sex Assigned at Date Recorded Not on file documented as of this encounter Progress Notes Ho Ibanez MD - 07/18/2012 7:07 AM EDT Subjective: Patient ID: Molina Pereira is a 66 y.o. male. HPI Review of Systems Objective: Physical Exam Assessment and Plan: No problem-specific visit notes found for this encounter. documented in this encounter Plan of Treatment Upcoming Encounters Date Type Specialty Care Team Description 07/30/2022 Office Visit Radiation Oncology Alecia Lion, [employer] [facility] [place], [place] [address] (Wo rk) documented as of this encounter Procedures Procedure Name Priority Date/Time Associated Diagnosis Comme nts URINE CULTURE Routine 07/14/2012 3:56 PM Results for this EDT procedure are i n the results section . documented in this encounter Results URINE CULTURE (07/14/2012 3:56 PM EDT) Component Value Ref Test Analysis Performed At [facility] gist Range Method Time Signature Urine Culture CERNER ? Patient Name: MOLINA GA ? Ordered By: [id number] [address] [employer] [employer] [employer] ? MR#: [id number] ?LOC: ??5B ? /Sex: ??1945 (66 years), ? Male ? PROCEDURE: Urine Culture ?SOURCE: [facility] ? COLLECTED: 07/14/2012 15:56 ? STARTED: 07/14/2012 15:56 ? FINAL REPORT ? Final Report ? Verified:07/16/2012 11:37 ? Greater than 100,000 cfu/ml Klebsiella pneumoniae ? 1,000-9,000 cfu/ml Proteus species ? PRELIMINARY REPORT ? Preliminary Report ? Verified:07/15/2012 13:33 ? Greater than 100,000 cfu/ml Gram Negative Rods ? Patient: MOLINA PEREIRA ? MR#: [id number] ? SUSCEPTIBILITY RESULTS ? Klebsiella pneumoniae ?LUIS ALBERTO Inter p ? Ampicillin ? R ? Ampicillin/Sulbactam ? S ? Aztreonam ?S ? Cefazolin ?S ? Cefoxitin ?S ? Ceftazidime ?S ? Ceftriaxone ?S ? Cefuroxime ? S ? Ciprofloxacin ?S ? Doripenem ?S ? Gentamicin ? S ? Meropenem ?S ? Nitrofurantoin ? S ? Piperacillin/Tazobactam ?S ? Trimethoprim/Sulfa ? S ? Tetracycline ? S ? Tobramycin ? S ? Specimen (Source) Anatomical Collection Method Collection Time Re ceived Time Location / / Volume Laterality Urine specimen 07/14/2012 3:56 07/14/2012 3:56 obtained via PM EDT PM EDT indwelling urinary catheter (specimen) Resulting Agency Comment Spec In Lab Ho Ibanez MD MICROBIOLOGY - GENERAL ORDER SUSAN Performing Organization Address City/State/[place] [address] [facility] documented in this encounter Visit Diagnoses Diagnosis Urinary retention Retention of urine, unspecified documented in this encounter Care Teams Crtts Relationship Specialty Start Date End Date Ho Guallpa MD PCP - General 10/14/[address] [place] [phone] documented as of this encounter
--- OUTSIDE RECORDS SUMMARY | 2022-07-24 15:19 | XMS_ITS | Encounter Summary ---
:1945 Author Organization [facility] Address [address] [place] [address] Care Team Providers Name Role Phone Ho Parham MD Primary Care Provider Reason for Visit Reason Comments Prostate Cancer Encounter Details Date Type Department Care Team Description 08/29/2012 Office Visit Urology at [facility] John Rodriguez MD [facility] pro state (Primary Dx) Drive [address] [place] [facility] [id number] [place] [id number] [phone] Social History Tobacco Use Types Packs/Day Years Used Date Never Smoker Smokeless Tobacco: Never Used Alcohol Use Standard Drinks/Week Comments No 0 (1 standard drink = 0.6 oz pure alcoho l) Sex Assigned at Date Recorded Not on file documented as of this encounter Last Filed Vital Signs Vital Sign Reading Time Taken Comments Blood Pressure 160/89 08/29/2012 2:41 PM EDT Pulse 69 08/29/2012 2:41 PM EDT Temperature - - Respiratory Rate - - Oxygen Saturation - - Inhaled Oxygen Concentration - - Weight 74.8 kg (165 lb) 08/29/2012 2:41 PM EDT Height 167.6 cm (5' 6) 08/29/2012 2:41 PM EDT Body Mass Index 26.63 08/29/2012 2:41 PM EDT documented in this encounter Progress Notes John Rodriguez MD - 08/29/2012 3:16 PM EDT Patient Name: Date of Service: 08/29/2012 Primary Care Provider: HO PARHAM MD Reason for Visit: Dalton Pereira is a 66 y.o. male who returns for follow up. 06/03/2012: Robot assisted radical prostatectomy fo [id number] [place] 3+3=6 (with tertiary pattern 4) 18 nodes [...] last visit. Examination: No adenoapthy Abdomen Benign. He has a small area of inflammation with protrusion of a tail of moncryil. I removedthe knot. Labs: 08/2012 PSA 0.13 X-rays: None Impression: #1: pT2 [place] 3+3=6 prostate cancer sp Radical prostatectomy with PSA of 0.13 #2: Inguinal hernia repair #3: Substantial improvement in urinary function Plan: I am surprised he has residual PSA given [place] 6, organ confined, no nodes and negative margins. Idiscussed the possible significance of this with regard to recurrence. I will see him in 3 months with another PSA. John Rodriguez documented in this encounter Plan of Treatment Upcoming Encounters Date Type Specialty Care Team Description 07/30/2022 Office Visit Radiation Oncology Alecia Lion APRN [facility] RADIATION [place], [place] [address] (Wo rk) documented as of this encounter Procedures Procedure Name Priority Date/Time Associated Diagnosis Comme nts PSA STAT 08/29/2012 1:47 PM Malignant neoplasm Res ults for this (ULTRASENSITIVE) EDT of prostate procedure a re in the results section. documented in this encounter Results PSA (11/28/2012 7:57 AM EST) P athologist Signature PSA Total 0.12 0.00 - CERNER (Ultrasensitiv 4.00 ng/mL MILLENNIUM e) Specimen Anatomical Collection Method Collection Time Receive d Time (Source) Location / / Volume Laterality Blood specimen 11/28/2012 7:57 AM 013 8:02 (specimen) EST AM EST Resulting Agency Comment Spec In Lab John Rodriguez MD CHEMISTRY ORDERABLES Performing Organization Address City/[facility]/ZIP Code Phon e Number [address] [facility] PSA (08/29/2012 1:47 PM EDT) P athologist Signature PSA Total 0.13 0.00 - CERNER (Ultrasensitiv 4.00 ng/mL MILLENNIUM e) Specimen Anatomical Collection Method Collection Time Receive d Time (Source) Location / / Volume Laterality Blood specimen 08/29/2012 1:47 PM 012 1:51 (specimen) EDT PM EDT Resulting Agency Comment Spec In Lab John Rodriguez MD CHEMISTRY ORDERABLES Performing Organization Address City/[facility]/ZIP Code Phon e Number [address] [facility] documented in this encounter Visit Diagnoses Diagnosis Malignant neoplasm of prostate - Primary documented in this encounter Care Teams Ferryboat Operator Relationship Specialty Start Date End Date Ho Parham MD PCP - General 10/14/[address] [place] [phone] documented as of this encounter
--- OUTSIDE RECORDS SUMMARY | 2022-07-24 15:19 | XMS_ITS | Encounter Summary ---
:1945 Author Organization [facility] [place] [address] Care Team Providers Name Role Phone Santos Guallpa MD Primary Care Provider Reason for Visit Reason Comments Radiation Follow-up Encounter Details Date Type Department Care Team Description 05/02/2014 [facility]; Rolanda Mckeon MD Malignant neoplasm of prostate [facility] DR Cadena RADIATION ONCOLOGY [place], [place] [phone] [phone] Social History Tobacco Use Types Packs/Day Years Used Date Never Smoker Smokeless Tobacco: Never Used Alcohol Use Standard Drinks/Week Comments No 0 (1 standard drink = 0.6 oz pure alcoho l) Sex Assigned at Date Recorded Not on file documented as of this encounter Last Filed Vital Signs Vital Sign Reading Time Taken Comments Blood Pressure 167/86 05/02/2014 2:11 PM EDT Pulse 77 05/02/2014 2:11 PM EDT Temperature 36.4 ??C (97.6 ??F) 05/02/2014 2:11 PM EDT Respiratory Rate 18 05/02/2014 2:11 PM EDT Oxygen Saturation 95% 05/02/2014 2:11 PM EDT Inhaled Oxygen Concentration - - Weight 80.3 kg (177 lb) 05/02/2014 2:11 PM EDT Height - - Body Mass Index 28.14 11/20/2013 2:52 PM EST documented in this encounter Progress Notes Alec Wolfe MD - 05/06/2014 4:07 PM EDT RADIATION ONCOLOGY FOLLOW-UP VISIT NOTE Identification: Dalton Pereira is a 68 y.o. year-old male with history of prostate cancer s/p Radical Prostatectomy 05/2012, pT2c, [place] 3+3=6, Margin negative, Node negative (Pre-operative [id number] 3+4=7, PSA 7.7 on dutasteride) with detectable PSA post-operatively was is rising, at 0.30. Radiotherapy: 6840 cGy to the Prostatic fossa. On study RTOG 0534 Interim History: Mr. Pereira returns for follow-up now about 6 weeks post salvage radiation. He feels well. His energy is good, he continues to work very hard, KPS 100. During treatment he had minimal symptoms. After treatment he did have a few episodes of loose bowelswith a description of occasional mucus in stools. No blood. No persistent diarrhea. Urinary function, no dysuria, hematuria or incontinence. Good stream. Nocturia X2. IPSS today 4 Allergies: Allergies Allergen Reactions ??? Gentamicin Hives Medications: No current outpatient prescriptions on file prior to visit. Review of Systems: Gen: Energy good. No fevers. : No increased frequency, dysuria, or incontinence. Nocturia X 1. No hematuria. GI: Normal formed stools. No pain or blood. Physical Exam: Filed Vitals: 05/02/14 1411 BP: 167/86 Pulse: 77 Temp: 36.4 ??C (97.6 ??F) Resp: 18 Gen: Well appearing, NAD ANDREAS: Empty fossa, no nodules. AAOX3, interactive and asks appropriate questions. Ambulatory Labs: . PSA Total Date Value Range Status 05/02/2014 0.08 0.00 - 4.00 ng/mL Final 01/01/2014 0.30 0.00 - 4.00 ng/mL Final 11/20/2013 0.18 0.00 - 4.00 ng/mL Final 09/29/2013 0.14 0.00 - 4.00 ng/mL Final 05/17/2013 0.09 0.00 - 4.00 ng/mL Final 11/28/2012 0.12 0.00 - 4.00 ng/mL Final 08/29/2012 0.13 0.00 - 4.00 ng/mL Final 01/13/2012 7.71* 0.00 - 4.00 ng/mL Final 12/21/2011 8.27* 0.00 - 4.00 ng/mL Final Assessment: Dalton Pereira is a 68 y.o. year-old male with history of prostate cancer s/p RadicalProstatectomy 05/2012, pT2c, [place] 3+3=6, Margin negative, Node negative (Pre-operative [id number] [place] 3+4=7, PSA 7.7 on dutasteride) with detectable PSA post-operatively was is rising, at 0.30, he is s/p nichols radiation completed 03/21/14. We discussed his PSA today, now at 0.08. This is an encouraging response and it will need to be continued to be followed. He has very minimal if any residual irritative effects from radiation. I discussed potential late effects that we will monitor for in follow-up. All questions addressed. Plan: 1. FU in 3 months post XRT with PSA. documented in this encounter Plan of Treatment Upcoming Encounters Date Type Specialty Care Team Description 07/30/2022 Office Visit Radiation Oncology Alecia Lion APRN [facility] RADIATION [place], [place] [address] (Wo rk) documented as of this encounter Procedures Procedure Name Priority Date/Time Associated Comments Diagnosis TESTOSTERONE, TOTAL Routine 05/02/2014 12:41 Prostate cancer R esults for this PM EDT procedure are i n the results section. PSA (ULTRASENSITIVE) STAT 05/02/2014 12:41 Prostate cancer Results for this PM EDT procedure are i n the results section. COMPREHENSIVE STAT 05/02/2014 12:41 Prostate cancer Results for this METABOLIC PANEL PM EDT procedure ar e in (NON-FASTING) the results section. documented in this encounter Results PSA (06/21/2014 1:12 PM EDT) P athologist Signature PSA Total 0.04 0.00 - CERNER (Ultrasensitiv 4.00 ng/mL MILLENNIUM e) Specimen Anatomical Collection Method Collection Time Receive d Time (Source) Location / / Volume Laterality Blood specimen 06/21/2014 1:12 PM 014 1:16 (specimen) EDT PM EDT Resulting Agency Comment Spec In Lab Alec Wolfe MD CHEMISTRY ORDERABLES Performing Organization Address City/State/[place] [address] CERNER MILLENNIUM Testosterone, total (05/02/2014 12:41 PM EDT) athologist Signature Testo Total 3.68 2.80 - 8.00 CERNER ng/mL MILLENNIUM Comment: [...] reference ranges derived fr om review of [employer] E170 Testosterone reagent package insert 09/12, V8 Stated pediatric reference ranges derive d from review of [employer] E170 Testosterone II reagent package insert 0 05/17, V2. Specimen Anatomical Collection Method Collection Time Receive d Time (Source) Location / / Volume Laterality Blood specimen 05/02/2014 12:41 4 (specimen) PM EDT 12:46 PM EDT Resulting Agency Comment Spec In Lab Alec Wolfe MD CHEMISTRY ORDERABLES Performing Organization Address City/[facility]/ZIP Code Phon e Number [address] [facility] PSA (05/02/2014 12:41 PM EDT) P athologist Signature PSA Total 0.08 0.00 - CERNER (Ultrasensitiv 4.00 ng/mL [facility] e) Specimen Anatomical Collection Method Collection Time Receive d Time (Source) Location / / Volume Laterality Blood specimen 05/02/2014 12:41 4 (specimen) PM EDT 12:46 PM EDT Resulting Agency Comment Spec In Lab Alec Wolfe MD CHEMISTRY ORDERABLES Performing Organization Address City/[facility] Code Phon e Number [address] [facility] (ABNORMAL) Comprehensive metabolic panel (non-fasting) (05/02/2014 12:41 PM EDT) P athologist Signature Glucose Lvl 117 60 - 199 CERNER mg/dL MILLENNIUM Comment: Diabetes: >=200 mg/dL plus symp toms BUN 26 (H) 10 - 20 mg/dL CERNER MILLENNIU M Creatinine 1.42 0.80 - 1.50 mg/dL CERNER MILL ENNIUM Comment: Please note that the pediatric reference intervals supplied above were not validated at [facility]. Results from pediatri c patients should be interpreted in conjunction to the patient's age, height and muscle mass. Sodium 139 135 - 145 mmol/L CERNER SOFIA NIUM Potassium 3.9 3.5 - 5.0 mmol/L CERNER SOFIA NIUM [...] 31 mmol/L CERNER MILLENNI UM Anion Gap 11 5 - 15 mmol/L CERNER MILLENNIU M Calcium 9.1 8.5 - 10.5 mg/dL CERNER SOFIA NIUM Total Protein 7.0 6.4 - 8.3 gm/dL CERNER MIL LENNIUM Albumin 4.3 3.2 - 5.2 gm/dL CERNER MILLENN IUM AST 19 0 - 39 unit/L CERNER MILLENNIU M ALT 19 0 - 55 unit/L CERNER MILLENNIU M Alk Phos 69 40 - 120 unit/L CERNER MILLENN IUM Total Bilirubin 1.0 0.2 - 1.3 mg/dL CERNER M ILLENNIUM Bili, Direct 0.2 0.0 - 0.3 mg/dL CERNER MILL ENNIUM Estimated GFR 50 (L) >=60 CERNER MILLENNIU M Comment: This [...] the following links into your internet browser. [email or web address] [email or web address] Specimen Anatomical Collection Method Collection Time Receive d Time (Source) Location / / Volume Laterality Blood specimen 05/02/2014 12:41 4 (specimen) PM EDT 12:46 PM EDT Resulting Agency Comment Spec In Lab Alec Wolfe MD CHEMISTRY ORDERABLES Performing Organization Address City/State/[facility] Code Phon e Number [address] LAB[address] [facility] documented in this encounter Visit Diagnoses Diagnosis Prostate cancer Malignant neoplasm of prostate Malignant neoplasm of prostate documented in this encounter Care Teams Supervisor Carding Relationship Specialty Start Date End Date Santos Guallpa MD PCP - General 10/14/[address] [place] [phone] documented as of this encounter
--- OUTSIDE RECORDS SUMMARY | 2022-07-24 15:19 | XMS_ITS | Encounter Summary ---
:1945 Author Organization [facility] [place] [address] Care Team Providers Name Role Phone Santos Guallpa MD Primary Care Provider Encounter Details Date Type Department Care Team Description 01/01/2014 [facility]illary App[facility]ment [facility] [address] Cadena [place] [address] [place] [address] [phone] Social History Tobacco Use Types Packs/Day Years Used Date Never Smoker Smokeless Tobacco: Never Used Alcohol Use Standard Drinks/Week Comments No 0 (1 standard drink = 0.6 oz pure alcoho l) Sex Assigned at Date Recorded Not on file documented as of this encounter Patient Instructions Patient InstructionsJessica Gracia RN - 01/01/2014 4:11 PM EST Radiation Therapy for Prostate Cancer Once you have been diagnosed with prostate cancer you face decisions about how to treat it. Your options depend on what your biopsy showed, your [place] Score, the extent of your cancer, the size of your prostate, your PSA , your general medical condition, your age, and your personal preferences. This document describes what is involved in treating your prostate cancer with Radiation Therapy here at [facility] About 2 weeks after simulation you will begin radiation treatments. What to Expect During Treatments. Treatments are given in 15-30 minutes increments daily Wednesday through Wednesday during the hours of 7:30 am- 5 pm. You get the weekend off for a break. You may drive yourself to and from these appointments. You may request a certain time of day that is convenient for you. Possibly, you may start feeling some side effects after a couple weeks. Side effects result from theradiation causing your prostate to swell and irritating cells near your prostate or the prostate bedarea. These may include some changes in your urination. It may become more difficult to start your flow You may need to void more often. Your stream may be weaker and your urine may burn a little. Please tell the nurse or your doctor if you experience any of these symptoms. You also may notice a change in your bowel patterns. They may be more frequent. If you develop bowelsymptoms, please let the nurse or your doctor know. You may also feel more fatigued as you get further along in your treatments. Your body is working hard to fight the cancer and to recover daily from the radiation. Take rest periods as needed. You may and should continue to exercise. Walking is especially good for you. Possibly, but very seldom, do men get a skin reaction from the radiation. You may notice your skin in the area of treatment becoming dry. You also may lose some pubic hair. Please inform us if you havechanges. Please ask the nurse or your doctor if you have any questions or concerns about your personalized course of treatment. You may call during working hours 8-5, Wednesday through Wednesday at [place] [facility] [place], [place] Our normal business hours are: Wednesday - Wednesday 8 AM to 5 PM If you have questions about your radiation appointments please ask to speak to the Radiation Oncology secretary of state. If you have questions for the nurse about radiation treatments, radiation side effects or you are not feeling well it is best to call early in the day. This allows the nurse to return your call by 5 PMthe same day. If you call after 4 PM, and your question is not urgent, the nurse will return your call by 5 PM the following day. If you experience any of the following you need to seek emergency care immediately by calling 911 1. Sudden and unexpected breathing difficulty without any exertion 2. Sudden onset of chest pain 3. Sudden onset of severe pain or uncontrolled pain 4. Sudden onset of severe weakness and/or unable to ambulate 5. Sudden new onset of a seizure 6. Fall resulting in injury A Radiation Oncology doctor is manager marketing communication after our normal hours, holidays and weekends. To call for urgent medical issues from radiation treatments that can not wait until normal business hours, please call and have the needle punch operator page the Radiation Oncologist in call. documented in this encounter Plan of Treatment Upcoming Encounters Date Type Specialty Care Team Description 07/30/2022 Office Visit Radiation Oncology Alecia Lion, MEDICAL MANAGER [facility] RADIATION [place], [place] [address] (Wo rk) documented as of this encounter Visit Diagnoses Not on filedocumented in this encounter Care Teams Retail Coverage Merchandiser Relationship Specialty Start Date End Date Santos Guallpa MD PCP - General 10/14/[address] [place] [phone] documented as of this encounter
--- OUTSIDE RECORDS SUMMARY | 2022-07-24 15:19 | XMS_ITS | Encounter Summary ---
:1945 [place] [address] Care Team Providers Name Role Phone Santos Guallpa MD Primary Care Provider Encounter Details Date Type Department Care Team Description 01/01/2014 Follow-Up [place] [address] Social History Tobacco Use Types Packs/Day [...] Radiation Oncology Alecia Lion APRN [facility] RADIATION [place], [place] [address] (Wo rk) documented as of this encounter Visit Diagnoses Not on filedocumented in this encounter Care Teams Microsoft Architect Relationship Specialty Start Date End Date Santos Guallpa MD PCP - General 10/14/[address] [place] [phone] documented as of this encounter
--- OUTSIDE RECORDS SUMMARY | 2022-07-24 15:19 | XMS_ITS | Encounter Summary ---
:1945 Author Organization [facility] Address [facility] [address] [place] [address] Care Team Providers Name Role Phone Ho Parham MD Primary Care Provider Encounter Details Date Type Department Care Team Description 05/21/2014 Follow-Up Urology at [facility] John Rodriguez MD Prostate cancer [facility] (Pr imary Dx) [place] [address] UROLOGY [phone] [place] [phone] (Wo rk) Social History Tobacco Use Types Packs/Day Years Used Date Never Smoker Smokeless Tobacco: Never Used Alcohol Use Standard Drinks/Week Comments No 0 (1 standard drink = 0.6 oz pure alcoho l) Sex Assigned at Date Recorded Not on file documented as of this encounter Last Filed Vital Signs Vital Sign Reading Time Taken Comments Blood Pressure 144/78 05/21/2014 8:19 AM EDT Pulse - - Temperature - - Respiratory Rate 16 05/21/2014 8:19 AM EDT Oxygen Saturation - - Inhaled Oxygen Concentration - - Weight 77.1 kg (170 lb) 05/21/2014 8:19 AM EDT Height 167.6 cm (5' 6) 05/21/2014 8:19 AM EDT Body Mass Index 27.44 05/21/2014 8:19 AM EDT documented in this encounter Progress Notes John Rodriguez MD - 05/21/2014 8:19 AM EDT Patient Name: Date of Service: 05/21/2014 Primary Care Provider: HO PARHAM MD Reason for Visit: Dalton Pereira is a 68 y.o. male who returns for follow up. 06/03/2012: Robot assisted radical prostatectomy fo [id number] [place] 3+3=6 (with tertiary pattern 4) 18 nodes negative. Margins negative. Preop PSA 8.27 Preop patient in retention requiring CIC. Preop UDS s/w hypotonic bladder. 06/23/2012: Left inguinal hernia repair 03/2014 Completed 6840 CGy XRT for rising PSA to 0.3 Recovering well. Currently: He is voiding well. Stream good. His urine control is good. He does wear a pad for heavy work No erections. His erections were minimal preop and he was not sexually active. No bowel problems There has been no change in PMhx/Pshx since last visit. Examination: No adenoapthy Abdomen Benign. Labs: PSA 04/2014 0.08 05/2013 0.09 02/2013 0.1 08/2012 PSA 0.13 11/2012 PSA 0.12 09/2013 0.14 11/2013 PSA 0.18 X-rays: None PVR 11/2012: 52cc Impression: #1: pT2 [place] 3+3=6 prostate cancer sp Radical prostatectomy & XRT JOSÉ LUIS #2: Inguinal hernia repair #3: Substantial improvement in urinary function Plan: F/U in 6 months with a PSA John Rodriguez documented in this encounter Plan of Treatment Upcoming Encounters Date Type Specialty Care Team Description 07/30/2022 Office Visit Radiation Oncology Alecia Lion APRN [facility] RADIATION [place], [place] [address] (Wo rk) documented as of this encounter Visit Diagnoses Diagnosis Prostate cancer - Primary Malignant neoplasm of prostate documented in this encounter Care Teams Buoy Tender Relationship Specialty Start Date End Date Ho Parham MD PCP - General 10/14/[address] [place] [phone] documented as of this encounter
--- OUTSIDE RECORDS SUMMARY | 2022-07-24 15:19 | XMS_ITS | Encounter Summary ---
:1945 Author Organization [facility] [place] [address] Care Team Providers Name Role Phone Santos Guallpa MD Primary Care Provider Encounter Details Date Type Department Care Team Description 01/11/2014 Orders Only Radiation Oncology at [facility], Alec Sunshine Ma lignant neoplasm of Rolanda Mckeon MD prostate (Primary Dx) [facility] [address] Cadena [place] [address] [place] [address] [phone] Social History Tobacco Use Types Packs/Day Years Used Date Never Smoker Smokeless Tobacco: Never Used Alcohol Use Standard Drinks/Week Comments No 0 (1 standard drink = 0.6 oz pure alcoho l) Sex Assigned at Date Recorded Not on file documented as of this encounter Miscellaneous Notes Addendum Note - Radha Villa - 01/11/2014 2:41 PM EST Addended by: RADHA VILLA on: 01/11/2014 02:41 PM Modules accepted: Orders documented in this encounter Plan of Treatment Upcoming Encounters Date Type Specialty Care Team Description 07/30/2022 Office Visit Radiation Oncology Alecia Lion, DELIVERY SUPERVISOR [facility] RADIATION [place], [place] [address] (Wo rk) Scheduled Orders Name Type Priority Associated Diagnoses Order S chedule Miscellaneous Lab request Lab Routine Malignant neopl asm of Expected: 01/12/2014 prostate (Approximate), Expires: 2014 documented as of this encounter Visit Diagnoses Diagnosis Malignant neoplasm of prostate - Primary documented in this encounter Care Teams Dairy Nutritionist Relationship Specialty Start Date End Date Santos Guallpa MD PCP - General 10/14/[address] [place] [phone] documented as of this encounter
--- OUTSIDE RECORDS SUMMARY | 2022-07-24 15:19 | XMS_ITS | Encounter Summary ---
:1945 Author Organization [facility] [place] [address] Care Team Providers Name Role Phone Santos Guallpa MD Primary Care Provider Encounter Details Date Type Department Care Team Description 09/19/2014 Orders Only Radiation Oncology at [facility] [place], Alec Sunshine Ma lignant neoplasm of Rolanda Mckeon MD [facility] DR Cadena [place] [address] [place] [address] [phone] Social History Tobacco Use Types Packs/Day Years Used Date Never Smoker Smokeless Tobacco: Never Used Alcohol Use Standard Drinks/Week Comments No 0 (1 standard drink = 0.6 oz pure alcoho l) Sex Assigned at Date Recorded Not on file documented as of this encounter Plan of Treatment Upcoming Encounters Date Type Specialty Care Team Description 07/30/2022 Office Visit Radiation Oncology Alecia Lion APRN [facility] RADIATION [place], [place] [address] (Wo rk) documented as of this encounter Results (ABNORMAL) Testosterone, total (09/20/2014 12:33 PM EST) athologist Signature Testo Total 2.72 (L) 2.80 - CERNER 8.00 ng/mL [facility] Comment: Reference Ranges: ? Males (7t [...] reference ranges derived fr om review of [employer] E170 Testosterone reagent package insert 11/05, V8 Stated pediatric reference ranges derive d [...] [facility] [place]/ZIP Code Phon e Number [address] CERNER MILLENNIUM PSA (09/20/2014 12:33 PM EST) athologist Signature [...] [facility] [place]/ZIP Code Phon e Number [address] CERNER MILLENNIUM (ABNORMAL) Comprehensive metabolic panel (non-fasting) (09/20/2014 12:33 PM EST) athologist Signature Glucose Lvl 96 60 - 199 CERNER mg/dL MILLENNIUM Comment: Diabetes: >=200 mg/dL plus symp toms BUN 21 (H) 10 - 20 mg/dL CERNER MILLENNIU M Creatinine 1.22 0.80 - 1.50 mg/dL CERNER MILL ENNIUM Comment: Please note that the pediatric reference intervals supplied above were not validated at [facility]. Results from pediatri c patients should be [...] the following links into your internet browser. [email or web address] [email or web address] Specimen Anatomical Collection Method Collection Time Receive d Time (Source) Location / / Volume Laterality Blood specimen 09/20/2014 12:33 4 (specimen) PM EST 12:39 PM EST Resulting Agency Comment Spec In Lab Alec Wolfe MD CHEMISTRY ORDERABLES Performing Organization Address City/State/[place] [address] CERNER MILLENNIUM documented in this encounter Visit Diagnoses Diagnosis Malignant neoplasm of prostate documented in this encounter Care Teams Sustainable Design Consultant Relationship Specialty Start Date End Date Santos Guallpa MD PCP - General 10/14/11 [address] [place] [phone] documented as of this encounter
--- OUTSIDE RECORDS SUMMARY | 2022-07-24 15:19 | XMS_ITS | Encounter Summary ---
:1945 Author Organization [facility] [place] [address] Care Team Providers Name Role Phone Santos Guallpa MD Primary Care Provider Encounter Details Date Type Department Care Team Description 01/12/2014 Hospital Encounter Laboratory Alec Wolfe, Malignant neoplasm [facility] MD of prostate [place], [place] CENTER [phone] RADIATION [phone] [place] [address] Social History Tobacco Use Types Packs/Day Years [...] Visit Radiation Oncology Alecia Lion APRN [facility] RADIATION [place], [place] [address] (Wo rk) Scheduled Orders Name Type Priority Associated Diagnoses Order S chedule Miscellaneous Lab request Lab Routine Malignant neopl asm of 1 Occurrences starting prostate 01/12/2014 documented as of this encounter Visit Diagnoses Diagnosis Malignant neoplasm of prostate documented in this encounter Care Teams Account Classification Clerk Relationship Specialty Start Date End Date Santos Guallpa MD PCP - General 10/14/11 [address] [place] [phone] documented as of this encounter
--- OUTSIDE RECORDS SUMMARY | 2022-07-24 15:19 | XMS_ITS | Encounter Summary ---
:1945 [place] [address] Care Team Providers Name Role Phone Santos Guallpa MD Primary Care Provider Encounter Details Date Type Department Care Team Description 01/12/2014 Follow-Up Radiation Oncology at [facility] NURSE , RADIATION ONCOLOGY [facility] RADIATION ONCOLOGY [facility] [place] [address] [place] [phone] Social History Tobacco Use Types Packs/Day Years [...] Alecia Lion APRN [facility] RADIATION [place], [place] [address] (Wo rk) documented as of this encounter Visit Diagnoses Not on filedocumented in this encounter Care Teams Virtualization Engineer Relationship Specialty Start Date End Date Santos Guallpa MD PCP - General 10/14/[address] [place] [phone] documented as of this encounter
--- OUTSIDE RECORDS SUMMARY | 2022-07-24 15:19 | XMS_ITS | Encounter Summary ---
:1945 [place] [address] Care Team Providers Name Role Phone Santos Guallpa MD Primary Care Provider Encounter Details Date Type Department Care Team Description 01/04/2014 Hospital [place] [address] Social History Tobacco Use Types Packs/Day [...] Office Visit Radiation Oncology Alecia Lion APRN [facility] RADIATION [place], [place] [address] (Wo rk) documented as of this encounter Procedures Procedure Name Priority Date/Time Associated Diagnosis Comme nts NM BONE SCAN WHOLE Routine 01/04/2014 3:02 PM Res ults for this BODY EST procedure are i n the results section. documented in this encounter Results NM whole body bone scan (01/04/2014 3:02 PM EST) Anatomical Region Laterality Modality Other Specimen (Source) Anatomical Collection Method Collection Time Re ceived Time Location / / Volume Laterality 01/04/2014 3:02 PM EST Narrative 01/04/2014 5:13 PM EST Examination WHOLE BODY BONE SCAN, 01/04/2014 ?? Clinical History 68 y/o with prostate cancer s/p prostate ctomy with PSA recurrence eval for bone mets Comparison None available. Technique Approximately 3 hours following the intr avenous administration of 26.1 mCi of technetium-99m MDP (left antecubital fos sa injection site), planar images of the entire skeleton were obtained in the anterior post projections, in addition to spot planar images of the skull, fore arms, and thoracolumbar spine region. Findings There are no focal areas of abnormal rad iotracer uptake in the visualized axial or appendicular skeleton suspicious for osseous metastases. ??Increased activity is noted in the feet, knees, hands, basa l joint of the left wrist, right shoulder, and right acromioclavicular quentin int, favored to represent degenerative uptake. ??There is normally excreted act ivity present in the kidneys and bladder. Impression No osseous metastases. Film and interpretation reviewed by the attending Procedure Note Maritza Mustafa MD - 01/04/2014Formatt ing of this note might be different from the original. Examination WHOLE BODY BONE SCAN, 01/04/2014 Clinical History 68 y/o with prostate cancer s/p prostate ctomy with PSA recurrence eval for bone mets Comparison None available. Technique Approximately 3 hours following the intr avenous administration of 26.1 mCi of technetium-99m MDP (left antecubital fos sa injection site), planar images of the entire skeleton were obtained in the anterior post projections, in addition to spot planar images of the skull, fore arms, and thoracolumbar spine region. Findings There are no focal areas of abnormal rad iotracer uptake in the visualized axial or appendicular skeleton suspicious for osseous metastases. Increased activity is noted in the feet, knees, hands, basa l joint of the left wrist, right shoulder, and right acromioclavicular quentin int, favored to represent degenerative uptake. There is normally excreted activ ity present in the kidneys and bladder. Impression No osseous metastases. Film and interpretation reviewed by the attending Alec Wolfe MD IMG NM ORDERABLES documented in this encounter Visit Diagnoses Not on filedocumented in this encounter Care Teams Audio Engineer Relationship Specialty Start Date End Date Santos Guallpa MD PCP - General 10/14/[address] [place] [phone] documented as of this encounter
--- OUTSIDE RECORDS SUMMARY | 2022-07-24 15:19 | XMS_ITS | Encounter Summary ---
:1945 Author Organization [facility] [place] [address] Care Team Providers Name Role Phone Santos Guallpa MD Primary Care Provider Encounter Details Date Type Department Care Team Description 04/19/2014 Orders Only Radiation Oncology at [facility], [place] cancer Rolanda Mckeon MD (Primary Dx) [facility] [address] [place] [address] [place] [address] [phone] Social History Tobacco Use Types Packs/Day Years Used Date Never Smoker Smokeless Tobacco: Never Used Alcohol Use Standard Drinks/Week Comments No 0 (1 standard drink = 0.6 oz pure alcoho l) Sex Assigned at Date Recorded Not on file documented as of this encounter Plan of Treatment Upcoming Encounters Date Type Specialty Care Team Description 07/30/2022 Office Visit Radiation Oncology Alecia Lion APRN [facility] RADIATION [place], [place] [address] (Wo rk) documented as of this encounter Results Testosterone, total (05/02/2014 12:41 PM EDT) athologist [...] reference ranges derived fr om review of edPULSE E170 Testosterone reagent package insert 09/12, V8 [...] Wolfe MD CHEMISTRY ORDERABLES Performing Organization Address City/[facility]/ZIP Code Phon e Number [address] CERNER MILLENNIUM PSA (05/02/2014 12:41 PM EDT) athologist Signature PSA Total 0.08 0.00 - CERNER (Ultrasensitiv 4.00 ng/mL MILLENNIUM e) Specimen Anatomical Collection Method Collection Time Receive d Time (Source) Location / / Volume Laterality Blood specimen 05/02/2014 12:41 4 (specimen) PM EDT 12:46 PM EDT Resulting Agency Comment Spec In Lab Alec Wolfe MD CHEMISTRY ORDERABLES Performing Organization Address City/[facility]/ZIP Code Phon e Number [address] CERNER MILLENNIUM (ABNORMAL) Comprehensive metabolic panel (non-fasting) (05/02/2014 12:41 PM EDT) athologist Signature Glucose Lvl 117 60 - 199 CERNER mg/dL MILLENNIUM Comment: Diabetes: >=200 mg/dL plus symp toms BUN 26 (H) 10 - 20 mg/dL CERNER MILLENNIU M Creatinine 1.42 0.80 - 1.50 mg/dL CERNER MILL ENNIUM Comment: Please note that the pediatric reference intervals supplied above were not validated at [facility]. Results from pediatri c patients should be [...] the following links into your internet browser. [email or web address] [email or web address] Specimen Anatomical Collection Method Collection Time Receive d Time (Source) Location / / Volume Laterality Blood specimen 05/02/2014 12:41 4 (specimen) PM EDT 12:46 PM EDT Resulting Agency Comment Spec In Lab Alec Wolfe MD CHEMISTRY ORDERABLES Performing Organization Address City/State/[place] [address] CERNER MILLENNIUM documented in this encounter Visit Diagnoses Diagnosis Prostate cancer - Primary Malignant neoplasm of prostate documented in this encounter Care Teams Tie Tape Machine Operator Relationship Specialty Start Date End Date Santos Guallpa MD PCP - General 10/14/[address] [place] [phone] documented as of this encounter
--- OUTSIDE RECORDS SUMMARY | 2022-07-24 15:19 | XMS_ITS | Encounter Summary ---
:1945 Author Organization [place] [address] Care Team Providers Name Role Phone Santos Guallpa MD Primary Care Provider Encounter Details Date Type Department Care Team Description 01/04/[address] Scan at [facility], DR [facility] Alec Wolfe MD [facility] [place] [address] [place] [address] Social History Tobacco Use Types Packs/Day Years Used Date Never Smoker Smokeless Tobacco: Never Used Alcohol Use Standard Drinks/Week Comments No 0 (1 standard drink = 0.6 oz pure alcoho l) Sex Assigned at Date Recorded Not on file documented as of this encounter Miscellaneous Notes Miscellaneous - Provider, Scanning - 01/11/2014 6:21 AM EST documented in this encounter Plan of Treatment Upcoming Encounters Date Type Specialty Care Team Description 07/30/2022 Office Visit Radiation Oncology Alecia Lion APRN [facility] RADIATION [place], [place] [address] (Wo rk) documented as of this encounter Procedures Procedure Name Priority Date/Time Associated Diagnosis Comme nts CT PELVIS SOFT Routine 01/04/2014 4:11 PM Results for this TISSUE (GI HUMAN RESOURCES OFFICER)W EST procedur e are in CONTRAST the results section. documented in this encounter Results CT pelvis with contrast (01/04/2014 4:11 PM EST) Anatomical Region Laterality Modality Pelvis Computed Tomography Specimen (Source) Anatomical Collection Method Collection Time Re ceived Time Location / / Volume Laterality 01/04/2014 4:11 PM EST Narrative 01/05/2014 8:[address] Pelvis With Contrast Clinical History prostate cancer s/p prostatectomy with prostate specific antigen recurrence ?? evaluate for regional failure Comparison Nuclear medicine bone scan from 01/04/[address] images were obtained of the pelvis fo llowing the intravenous administration of 110 mL of Omnipaque 350. ??Multiplana r reformatted images were reviewed. Findings There is a 7 millimeter ill-defined scle rotic focus within the right iliac bone (series 2, image 21). Given lack of upta ke on same day bone scan, favor benign etiology. No other sclerotic lesions are identified. ?? Moderate degenerative changes of the corazon ateral sacroiliac joints consisting of subchondral sclerosis, subchondral cyst formation, and marginal osteophytes. Multilevel degenerative disc disease, mo st pronounced at L5-S1 was there is vacuum disc phenomenon, disc space narro wing, and mild grade 1 anterolisthesis of L5 on S1. ?? No free air. ??No free fluid. ??No dilat ed loops of bowel. ??No bowel wall thickening. Small fat containing umbilic al hernia. ?? The bladder wall appears circumferential ly thickened, suggestive of chronic bladder outlet obstruction. Note is made of a small bladder diverticulum on the left side. The left ureter appears promi nent, without evidence of distal obstructing stone. Patient is status pos t prostatectomy. No pelvic adenopathy. Impression ? 1. Small 7 millimeter ill-defined sclerotic focus within the right iliac bone. ??Given lack of uptake on same day bone scan, favor benign etiology. ? 2. Circumferential thickening of the bladder wall, suggestive of chronic bladder outlet obstruction. ? 3. Prominence of the left ureter, without evidence of distal, obstructing stone. If clinically indicated, suggest further evaluation with ultrasound. Film and interpretation reviewed by the attending Procedure Note Keli Read MD - 01/05/[address] Pelvis With Contrast Clinical History prostate cancer s/p prostatectomy with prostate specific antigen recurrence evaluate for regional failure Comparison Nuclear medicine bone scan from 01/04/[address] images were obtained of the pelvis fo llowing the intravenous administration of 110 mL of Omnipaque 350. Multiplanar reformatted images were reviewed. Findings There is a 7 millimeter ill-defined scle rotic focus within the right iliac bone (series 2, image 21). Given lack of upta ke on same day bone scan, favor benign etiology. No other sclerotic lesions are identified. Moderate degenerative changes of the corazon ateral sacroiliac joints consisting of subchondral sclerosis, subchondral cyst formation, and marginal osteophytes. Multilevel degenerative disc disease, mo st pronounced at L5-S1 was there is vacuum disc phenomenon, disc space narro wing, and mild grade 1 anterolisthesis of L5 on S1. No free air. No free fluid. No dilated l oops of bowel. No bowel wall thickening. Small fat containing umbilic al hernia. The bladder wall appears circumferential ly thickened, suggestive of chronic bladder outlet obstruction. Note is made of a small bladder diverticulum on the left side. The left ureter appears promi nent, without evidence of distal obstructing stone. Patient is status pos t prostatectomy. No pelvic adenopathy. Impression 1. Small 7 millimeter ill-defined scler otic focus within the right iliac bone. Given lack of uptake on same day b one scan, favor benign etiology. 2. Circumferential thickening of the bl adder wall, suggestive of chronic bladder outlet obstruction. 3. Prominence of the left ureter, witho ut evidence of distal, obstructing stone. If clinically indicated, suggest further evaluation with ultrasound. Film and interpretation reviewed by the attending Alec Wolfe MD IMG CT ORDERABLES documented in this encounter Visit Diagnoses Not on filedocumented in this encounter Administered Medications Inactive Administered Medications - up to 3 most recent administrations Medication Order MAR Action Action Date Dose Rate Site iohexol (OMNIPAQUE) 350 mg Given 01/04/2014 2:00 PM EST 17,500 m g iodine/mL injection 17,500 mg 17,500 mg (50 mL), Oral, ONCE PRN, 1 dose, Starting on Oriana 2/27/14 at 1602, Until Oriana 01/04/14 at 1400, Per Protocol, Routine iohexol (OMNIPAQUE) 350 mg iodine/mL Given 01/04/2014 4:02 PM ES T 38,500 mg injection 38,500 mg 38,500 mg (110 mL), Intravenous, ONCE PRN, 1 dose, Starting on Oriana 01/04/14 at 1602, Until Oriana 01/04/14 at 1602, Per Protocol, Routine documented in this encounter Care Teams Clinical Engineering Director Relationship Specialty Start Date End Date Santos Guallpa MD PCP - General 10/14/11 [address] [place] [phone] documented as of this encounter
--- OUTSIDE RECORDS SUMMARY | 2022-07-24 15:19 | XMS_ITS | Encounter Summary ---
:1945 Author Organization [place] [address] Care Team Providers Name Role Phone Santos Guallpa MD Primary Care Provider Reason for Visit Reason Comments Radiation Follow-up Encounter Details Date Type Department Care Team Description 06/21/2014 Office Visit Radiation Oncology at [facility], Alec Sunshine Ma lignant neoplasm of Rolanda Mckeon MD prostate (Primary Dx) [facility] [address]ena RADIATION ONCOLOGY [place], [place] [phone] Social History Tobacco Use Types Packs/Day Years Used Date Never Smoker Smokeless Tobacco: Never Used Alcohol Use Standard Drinks/Week Comments No 0 (1 standard drink = 0.6 oz pure alcoho l) Sex Assigned at Date Recorded Not on file documented as of this encounter Last Filed Vital Signs Vital Sign Reading Time Taken Comments Blood Pressure 154/80 06/21/2014 2:19 PM EDT Pulse 58 06/21/2014 2:19 PM EDT Temperature 36.9 ??C (98.4 ??F) 06/21/2014 2:19 PM EDT Respiratory Rate 18 06/21/2014 2:19 PM EDT Oxygen Saturation 96% 06/21/2014 2:19 PM EDT Inhaled Oxygen Concentration - - Weight 77.1 kg (170 lb) 06/21/2014 2:19 PM EDT Height - - Body Mass Index 27.44 05/21/2014 8:19 AM EDT documented in this encounter Progress Notes Alec Wolfe MD - 06/21/2014 11:26 PM EDT RADIATION ONCOLOGY FOLLOW-UP VISIT NOTE Identification: Dalton Pereira is a 68 y.o. year-old male with history of prostate cancer s/p Radical Prostatectomy 05/2012, pT2c, [place] 3+3=6, Margin negative, Node negative (Pre-operative [id number] 3+4=7, PSA 7.7 on dutasteride) with detectable PSA post-operatively was is rising, at 0.30. Radiotherapy: 6840 cGy to the Prostatic fossa. On study RTOG 0534 Interim History: Mr. Pereira returns for follow-up now about 12 weeks post salvage radiation. He feels well. His energy is good, he is very active and not limited. KPS 100. He can have loose urgent stools. These are intermittent. He occasionally had this prior to treatmentbut more often now. He does not report diarrhea. No blood. Urinary function, no dysuria, hematuria or incontinence. Good stream. Nocturia X2. IPSS today 3, last visit 4. PSA today 0.04 Allergies: Allergies Allergen Reactions ??? Gentamicin Hives Medications: No current outpatient prescriptions on file prior to visit. Review of Systems: Gen: Energy good. No fevers. : No increased frequency, dysuria, or incontinence. Nocturia X 2. No hematuria. GI: Normal formed stools. Occasionally urgent, he had this at times prior to treatment. No pain or blood. Physical Exam: Filed Vitals: 06/21/14 1419 BP: 154/80 Pulse: 58 Temp: 36.9 ??C (98.4 ??F) Resp: 18 Gen: Well appearing, NAD Pulm: Reg rate and effort ANDREAS: Empty fossa, no nodules. AAOX3, interactive and asks appropriate questions. Ambulatory Labs: . PSA Total Date Value Range Status 06/21/2014 0.04 0.00 - 4.00 ng/mL Final [...] of prostate cancer s/p RadicalProstatectomy 05/2012, pT2c, [place] 3+3=6, Margin negative, Node negative (Pre-operative [id number] [place] 3+4=7, PSA 7.7 on dutasteride) with detectable PSA post-operatively was is rising, at 0.30, he is s/p nichols radiation completed 03/21/14. We discussed his PSA today, now at 0.04. Again, this is an encouraging response and it will need to be continued to be followed. He has minimal if any residual irritative effects from radiation. All questions addressed. Plan: 1. FU in 3 months with labs. Total visit time was 10 minutes. 8 minutes were spent in face to face counseling and coordination ofcare. documented in this encounter Plan of Treatment Upcoming Encounters Date Type Specialty Care Team Description 07/30/2022 Office Visit Radiation Oncology Alecia Lion APRN [facility] RADIATION [place], [place] [address] (Wo rk) documented as of this encounter Procedures Procedure Name Priority Date/Time Associated Comments Diagnosis HEMOGRAM STAT 06/21/2014 1:12 PM Malignant neoplasm Res ults for this EDT of prostate procedure are i n the results section. DIFFERENTIAL, STAT 06/21/2014 1:12 PM Malignant neoplasm Re sults for this AUTOMATED EDT of prostate procedure are i n the results section. CBC (WITH DIFF) STAT 06/21/2014 1:12 PM Malignant neoplasm EDT of prostate TESTOSTERONE, TOTAL Routine 06/21/2014 1:12 PM Malignant neopl asm Results for this EDT of prostate procedure are i n the results section. PSA (ULTRASENSITIVE) Routine 06/21/2014 1:12 PM Malignant neop lasm Results for this EDT of prostate procedure are i n the results section. COMPREHENSIVE STAT 06/21/2014 1:12 PM Malignant neoplasm Re sults for this METABOLIC PANEL EDT of prostate procedure ar e in (NON-FASTING) the results section. documented in this encounter Results (ABNORMAL) Differential, Automated (06/21/2014 1:12 PM EDT) [facility] gist Method Time Signature Neutrophils % 72.2 (H) 34.0 - CERNER 71.0 % MILLENNIUM Neutr Abs (ANC) 5.27 1.50 - CERNER 6.30 MILLENNIUM x10(3)/mc L Lymphocytes % 13.4 (L) 19.0 - CERNER 53.0 % MILLENNIUM Lymphocytes Abs 1.0 1.0 - 3.6 CERNER x10(3)/mc MILLENNIUM L Monocytes % 11.6 4.0 - CERNER 13.0 % MILLENNIUM Monocyte Abs 0.8 0.2 - 1.0 CERNER x10(3)/mc MILLENNIUM L Eosinophils % 2.6 0.0 - 7.0 CERNER % MILLENNIUM Eosinophils Abs 0.2 0.0 - 0.5 CERNER x10(3)/mc MILLENNIUM L Basophils % 0.1 0.0 - 2.0 CERNER % MILLENNIUM Basophils Abs 0.0 0.0 - 0.2 CERNER x10(3)/mc MILLENNIUM L Immature Gran % 0.10 0.00 - CERNER 0.66 % MILLENNIUM Comment: Immature granulocytes(IG's)percentage an d absolute [...] Laterality Blood specimen 06/21/2014 1:12 PM 014 1:39 (specimen) EDT PM EDT Resulting Agency Comment Spec In Lab Alec Wolfe MD HEMATOLOGY ORDERABLES Performing Organization Address City/State/ZIP Code Phon e Number [address] CERNER MILLENNIUM Hemogram (06/21/2014 1:12 PM EDT) P athologist Signature WBC 7.3 4.0 - 10.0 CERNER x10(3)/mcL MILLENNIUM RBC 5.66 4.63 - 6.08 CERNER x10(6)/mcL MILLENNIUM Hemoglobin 17.3 13.7 - 17.5 CERNER gm/dL MILLENNIUM Hematocrit 50.5 40.0 - 51.0 CERNER % MILLENNIUM MCV 89.2 79.0 - 92.0 CERNER fL MILLENNIUM MCH 30.6 25.6 - 32.2 CERNER pg MILLENNIUM MCHC 34.3 32.0 - 36.5 CERNER gm/dL MILLENNIUM Platelets 171 145 - 370 CERNER x10(3)/mcL MILLENNIUM RDWSD 43.4 35.0 - 46.0 CERNER fL MILLENNIUM RDWCV 13.4 10.9 - 14.4 CERNER % MILLENNIUM MPV 11.7 9.0 - 12.0 CERNER fL MILLENNIUM Specimen Anatomical Collection Method Collection Time Receive d Time (Source) Location / / Volume Laterality Blood specimen 06/21/2014 1:12 PM 014 1:39 (specimen) EDT PM EDT Resulting Agency Comment Spec In Lab Alec Wolfe MD HEMATOLOGY ORDERABLES Performing Organization Address City/State/ZIP Code Phon e Number [address] CERNER MILLENNIUM Testosterone, total (06/21/2014 1:12 PM EDT) P athologist Signature Testo Total 3.60 2.80 - 8.00 CERNER ng/mL MILLENNIUM Comment: [...] reference ranges derived fr om review of [employer] Testosterone reagent package insert 11, V8 Stated pediatric reference ranges derive d from review of [employer] Testosterone II reagent package insert 0 7/10, V2. Specimen Anatomical Collection Method Collection Time Receive d Time (Source) Location / / Volume Laterality Blood specimen 06/21/2014 1:12 PM 014 1:16 (specimen) EDT PM EDT Resulting Agency Comment Spec In Lab Alec Wolfe MD CHEMISTRY ORDERABLES Performing Organization Address City/State/ZIP Code Phon e Number [place] [id number] CERNER MILLENNIUM (ABNORMAL) Comprehensive metabolic panel (non-fasting) (06/21/2014 1:12 PM EDT) athologist Signature Glucose Lvl 73 60 - 199 CERNER mg/dL MILLENNIUM Comment: Diabetes: >=200 mg/dL plus symp toms BUN 23 (H) 10 - 20 mg/dL CERNER MILLENNIU M Creatinine 1.27 0.80 - 1.50 mg/dL CERNER MILL ENNIUM Comment: Please note that the pediatric reference intervals supplied above were not validated at [facility]. Results from pediatri c patients should be [...] if there are any qu estions. Chloride 105 98 - 107 mmol/L CERNER MILLENN IUM CO2 27 22 - 31 mmol/L CERNER MILLENNI UM Anion Gap 10 5 - 15 mmol/L CERNER MILLENNIU M Calcium 8.9 8.5 - 10.5 mg/dL CERNER SOFIA NIUM Total Protein 7.1 6.4 - 8.3 gm/dL CERNER MIL LENNIUM Albumin 4.2 3.2 - 5.2 gm/dL CERNER MILLENN IUM AST 17 0 - 39 unit/L CERNER MILLENNIU M ALT 17 0 - 55 unit/L CERNER MILLENNIU M Alk Phos 74 40 - 120 unit/L CERNER MILLENN IUM Total Bilirubin 1.0 0.2 - 1.3 mg/dL CERNER M ILLENNIUM Bili, Direct 0.2 0.0 - 0.3 mg/dL CERNER MILL ENNIUM Estimated GFR 56 (L) >=60 CERNER MILLENNIU M Comment: This [...] the following links into your internet browser. [email or web address] [email or web address] Specimen Anatomical Collection Method Collection Time Receive d Time (Source) Location / / Volume Laterality Blood specimen 06/21/2014 1:12 PM 014 1:16 (specimen) EDT PM EDT Resulting Agency Comment Spec In Lab Alec Wolfe MD CHEMISTRY ORDERABLES Performing Organization Address City/State/ZIP Code Phon e Number [address] [facility] M[facility] PSA (06/21/2014 1:12 PM EDT) P athologist Signature PSA Total 0.04 0.00 - CERNER (Ultrasensitiv 4.00 ng/mL MILLENNIUM e) Specimen Anatomical Collection Method Collection Time Receive d Time (Source) Location / / Volume Laterality Blood specimen 06/21/2014 1:12 PM 014 1:16 (specimen) EDT PM EDT Resulting Agency Comment Spec In Lab Alec Wolfe MD CHEMISTRY ORDERABLES Performing Organization Address City/[facility]/ZIP Code Phon e Number [address] [facility] M[facility] documented in this encounter Visit Diagnoses Diagnosis Malignant neoplasm of prostate - Primary documented in this encounter Care Teams Structural Test Engineer Relationship Specialty Start Date End Date Santos Guallpa MD PCP - General 10/14/[address] [place] [phone] documented as of this encounter
--- OUTSIDE RECORDS SUMMARY | 2022-07-24 15:19 | XMS_ITS | Encounter Summary ---
:1945 Author Organization [facility] [place] [address] Care Team Providers Name Role Phone Sanots Guallpa MD Primary Care Provider Encounter Details Date Type Department Care Team Description 01/03/2014 Orders Only Radiation Oncology at [facility], Alec Sunshine Ma lignant neoplasm of Rolanda Mckeon MD prostate (Primary Dx) [facility] [address]ena [place] [address] [place] [address] [phone] Social History Tobacco Use Types Packs/Day Years [...] Radiation Oncology Alecia Lion APRN [facility] RADIATION [place], [place] [address] (Wo rk) documented as of this encounter Visit Diagnoses Diagnosis Malignant neoplasm of prostate - Primary documented in this encounter Care Teams Hvac Service Technician Relationship Specialty Start Date End Date Santos Guallpa MD PCP - General 10/14/[address] [place] [phone] documented as of this encounter
--- OUTSIDE RECORDS SUMMARY | 2022-07-24 15:19 | XMS_ITS | Encounter Summary ---
:1945 Author Organization [facility] [place] [address] Care Team Providers Name Role Phone Santos Guallpa MD Primary Care Provider Encounter Details Date Type Department Care Team Description 07/17/2012 Orders Only Urology at [facility] [place] [facility] [place] Herminio Little MD [facility] [place] [address] UROLOGY DEPT [phone] [place], [place] [address] (Wo rk) Social History Tobacco [...] Office Visit Radiation Oncology Alecia Lion APRN [facility] ER RADIATION [place], [place] [address] (Wo rk) documented as of this encounter Visit Diagnoses Not on filedocumented in this encounter Care Teams Helper [employer] Relationship Specialty Start Date End Date Santos Guallpa MD PCP - General 10/14/11 [address] [place] [address] documented as of this encounter
--- OUTSIDE RECORDS SUMMARY | 2022-07-24 15:19 | XMS_ITS | Encounter Summary ---
:1945 Author Organization [facility] Address [address] [place] [address] Care Team Providers Name Role Phone Ho Parham MD Primary Care Provider Reason for Visit Reason Comments Follow-up Encounter Details Date Type Department Care Team Description 05/17/2013 Office Visit Urology at [facility] [place] John Rodriguez MD Malignant neoplasm of [facility] pro state (Primary Dx) Drive [address] [place]OLOGY [address] [place] [address] [phone] Social History Tobacco Use Types Packs/Day Years Used Date Never Smoker Smokeless Tobacco: Never Used Alcohol Use Standard Drinks/Week Comments No 0 (1 standard drink = 0.6 oz pure alcoho l) Sex Assigned at Date Recorded Not on file documented as of this encounter Last Filed Vital Signs Vital Sign Reading Time Taken Comments Blood Pressure 123/83 05/17/2013 1:45 PM EDT Pulse 75 05/17/2013 1:45 PM EDT Temperature - - Respiratory Rate - - Oxygen Saturation - - Inhaled Oxygen Concentration - - Weight 74.8 kg (165 lb) 05/17/2013 1:45 PM EDT Height 167.6 cm (5' 6) 05/17/2013 1:45 PM EDT Body Mass Index 26.63 05/17/2013 1:45 PM EDT documented in this encounter Progress Notes John Rodriguez MD - 05/17/2013 1:54 PM EDT Patient Name: Date of Service: 05/17/2013 Primary Care Provider: HO PARHAM MD Reason for Visit: Dalton Pereira is a 67 y.o. male who returns for follow up. 06/03/2012: Robot assisted radical prostatectomy fo [id number] [place] 3+3=6 (with tertiary pattern 4) 18 nodes [...] 02/20130.1 08/2012 PSA 0.13 11/2012 PSA 0.12 X-rays: None PVR 11/2012: 52cc Impression: #1: pT2 [place] 3+3=6 prostate cancer sp Radical prostatectomy with PSA of 0.12 stable #2: Inguinal hernia repair #3: Substantial improvement in urinary function Plan: I am surprised he has residual PSA given Maynor 6, organ confined, no nodes and negative margins. Idiscussed the possible significance of this with regard to recurrence. I am encouraged that the PSA is down at this visit. I will see in 6 months with another PSA. Jhon Rodriguez documented in this encounter Plan of Treatment Upcoming Encounters Date Type Specialty Care Team Description 07/30/2022 Office Visit Radiation Oncology Alecia Lion APRN [facility] RADIATION [place], [place] [address] (Wo rk) documented as of this encounter Procedures Procedure Name Priority Date/Time Associated Diagnosis Comme nts PSA STAT 05/17/2013 12:29 PM Malignant neoplasm Re sults for this (ULTRASENSITIVE) EDT of prostate procedure a re in the results section. documented in this encounter Results PSA (11/20/2013 12:50 PM EST) P athologist Signature PSA Total 0.18 0.00 - CERNER (Ultrasensitiv 4.00 ng/mL MILLENNIUM e) Specimen Anatomical Collection Method Collection Time Receive d Time (Source) Location / / Volume Laterality Blood specimen 11/20/2013 12:50 4 (specimen) PM EST 12:58 PM EST Resulting Agency Comment Spec In Lab John Rodriguez MD CHEMISTRY ORDERABLES Performing Organization Address City/[facility]/ZIP Code Phon e Number [address] [facility] PSA (05/17/2013 12:29 PM EDT) P athologist Signature PSA Total 0.09 0.00 - CERNER (Ultrasensitiv 4.00 ng/mL MILLENNIUM e) Specimen Anatomical Collection Method Collection Time Receive d Time (Source) Location / / Volume Laterality Blood specimen 05/17/2013 12:29 3 (specimen) PM EDT 12:33 PM EDT Resulting Agency Comment Spec In Lab John Rodriguez MD CHEMISTRY ORDERABLES Performing Organization Address City/[facility]/ZIP Code Phon e Number [address] [facility] documented in this encounter Visit Diagnoses Diagnosis Malignant neoplasm of prostate - Primary documented in this encounter Care Teams Recycling Center Operator Relationship Specialty Start Date End Date Ho Parham MD PCP - General 10/14/[address] [place] [phone] documented as of this encounter
--- OUTSIDE RECORDS SUMMARY | 2022-07-24 15:19 | XMS_ITS | Encounter Summary ---
:1945 [place] [address] Care Team Providers Name Role Phone Santos Guallpa MD Primary Care Provider Encounter Details Date Type Department Care Team Description 01/12/2014 Initial consult [place] [address] Social History Tobacco Use Types Packs/Day [...] Lion APRN [facility] RADIATION [place], [place] [address] (Wo rk) documented as of this encounter Visit Diagnoses Not on filedocumented in this encounter Care Teams Relief Manager Relationship Specialty Start Date End Date Santos Guallpa MD PCP - General 10/14/[address] [place] [phone] documented as of this encounter
--- OUTSIDE RECORDS SUMMARY | 2022-07-24 15:19 | XMS_ITS | Encounter Summary ---
:1945 Author Organization [facility] [place] [address] Care Team Providers Name Role Phone Santos Guallpa MD Primary Care Provider Encounter Details Date Type Department Care Team Description 09/29/2013 Hospital Encounter Laboratory John Rodriguez MD Prostate cancer [facility] [address] [place]OLOG[place] [address] [place] [address] [phone] Social History Tobacco Use Types Packs/Day Years [...] Radiation Oncology Alecia Lion APRN [facility] RADIATION [place], [place] [address] (Wo rk) documented as of this encounter Procedures Procedure Name Priority Date/Time Associated Diagnosis Comme nts PSA STAT 09/29/2013 9:57 AM Prostate cancer Result s for this (ULTRASENSITIVE) EST procedure a re in the results section. documented in this encounter Results PSA (09/29/2013 9:57 AM EST) P athologist Signature PSA Total 0.14 0.00 - CERNER (Ultrasensitiv 4.00 ng/mL MILLENNIUM e) Specimen Anatomical Collection Method Collection Time Receive d Time (Source) Location / / Volume Laterality Blood specimen 09/29/2013 9:57 AM 013 (specimen) EST 10:02 AM EST Resulting Agency Comment Spec In Lab John Rodriguez MD CHEMISTRY ORDERABLES Performing Organization Address City/State/[facility] [place] [address] [facility] MILLENNIUM documented in this encounter Visit Diagnoses Diagnosis Prostate cancer Malignant neoplasm of prostate documented in this encounter Care Teams Mock Up Assembler Relationship Specialty Start Date End Date Santos Guallpa MD PCP - General 10/14/[address] [place] [phone] documented as of this encounter
--- OUTSIDE RECORDS SUMMARY | 2022-07-24 15:19 | XMS_ITS | Encounter Summary ---
:1945 Author Organization [facility] [place] [address] Care Team Providers Name Role Phone Santos Guallpa MD Primary Care Provider Encounter Details Date Type Department Care Team Description 12/12/2013 Surgery Gastroenterology at [facility] [place] Kenna Knapp, COLONOSCOPY, [facility] Nita dyer [place] [address] [facility] [phone] GASTROENTEROLOGY DEPT. [place], [place] [address] Social History Tobacco Use [...] documented in this encounter Discharge Instructions Discharge Berny Solorzano RN - 12/12/2013 2:03 PM EST Colonoscopy [...] concerns, you can call us: Wednesday-Wednesday Clinic [phone] 8a-5p Same Day Endo [phone] 7a-8p Otherwise contact [phone] and ask to speak to the french professor dehydrogenation supervisor. Follow up care is a parekh part [...] Knapp MD - 12/12/2013 1:54 PM EST [facility] Operative Note Patient Name: Dalton Pereira : [id number] MR#: [id number] Case Date: 12/12/2013 Surgeon: Surgeon(s) and Role: * Kenna Knapp MD - Primary Preoperative diagnosis: Screening Full procedure note is documented under the Procedure section of eD. documented in this encounter Plan of Treatment Upcoming Encounters Date Type Specialty Care Team Description 07/30/2022 Office Visit Radiation Oncology Alecia Lion APRN [facility] RADIATION [place], [place] [address] (Wo rk) documented as of this encounter Procedures Procedure Name Priority Date/Time Associated Comments Diagnosis COLONOSCOPY, 12/12/2013 1:24 PM Screening DIAGNOSTIC EST COLONOSCOPY Routine 12/12/2013 1:04 PM Results f or this EST procedure are i n the results section. documented in this encounter Results COLONOSCOPY (12/12/2013 1:04 PM EST) Component Value Ref Test Analysis Performed At [facility] gist Range Method Time Signature COLONOSCOPY [facility] PROVATION Endoscopy Patient Name: Dalton Pereira ? Procedure Date: 12/12/2013 1:04 PM ? Date of : 1945 ? Age: 68 ? Order #: [id number] ? Procedure: ? Colonoscopy Indications: ? Screening for colorectal malignant ? neoplasm Patient Profile: ? s/p prostate ca, hernia repair, ? appendectomy Providers: ? Kenna Knapp MD, Félix landry, ? RN, Dianna Chavez, Heath N, ? Alec Choudhary, Evaluator Referring MD: ?Santos Guallpa MD Medicines: ? [...] MAR Action Action Date Dose Rate Site meperidine (PF) (DEMEROL) 100 mg/mL Given 12/12/2013 1:41 PM EST 25 mg carpuject ONCE PRN, Starting on Wed12/12/13 at 1328, Until 12/12/13 at 1443, Pain, Intra-Operative (Intra-Procedure), Routine Given 12/12/2013 1:36 PM EST 25 mg Given 12/12/2013 1:28 PM EST 50 mg midazolam (PF) (VERSED) 1 mg/mL injectio n Given 12/12/2013 1:41 PM EST 0.5 mg ONCE PRN, Starting on 12/12/13 at 1328, Until 12/12/13 at 1443, Sleep, Intra-Operative (Intra-Procedure), Routine Given 12/12/2013 1:36 PM EST 1 mg Given 12/12/2013 1:31 PM EST 1 mg sodium chloride 0.9% infusion New Bag 12/12/2013 12:45 PM EST 30 mL/hr 30 mL/hr 30 mL/hr, Intravenous, CONTINUOUS, Starting on Wed12/12/13 at 1245, Until Tu12/12/13 at 1443, Endoscopy (Day of Procedure) documented in this encounter Active and Recently Administered Medications Times are shown in EST. Continuous Medication Order 12/10/2013 12/11/2013 12/12/2013 sodium chloride 0.9% infusion (CANCELED) 1245 (New Bag - Provider: Mark Klnie RN) 30 mL/hr, at 30 mL/hr, Intravenous, CONT INUOUS, Starting 12/12/13 at 1245, Until 12/12/13 at 1443, Endo (Day of Procedure) PRN Medication Order 12/10/2013 12/11/2013 12/12/2013 meperidine (PF) (DEMEROL) 100 mg/mL carpuject (CANCELED) 1328 (Given - Provider: Dianna Chavez RN)1336 (Given - Provider: Dianna Chavez RN)1341 (Given - Provider: Dianna Chavez, JESSICA) ONCE PRN, Starting 12/12/13 at 1328, U ntil 12/12/13 at 1443, Pain, Intra- Operative (Intra-Procedure), Routine midazolam (PF) (VERSED) 1 mg/mL injection (CANCELED) 1328 (Given - Provider: Dianna Chavez RN)1331 (Given - Provider: Dainna Chavez RN)1336 (Given - Provider: Dianna Chavez RN)1341 (Given - Provider: Dianna Chavez RN) ONCE PRN, Starting 12/12/13 at 1328, U ntil 12/12/13 at 1443, Sleep, Intra- Operative (Intra-Procedure), Routine documented in this encounter Care Teams Assembly Line Robot Operator Relationship Specialty Start Date End Date Santos Guallpa MD PCP - General 10/14/[address] [place] [phone] documented as of this encounter
--- OUTSIDE RECORDS SUMMARY | 2022-07-24 15:19 | XMS_ITS | Encounter Summary ---
:1945 Author Organization [facility] [place] [address] Care Team Providers Name Role Phone Santos Guallpa MD Primary Care Provider Reason for Visit Reason Comments On Treatment Visit Encounter Details Date Type Department Care Team Description 02/02/2014 [facility] (Primary Dx) [address] [facility] [address] [place] RADIATION ONCOL OGY [address] [place], [place] [phone] (Wo rk) Social History Tobacco Use Types Packs/Day Years Used Date Never Smoker Smokeless Tobacco: Never Used Alcohol Use Standard Drinks/Week Comments No 0 (1 standard drink = 0.6 oz pure alcoho l) Sex Assigned at Date Recorded Not on file documented as of this encounter Last Filed Vital Signs Vital Sign Reading Time Taken Comments Blood Pressure 135/83 02/02/2014 2:59 PM EDT Pulse 66 02/02/2014 2:59 PM EDT Temperature 36.4 ??C (97.5 ??F) 02/02/2014 2:59 PM EDT Respiratory Rate 18 02/02/2014 2:59 PM EDT Oxygen Saturation 97% 02/02/2014 2:59 PM EDT Inhaled Oxygen - - Concentration Weight 83 kg (183 lb) 02/02/2014 2:59 PM with boots ro om #2 EDT Height - - Body Mass Index 29.09 11/20/2013 2:52 PM EST documented in this encounter Progress Notes Isaiah Jung MD - 02/02/2014 4:14 PM EDT [facility] On Treatment Visit Patient ID: Dalton Pereira is a 68 y.o. male currently undergoing salvage radiotherapy for recurrent prostate cancer. He is enrolled on RTOG 0534, and has been randomized to the prostate bed RT alone arm. Plan Details: Daily Dose: 1.8 Gy Current Dose: 9 Gy in 5 fractions Planned Dose: 68.4 Gy in 38 fractions Subjective / Interval History:: No changes since last visit. Pain Assessment: The patient reports a pain score of 0/10. Objective: BP 135/83 Pulse 66 Temp 36.4 ??C (97.5 ??F) (Oral) Resp 18 Wt 83.008 kg (183 lb) SpO2 97% General - appears well, no distress Portal Imaging Review: Offline portal imaging is being reviewed by Dr. Wolfe to confirm accurate positioning and alignment which matches the patient's original approved treatment planning images. Assessment: Tolerating radiotherapy as expected. Plan: Continue radiotherapy as prescribed. documented in this encounter Plan of Treatment Upcoming Encounters Date Type Specialty Care Team Description 07/30/2022 Office Visit Radiation Oncology Alecia Lion, TIE MILL OPERATOR [facility] RADIATION [place], [place] [address] (Wo rk) documented as of this encounter Visit Diagnoses Diagnosis Prostate cancer - Primary Malignant neoplasm of prostate documented in this encounter Care Teams Food Analyst Relationship Specialty Start Date End Date Santos Guallpa MD PCP - General 10/14/[address] [place] [phone] documented as of this encounter
--- OUTSIDE RECORDS SUMMARY | 2022-07-24 15:19 | XMS_ITS | Encounter Summary ---
:1945 Author Organization [facility] [place] [address] Care Team Providers Name Role Phone Santos Guallpa MD Primary Care Provider Reason for Visit Reason Comments On Treatment Visit Encounter Details Date Type Department Care Team Description 02/23/2014 Office Visit Radiation Oncology at ErichJolynn heredia MD [address] [place] [address] [place] [address] Malignant neoplasm of [facility] Carlo Carmona MD [facility] [place] [address] prostate (Primary Dx) [address] [place] [phone] Social History Tobacco Use Types Packs/Day Years Used Date Never Smoker Smokeless Tobacco: Never Used Alcohol Use Standard Drinks/Week Comments No 0 (1 standard drink = 0.6 oz pure alcoho l) Sex Assigned at Date Recorded Not on file documented as of this encounter Last Filed Vital Signs Vital Sign Reading Time Taken Comments Blood Pressure 151/86 02/23/2014 5:00 PM EDT Pulse 58 02/23/2014 5:00 PM EDT Temperature 36.5 ??C (97.7 ??F) 02/23/2014 5:00 PM EDT Respiratory Rate 20 02/23/2014 5:00 PM EDT Oxygen Saturation 95% 02/23/2014 5:00 PM EDT Inhaled Oxygen Concentration - - Weight - - Height - - Body Mass Index - - documented in this encounter Progress Notes Carlo Carmona MD - 02/23/2014 6:05 PM EDT [facility] On Treatment Visit Patient ID: Dalton Pereira is a 68 y.o. male currently undergoing salvage radiotherapy for recurrent prostate cancer, pretreatment PSA 0.18. He is enrolled on RTOG 0534, and has been randomized to the prostate bed RT alone arm. Plan Details: Daily Dose: 1.8 Gy Current Dose: 36 Gy in 20 fractions Planned Dose: 68.4 Gy in 38 fractions Subjective / Interval History:: Stable increase in nocturia as well as increased frequency of bowel movements. Looser, but not frankly liquid. Now ~ 6/day as opposed to baseline of 2. Pain Assessment: The patient reports a pain score of 0/10. Objective: BP 151/86 Pulse 58 Temp 36.5 ??C (97.7 ??F) (Oral) Resp 20 SpO2 95% General - appears well, no distress Portal Imaging Review: Offline portal imaging is being reviewed by Dr. Wolfe to confirm accurate positioning and alignment which matches the patient's original approved treatment planning images. Assessment: Tolerating radiotherapy as expected. Plan: Continue radiotherapy as prescribed. Discussed imodium to assist with symptoms but he felt he did not need that at this time. Overall he is feeling well. documented in this encounter Plan of Treatment Upcoming Encounters Date Type Specialty Care Team Description 07/30/2022 Office Visit Radiation Oncology Alecia Lion, CERAMICS MACHINE OPERATOR [facility] RADIATION [place], [place] [address] (Wo rk) documented as of this encounter Visit Diagnoses Diagnosis Malignant neoplasm of prostate - Primary documented in this encounter Care Teams Roof Cement And Paint Maker Relationship Specialty Start Date End Date Santos Guallpa MD PCP - General 10/14/[address] [place] [phone] documented as of this encounter
--- OUTSIDE RECORDS SUMMARY | 2022-07-24 15:19 | XMS_ITS | Encounter Summary ---
:1945 Author Organization [facility] [place] [address] Care Team Providers Name Role Phone Santos Guallpa MD Primary Care Provider Reason for Referral Consultation (Routine) - Closed Specialty Diagnoses / Procedures Referred By Contact Refer red To Contact Radiation Oncology Diagnoses Prostate cancer Teresa Rodriguez MD Sroka, Thomas C, MD [facility] UROLOGLynne [place] [address] [place] [address] Fax: Referral ID Status Reason Start Date Expiration Date Visits V isits Requested Authorized [id number] Closed Consult, 09/21/2013 03/20/2014 1 1 Test & Treat Reason for Visit Reason Comments Other Encounter Details Date Type Department Care Team Description 09/21/2013 Telephone Urology at [facility] Teresa Rodriguez MD [facility] [place] [address] UROLOGY [phone] [place], [place] [address] (Wo rk) Social History Tobacco Use Types Packs/Day Years Used Date Never Smoker Smokeless Tobacco: Never Used Alcohol Use Standard Drinks/Week Comments No 0 (1 standard drink = 0.6 oz pure alcoho l) Sex Assigned at Date Recorded Not on file documented as of this encounter Miscellaneous Notes Telephone Encounter - Teresa Rodriguez MD - 09/21/2013 7:09 PM EST Called to discuss. I will arrange an appt here in about 1 month with myself and Dr Wolfe to discuss XRT Teresa Moya. Jennifer Message copied by TERESA RODRIGUEZ on WedSep 21, 2013 7:09 PM ------ Message from: FÉLIX GORDILLO Created: WedSep 12, 2013 8:32 AM Regarding: RECENT PSA RESULT I have scanned into his chart a copy of his most recent PSA from [facility]. He called as he is concerned that his PSA from here last time was 0.09 and now his PSA is 0.4. He wonders if this is something to be concerned about from your standpoint. Félix documented in this encounter Plan of Treatment Upcoming Encounters Date Type Specialty Care Team Description 07/30/2022 Office Visit Radiation Oncology Alecia Lion, FIELD EDUCATION COORDINATOR [facility] RADIATION [place], [place] [address] (Wo rk) Scheduled Referrals Name Type Priority Associated Diagnoses Order S chedule Referral to Outpatient Referral Routine Prostate cancer Order ed: Radiation Oncology 3 documented as of this encounter Results PSA (09/29/2013 9:57 AM EST) P athologist Signature PSA Total 0.14 0.00 - CERNER (Ultrasensitiv 4.00 ng/mL MILLENNIUM e) Specimen Anatomical Collection Method Collection Time Receive d Time (Source) Location / / Volume Laterality Blood specimen 09/29/2013 9:57 AM 013 (specimen) EST 10:02 AM EST Resulting Agency Comment Spec In Lab Teresa Rodriguez MD CHEMISTRY ORDERABLES Performing Organization Address City/State/[place] [address] [facility] MILLENNIUM documented in this encounter Visit Diagnoses Diagnosis Prostate cancer - Primary Malignant neoplasm of prostate documented in this encounter Care Teams Salt Plant Operator Relationship Specialty Start Date End Date Santos Guallpa MD PCP - General 10/14/[address] [place] [phone] documented as of this encounter
--- OUTSIDE RECORDS SUMMARY | 2022-07-24 15:19 | XMS_ITS | Encounter Summary ---
:1945 Author Organization [facility] [place] [address] Care Team Providers Name Role Phone Santos Guallpa MD Primary Care Provider Encounter Details Date Type Department Care Team Description 03/08/2014 Office Visit Hematology Oncology at [facility], Alec Beltran MD [facility] [place] [address] [place] [phone] Social History Tobacco Use Types Packs/Day [...] Visit Radiation Oncology Alecia Lion APRN [facility] RADIATION [place], [place] [address] (Wo rk) documented as of this encounter Visit Diagnoses Not on filedocumented in this encounter Care Teams Esl Teacher Relationship Specialty Start Date End Date Santos Guallpa MD PCP - General 10/14/11 [address] [place] [phone] documented as of this encounter
--- OUTSIDE RECORDS SUMMARY | 2022-07-24 15:19 | XMS_ITS | Encounter Summary ---
:1945 Author Organization [facility] [place] [address] Care Team Providers Name Role Phone Ho Parham MD Primary Care Provider Reason for Visit Reason Comments Radiation Consult Encounter Details Date Type Department Care Team Description 09/29/2013 Office Visit Radiation Oncology at [facility], Alec Sunshine Ma lignant neoplasm of Rolanda Mckeon MD prostate (Primary Dx) [facility] DR Cadena RADIATION ONCOLOGY [place], [place] [phone] Social History Tobacco Use Types Packs/Day Years Used Date Never Smoker Smokeless Tobacco: Never Used Alcohol Use Standard Drinks/Week Comments No 0 (1 standard drink = 0.6 oz pure alcoho l) Sex Assigned at Date Recorded Not on file documented as of this encounter Last Filed Vital Signs Vital Sign Reading Time Taken Comments Blood Pressure 148/70 09/29/2013 10:13 AM EST Pulse 63 09/29/2013 10:13 AM EST Temperature 36.7 ??C (98.1 ??F) 09/29/2013 10:13 AM EST Respiratory Rate 16 09/29/2013 10:13 AM EST Oxygen Saturation 98% 09/29/2013 10:13 AM EST Inhaled Oxygen Concentration - - Weight 78 kg (172 lb) 09/29/2013 10:13 AM EST Height - - Body Mass Index 27.76 05/17/2013 1:45 PM EDT documented in this encounter Progress Notes Alec Wolfe MD - 11/04/2013 11:14 AM EST RADIATION ONCOLOGY CONSULTATION NOTE PROVIDER: Alec Wolfe MD, PhD REFERRING PROVIDER: RICCO Matos PRIMARY CARE PROVIDER: HO PARHAM MD Molina Pereira is a 67 y.o. male who is seen in the section of Radiation Oncology at [facility] at the request of Dr. Rodriguez regarding prostate cancer. History of Present Illness: Mr. Molina Pereira has history of prostate cancer ([id number] [place] 3+4=7, PSA 7.7 on dutasteride with neurogenic [...] Last PSA here in May was 0.09. Patient Active Problem List Diagnosis Date Noted ??? Follow-up exam 06/22/2012 ??? Urinary retention 02/15/2012 ??? Elevated PSA 02/15/2012 Contraindications to Radiotherapy: NO: YES: Date, site, dose (women only) Prior Radiotherapy x Past Medical History Diagnosis Date ??? Follow-up exam 06/22/2012 Past Surgical History Procedure Date ??? Lap, prostatectomy, radical, w/nerve spare 06/03/2012 @LAPAROSCOPIC PROSTATECTOMY, ROBOTICS ASSISTED performed by TERESA RODRIGUEZ at [facility] MAIN OR ??? Remove pelvis lymph nodes 06/03/2012 @LYMPHADENECTOMY, PELVIC, INCLUDING MULTIPLE NODES-JAZMINE performed by TERESA RODRIGUEZ at [facility] MAIN OR ??? Repair ing hernia, 5+y/o, charlie 06/23/2012 HERNIA REPAIR, INITIAL INGUINAL AGE 5 OR OVER, REDUCIBLE INCARCERATED performed by JARVIS IRWIN at [facility] MAIN OR ??? Appendectomy Patient's Medications No medications on file Allergies Allergen Reactions ??? Gentamicin Hives History Social History ??? Marital Status: Spouse Name: N/A Number of Children: N/A ??? 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 [employer] Social History Main Topics ??? Smoking status: Never Smoker ??? Smokeless tobacco: Never Used ??? Alcohol Use: No ??? Drug Use: No ??? Sexually Active: Yes -- Female partner(s) Comment: none since surgery Other Topics Concern ??? 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 Family History Problem Relation Age of Onset ??? Breast Cancer Mother ??? Breast Cancer Sister ??? Breast Cancer Sister leukemia, at 53 Review of Systems: A complete review of systems was performed as part of the Nursing Assessment. I have reviewed and agree with the assessment. Physical Examination: Filed Vitals: 09/29/13 1013 BP: 148/70 Pulse: 63 Temp: 36.7 ??C (98.1 ??F) TempSrc: Oral Resp: 16 Weight: 78.019 kg (172 lb) SpO2: 98% General: Well appearing, NAD Eyes: Anicteric, conjuntiva are clear. HENT: Atraumatic. Oral mucosa is moist/pink. Pharynx is pink, non-erythematous Nodes: No adenopathy on head/neck/SC fossa. CV: RRR without murmurs, clicks, rubs, or gallops. No JVD Resp: Regular rate and effort. Normal breath sounds, no wheeze, crackle or rhonchi. GI. Abdomen is soft/flat/non-tender. No masses or hepatosplenomegaly. Normal rectal tone, empty vault, no masses without gross blood. : ANDREAS: Empty fossa. MSK/Ext: No tenderness to percussion over vertebrae. No pain on compression of SI joints. Extremities are warm, no cyanosis, clubbing or pedal edema. Integument: No jaundice. Neuro: AAOX3. CN exam is unremarkable. Sensorium is grossly intact to light touch. Muscle strength is 5/5 and equal throughout. Gait appears normal. Pathology: As reviewed above Laboratory Studies: PSA: Results for MOLINA PEREIRA ( ) Ref. Range 08/29/2012 13:47 11/28/2012 07:57 05/17/2013 12:29 PSA Latest Range: 0.00-4.00 ng/mL 0.13 0.12 0.09 Outside 09/05/13 0.4 Assessment: Molina Pereira is a 67 y.o. male with history of prostate cancer s/p Radical Prostatectomy 05/2012, pT2c, [place] 3+3=6, Node negative (Pre- operative [id number] [place] 3+4=7, PSA 7.7 on dutasteride) with detectable PSA post-operatively that has been stable most recently 0.09 here on 05/17/13. Recent outside PSA on 09/05/13 is 0.4. We discussed treatment options today in the context of a rising PSA post- prostatectomy. I discussed that I would like to repeat his PSA here given the rapid rise and that his other PSAs post-operatively were performed here. In regards to treatment we discussed both salvage radiotherapy alone and salvage radiotherapy with androgen deprivation. We regards to radiation I discussed the logistics of radiation treatment including CT-based simulation, iImage-guided and intensity modulated treatment to increase precision with the goal to reduce morbidity. I counseled on both the acute and late side-effects of radiotherapy. The acute sequelae of urinary and gastrointestinal irritation are expected and manageable. The late effects with radiation treatment include a low chance of significant damage to bowel or bladder function (less than 5%), impotence, and an extremely low risk of second malignancy (at or below 2% at 20 years, escalating over decades). Given he has had problems with urination in the past, that are much improved after surgery, I discussed that toxicity from radiation could change the quality of his life in regard to urinary function. At this point we will get a PSA here prior to making a plan. I would also like him to have a colonoscopy prior to radiation if we proceed. Plan: 1. Repeat PSA 2. Plan for colonoscopy prior to radiation if salvage radiation initiated. Addendum Results for MOLINA PEREIRA ( ) Ref. Range 09/29/2013 09:57 PSA Latest Range: 0.00-4.00 ng/mL 0.14 PSA here is in-line with others. I will plan to see him back in November when he is due to see Dr. Rodriguez with another PSA. Jessica Garcia RN - 09/29/2013 9:37 AM EST RADIATION ONCOLOGY NURSING INITIAL NURSING ASSESSMENT IDENTIFICATION: Moilna Pereira is a 67 y.o. year-old male with prostate cancer ADVANCE DIRECTIVES: Has documents Will bring in PRESENTING SYMPTOMS?CHIEF COMPLAINT: Prior to prostatectomy had to have a catheter and had decreasedkidney function. Now post surgery, no incontinence, is impotent but has minimal frequency. REVIEW OF SYSTEMS:Review of Systems Constitutional: Negative. HENT: Negative. Eyes: Negative. Respiratory: Negative. Cardiovascular: Negative. Gastrointestinal: Negative. Genitourinary: Negative. Musculoskeletal: Negative. Skin: Negative. Neurological: Negative. Hematological: Negative. Psychiatric/Behavioral: Negative. Prior Radiotherapy: No Prior Chemotherapy: No Prior Hormone Therapy: No RADIATION SPECIFIC REVIEW: NO: YES: Hearing Aides x Claustrophobia or requires sedation for MRIs x Allergy to CT or MRI contrast agent, iodine or shellfish/ hx asthma x Diabetic and on metformin x Metal in body, implanted device, worked with metal, body piercings,braces x Dental health- loose, broken or chipped teeth ,dentures (no=intact) x Pacemaker x Difficulty breathing/pain while lying flat x Kidney problems/creatinine x Balance difficulty: No Assistive Device(s): None Activities of Daily Living: No limits At risk for fall: No PAIN ASSESSMENT: [ 0 ] out of 10 SOCIAL ASSESSMENT: See [facility] social assessment information entered. Support Systems: Barriers to treatment: none Referrals/Interventions: not at this time LEARNING STYLE: verbal, reading RADIATION SPECIFIC TEACHING: [facility] Radiation Therapy and You PLAN: Per Dr. Wolfe documented in this encounter Miscellaneous Notes Advance Care Plan Note - Jessica Garcia RN - 09/29/2013 9:29 AM EST ADVANCE CARE PLANNING NOTE I. WHEN TO USE THIS FORM: This Advance Care Planning Note should be used for patients with decisional capacity who have not executed advance directives, such as a Durable Power of Skull Grinder for Health Care. DETERMINATION OF CAPACITY The basis for decisional capacity entails all of the following criteria. The patient, Molina Pereira, must be able (in a general way) to understand: ?? His condition ?? Treatment alternatives ?? Potential benefits and risks of proposed treatments/interventions The patient has the capacity to make decisions: Yes If the patient does not have decisional capacity, go no further. This form cannot be used. II. DESIGNATION OF DECISION MAKER The patient, Molina Pereira, expresses the following preference: Designation of health care agent: The patient, Molina Pereira, identifies the following individual to serve as a health care age nt, authorized to speak for the individual in making medical treatment decisions in the future if he/she is unable to speak for him/herself. Name: Jessica Pereira [phone], w [phone] Relationship to patient : IV: OTHERS PRESENT The following person/people were also present during the discussion. Name(s) with role or relationship to patient: V. OTHER COMMENTS Given Documents Will bring in. documented in this encounter Plan of Treatment Upcoming Encounters Date Type Specialty Care Team Description 07/30/2022 Office Visit Radiation Oncology Alecia Lion, SALES LEAD [facility] RADIATION [place], [place] [address] (Wo rk) Scheduled Orders Name Type Priority Associated Diagnoses Order S chedule PSA Lab Routine Malignant neoplasm of prosta te Expected: 11/20/2013, Expires: 11/04/2014 documented as of this encounter Visit Diagnoses Diagnosis Malignant neoplasm of prostate - Primary documented in this encounter Care Teams Timber Watchman Relationship Specialty Start Date End Date Ho Parham MD PCP - General 10/14/[address] [place] [phone] documented as of this encounter
--- OUTSIDE RECORDS SUMMARY | 2022-07-24 15:19 | XMS_ITS | Encounter Summary ---
:1945 Author Organization [facility] [place] [address] Care Team Providers Name Role Phone Ho Parham MD Primary Care Provider Reason for Referral Consultation (Routine) - Closed Specialty Diagnoses / Procedures Referred By Contact Refer red To Contact Gastroenterology Diagnoses Malignant neoplasm of prostate Alec Wolfe MD [facility] Endoscopy [facility] [place] [address] [place] [address] Referral ID Status Reason Start Date Expiration Date Visits V isits Requested Authorized [id number] Closed Test Only 11/28/2013 05/27/2014 1 1 Reason for Visit Reason Comments Radiation Follow-up Encounter Details Date Type Department Care Team Description 11/20/2013 Office Visit Radiation Oncology at Alec Wolfe Ma lignant neoplasm of Rolanda Mckeon MD prostate (Primary Dx) [facility] DR Cadena RADIATION ONCOLOGY [place], [place] [phone] Social History Tobacco Use Types Packs/Day Years Used Date Never Smoker Smokeless Tobacco: Never Used Alcohol Use Standard Drinks/Week Comments No 0 (1 standard drink = 0.6 oz pure alcoho l) Sex Assigned at Date Recorded Not on file documented as of this encounter Progress Notes Alec Wolfe MD - 11/20/2013 3:00 PM EST RADIATION ONCOLOGY FOLLOW-UP NOTE PROVIDER: Alec Wolfe MD, PhD REFERRING PROVIDER: RICCO Matos PRIMARY CARE PROVIDER: HO PARHAM MD History of Present Illness: I saw Mr. Pereira back in September for detectable PSA post prostatectomy with history as follows: Mr. Molina Pereira has history of prostate cancer ([id number] [place] 3+4=7, PSA 7.7 on dutasteride with neurogenic [...] - Specimen type: Proctectomy Histologic type: Adenocarcinoma [place] grades: 3 + 3, teritary pattern 4 is 3% [place] score: 6 Location of tumor: Bilateral lobes % prostate involved by tumor: 5% Extracapsular extension (ELYSSA):Absent Seminal vesicle invasion: Absent Margins: Margins uninvolved by invasive carcinoma Perineural invasion: Present Lymphovascular invasion: Absent Additional findings: Stromal and glandular hyperplasia His urinary function is much improved. He has no incontinence, he does have some frequency. He is impotent. Overall he feels well. He has had a detectable PSA post surgery that has been stable in the range of0.1-0.13. An outside PSA was performed in August that was 0.4. I repeated his PSA Results for MOLINA PEREIRA ( ) Ref. Range 09/29/2013 09:57 PSA Latest Range: 0.00-4.00 ng/mL 0.14 We decided for short-interval follow-up with myself and Dr. Rodriguez. He continues to do well with no new complaints. Patient Active Problem List Diagnosis Date Noted ??? Follow-up exam 06/22/2012 ??? Urinary retention 02/15/2012 ??? Elevated PSA 02/15/2012 Contraindications to Radiotherapy: NO: YES: Date, site, dose (women only) Prior Radiotherapy x Past Medical History Diagnosis Date ??? Follow-up exam 06/22/2012 Past Surgical History Procedure Date ??? Lap, prostatectomy, radical, w/nerve spare 06/03/2012 @LAPAROSCOPIC PROSTATECTOMY, ROBOTICS ASSISTED performed by TERESA RODRIGUEZ at [facility] MAIN OR ??? Remove pelvis lymph nodes 06/03/2012 @LYMPHADENECTOMY, PELVIC, INCLUDING MULTIPLE NODES-JAZMINE performed by TERESA RODRIGUEZ at [facility] MAIN OR ??? Repair ing hernia, 5+y/o, charlie 06/23/2012 HERNIA REPAIR, INITIAL INGUINAL AGE 5 OR OVER, REDUCIBLE INCARCERATED performed by JARVIS IRWIN at [facility] MAIN OR ??? Appendectomy Patient's Medications No medications on file Allergies Allergen Reactions ??? Gentamicin Hives History Social History ??? Marital Status: Spouse Name: N/A Number of Children: N/A ??? 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 [employer] Social History Main Topics [...] ??? Breast Cancer Sister leukemia, at 53 Physical Examination: General: Appears well, NAD. Interactive, AAOX3, ambulatory Pathology: As reviewed above Laboratory Studies: PSA: PSA Date Value Range Status 11/20/2013 0.18 0.00 - 4.00 ng/mL Final 09/29/2013 0.14 0.00 - 4.00 ng/mL Final 05/17/2013 0.09 0.00 - 4.00 ng/mL Final 11/28/2012 0.12 0.00 - 4.00 ng/mL Final 08/29/2012 0.13 0.00 - 4.00 ng/mL Final 01/13/2012 7.71* 0.00 - 4.00 ng/mL Final 12/21/2011 8.27* 0.00 - 4.00 ng/mL Final Outside 09/05/13 0.4 Assessment: oMlina Pereira is a 67 y.o. male with history of prostate cancer s/p Radical Prostatectomy 05/2012, pT2c, [place] 3+3=6, Margin negative, Node negative (Pre-operative [id number] [place] 3+4=7, PSA 7.7 on dutasteride) with detectable PSA post-operatively that is rising, currently 0.18. We reviewed the logistics of treatment, his PSA is rising, by our lab, now on two consecutive draws.It would be reasonable to proceed to treatment. I also discussed we could wait until he reaches 0.2. Plan: 1. FU with Dr. Rodriguez today prior to making plan for salvage treatment vs continued observation. Total visit time was 11 minutes. 7 minutes were spent in face to face counseling and coordination ofcare. Addendum: I spoke with Dr. Rodriguez, we have agreed that treatment should be pursued. He will be set-up for a colonoscopy prior to salvage treatment or enrollment on RTOG [id number]. documented in this encounter Plan of Treatment Upcoming Encounters Date Type Specialty Care Team Description 07/30/2022 Office Visit Radiation Oncology Alecia Lion APRN [facility] RADIATION [place], [place] [address] (Wo rk) Scheduled Referrals Name Type Priority Associated Order Schedule Diagnoses Referral to Outpatient Routine Malignant neoplasm Ordered: Gastroenterology Referral of prostate 11/28/2013 documented as of this encounter Procedures Procedure Name Priority Date/Time Associated Diagnosis Comme nts PSA STAT 11/20/2013 12:50 PM Malignant neoplasm Re sults for this (ULTRASENSITIVE) EST of prostate procedure a re in the results section. documented in this encounter Results PSA (11/20/2013 12:50 PM EST) athologist Signature PSA Total 0.18 0.00 - CERNER (Ultrasensitiv 4.00 ng/mL MILLENNIUM e) Specimen Anatomical Collection Method Collection Time Receive d Time (Source) Location / / Volume Laterality Blood specimen 11/20/2013 12:50 4 (specimen) PM EST 12:58 PM EST Resulting Agency Comment Spec In Lab Teresa Rodriguez MD CHEMISTRY ORDERABLES Performing Organization Address City/State/[place] [address] VIKTOR MILLENNIUM documented in this encounter Visit Diagnoses Diagnosis Malignant neoplasm of prostate - Primary documented in this encounter Care Teams Purchasing Manager/Sales Relationship Specialty Start Date End Date Ho Parham MD PCP - General 10/14/[address] [place] [phone] documented as of this encounter
--- OUTSIDE RECORDS SUMMARY | 2022-07-24 15:19 | XMS_ITS | Encounter Summary ---
:1945 Author Organization [facility] [place] [address] Care Team Providers Name Role Phone Santos Guallpa MD Primary Care Provider Encounter Details Date Type Department Care Team Description 06/21/2014 Orders Only Radiation Oncology at [facility], Alec Sunshine Ma lignant neoplasm of Rolanda Mckeon MD prostate (Primary Dx) [facility] [address] Cadena [place] [phone] [place] [address] [phone] Social History Tobacco Use Types Packs/Day Years [...] Radiation Oncology Alecia Lion APRN [facility] RADIATION [place], [place] [address] (Wo rk) documented as of this encounter Results Testosterone, total (06/21/2014 1:12 PM EDT) athologist Signature Testo Total 3.60 2.80 - [...] reference ranges derived fr om review of [employer] E170 Testosterone reagent package insert 09/12, V8 [...] Organization Address City/State/[place] [address] CERNER MILLENNIUM (ABNORMAL) Comprehensive [...] intervals supplied above were not validated at [facility]. Results from pediatri c patients [...] Alk Phos 74 40 - 120 unit/L VIKTOR VARMA IUM Total Bilirubin 1.0 0.2 - 1.3 mg/dL VIKTOR Lewis ILLENNIUM Bili, Direct 0.2 0.0 - 0.3 mg/dL VIKTOR WYMAN ENNIUM Estimated GFR 56 (L) >=60 VIKTOR Lewis Comment: This estimated GFR (eGFR) value was [...] the following links into your internet browser. [email or web address] Specimen Anatomical Collection Method Collection Time Receive d Time (Source) Location / / Volume Laterality Blood specimen 06/21/2014 1:12 PM 014 1:16 (specimen) EDT PM EDT Resulting Agency Comment Spec In Lab Alec Wolfe MD CHEMISTRY ORDERABLES Performing Organization Address City/State/[place] [address] VIKTOR GALVAN documented in this encounter Visit Diagnoses Diagnosis Malignant neoplasm of prostate - Primary documented in this encounter Care Teams Engineering Coordinator Relationship Specialty Start Date End Date Santos Guallpa MD PCP - General 10/14/[address] [place] [phone] documented as of this encounter
--- OUTSIDE RECORDS SUMMARY | 2022-07-24 15:19 | XMS_ITS | Encounter Summary ---
:1945 [place] [address] Care Team Providers Name Role Phone Ho Parham MD Primary Care Provider Reason for Visit Reason Comments Radiation Follow-up Encounter Details Date Type Department Care Team Description 01/01/2014 Follow-Up Radiation Oncology at Ritesh Wolfe MD Prostate cancer; [facility] er for monitoring androgen deprivation therapy; [facility] Malignant neoplasm of prostate [facility] [place] [address] [place] [address] [phone] Social History Tobacco Use Types Packs/Day Years Used Date Never Smoker Smokeless Tobacco: Never Used Alcohol Use Standard Drinks/Week Comments No 0 (1 standard drink = 0.6 oz pure alcoho l) Sex Assigned at Date Recorded Not on file documented as of this encounter Progress Notes Alec Wolfe MD - 01/10/2014 9:17 AM EST RADIATION ONCOLOGY FOLLOW-UP NOTE PROVIDER: Alec Wolfe MD, PhD REFERRING PROVIDER: RICCO Matos PRIMARY CARE PROVIDER: HO PARHAM MD History of Present Illness: I saw Mr. Pereira back in September for detectable PSA post prostatectomy with history as follows: Mr. Molina Pereira has history of prostate cancer ([id number] Maynor 3+4=7, PSA 7.7 on dutasteride with [...] 09:57 PSA Latest Range: 0.00-4.00 ng/mL 0.14 Interim History: Patient returns. Colonoscopy negative. He is very active, not limited in functional capacity at all. KPS 100. No changes to bowel or bladder. Here to finalize salvage treatment plan. Patient Active Problem List Diagnosis Date Noted ??? Malignant neoplasm of prostate 11/28/2013 ??? Follow-up exam 06/22/2012 ??? Urinary retention 02/15/2012 ??? Elevated PSA 02/15/2012 Contraindications to Radiotherapy: NO: YES: Date, site, dose (women only) Prior Radiotherapy x Past Medical History Diagnosis Date ??? Follow-up exam 06/22/2012 Past Surgical History Procedure Date ??? Lap, prostatectomy, radical, w/nerve spare 06/03/2012 @LAPAROSCOPIC PROSTATECTOMY, ROBOTICS ASSISTED performed by TERESA CAREY at [facility] OR ??? Remove pelvis lymph nodes 06/03/2012 @LYMPHADENECTOMY, PELVIC, INCLUDING MULTIPLE NODES-JAZMINE performed by TERESA CAREY at [facility] OR ??? Repair ing hernia, 5+y/o, charlie 06/23/2012 HERNIA REPAIR, INITIAL INGUINAL AGE 5 OR OVER, REDUCIBLE INCARCERATED performed by JARVIS IRWIN at [facility] OR ??? Appendectomy ??? Colonoscopy, diagnostic 12/12/2013 COLONOSCOPY, DIAGNOSTIC performed by Kenna Knapp MD at [facility] ENDOSCOPY Patient's Medications No medications on file Allergies Allergen Reactions ??? Gentamicin Hives History Social History ??? Marital Status: Spouse Name: N/A Number of Children: N/A ??? 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 [employer] Social History Main Topics [...] 53 Physical Examination: General: Appears well, NAD. Pulm: Reg rate/effort ANDREAS: Empty fossa, no nodule or mass. Interactive, AAOX3, ambulatory Pathology: As reviewed above Laboratory Studies: PSA: PSA Total Date Value Range Status 01/01/2014 0.30 0.00 - 4.00 ng/mL Final 11/20/2013 0.18 0.00 - 4.00 ng/mL Final 09/29/2013 0.14 0.00 - 4.00 ng/mL Final 05/17/2013 0.09 0.00 - 4.00 ng/mL Final 11/28/2012 0.12 0.00 - 4.00 ng/mL Final 08/29/2012 0.13 0.00 - 4.00 ng/mL Final 01/13/2012 7.71* 0.00 - 4.00 ng/mL Final 12/21/2011 8.27* 0.00 - 4.00 ng/mL Final Outside 09/05/13 0.4 Assessment: Molina Pereira is a 68 y.o. male with history of prostate cancer s/p Radical Prostatectomy 05/2012, pT2c, Maynor 3+3=6, Margin negative, Node negative (Pre-operative [id number] Maynor 3+4=7, PSA 7.7 on dutasteride) with detectable PSA post-operatively that is rising, currently 0.18. We discussed salvage treatment options and reviewed RTOG 0534. Potential side effects were reviewed with radiation alone or radiation with ADT. We would like to be part if RTOG 0534 if eligible. Consent was reviewed. He will need imaging and labs prior to enrollment. Plan: 1.CT, Bone scan, Labs 2. After studies complete, enrollment in RTOG 0534 Addendum PSA today 0.3. documented in this encounter Plan of Treatment Upcoming Encounters Date Type Specialty Care Team Description 07/30/2022 Office Visit Radiation Oncology Alecia Lion APRN [facility] RADIATION [place], [place] [address] (Wo rk) documented as of this encounter Procedures Procedure Name Priority Date/Time Associated Comments Diagnosis DIFFERENTIAL, Routine 01/01/2014 5:20 PM Results for this AUTOMATED EST procedure are i n the results section. CBC (WITH DIFF) Routine 01/01/2014 5:20 PM Prostate canc er Results for this EST Encounter for procedure are in monitoring androgen the resu lts deprivation therapy section. TESTOSTERONE, TOTAL Routine 01/01/2014 5:20 PM Prostate cancer Results for this EST Encounter for procedure are in monitoring androgen the resu lts deprivation therapy section. PSA (ULTRASENSITIVE) Routine 01/01/2014 5:20 PM Prostate cancer Results for this EST Encounter for procedure are in monitoring androgen the resu lts deprivation therapy section. COMPREHENSIVE Routine 01/01/2014 5:20 PM Prostate canc er Results for this METABOLIC PANEL EST Encounter for procedure a re in (NON-FASTING) monitoring androgen the res ults deprivation therapy section. documented in this encounter Results (ABNORMAL) Differential, Automated (01/01/2014 5:20 PM EST) Patholo gist Method Time Signature Neutrophils % 69.5 34.0 - CERNER 71.0 % MILLENNIUM Neutr Abs (ANC) 6.93 (H) 1.50 - CERNER 6.30 MILLENNIUM x10(3)/mc L Lymphocytes % 19.0 19.0 - CERNER 53.0 % MILLENNIUM Lymphocytes Abs 1.9 1.0 - 3.6 CERNER x10(3)/mc MILLENNIUM L Monocytes % 7.6 4.0 - CERNER 13.0 % MILLENNIUM Monocyte Abs 0.8 0.2 - 1.0 CERNER x10(3)/mc MILLENNIUM L Eosinophils % 3.5 0.0 - 7.0 CERNER % MILLENNIUM Eosinophils Abs 0.4 0.0 - 0.5 CERNER x10(3)/mc MILLENNIUM L Basophils % 0.2 0.0 - 2.0 CERNER % MILLENNIUM Basophils Abs 0.0 0.0 - 0.2 CERNER x10(3)/mc MILLENNIUM L Immature Gran % 0.20 0.00 - CERNER 0.66 % MILLENNIUM Comment: Immature granulocytes(IG's)percentage an d absolute count will include metamyelocytes, myelocytes, and promyelo cytes. Blood smears from CBCs yielding IG's will be scanned manually for concor dance. If this scan disagrees with the automated IG or if promyelocytes are not ed, a manual differential will be performed. Mitzi Gran Abs 0.02 0.00 - 0.05 x10(3)/mcL CER NER MILLENNIUM Specimen Anatomical Collection Method Collection Time Receive d Time (Source) Location / / Volume Laterality Blood specimen 01/01/2014 5:20 PM 014 5:24 (specimen) EST PM EST Alec Wolfe MD HEMATOLOGY ORDERABLES Performing Organization Address City/State/[place] [address] CERNER MILLENNIUM Testosterone, total (01/01/2014 5:20 PM EST) athologist Signature Testo Total 4.00 2.80 - 8.00 CERNER ng/mL MILLENNIUM Comment: [...] reference ranges derived fr om review of [employer] Testosterone reagent package insert 11, V8 Stated pediatric reference ranges derive d from review of Jeff E170 Testosterone II reagent package insert 0 05/17, V2. Specimen Anatomical Collection Method Collection Time Receive d Time (Source) Location / / Volume Laterality Blood specimen 01/01/2014 5:20 PM 014 5:24 (specimen) EST PM EST Resulting Agency Comment Spec In Lab Alec Wolfe MD CHEMISTRY ORDERABLES Performing Organization Address [facility]/ZIP Code Phon e Number [address] CERNER MILLENNIUM PSA (01/01/2014 5:20 PM EST) athologist Signature PSA Total 0.30 0.00 - CERNER (Ultrasensitiv 4.00 ng/mL [facility] e) Specimen Anatomical Collection Method Collection Time Receive d Time (Source) Location / / Volume Laterality Blood specimen 01/01/2014 5:20 PM 014 5:24 (specimen) EST PM EST Resulting Agency Comment Spec In Lab Alec Wolfe MD CHEMISTRY ORDERABLES Performing Organization Address City/[facility] Phon e Number [address] CERNER MILLENNIUM (ABNORMAL) Comprehensive metabolic panel (non-fasting) (01/01/2014 5:20 PM EST) athologist Signature Glucose Lvl 92 60 - 199 CERNER mg/dL MILLENNIUM Comment: Diabetes: >=200 mg/dL plus symp toms BUN 26 (H) 10 - 20 mg/dL CERNER MILLENNIU M Creatinine 1.16 0.80 - 1.50 mg/dL CERNER MILL ENNIUM Comment: Please note that the pediatric reference intervals supplied above were not validated at [facility]. Results from pediatri c patients should be interpreted in conjunction to the patient's age, height and muscle mass. Sodium 139 135 - 145 mmol/L CERNER SOFIA NIUM Potassium 3.8 3.5 - 5.0 mmol/L CERNER SOFIA NIUM Comment: Please note: ??Patients with WBC >100,00 0 may have falsely elevated Potassium levels. ??For accurate Potassium quantif ication in these patients send serum separator tube (gold top) for subsequent determinations. ??Contact the Clinical Chemistry Laboratory if there are any qu estions. Chloride 106 98 - 107 mmol/L CERNER MILLENN IUM CO2 22 22 - 31 mmol/L CERNER MILLENNI UM Anion Gap 11 5 - 15 mmol/L CERNER MILLENNIU M Calcium 9.4 8.5 - 10.5 mg/dL [facility] SOFIA NIUM Total Protein 7.2 6.4 - 8.3 gm/dL [facility] MIL LENNIUM Albumin 4.4 3.2 - 5.2 gm/dL CERNER MILLENN IUM AST 16 0 - 39 unit/L CERNER MILLENNIU M ALT 21 0 - 55 unit/L CERNER MILLENNIU M Alk Phos 75 40 - 120 unit/L CERNER MILLENN IUM Total Bilirubin 0.7 0.2 - 1.3 mg/dL [facility] M ILLENNIUM Bili, Direct 0.1 0.0 - 0.3 mg/dL [facility] MILL ENNIUM Estimated GFR >60 >=60 CERNER [...] the following links into your internet browser. http://www.nkdep.nih.gov/lab-evaluation. shtml http://www.kidney.org/professionals/ Specimen Anatomical Collection Method Collection Time Receive d Time (Source) Location / / Volume Laterality Blood specimen 01/01/2014 5:20 PM 014 5:24 (specimen) EST PM EST Resulting Agency Comment Spec In Lab Alec Wolfe MD CHEMISTRY ORDERABLES Performing Organization Address City/State/[place] [address] CERCARLOS EDUARDO MILLENNIUM CBC (with Diff) (01/01/2014 5:20 PM EST) P athologist Signature WBC 10.0 4.0 - 10.0 CERNER x10(3)/mcL MILLENNIUM RBC 5.77 4.63 - 6.08 CERNER x10(6)/mcL MILLENNIUM Hemoglobin 17.3 13.7 - 17.5 CERNER gm/dL MILLENNIUM Hematocrit 50.5 40.0 - 51.0 CERNER % MILLENNIUM MCV 87.5 79.0 - 92.0 CERNER fL MILLENNIUM MCH 30.0 25.6 - 32.2 CERNER pg MILLENNIUM MCHC 34.3 32.0 - 36.5 CERNER gm/dL MILLENNIUM Platelets 200 145 - 370 CERNER x10(3)/mcL MILLENNIUM RDWSD 43.3 35.0 - 46.0 CERNER fL MILLENNIUM RDWCV 13.5 10.9 - 14.4 CERNER % MILLENNIUM MPV 12.0 9.0 - 12.0 [facility]ER fL [facility] Specimen Anatomical Collection Method Collection Time Receive d Time (Source) Location / / Volume Laterality Blood specimen 01/01/2014 5:20 PM 014 5:24 (specimen) EST PM EST Resulting Agency Comment Spec In Lab Alec Wolfe MD HEMATOLOGY ORDERABLES Performing Organization Address City/State/[place]IP [place] [address] [facility] documented in this encounter Visit Diagnoses Diagnosis Prostate cancer Malignant neoplasm of prostate Encounter for monitoring androgen depriv ation therapy Encounter for therapeutic drug monitorin g Malignant neoplasm of prostate documented in this encounter Care Teams Seat Nailer Relationship Specialty Start Date End Date Ho Parham MD PCP - General 10/14/[address] [place] [phone] documented as of this encounter
--- OUTSIDE RECORDS SUMMARY | 2022-07-24 15:19 | XMS_ITS | Encounter Summary ---
:1945 Author Organization [facility] [address] Care Team Providers Name Role Phone Santos Guallpa MD Primary Care Provider Encounter Details Date Type Department Care Team Description 03/21/2014 Notes Only Radiation Oncology at KishorArleen garduno RN [address] [phone] Social History Tobacco Use Types Packs/Day Years Used Date Never Smoker Smokeless Tobacco: Never Used Alcohol Use Standard Drinks/Week Comments No 0 (1 standard drink = 0.6 oz pure alcoho l) Sex Assigned at Date Recorded Not on file documented as of this encounter Progress Notes Arleen Kraus RN - 03/21/2014 6:09 PM EDT Radiation Oncology Nursing Completion of Treatment Note Pt completed 38 Fxs totaling 6840 cGY to pelvis for prostate cancer. . Side effects/problems noted during treatment: Fatigue. Continues to be able to complete usual daily routine. Teaching and discharge instructions reviewed: DONE WITH TREATMENT INSTRUCTIONS FOR PATIENTS RECEIVING RADIATION TO THE PROSTATE Skin;Any skin reaction you are experiencing can continue to progress over the next two weeks before it improves. Continue using the cream your nurse gave you as instructed. If you experience any skin peeling, call as there as we may add other products to assist in healing. After two weeks, it should heal quickly. Fatigue:Radiation treatment related fatigue can continue for up to four weeks after treatment. Maintaining good sleep hygiene habits and resting when needed should help you through this time period. Some people find it helpful to walk daily for 30 minutes to increase their energy level. Diarrhea: if you experienced diarrhea, continue a low fiber diet until it resolves. Take immodium asinstructed by your doctor. The diarrhea should stop over the next few weeks. Then you stools should return to normal but some men find their stool pattern is changed and they continue to have softer, more frequent stools than they did before treatment. . Urinary Symptoms: continue to drink fluids to stay well hydrated. Call your doctor if your urine becomes foul smelling, bloody or if urination is painful. Call if you have difficulty sleeping due to frequent urination at night. Sometimes a medication ordered by your doctor can relieve these symptoms. Hot Flashes: some men experience hot flashes while on hormone therapy to treat their prostate cancer. Dressing in layers, avoiding hot rooms and using a fan to sleep can help you manage this symptom. If you find it particularly bothersome, your doctor can talk to you about a medicine to control this symptom. Sexual Function: some men return to normal erectile function after radiation therapy for prostate cancer. Being open about any concerns you have with your partner can be helpful. Ask your doctor if youwould find a prescription to encourage erection helpful. Many men find it helpful to meet other men who have been treated for prostate cancer to share their experiences and adjustments. Ask your nurse if you are interested in a local support group and she will get you this information. Follow up: as instructed by your doctor Patient/family response to instructions: restates understanding. Expected follow up/referrals: Per Dr. Wolfe Patient has our contact numbers : [phone]-weekday business hours [phone]- weekends, ask for radiation oncologist cardiology nurse practitioner documented in this encounter Plan of Treatment Upcoming Encounters Date Type Specialty Care Team Description 07/30/2022 Office Visit Radiation Oncology Alecia Lion APRN [facility] [address] [place], [place] [address] (Wo rk) documented as of this encounter Visit Diagnoses Not on filedocumented in this encounter Care Teams Clinic Licensed Practical Nurse Relationship Specialty Start Date End Date Santos Guallpa MD PCP - General 10/14/[address] [place] [phone] documented as of this encounter
--- OUTSIDE RECORDS SUMMARY | 2022-07-24 15:19 | XMS_ITS | Encounter Summary ---
:1945 Author Organization [facility] [address] Care Team Providers Name Role Phone Santos Guallpa MD Primary Care Provider Reason for Visit Reason Comments Radiation Treatment Encounter Details Date Type Department Care Team Description 02/16/2014 Office Visit Radiation Oncology Erich, Isaiah S, Recu rrent prostate at [facility] adenocarcinoma (Primary [address] Dx) [place], [place] RADIATION ONCOL OGY [address] [place], [place] [phone] [id number] Social History Tobacco Use Types Packs/Day Years Used Date Never Smoker Smokeless Tobacco: Never Used Alcohol Use Standard Drinks/Week Comments No 0 (1 standard drink = 0.6 oz pure alcoho l) Sex Assigned at Date Recorded Not on file documented as of this encounter Last Filed Vital Signs Vital Sign Reading Time Taken Comments Blood Pressure 143/77 02/16/2014 5:55 PM EDT Pulse 66 02/16/2014 5:55 PM EDT Temperature - - Respiratory Rate 20 02/16/2014 5:55 PM EDT Oxygen Saturation 98% 02/16/2014 5:55 PM EDT Inhaled Oxygen Concentration - - Weight 81.6 kg (180 lb) 02/16/2014 5:55 PM EDT Height - - Body Mass Index 28.62 11/20/2013 2:52 PM EST documented in this encounter Progress Notes Isaiah Jung MD - 02/16/2014 6:10 PM EDT [facility] On Treatment Visit Patient ID: Dalton Pereira is a 68 y.o. male currently undergoing salvage radiotherapy for recurrent prostate cancer, pretreatment PSA 0.18. He is enrolled on RTOG 0534, and has been randomized to the prostate bed RT alone arm. Plan Details: Daily Dose: 1.8 Gy Current Dose: 27 Gy in 15 fractions Planned Dose: 68.4 Gy in 38 fractions Subjective / Interval History:: Slight increase in nocturia, otherwise no complaints. Pain Assessment: The patient reports a pain score of 0/10. Objective: BP 143/77 Pulse 66 Resp 20 Wt 81.647 kg (180 lb) SpO2 98% General - appears well, no distress Portal [...] Visit Radiation Oncology Alecia Lion, [facility] RADIATION [place], [place] [address] (Wo rk) documented as of this encounter Visit Diagnoses Diagnosis Recurrent prostate adenocarcinoma - Prim debi Malignant neoplasm of prostate documented in this encounter Care Teams Color Finisher Relationship Specialty Start Date End Date Santos Guallpa MD PCP - General 10/14/11 [address] [place] [phone] documented as of this encounter
--- OUTSIDE RECORDS SUMMARY | 2022-07-24 15:19 | XMS_ITS | Encounter Summary ---
:1945 Author Organization [facility] [place] [address] Care Team Providers Name Role Phone Santos Guallpa MD Primary Care Provider Encounter Details Date Type Department Care Team Description 02/06/2014 Office Visit Hematology Oncology at [facility], Alec Beltran MD [facility] [place] [address] [place] [phone] Social History Tobacco Use Types Packs/Day [...] Oncology Alecia Lion APRN [facility] RADIATION KRYSTINA BET[place]UR [place], [place] [address] (Wo rk) documented as of this encounter Visit Diagnoses Not on filedocumented in this encounter Care Teams Phone Technician Relationship Specialty Start Date End Date Satnos Guallpa MD PCP - General 10/14/11 [address] [place] [phone] documented as of this encounter
--- OUTSIDE RECORDS SUMMARY | 2022-07-24 15:19 | XMS_ITS | Encounter Summary ---
:1945 Author Organization [facility] [place] [address] Care Team Providers Name Role Phone Santos Guallpa MD Primary Care Provider Reason for Visit Reason Comments On Treatment Visit Encounter Details Date Type Department Care Team Description 03/02/2014 Office Visit Radiation Oncology at Isaiah [facility] Y[facility] KNAPP (Primary Dx) [address] [facility] [place] RADIATION ONCOL OGY [address] [place], [place] [phone] (Wo rk) Social History Tobacco Use Types Packs/Day Years Used Date Never Smoker Smokeless Tobacco: Never Used Alcohol Use Standard Drinks/Week Comments No 0 (1 standard drink = 0.6 oz pure alcoho l) Sex Assigned at Date Recorded Not on file documented as of this encounter Last Filed Vital Signs Vital Sign Reading Time Taken Comments Blood Pressure 149/78 03/02/2014 5:00 PM EDT Pulse 70 03/02/2014 5:00 PM EDT Temperature - - Respiratory Rate 16 03/02/2014 5:00 PM EDT Oxygen Saturation 95% 03/02/2014 5:00 PM EDT Inhaled Oxygen Concentration - - Weight - - Height - - Body Mass Index - - documented in this encounter Progress Notes Isaiah Jung MD - 03/02/2014 5:11 PM EDT [facility] On Treatment Visit Patient ID: Dalton Pereira is a 68 y.o. male currently undergoing salvage radiotherapy for recurrent prostate cancer, pretreatment PSA 0.18. He is enrolled on RTOG 0534, and has been randomized to the prostate bed RT alone arm. Plan Details: Daily Dose: 1.8 Gy Current Dose: 45 Gy in 25 fractions Planned Dose: 68.4 Gy in 38 fractions Subjective / Interval History:: No changes since last week. Increased nocturia but he is drinking more water throughout the day. Stable increase in soft BM's, approx 4x/day. Pain Assessment: The patient reports a pain score of 0/10. Objective: BP 149/78 Pulse 70 Resp 16 SpO2 95% General - appears well, no [...] 07/30/2022 Office Visit Radiation Oncology Alecia Lion, PATIENT OMBUDSPERSON [facility] RADIATION ONCOLO [place], [place] [address] (Wo rk) documented as of this encounter Visit Diagnoses Diagnosis Prostate cancer - Primary Malignant neoplasm of prostate documented in this encounter Care Teams Mental Health Tech Relationship Specialty Start Date End Date Santos Guallpa MD PCP - General 10/14/[address] [place] [phone] documented as of this encounter
--- OUTSIDE RECORDS SUMMARY | 2022-07-24 15:19 | XMS_ITS | Encounter Summary ---
:1945 Author Organization [facility] [place] [address] Care Team Providers Name Role Phone Santos Guallpa MD Primary Care Provider Reason for Visit Reason Comments On Treatment Visit Encounter Details Date Type Department Care Team Description 03/16/2014 Office Visit Radiation Oncology at Isaiah Jung M [facility] (Primary Dx) [address] [facility] [place] RADIATION ONCOL OGY [address] [place], [place] [phone] (Wo rk) Social History Tobacco Use Types Packs/Day Years Used Date Never Smoker Smokeless Tobacco: Never Used Alcohol Use Standard Drinks/Week Comments No 0 (1 standard drink = 0.6 oz pure alcoho l) Sex Assigned at Date Recorded Not on file documented as of this encounter Last Filed Vital Signs Vital Sign Reading Time Taken Comments Blood Pressure 155/81 03/16/2014 5:00 PM EDT Pulse 66 03/16/2014 5:00 PM EDT Temperature - - Respiratory Rate - - Oxygen Saturation 94% 03/16/2014 5:00 PM EDT Inhaled Oxygen Concentration - - Weight - - Height - - Body Mass Index - - documented in this encounter Progress Notes Isaiah Jung MD - 03/16/2014 5:20 PM EDT [facility] On Treatment Visit Patient ID: Dalton Pereira is a 68 y.o. male currently undergoing salvage radiotherapy for recurrent prostate cancer, pretreatment PSA 0.18. He is enrolled on RTOG 0534, and has been randomized to the prostate bed RT alone arm. Plan Details: Daily Dose: 1.8 Gy Current Dose: 63 Gy in 35 fractions Planned Dose: 68.4 Gy in 38 fractions Subjective / Interval History:: No changes since last week. Main complaint is fatigue. Otherwise, patient remains without any notable or GI symptoms. Pain Assessment: The patient reports a pain score of 0/10. Objective: BP 155/81 Pulse 66 SpO2 94% General - appears well, no distress Portal Imaging Review: Offline portal imaging is being reviewed by Dr. Wolfe to confirm accurate positioning and alignment which matches the patient's original approved treatment planning images. Assessment: Tolerating radiotherapy as expected. Plan: Continue radiotherapy as prescribed. He finishes next week. F/u per Dr. Wolfe. documented in this encounter Plan of Treatment Upcoming Encounters Date Type Specialty Care Team Description 07/30/2022 Office Visit Radiation Oncology Alecia Lion, LABORATORY GENETICIST [facility] RADIATION [place], [place] [address] (Wo rk) documented as of this encounter Visit Diagnoses Diagnosis Malignant neoplasm of prostate - Primary documented in this encounter Care Teams Stock Saw Operator Relationship Specialty Start Date End Date Santos Guallpa MD PCP - General 10/14/[address] [place] [phone] documented as of this encounter
--- OUTSIDE RECORDS SUMMARY | 2022-07-24 15:19 | XMS_ITS | Encounter Summary ---
:1945 Author Organization [facility] Address [address] [place] [address] Care Team Providers Name Role Phone Santos Guallpa MD Primary Care Provider Reason for Visit Reason Comments Prostate Cancer Encounter Details Date Type Department Care Team Description 11/28/2012 Office Visit Urology [place] [facility] [place] Rodriguez MD Malignant neoplasm of [facility] pro state (Primary Dx) Drive [address] [place] UROLOGY [address] [place] [address] [phone] Social History Tobacco Use Types Packs/Day Years Used Date Never Smoker Smokeless Tobacco: Never Used Alcohol Use Standard Drinks/Week Comments No 0 (1 standard drink = 0.6 oz pure alcoho l) Sex Assigned at Date Recorded Not on file documented as of this encounter Last Filed Vital Signs Vital Sign Reading Time Taken Comments Blood Pressure 148/85 11/28/2012 9:04 AM EST Pulse 80 11/28/2012 9:04 AM EST Temperature - - Respiratory Rate 18 11/28/2012 9:04 AM EST Oxygen Saturation - - Inhaled Oxygen Concentration - - Weight 74.8 kg (165 lb) 11/28/2012 9:04 AM EST Height 167.6 cm (5' 6) 11/28/2012 9:04 AM EST Body Mass Index 26.63 11/28/2012 9:04 AM EST documented in this encounter Progress Notes John Rodriguez MD - 11/28/2012 9:53 AM EST Patient Name: Date of Service: 11/28/2012 Primary Care Provider: Santos Guallpa MD Reason for Visit: Dalton Pereira is a 66 y.o. male who returns for follow up. 06/03/2012: Robot assisted radical prostatectomy fo [id number] Maynor 3+3=6 (with tertiary pattern 4) 18 [...] Abdomen Benign. Rectal flat prostatic fossa Labs: 08/2012 PSA 0.13 11/2012 PSA 0.12 X-rays: None PVR 11/2012: 52cc Impression: #1: pT2 [place] 3+3=6 prostate cancer sp Radical prostatectomy with PSA of 0.12 stable #2: Inguinal hernia repair #3: Substantial improvement in urinary function Plan: I am surprised he has residual PSA given Maynor 6, organ confined, no nodes and negative margins. Idiscussed the possible significance of this with regard to recurrence. I will have him get a PSA in 3 months with his PC and I will see in 6 months with another PSA. John Rodriguez documented in this encounter Plan of Treatment Upcoming Encounters Date Type Specialty Care Team Description 07/30/2022 Office Visit Radiation Oncology Alecia Lion APRN [facility] RADIATION [place], [place] [address] (Wo rk) documented as of this encounter Procedures Procedure Name Priority Date/Time Associated Diagnosis Comme nts PSA STAT 11/28/2012 7:57 AM Malignant neoplasm Res ults for this (ULTRASENSITIVE) EST of prostate procedure a re in the results section. documented in this encounter Results PSA (05/17/2013 12:29 PM EDT) P athologist Signature PSA Total 0.09 0.00 - CERNER (Ultrasensitiv 4.00 ng/mL MILLENNIUM e) Specimen Anatomical Collection Method Collection Time Receive d Time (Source) Location / / Volume Laterality Blood specimen 05/17/2013 12:29 3 (specimen) PM EDT 12:33 PM EDT Resulting Agency Comment Spec In Lab John Rodriguez MD CHEMISTRY ORDERABLES Performing Organization Address City/[facility]/ZIP Code Phon e Number [address] [facility] PSA (11/28/2012 7:57 AM EST) P athologist Signature PSA Total 0.12 0.00 - CERNER (Ultrasensitiv 4.00 ng/mL MILLENNIUM e) Specimen Anatomical Collection Method Collection Time Receive d Time (Source) Location / / Volume Laterality Blood specimen 11/28/2012 7:57 AM 013 8:02 (specimen) EST AM EST Resulting Agency Comment Spec In Lab John Rodriguez MD CHEMISTRY ORDERABLES Performing Organization Address City/[facility]/[place]IP [place] [address] [facility] documented in this encounter Visit Diagnoses Diagnosis Malignant neoplasm of prostate - Primary documented in this encounter Care Teams Wrapper Leaf Inspector Relationship Specialty Start Date End Date Santos Guallpa MD PCP - General 10/14/[address] [place] [phone] documented as of this encounter
--- OUTSIDE RECORDS SUMMARY | 2022-07-24 15:19 | XMS_ITS | Encounter Summary ---
:1945 Author Organization [facility] [place] [address] Care Team Providers Name Role Phone Santos Guallpa MD Primary Care Provider Reason for Visit Reason Comments Radiation Treatment Encounter Details Date Type Department Care Team Description 02/09/2014 Office Visit Radiation Oncology Erich, Isaiah S, Recu rrent prostate at [facility] adenocarcinoma (Primary [address] Dx) [place], [place] RADIATION ONCOL OGY [address] [place], [place] [phone] Social History Tobacco Use Types Packs/Day Years Used Date Never Smoker Smokeless Tobacco: Never Used Alcohol Use Standard Drinks/Week Comments No 0 (1 standard drink = 0.6 oz pure alcoho l) Sex Assigned at Date Recorded Not on file documented as of this encounter Last Filed Vital Signs Vital Sign Reading Time Taken Comments Blood Pressure 144/82 02/09/2014 11:27 AM EDT Pulse 67 02/09/2014 11:27 AM EDT Temperature - - Respiratory Rate 18 02/09/2014 11:27 AM EDT Oxygen Saturation 96% 02/09/2014 11:27 AM EDT Inhaled Oxygen Concentration - - Weight 80.7 kg (178 lb) 02/09/2014 11:27 AM EDT Height - - Body Mass Index 28.3 11/20/2013 2:52 PM EST documented in this encounter Progress Notes Isaiah Jung MD - 02/09/2014 11:51 AM EDT [facility] On Treatment Visit Patient ID: Dalton Pereira is a 68 y.o. male currently undergoing salvage radiotherapy for recurrent prostate cancer, pretreatment PSA 0.18. He is enrolled on RTOG 0534, and has been randomized to the prostate bed RT alone arm. Plan Details: Daily Dose: 1.8 Gy Current Dose: 18 Gy in 10 fractions Planned Dose: 68.4 Gy in 38 fractions Subjective / Interval History:: No changes since last visit. Pain Assessment: The patient reports a pain score of 0/10. Objective: BP 144/82 Pulse 67 Resp 18 Wt 80.74 kg (178 lb) SpO2 96% General - appears well, no distress Portal [...] 07/30/2022 Office Visit Radiation Oncology Alecia Lion, GYM INSTRUCTOR [facility] RADIATION [place], [place] [address] (Wo rk) documented as of this encounter Visit Diagnoses Diagnosis Recurrent prostate adenocarcinoma - Prim debi Malignant neoplasm of prostate documented in this encounter Care Teams Casing Machine Operator Relationship Specialty Start Date End Date Santos Guallpa MD PCP - General 10/14/[address] [place] [phone] documented as of this encounter
--- OUTSIDE RECORDS SUMMARY | 2022-07-24 15:19 | XMS_ITS | Encounter Summary ---
:1945 [place] [address] Care Team Providers Name Role Phone Santos Guallpa MD Primary Care Provider Encounter Details Date Type Department Care Team Description 01/04/2014 Hospital [place] [phone] Social History Tobacco Use Types Packs/Day [...] [facility] RADIATION [place], [place] [address] (Wo rk) documented as of this encounter Visit Diagnoses Not on filedocumented in this encounter Care Teams Furnace Utility Operator Relationship Specialty Start Date End Date Santos Guallpa MD PCP - General 10/14/[address] [place] [phone] documented as of this encounter
--- OUTSIDE RECORDS SUMMARY | 2022-07-24 15:20 | XMS_ITS | Encounter Summary ---
:1945 Author Organization [place] [address] Care Team Providers Name Role Phone Santos Guallpa MD Primary Care Provider Encounter Details Date Type Department Care Team Description 06/01/2012 Orders Only [place] [facility] [place] Rodriguez MD [facility] [place] [address] UROLOGY [phone] [place], [place] [address] (Wo rk) Social History Tobacco Use Types Packs/Day Years Used Date Never Smoker Smokeless Tobacco: Never Used Alcohol Use Standard Drinks/Week Comments No 0 (1 standard drink = 0.6 oz pure alcoho l) Sex Assigned at Date Recorded Not on file documented as of this encounter Progress Notes Taylor Benedict LPN - 06/01/2012 11:44 AM EDT [facility] Urine culture Collected: 05/30/12 Results: 06/01/12 No growth at 24hrs No growth at 48hrs. Patient informed. Surgery as scheduled with Dr. Rodriguez on 06/03/12. documented in this encounter Plan of Treatment Upcoming Encounters Date Type Specialty Care Team Description 07/30/2022 Office Visit Radiation Oncology Ayad, Alecia M, DIRECTOR OF PEOPLE [facility] RADIATION [place], [place] [address] (Wo rk) documented as of this encounter Visit Diagnoses Not on filedocumented in this encounter Care Teams Fitter Up Relationship Specialty Start Date End Date Santos Guallpa MD PCP - General 10/14/[address] [place] [phone] documented as of this encounter
--- OUTSIDE RECORDS SUMMARY | 2022-07-24 15:20 | XMS_ITS | Encounter Summary ---
:1945 Author Organization [facility] [address] Care Team Providers Name Role Phone Santos Guallpa MD Primary Care Provider Encounter Details Date Type Department Care Team Description 06/23/2012 Surgery Main Operating Room Caleb Fernandez MD [facility] (DELETED) [place] [id number] [place] [id number] [phone] Social History Tobacco Use Types Packs/Day Years Used Date Never Smoker Smokeless Tobacco: Never Used Alcohol Use Standard Drinks/Week Comments No 0 (1 standard drink = 0.6 oz pure alcoho l) Sex Assigned at Date Recorded Not on file documented as of this encounter Last Filed Vital Signs Vital Sign Reading Time Taken Comments Blood Pressure 163/94 06/23/2012 6:07 AM EDT Pulse 82 06/23/2012 6:07 AM EDT Temperature 36.3 ??C (97.3 ??F) 06/23/2012 6:07 AM EDT Respiratory Rate 16 06/23/2012 6:07 AM EDT Oxygen Saturation 99% 06/23/2012 6:07 AM EDT Inhaled Oxygen Concentration - - Weight 77 kg (169 lb 12.1 oz) 06/23/2012 6:07 AM EDT Height 167.6 cm (5' 6) 06/23/2012 6:07 AM EDT Body Mass Index 27.4 06/23/2012 6:07 AM EDT documented in this encounter Discharge Instructions Discharge InstructionsCathy Howe RN - 06/23/2012 11:22 AM EDT POST ANESTHESIA INSTRUCTIONS Go home, rest, use caution on stairs. Change positions slowly. Do not smoke if you are alone. Diet light to regular as tolerated today. If nausea occurs start with clear liquids and progress slowly. No driving, operating machinery, alcoholic beverages and no important decisions for 24 hours. Monitor IV site for signs and symptoms of infection: increasing redness, swelling, foul drainage, ifoccurs contact M.D. Narcotic Bowel Orders 1. Drink plenty of fluid 2. Take with food or milk to help prevent nausea/vomiting 3. Get extra fiber in your diet 4. May need over the counter stool softner (colace 100mg twice per day) 5. If no bowel movement within 3 days, you may need to take a laxative Patient InstructionsStefanJanay butcherrogelio Castañeda - 06/23/2012 11:21 AM EDT Instructions following Inguinal Hernia Repair Wound Care: Keep dressings on incisions for the next 2 days. Do not get dressings wet. If they becomes wet or soaked with drainage you may change them with fresh ones as needed. If there are pieces of tape directly on the incision (steri-strips or butterflys), please leave them on until they fall off on their own. You may trim them back as they begin to peel up. After 2 days you may remove dressing and leave open to air. You may now shower and get incision wet.Pat dry immediately following. Do not scrub incision vigorously for the next 2-3 weeks. Do not soak incision(s) under water for the next 2 weeks (i.e. soaking in bath or swimming) as this may promote awound infection. Your stitches will dissolve and do not need to be removed. Men: Some bruising of the scrotum may occur following this operation and this is normal. The bruising may spread over the course of several days and will resolve within a few weeks. If you also have a large amount of swelling and pain associated with this bruising then please call. Activity: No heavy lifting more than 10 pounds for the next 4-6 weeks, then you may gradually lift heavier objects as tolerated by discomfort. Otherwise activity as tolerated by your comfort level. Call Doctor for: Please call if you notice worsening redness or drainage from incision(s) lasting longer than 5 days after your surgery, any foul-smelling drainage from the incision, pain not controlled by pain medications, persistent nausea and vomiting, or for any fevers greater than 101.3 F. The number for questions is [phone] before 5 PM weekdays and [phone] after 5 PM and weekends. Pain Medication: No driving for 8 hours after any dose of opioid pain medication if one was prescribed for you. You may use ibuprofen (motrin, advil) in addition to this medication if your pain is not totally controlled by the opioid. Follow-up: Follow-up appointment will be scheduled with General Surgery in 3 weeks. Appointment willbe mailed to you. Please call [phone] (clinic number for appointments) to confirm date and timeof your appointment if you do not receive your apointment in 3 weeks. documented in this encounter Medications at Time of Discharge Medication Sig Dispensed Refills Start Date End Date ibuprofen (ADVIL;MOTRIN) Take 1 tablet by 30 tablet 0 06/2307/14/2012 600 mg tablet mouth every 6 hours as needed for Pain. OXYcodone (ROXICODONE) 5 Take 1-2 tablets by 40 tablet 0 07/14/2012 mg immediate release mouth every 4 hours tablet as needed for Pain. acetaminophen (TYLENOL) Take 2 tablets by 90 tablet 0 06/0407/14/2012 500 mg tablet mouth every 8 hours. documented as of this encounter Progress Notes Cathy Howe RN - 06/23/2012 12:13 PM EDT Pt very groggy. Reports seeing two of me. Reports mild pain at incision site. Declines tylenol at this time it upsets my stomach. Pt noted to have apneic periods. Pt a little more awake. Pt reports pain at incision site, Pt declines pain meds. After much discussion pt agrees to take tylenol for pain. I got really bound up after my last surgery. Pt continues to report double vision. 1415 Pt now awake. Double vision resolved. Pt upto side of bed reports increased pain. Pt back to bed. Pt willing to take oxycodone tablet now. 1455 pt reports pain much better, up to side of bed. Walking in room. Pt ready for discharge. documented in this encounter H&P Ronda Thomson MD - 06/23/2012 6:38 AM EDT Interval H&P Molina Randhawa is a 66 yo man with symptomatic left inguinal hernia here for open repair with/without mesh. No changes in his health since his clinic visit with Dr. Fernandez on 06/22. AFVSS RRR CTAB Procedure and risks discussed in clinic. Consent has been obtained. Pt is ready for OR today. documented in this encounter Procedure Notes Provider, Scanning - 06/24/2012 2:00 AM EDTAssociated Order(s): SCAN DOC: IMPLANTABLE DEVICES; SCAN DOC: IMPLANTABLE DEVICES documented in this encounter Miscellaneous Notes Miscellaneous - Provider, Scanning - 06/24/2012 1:50 AM EDT OR Attestation - Caleb Fernandez MD - 06/23/2012 10:00 PM EDT Attestation: Case Date: 06/22/2012 - 06/23/2012 I was present and I participated during the entire procedure. CALEB FERNANDEZ MD 06/23/2012 Op Note - Caleb Fernandez MD - 06/23/2012 10:00 PM EDT [facility] Operative Note Patient Name: Molina Randhawa : [id number] MR#: [id number] Case Date: 06/22/2012 - 06/23/2012 Surgeon: Surgeon(s) and Role: * CALEB FERNANDEZ MD - Primary * ZAC GARCÍA MD - Resident-Surgeon Chief Preoperative diagnosis: left inguinal hernia Postoperative diagnosis: incarcerated left inguinal hernia Procedure(s): MODIFIER MESH,ATRIUM,PROLITE HERNIA REPAIR, INITIAL INGUINAL AGE 5 OR OVER, REDUCIBLE INCARCERATED General Indications: The patient is a 66-year-old male who presents with symptomatic left inguinal hernia that was initially thought to be reducible. Thus, he is brought to the operating room to undergo repair. Intraoperative Findings: It was indeed incarcerated hernia; however, not strangulated. It was mainly a direct component with a small indirect lipoma. A Lizzy repair was performed. Technical Procedure: The patient was brought to the operating room, escobar supine on the table. He was induced with general anesthesia and then positioned appropriately, then prepped and draped in a sterile fashion. A left lower quadrant inguinal incision was then created and the external oblique was exposed. The external oblique muscle was then incised from the external ring out laterally and the cord structures were carefully identified. The ilioinguinal nerve was carefully mobilized and retracted out of the way. The cord structures were carefully lifted off the floor of the inguinal canal. As noted above, the main component of the hernia appeared to be direct. Thus, dissection was carried out to carefully separate the hernia sac from the cord structures. Once the hernia sac itself was identified, it was noted to have a large indurated mass within it, likely secondary to prolonged incarceration. Thus, the hernia sac was opened and an indurated mass of what appeared to be fatty tissue was identified. This was carefully examined and excised. There was no evidence of any bowel contents or any necrosis. Once the hernia contents had been removed, the hernia sac itself was carefully excised and the peritoneum was reapproximated using Vicryl sutures and reduced back below the transversalis layer. The cord itself was then reexamined and an indirect lipoma was identified. This was also carefully excised. The remainder of the cord structures appeared to be intact. Subsequent Lizzy type of repair was performed using a ProLite Ultra mesh. This was initially secured to the pubic tubercle and then secured to the shelving edge of the inguinal ligament inferiorly and the conjoint tendon superiorly. The internal ring was recreated with a mesh and was appropriately snug. The mesh was secured using running 2-0 Prolene suture. At the end of the repair, all cord structures appeared to be intact. The area was irrigated with warm saline and hemostasis confirmed. The cord structures and the ilioinguinal nerve were replaced within the inguinal canal and the external oblique layer was then reapproximated using running 3-0 Vicryl suture. The incision was then closed by reapproximating the subcutaneous layer using interrupted 3-0 Vicryl suture and the skin edges were reapproximated using running 4-0 Monocryl subcuticular suture. Dry sterile dressing was applied. Both testicles were confirmed to be descended within the scrotum at the end of the case. The patient tolerated the procedure well without any complications. The patient was then extubated in the operating room and taken to the recovery room in stable condition. Brief Op Note - Caleb Fernandez MD - 06/23/2012 11:05 AM EDT Brief Operative Note Patient Name: Molina Randhawa : [id number] MR#: [id number] Case Date: 06/23/2012 Surgeon: Surgeon(s) and Role: * CALEB FERNANDEZ MD - Primary * ZAC GARCÍA MD - Resident-Surgeon Chief Preoperative diagnosis: left inguinal hernia Postoperative diagnosis: incarcerated left inguinal hernia Procedure(s): MODIFIER MESH,ATRIUM,PROLITE HERNIA REPAIR, INITIAL INGUINAL AGE 5 OR OVER, REDUCIBLE INCARCERATED Anesthesia: General Findings: incarcerated direct hernia Direct sac opened contents sent for gram stain (negative) Sac contained hard fat (sent to path) Indirect cord lipoma excised prolite ultra mesh Both testes descended at the end of the case Complications: none Fluids: 1500 Estimated Blood Loss: 6 Drains: *none Disposition: awakened from anesthesia, extubated and taken to the recovery room in a stable condition, having suffered no apparent untoward event. Condition: doing well without problems (Please see the Surgical Encounter Summary for any Implant and Specimen details pertinent to this patient.) Miscellaneous - Provider, Scanning - 06/23/2012 8:32 AM EDT documented in this encounter Plan of Treatment Upcoming Encounters Date Type Specialty Care Team Description 07/30/2022 Office Visit Radiation Oncology Alecia Lion, COIL INSPECT[employer] [facility] RADIATION ONCAHSAN JEFFRY, [place] 0375 (Wo rk) documented as of this encounter Procedures Procedure Name Priority Date/Time Associated Comments Diagnosis IMPLANTABLE DEVICES 06/24/2012 2:00 AM Re sults for this SCAN EDT procedure are i n the results section. SURGICAL PATHOLOGY Routine 06/23/2012 11:16 Resul ts for this REPORT AM EDT procedure are i n the results section. ANAEROBIC CULTURE STAT 06/23/2012 9:22 AM Resu lts for this EDT procedure are i n the results section. BODY FLUID CULTURE, STAT 06/23/2012 9:22 AM AEROBIC & ANAEROBIC EDT BODY FLUID CULTURE, STAT 06/23/2012 9:22 AM Re sults for this AEROBIC EDT procedure are i n the results section. SPECIMEN TO PATHOLOGY Routine 06/23/2012 9:19 AM Results for this EDT procedure are i n the results section. HERNIA REPAIR, 06/23/2012 7:27 AM left inguinal INITIAL INGUINAL AGE EDT hernia 5 OR OVER, REDUCIBLE INCARCERATED (WRVU 9.09) MODIFIER 06/23/2012 7:27 AM left inguinal MESH,ATRIUM,PROLITE EDT hernia (DELETED) ECG SCAN 06/23/2012 12:00 AM EDT documented in this encounter Results SCAN DOC: IMPLANTABLE DEVICES (06/24/2012 2:00 AM EDT) Narrative 06/24/2012 2:00 AM EDT Procedure Note Provider, Scanning - 06/24/2012 2:00 AM EDT Scanning Provider MEDIA MGR SCAN EXT ORDR/RSLT SURGICAL PATHOLOGY REPORT (06/23/2012 11:16 AM EDT) [facility] Method Time Signature Surgical CERNER Pathology ? [facility] Report ? Provider: ?? ALIDA, CALEB ?Pt. Name: ?? T MOLINA BECKFORD ? Acc #: ?[id number] ?Pt. MRN: ?[id number] ? Col Date: ?? 2 ? /Sex: ?1945,(66 years),Male ? Rec Date: ?? 06/23/2012 ? LOC: ?SDP ? SURGICAL PATHOLOGY ? ---Pathologic Diagnosis--- ? Left inguinal hernia with fibroadipose tiossue with f at necrosis ? 06/24/12 ? VAM ? 06/24/12 Verified by: ? Mark Serra MD ? Pathologist ? (Electronic Si gnature) ? The attending pathologist whose signature appears o n this report has ? reviewed all diagnostic slides and has edited the belen ss and/or ? microscopic portion of the report in rendering the fi nal pathologic ? diagnosis. ? ---Microscopic Description--- ? Slides reviewed, microscopic description not recorded . ? ---Gross Description--- ? Labeled/Fixative: ? Hernia sac contents, fresh. ? Quantity/Size: ?Multiple, 7.0 x 5.0 x 2.0 c m. ? Tissue Description: ?? Lenoir membr anous tissue along with yellow adipose ? tissue which exhibits areas of fat necrosis. ? Sections/Processing: ??(R1) aje/SNS ?_ ? ---Clinical Information--- ? Specimen Submitted: ? A - Hernia sac contents ? Clinical History/Diagnosis: ? Left inguinal hernia Specimen (Source) Anatomical Collection Method Collection Time Re ceived Time Location / / Volume Laterality 06/23/2012 11:16 AM EDT Caleb Fernandez MD PATHOLOGY/CYTOLOGY ORDERABLE S Performing Organization Address [facility] [place] [address] VIKTOR ZAMZAMCHAPOIUM ANAEROBIC CULTURE (06/23/2012 9:22 AM EDT) [facility] Method Time Signature Anaerobic CERNER Culture ? Patient Name: MOLINA RANDHAWA ? Or dered By: CALEB FERNANDEZ ? MR#: [id number] ?LOC: ??SDP ? /Sex: ??1945 (66 years), ? Male ? PROCEDURE: Anaerobic Culture ?SOURCE: Other ? COLLECTED: 06/23/2012 09:22 ?FREE TEXT SOURCE: Left hernia sac fluid - STAT gram stain. ? STARTED: 06/23/2012 09:22 ? FINAL REPORT ? Final Report ? Verified:06/27/2012 10:57 ? No anaerobic organisms isolated ? PRELIMINARY REPORT ? Preliminary Report ? Verified:06/27/2012 10:57 ? No anaerobic organisms isolated to date ? Specimen Anatomical Collection Method Collection Time Receive d Time (Source) Location / / Volume Laterality Specimen of 06/23/2012 9:22 AM 2 9:22 unknown material EDT AM EDT (specimen) Comment: LEFT HERNIA SAC FLUID - STAT GR AM STAIN. Resulting Agency Comment Spec In Lab Caleb Fernandez MD MICROBIOLOGY - GENERAL ORDER SUSAN Performing Organization Address City/State/[place] [address] BELACARLOS EDUARDO [place] BODY FLUID CULTURE (06/23/2012 9:22 AM EDT) Component Value Ref Test Analysis Performed At [facility] gist Range Method Time Signature Body Fluid CERNER Culture ? Patient Name: MOLINA RANDHAWA ? Or dered By: CALEB FERNANDEZ ? MR#: [id number] ?LOC: ??SDP ? /Sex: ??1945 (66 years), ? Male ? PROCEDURE: Body Fluid Culture ?SOURCE: Other ? COLLECTED: 06/23/2012 09:22 ?FREE TEXT SOURCE: Left hernia sac fluid - STAT gram stain. ? STARTED: 06/23/2012 09:22 ? STAINS / PREPARATIONS ? Gram Stain Report ? Verified:06/23/2012 09:48 ? Cytocentrifuge Gram Stain performed ? No WBC's seen. ? No microorganisms seen. ? Results called to and read back by Taylor in or 20 at ??06/23/2012 09:48:21 ? FINAL REPORT ? Final Report ? Verified:06/27/2012 07:55 ? Rare Coagulase negative Staphylococcus species two mo rphologies ? PRELIMINARY REPORT ? Preliminary Report ? Verified:06/26/2012 10:55 ? Rare Coagulase negative Staphylococcus species two mo rphologies ? Specimen Anatomical Collection Method Collection Time Receive d Time (Source) Location / / Volume Laterality Specimen of 06/23/2012 9:22 AM 2 9:22 unknown material EDT AM EDT (specimen) Comment: LEFT HERNIA SAC FLUID - STAT GR AM STAIN. Resulting Agency Comment Spec In Lab Caleb Fernandez MD MICROBIOLOGY - GENERAL ORDER SUSAN Performing Organization Address City/[facility]/ZIP [facility] Phon e Number [address] [employer] Specimen to Pathology (surgical or derm) (06/23/2012 9:19 AM EDT) Specimen Anatomical Collection Method Collection Time Receive d Time (Source) Location / / Volume Laterality AP Specimen 06/23/2012 9:19 AM 2 9:19 EDT AM EDT Narrative CERNER MILLENNIUM - 06/23/2012 9:19 AM E DT Specimen requisition ordered. ??Separate Pathology report to follow Caleb Fernandez MD PATHOLOGY/CYTOLOGY ORDERABLE S Performing Organization Address City/[facility] Phon e Number [address] CERNER [employer] SCAN DOC: ECG (06/23/2012 12:00 AM EDT) Narrative This result has an attachment that is no t available. Unknown MEDIA MGR SCAN EXT ORDR/RSLT documented in this encounter Visit Diagnoses Not on filedocumented in this encounter Administered Medications Inactive Administered Medications - up to 3 most recent administrations Medication Order MAR Action Action Date Dose Rate Site acetaminophen (TYLENOL) tablet Given 06/23/2012 12:56 PM EDT 650 mg 650 mg 650 mg, Oral, EVERY 4 HOURS PRN, Starting on Oriana 06/23/12 at 1114, Until Oriana 812 at 2249, Pain, Maximum dose of acetaminophen is 4000 mg from all sources in 24 hours., Routine ceFAZolin (ANCEF) injection Given 06/23/2012 7:38 AM EDT 1 g ONCE PRN, Starting on Oriana 06/23/12 at 0738, Until Oriana 8 at 2249, Intra-Operative (Intra-Procedure), Routine lidocaine-epiNEPHrine 1 Given 06/23/2012 10:50 AM 7 mLs 19- Surgical Site %-1:200,000 injection EDT ONCE PRN, Starting on Oriana 06/23/12 at 1050, Until Ori[place] 8 at 2249, Intra-Operative (Intra-Procedure), Routine OXYcodone (ROXICODONE) immediate release tablet Given 06/23/2012 2:20 PM EDT 5 mg 5-10 mg 5-10 mg, Oral, EVERY 4 HOURS PRN, Starting on Oriana 06/23/12 at 1113, Until Oriana 8 at 2249, Pain, Routine documented in this encounter Active and Recently Administered Medications Times are shown in EDT. PRN Medication Order 06/21/2012 06/22/2012 06/23/2012 acetaminophen (TYLENOL) tablet 650 mg (CANCELED) 1256 (Given - Provider: Cathy Howe RN) 650 mg, Oral, EVERY 4 HOURS PRN, Startin g Oriana 06/23/12 at 1114, Until Oriana 8 at 2249, Pain, Maximum dose of acetaminophen is 4000 mg from all sources in 24 hours., Routine ceFAZolin (ANCEF) injection (CANCELED) 0738 (Given - Provider: Santos Arrieta CRNA) ONCE PRN, Starting Oriana 8 at 0738, Until Oriana 812 at 2249, Intra- Operative (Intra-Procedure), Routine ibuprofen (ADVIL;MOTRIN) tablet 600 mg 600 mg, Oral, EVERY 6 HOURS PRN, Startin g Oriana 06/23/12 at 1113, Until Oriana 06/23/12 at 2249, Pain, Maximum dose of 3200 mg from all sources in 24 hours, Routine lidocaine-epiNEPHrine 1 %-1:200,000 injection (CANCELED) 1050 (Given - Provider: Santos Arrieta CRNA) ONCE PRN, Starting Oriana 06/23/12 at 1050, Until Oriana 06/23/12 at 2249, Intra- Operative (Intra-Procedure), Routine OXYcodone (ROXICODONE) immediate release tablet 5-10 mg 1420 (Given - Provider: Cathy Howe, JESSICA) 5-10 mg, Oral, EVERY 4 HOURS PRN, Starti ng Oriana 06/23/12 at 1113, Until Oriana 06/23/12 at 2249, Pain, Routine documented in this encounter 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
--- OUTSIDE RECORDS SUMMARY | 2022-07-24 15:20 | XMS_ITS | Encounter Summary ---
:1945 Author Organization [facility] Address [facility] [place] [address] Care Team Providers Name Role Phone Santos Guallpa MD Primary Care Provider Reason for Visit Reason Comments Prostate Cancer Encounter Details Date Type Department Care Team Description 05/16/2012 Follow-Up Urology at [facility] [place] Teresa Rodriguez MD Prostate cancer (Primary Dx); [facility] [place] [address] UROLOGY [phone] [place] [id number] (Wo rk) Social History Tobacco Use Types Packs/Day Years Used Date Never Smoker Smokeless Tobacco: Never Used Alcohol Use Standard Drinks/Week Comments No 0 (1 standard drink = 0.6 oz pure alcoho l) Sex Assigned at Date Recorded Not on file documented as of this encounter Last Filed Vital Signs Vital Sign Reading Time Taken Comments Blood Pressure 147/83 05/16/2012 2:49 PM EDT Pulse 77 05/16/2012 2:49 PM EDT Temperature - - Respiratory Rate - - Oxygen Saturation - - Inhaled Oxygen Concentration - - Weight 74.8 kg (165 lb) 05/16/2012 2:49 PM EDT Height 168.9 cm (5' 6.5) 05/16/2012 2:49 PM EDT Body Mass Index 26.23 05/16/2012 2:49 PM EDT documented in this encounter Progress Notes Aiden Hannah LPN - 05/16/2012 3:32 PM EDT Addended by: AIDEN HANNAH on: 05/16/2012 Modules accepted: Orders Teresa Rodriguez MD - 05/16/2012 3:11 PM EDT Reason for Visit:.The patient comes for a preop visit for a radical prostatectomy Recent admission for a complicated epididymitis due to fluroquinolone resistant antibiotics.He was initially treated with Ceftriaxone and then discharged on Bactrim. He has no complaints today he feels great. His testicular swelling has resolved.No fever or chills. Appetite is good. Prostate Cancer DATA PSA was 1.5 5 years ago and 6.5 in the summer. Results for MOLINA PEREIRA ( ) as of 01/13/2012 14:31 Ref. Range 12/21/2011 15:57 01/13/2012 13:26 PSA Latest Range: 0.00-4.00 ng/mL 8.27 (H) 7.71 (H) He has had slowly worsening voiding symptoms for years, with slow stream, frequency, needing to push. In ~ 08/2011 he developed npocturnal leaking and he was noted to have an elevated PVR and saw Dr Isbell in [place] and was started on CIC. He has been performing CIC since that time with PVR's of ~ 700cc. He was started on Flomax and dutasteride. He had one complicated UTI for which he was admitted. He has been performing CIC q 6 for ~ 500cc Urodynamics today was consistent with a hypotonic bladder His creatinine at the time of dx was ~ 2.5 and now is ~ 1.7 Erectile function is poor. He has not had intercourse x 15 years. Appetite is good weight is stable. There is no bone pain. Past Medical History: None Past Surgical History: Hernia Appendix Rectal Exam: Prostate is 40 grams and symmetrical without tenderness or masses. The seminal vesicalsare not palpable. TRUS prostate volume: -------- Prostate -------- Size (cm) L: 5.12 AP: 4.44 TV: 4.79 Vol (ml): 57 Comment: Hypoechoic area seen: Left mid Excerpt from path report: [facility] Provider: TERESA RODRIGUEZ Pt. Name: MOLINA PEREIRA Acc #: [id number] Pt. Col Date: 02/15/2012 /Sex: 1945,(66 years),Male Rec Date: 02/15/2012 LOC: SURGICAL PATHOLOGY ---Pathologic Diagnosis--- A - Prostatic core needle biopsy, right base: Benign prostatic tissue. B - Prostatic core needle biopsy, right mid: Benign prostatic tissue. C - Prostatic core needle biopsy, right apex: Benign prostatic tissue with focal chronic inflammation. D - Prostatic core needle biopsy, right lateral base: Benign prostatic tissue. E - Prostatic core needle biopsy, right lateral mid: Benign prostatic tissue. F - Prostatic core needle biopsy, right lateral apex: Benign prostatic tissue with adenosis. Immunohistochemistry is suportive. G - Prostatic core needle biopsy, left base: Benign prostatic tissue. H - Prostatic core needle biopsy, left mid: Adenocarcinoma, Maynor grade 3 + 4, involving approximately 10% of one of one needle core biopsy. I - Prostatic core needle biopsy, left apex: Benign prostatic tissue. J - Prostatic core needle biopsy, left lateral base: Benign prostatic tissue. K - Prostatic core needle biopsy, left lateral mid: Benign prostatic tissue. L - Prostatic core needle biopsy, left lateral apex: Benign prostatic tissue. M - Prostatic core needle biopsy, left nodule: Adenocarcinoma, Maynor grade 3 + 4, involving approximately 25% of one of one needle core biopsy. CR-0 02/16/12 VMS 02/18/12 Verified by: RODRIGO KNAPP, ALICE Pathologist (Electronic Signature) The attending pathologist whose signature appears on this report has reviewed all diagnostic slides and has edited the gross and/or microscopic portion of the report in rendering the final pathologic diagnosis. ---Microscopic Description--- Slides reviewed, microscopic description not recorded. Immunohistochemistry Studies: Formalin-fixed, paraffin-embedded tissue sections are studied using the B- SA system technique with appropriate positive and negative controls. These IHC studies provide the pathologist with adjunctive diagnostic information. Antibody specificity has been verified by testing antibodies on a series of in-house tissues with known immunohistochemical performance characteristics. The clinical interpretation of any antibody positive staining or its absence is evaluated within the context of clinical presentation, morphology, histopathological criteria and other diagnostic tests. Exam: No adenoapthy HEENT normal CVS HS I &II normal nil added Chest clear to P&A Abdomen Benign, no masses, no organomegaly. Left inguinal hernia noted. External genitalia normal, except for right testicle normal. Right epididymis still thickened. Impression: #1: [id number] [place] 3+4=7 Prostate Cancer with a PSA of 7.7(on Dutasteride) at diagnosis for a rdaical prostatectomy #2: Neurogenic bladder #3: Recent epididymitis resistant to fluroquinolones Plan: We reviewed again the natural history and treatment options of prostate cancer. I briefly discussed again the options for management of his prostate cancer including watchful waiting, hormonal therapy,radiation therapy(including I125 and Pd 103 seed implant, IMRT, 3D conformal, Proton therapy, High Dose Rate), radical prostatectomy (open and laparoscopic)as well as less common options such as cryotherapy. The patient understands that he has significant choice in terms of treatment In summary the patient has intermediate risk prostate cancer I discussed the risks of this procedure including the results with regard to incontinence, erectile function and cancer control. We discussed the pre, intra and post op care and decision making. We discussed the risks of conversion to open surgery. The risks of injury to surrounding structure, nerves,blood vessels, rectum (including need for colostomy, fistula) ureters etc. We discussed the risks ofunexpected complications requiring prolonged hospitalization, ICU care, reoperation etc. We talked about positive margins ,recurrence, the need for radiation etc.All the patients questions were answered . I discussed with him the prostate imaging studies [facility] [id number]( ex vivo study). I discussed the risks,experimental and voluntary nature. I gave him a copy of the Informed consent. We will sign on the morning f surgery if he agrees to participate. He signed the surgery consent today. He will get a pre op urine culture with his PCP ~ 1 week preop to treat any urinary colonization. Teresa Rodriguez. documented in this encounter Miscellaneous Notes Miscellaneous - Edgar, Travel Occupational Therapist - 06/05/2012 4:48 PM EDT documented in this encounter Plan of Treatment Upcoming Encounters Date Type Specialty Care Team Description 07/30/2022 Office Visit Radiation Oncology Alecia Lion APRN [facility] [place] [address] (Wo rk) documented as of this encounter Procedures Procedure Name Priority Date/Time Associated Diagnosis Comme nts URINE CULTURE Routine 05/16/2012 6:23 PM Prostate cancer Resul ts for this EDT procedure are i n the results section . documented in this encounter Results Urine culture Clean Catch Urine (05/16/2012 6:23 PM EDT) Component Value Ref Test Analysis Performed At [facility] gist Range Method Time Signature Urine Culture CERNER ? Patient Name: MOLINA PEREIRA ? Ordered By: TERESA RODRIGUEZ [facility] ? MR#: [id number] ?LOC: ??5B ? /Sex: ??1945 (66 years), ? Male ? PROCEDURE: Urine Culture ?SOURCE: U CC ? COLLECTED: 05/16/2012 18:23 ? STARTED: 05/16/2012 18:23 ? FINAL REPORT ? Final Report ? Verified:05/18/2012 11:59 ? 50,000-99,000 cfu/ml Streptococcus viridans group ? PRELIMINARY REPORT ? Preliminary Report ? Verified:05/17/2012 15:25 ? Growth too young to evaluate, culture reincubated ? Specimen (Source) Anatomical Collection Method Collection Time Re ceived Time Location / / Volume Laterality Urine specimen 05/16/2012 6:23 05/16/2012 6:23 obtained by clean PM EDT PM EDT catch procedure (specimen) Resulting Agency Comment Spec In Lab Teresa Rodriguez MD MICROBIOLOGY - GENERAL ORDER SUSAN Performing Organization Address City/State/[place] [address] HOSPITAL LABORATORY [facility] documented in this encounter Visit Diagnoses Diagnosis Prostate cancer - Primary Malignant neoplasm of prostate Urinary retention Retention of urine, unspecified documented in this encounter Care Teams Ironer Hand Relationship Specialty Start Date End Date Santos Guallpa MD PCP - General 10/14/[address] [place] [phone] documented as of this encounter
--- OUTSIDE RECORDS SUMMARY | 2022-07-24 15:20 | XMS_ITS | Encounter Summary ---
:1945 Author Organization [facility] [place] [address] Care Team Providers Name Role Phone Santos Guallpa MD Primary Care Provider Encounter Details Date Type Department Care Team Description 05/19/2012 Telephone [place] [facility] Rodriguez [place] [facility] [place] [address] UROLOGY [phone] [place], [place] [address] (Wo rk) Social History Tobacco Use Types Packs/Day Years Used Date Never Smoker Smokeless Tobacco: Never Used Alcohol Use Standard Drinks/Week Comments No 0 (1 standard drink = 0.6 oz pure alcoho l) Sex Assigned at Date Recorded Not on file documented as of this encounter Miscellaneous Notes Telephone Encounter - Sony Munoz LPN - 05/19/2012 10:25 AM EDT Reason for call:To notify the patient of his 05/16/12 urine culture results. FINAL REPORT Final Report Verified:05/18/2012 11:59 10,000-49,000 cfu/ml mixed mucosal valerie Note: Multiple Streptococcus viridans present. Suggest appropriate recollection with timely delivery to the laboratory, if clinically significant. Plan:Per order Dr. Maikel Florian the patient will take Ampicillin 500mg 1 po Qid x's 7 days.The prescription was called to [facility] in [facility] per the patients request.The patient verbalized understanding of the instructions and agrees with this plan. documented in this encounter Plan of Treatment Upcoming Encounters Date Type Specialty Care Team Description 07/30/2022 Office Visit Radiation Oncology Alecia Lion APRN [facility] RADIATION [place], [place] [address] (Wo rk) documented as of this encounter Visit Diagnoses Diagnosis UTI (urinary tract infection) - Primary Urinary tract infection, site not specif ied documented in this encounter Care Teams Turning Lathe Tender Relationship Specialty Start Date End Date Santos Guallpa MD PCP - General 10/14/[address] [place] [phone] documented as of this encounter
--- OUTSIDE RECORDS SUMMARY | 2022-07-24 15:20 | XMS_ITS | Encounter Summary ---
:1945 Author Organization [facility] [place] [address] Care Team Providers Name Role Phone Santos Guallpa MD Primary Care Provider Encounter Details Date Type Department Care Team Description 06/23/2012 Hospital Encounter Same Day Program at [facility] beena Fernandez MD [place] [id number] [place] [address] [phone] Social History Tobacco Use Types Packs/Day Years Used Date Never Smoker Smokeless Tobacco: Never Used Alcohol Use Standard Drinks/Week Comments No 0 (1 standard drink = 0.6 oz pure alcoho l) Sex Assigned at Date Recorded Not on file documented as of this encounter Last Filed Vital Signs Vital Sign Reading Time Taken Comments Blood Pressure 154/82 06/23/2012 2:10 PM EDT Pulse 80 06/23/2012 2:10 PM EDT Temperature 36.4 ??C (97.5 ??F) 06/23/2012 11:11 AM EDT Respiratory Rate 12 06/23/2012 2:10 PM EDT Oxygen Saturation 94% 06/23/2012 2:10 PM EDT Inhaled Oxygen Concentration - - [...] may need to take a laxative Patient InstructionsZac García - 06/23/2012 11:21 AM EDT Instructions following [...] 101.3 F. The number for questions is [phone] before 5 PM weekdays and [phone] after 5 PM and weekends. Pain Medication: [...] Appointment willbe mailed to you. Please call [phone] (clinic number for appointments) to confirm date [...] Fernandez MD - 06/23/2012 10:00 PM EDT [facility] [place] Note Patient Name: Molina Randhawa : [id number] MR#: [id number] Case Date: 06/22/2012 - 06/23/2012 Surgeon: Surgeon(s) [...] Operative Note Patient Name: Molina Randhawa : [id number] MR#: [id number] Case Date: 06/23/2012 Surgeon: Surgeon(s) and Role: [...] 07/30/2022 Office Visit Radiation Oncology Ayad Alecia Joshua, SWEATBAND PERFORATOR [facility] RADIATION [place], [place] [address] (Wo rk) documented as of this [...] SURGICAL PATHOLOGY REPORT (06/23/2012 11:16 AM EDT) [facility] Method Time Signature Surgical CERNER Pathology ? [facility] Report ? Provider: ?? CALEB FERNANDEZ ?Pt. Name: ?? T MOLINA BECKFORD ? Acc #: ?[id number] ?Pt. MRN: ?[id number] ? Col Date: ?? 2 ? /Sex: [...] 2.0 c m. ? Tissue Description: ?? Lyon membr anous tissue along with yellow adipose ? tissue which exhibits areas of fat necrosis. ? Sections/Processing: ??(R1) satishe/SNS ?_ ? ---Clinical Information--- ? Specimen Submitted: ? A - Hernia sac contents ? Clinical History/Diagnosis: ? Left inguinal hernia Specimen (Source) Anatomical Collection Method Collection Time Re ceived Time Location / / Volume Laterality 06/23/2012 11:16 AM EDT Caleb Fernandez MD PATHOLOGY/CYTOLOGY ORDERABLE S Performing Organization Address [facility] Code Phon e Number [place] [phone]OS[address] LAB[address] VIKTOR ZAMZAMCHAP[employer] ANAEROBIC CULTURE (06/23/2012 9:22 AM EDT) [facility] gist Method Time Signature Anaerobic CERNER Culture ? Patient Name: MOLINA RANDHAWA ? Or dered By: CALEB FERNANDEZ ? MR#: [id number] ?LOC: ??SDP ? /Sex: ??1945 (66 years), [...] Organization Address City/State/ZIP Code Phon e Number [place] [phone] LAB[address] VIKTOR [employer] BODY FLUID CULTURE (06/23/2012 9:22 AM EDT) Component Value Ref Test Analysis Performed At [facility] gist Range Method Time Signature Body Fluid CERNER Culture ? Patient Name: MOLINA RANDHAWA ? Or dered By: CALEB FERNANDEZ ? MR#: [id number] ?LOC: ??SDP ? /Sex: ??1945 (66 years), [...] Organization Address City/State/ZIP Code Phon e Number [address] [employer] Specimen to Pathology (surgical or derm) (06/23/2012 9:19 AM EDT) Specimen Anatomical Collection Method Collection Time Receive d Time (Source) Location / / Volume Laterality AP Specimen 06/23/2012 9:19 AM 2 9:19 EDT AM EDT Narrative CERCARLOS EDUARDO WYMANENNIUM - 06/23/2012 9:19 AM E DT Specimen requisition ordered. ??Separate Pathology report to follow Caleb Fernandez MD PATHOLOGY/CYTOLOGY ORDERABLE S Performing Organization Address City/[facility] Phon e Number [address] CERNER MILLENNIUM SCAN DOC: ECG (06/23/2012 12:00 AM EDT) [...] EVERY 4 HOURS PRN, Starting on Oriana 8 at 1114, Until Oriana 8 at 2249, Pain, Maximum dose of acetaminophen is 4000 mg from all sources in 24 hours., Routine OXYcodone (ROXICODONE) immediate release tablet Given 06/23/2012 2:20 PM EDT 5 mg 5-10 mg 5-10 mg, Oral, EVERY 4 HOURS PRN, Starting on Oriana 8 at 1113, Until Oriana 812 at 2249, Pain, Routine documented in this [...] g Oriana 06/23/12 at 1113, Until Oriana 8 at 2249, Pain, Maximum dose of 3200 mg from all sources in 24 hours, Routine lidocaine-epiNEPHrine 1 %-1:200,000 injection (CANCELED) 1050 (Given - Provider: Santos Arrieta CRNA) ONCE PRN, Starting Oriana 812 at 1050, Until Oriana 812 at 2249, Intra- Operative (Intra-Procedure), Routine OXYcodone (ROXICODONE) immediate release tablet 5-10 mg 1420 (Given - Provider: Cathy Howe RN) 5-10 mg, Oral, EVERY 4 HOURS PRN, Starti ng Oriana 06/23/12 at 1113, Until Oriana 06/23/12 at 2249, Pain, Routine documented in this encounter Care Teams Senior Mobile Web Developer Relationship Specialty Start Date End Date Santos Guallpa MD PCP - General 10/14/[address] [place] [phone] documented as of this encounter
--- OUTSIDE RECORDS SUMMARY | 2022-07-24 15:20 | XMS_ITS | Encounter Summary ---
:1945 Author Organization [facility] [place] [address] Care Team Providers Name Role Phone Santos Guallpa MD Primary Care Provider Encounter Details Date Type Department Care Team Description 06/11/2012 Telephone Urology at [facility] [place] John Rodriguez MD [facility] [place] [phone] UROLOGY [phone] [place], [place] [address] (Wo rk) Social History Tobacco Use Types Packs/Day Years Used Date Never Smoker Smokeless Tobacco: Never Used Alcohol Use Standard Drinks/Week Comments No 0 (1 standard drink = 0.6 oz pure alcoho l) Sex Assigned at Date Recorded Not on file documented as of this encounter Miscellaneous Notes Telephone Encounter - John Rodriguez MD - 06/11/2012 11:00 AM EDT Called to discuss pathology. [id number] Margins negative No further Rx needed. Plan voiding trial next week. We will have to see how he empties as preop needed to do CIC I will see in 3 months with PSA, Unlesshe does not void well. John Rodriguez documented in this encounter Plan of Treatment Upcoming Encounters Date Type Specialty Care Team Description 07/30/2022 Office Visit Radiation Oncology Alecia Lion, STAGE SETTINGS PAINTER [facility] RADIATION [place], [place] [address] (Wo rk) documented as of this encounter Visit Diagnoses Not on filedocumented in this encounter Care Teams Advisory Intern Relationship Specialty Start Date End Date Santos Guallpa MD PCP - General 10/14/[address] [place] [phone] documented as of this encounter
--- OUTSIDE RECORDS SUMMARY | 2022-07-24 15:20 | XMS_ITS | Encounter Summary ---
:1945 Author Organization [facility] [place] [address] Care Team Providers Name Role Phone Santos Guallpa MD Primary Care Provider Encounter Details Date Type Department Care Team Description 06/03/2012 Anesthesia Event Main Operating Room Chris Chavez nd, MD [facility] [place] [address] [facility]3] John Jones MD [facility] [place] [address] [place] [phone] Anesthesia Record Procedure Summary Procedure Name Responsible Anesthesia Start Anesthesia Stop Anesthesiologist Time Time LAPAROSCOPIC Chris Bell MD 06/03/12 0822 06/03/12 15 18 PROSTATECTOMY, ROBOTICS ASSISTED (WRVU 21.36) (N/A Pelvis) Events Date Time Event Comment 06/03/2012 0809 0822 Start 1518 Stop No medications on file. Agents No agents on file. Blood No blood administrations on file. Lines, Drains, and Airways Type Details Placement Removal Urethral Catheter 06/03/12; 0915; 06/03/12 0915 by indwelling double lumen Bijan Nicole, RN catheter; latex; 16; inserted (Inserted by T Farrell RN.); 1; drainage bag to dependent drainage PIV 06/03/12; 06/04/12; 1356 06/03/12 0000 by 1356 by Bijan Nicole RN Loskutoff, Susan, RN Drain/Device Site 06/03/12; Right; abdomen; 06/03/12 0000 by 04/[address]apsible closed Bijan Nicole RN Pierre, Grace L, RN device; 06/04/12; 1313 PIV 06/03/12; 0742; 06/04/12; 06/03/12 0742 by Matt, 06/04/12 1355 by 1355 JESSICA Luke Susan, RN Incision 06/03/12; 0918; abdomen 06/03/12 0918 by 2 1715 by (Trocar sites x6.); Bijan Nicole RN Muller, Dierdre L 07/06/22 (LDA cleanup utility RA#[id number]); 1715 (LDA cleanup utility RA#[id number]) documented in this encounter Social History Tobacco Use Types Packs/Day Years Used Date Never Smoker Smokeless Tobacco: Never Used Alcohol Use Standard Drinks/Week Comments No 0 (1 standard drink = 0.6 oz pure alcoho l) Sex Assigned at Date Recorded Not on file documented as of this encounter OR Notes Anesthesia Postprocedure Evaluation - Chan Hinson MD - 06/03/2012 4:59 PM EDT Patient: Dalton Pereira Procedure(s) Performed: Procedure(s): @LAPAROSCOPIC PROSTATECTOMY, ROBOTICS ASSISTED @LYMPHADENECTOMY, PELVIC, INCLUDING MULTIPLE NODES-JAZMINE Patient location: PACU Post-op pain: Adequate analgesia; patient is having some pain but states he is happy with the level of control. Post-op nausea: no nausea or vomiting Last Vitals: Filed Vitals: 06/03/12 1630 BP: 135/72 Pulse: 71 Temp: Resp: Post-op cardiovascular and respiratory status: is stable Level of consciousness: awake, alert and oriented Complications: no apparent complications, tolerated the procedure well and no evidence of recall Fluid Status: normal Anesthesia Preprocedure Evaluation - Chris Bell MD - 06/03/2012 7:59 AM EDT Anesthesia Evaluation Patient summary reviewed and Nursing notes reviewed No hx of anesthetic complications Airway Mallampati: III TM distance: >3 FB Neck ROM: full Dental (+) upper dentures and lower dentures Pulmonary breath sounds clear to auscultation (-) COPD, asthma and shortness of breath Cardiovascular (-) hypertension, past MO, dysrhythmias, angina and murmur Rhythm: regular PE comment: Sounds slightly bradycardic on exam Neuro/Psych (-) seizures and CVA GI/Hepatic/Renal (+) chronic renal disease (Obstructive nephropathy, creatinine as high as 2.5 with recent epididymitis, now improved to 1.34), (-) GERD and liver disease Endo/Other (+) hypothyroidism, (-) Type II DM Abdominal Anesthesia Plan ASA 2 Patient is a relatively healthy 66 year old man with prostate cancer and recent admission for epididymitis, who presents today for robotic radical prostatectomy. Plan for general anesthesia with oral ETT, second PIV. IV induction. Plan and risks were discussed with patient. Specifically we discussed the possibility of facial swelling and upper extremity nerve compression. Questions were answered and consent was obtained. Anesthetic plan and risks discussed with patient and spouse. Use of blood products discussed with patient and spouse whom consented to blood products. Plan discussed with attending. documented in this encounter Miscellaneous Notes Addendum Note - Sybil Metzger - 06/06/2012 11:42 AM EDT Addendum created 06/06/12 1142 by Sybil Metzger Modules edited:Anesthesia Events, Anesthesia Responsible Staff documented in this encounter Plan of Treatment Upcoming Encounters Date Type Specialty Care Team Description 07/30/2022 Office Visit Radiation Oncology Alecia Lion, BENITO [facility] RADIATION [place], [place] [address] (Wo rk) documented as of this encounter Visit Diagnoses Not on filedocumented in this encounter Care Teams Human Resource Internship Relationship Specialty Start Date End Date Santos Guallpa MD PCP - General 10/14/[address] [place] [address] [phone] documented as of this encounter
--- OUTSIDE RECORDS SUMMARY | 2022-07-24 15:20 | XMS_ITS | Encounter Summary ---
:1945 Author Organization [facility] [place] [address] Care Team Providers Name Role Phone Santos Guallpa MD Primary Care Provider Encounter Details Date Type Department Care Team Description 06/22/2012 Office Visit Urology at [facility] Canceled (DH Cancelled) [place] [phone] Social History Tobacco Use Types Packs/Day [...] Office Visit Radiation Oncology Alecia Lion APRN [facility] [place] [address] (Wo rk) documented as of this encounter Visit Diagnoses Not on filedocumented in this encounter Care Teams Sample Case Porter Relationship Specialty Start Date End Date Santos Guallpa MD PCP - General 10/14/[address] [place] [id number] documented as of this encounter
--- OUTSIDE RECORDS SUMMARY | 2022-07-24 15:20 | XMS_ITS | Encounter Summary ---
:1945 Author Organization [facility] [place] [address] Care Team Providers Name Role Phone Ho Parham MD Primary Care Provider Reason for Visit Reason Comments Constipation Encounter Details Date Type Department Care Team Description 06/05/2012 - Hospital Encounter 2 [facility] Cora Knowles MD [facility] [place] [address] [facility] [place] [address] [place] [id number] Social History Tobacco Use Types Packs/Day Years Used Date Never Smoker Smokeless Tobacco: Never Used Alcohol Use Standard Drinks/Week Comments No 0 (1 standard drink = 0.6 oz pure alcoho l) Sex Assigned at Date Recorded Not on file documented as of this encounter Last Filed Vital Signs Vital Sign Reading Time Taken Comments Blood Pressure 148/82 06/06/2012 10:27 AM EDT Pulse 78 06/06/2012 10:06 AM EDT Temperature 37 ??C (98.6 ??F) 06/06/2012 10:06 AM EDT Respiratory Rate 18 06/06/2012 10:06 AM EDT Oxygen Saturation 98% 06/06/2012 10:06 AM EDT Inhaled Oxygen Concentration - - Weight 78.8 kg (173 lb 11.6 oz) 06/05/2012 6:00 PM EDT Height 168.9 cm (5' 6.5) 06/05/2012 6:00 PM EDT Body Mass Index 27.62 06/05/2012 6:00 PM EDT documented in this encounter Discharge Instructions Patient InstructionsJojo Albarado MD - 06/06/2012 9:29 AM EDT Instructions for Patient: Call your doctor if: You develop any of the following sings or symptoms of infection: Redness or swelling of your incision (some mild redness around the incision and the staple sites isnormal) Drainage or bleeding from your incision Fever over 100.5 F Increased pain or discomfort at the incision site Persistent vomiting or the inability to keep foods or fluids down in a 24 hour period. Signs or symptoms of dehydration: Dry mouth Dark, concentrated urine, or lack of urine Lightheadedness Or any other concern, such as trouble breathing, pain with urination, new leg pain/swelling, increasing abdominal pain, abdominal firmness, if you stop passing gas for an extended period of time, or bloody bowel movements or vomitus. Call the Urology clinic at [phone] if you have any questions or concerns during office hours during the week. After hours and on weekends, call [phone] and ask for the urology resident conciliator. Activity level: No heavy lifting greater than 10 pounds (about equal to a full gallon jug) for the next 4 weeks or until cleared to do so at follow-up appointment. Otherwise activity as tolerated by comfort level. Diet: Resume your regular diet as tolerated. Driving: No driving while still taking opioid pain medications (wait at least 6-8 hours since last dose). No driving if you are still sore from surgery as it may limit your ability to react quickly if necessary. Shower/Bath: You may shower and get incision(s) wet. Pat dry immediately following. Do not scrub them vigorously for the next 2-3 weeks. Do not soak incision(s) for the next 2 weeks (i.e. soaking in bath or swimming) as this may promote a wound infection. Wound Care: Wash incision with soap and water, pat dry, and leave open to air. Allow steri- strips (pieces of tape) to fall off on their own if you have them. You may cover with gauze as needed to prevent incision rubbing on clothes. Follow up Appointments: You will have a follow up appointment in the next couple of weeks. If you do not hear from the general surgery clinic in the next week, please call at the number above. documented in this encounter Medications at Time of Discharge Medication Sig Dispensed Refills Start Date End Date docusate sodium (COLACE) Take 1 capsule by 60 capsule 0 05/0906/14/2012 100 mg capsule mouth 2 times daily for 10 days. acetaminophen (TYLENOL) Take 2 tablets by 90 tablet 0 06/0407/14/2012 500 mg tablet mouth every 8 hours. documented as of this encounter Progress Notes Melinda Kulkarni RN - 06/06/2012 11:51 AM EDT Assessment as charted. D/C teaching completed with pt and his family member; no questions at this time. Pt sent home with all necessary supplies. Pt d/c home with family at 1345; pt declined the use ofa wheelchair for discharge. Ara Finney RN - 06/06/2012 10:23 AM EDT Met with Dalton farris to review discharge options. He has had a BM and is taking food/fluids withoutnausea/vomiting. Discussed pain, bowel, nutrition, fluids, activity apnd new site weeping serous fluid. to see prior to discharge . RN cleansed and placed 2x2 on it. No redness or concerning drainage. 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 He is totally independent in activity and provided booklets on nielsen care and lap prostectomy Hedenies any needs at discharge. RN to review instructions, medications, activfity and f/u appointmentprior to discharge. ARA FINNEY RN06/06/2012 Esthela Obando RN - 06/05/2012 6:46 PM EDT 1800 pt. Transferred from the ED. A&O, lungs CTAB. Abd. Distendeed, sl soft, no BS. Nielsen draining cl yellow. IV site no edema, erythema. Surgical sites with dermadond intact, no erythema. Given call bernal & bed controls. Reviewed diet, use of IS, use of pain meds, activity with pt. 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 documented in this encounter H&P Notes Ezra Shrestha MD - 06/05/2012 7:09 PM EDT H&P CC constipation and not feeling well ID 66 yo male [id number] G3-4=7 PSA 7.7 on dutasteride sp RALP POD#2 HPI Patient called this AM stating he has not passed gas and he has not had a BM. He was anxious and didnot feel well. He was advised to come to ED for evaluation. Patient denies fever > 101, emesis, erythema, severe abdominal pain. His nielsen was draining clear urine with no problems. He had some nausea. He was ambulating ok and he had no altered mental status. In the ED he was evaluated with labs, acute abdominal series and was found to be with AVSS. Patient states that he is very anxious and concerned. 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 Patient has only taken one oxycodone of 5mg since he was discharged home. He has taken some tylenol and he states that he has only mild pelvic pain . ROS Pertinent positive findings as discussed above. No other findings on review of constitutional, cardiovascular, respiratory, gastrointestinal, endocrine, hematologic, musculoskeletal, dermatologic, neurological, psychiatric systems. Past Medical History: None Past Surgical History: Hernia Appendix No change in Social, family hx. Meds were reviewed in eDH Allergies reviewedin eDH Objective BP 152/86 Pulse 79 Temp(Src) 37.2 ??C (99 ??F) (Oral) Resp 16 Ht 168.9 cm (5' 6.5) Wt 78.8 kg (173 lb 11.6 oz) BMI 27.62 kg/m2 SpO2 92% NAD, pleasant and cooperative AT, RICARDA, hydrated Supple, no JVD RRR CLTA bl abd is soft, distended and tender on the left upper quadrant. There is no peritoneal signs Incisions are closed and dry Moves all four Alert orientedx3 Neurologically intact Skin anicteric Labs WBC 15.6 Hb 16.6 from 15 Ok Renal function and ok lytes Acute abdominal series Distended ascend and transverse colon and dilated colon at the level of splenic flexure. No air on descend colon. Minimal subdiaphragmatic free air as expected Impression Ileus Assessment Patient has not passed gas. He appears hydrated but he is very anxious and feels not well. At this moment there is no indication of bowel/colonic injury. Patient remains afebrile with abdominal distension and focalized tenderness over left upper quadrant with no suspicion for peritoneal signs. Will order labs for the AM and re-asses colonic air pattern in the AM Continue ambulation NPO Admit to urology Orders in eDH *If patient spikes fever or has increase abdominal pain please page urology resident conciliator #[phone] documented in this encounter ED Notes Ganesh Dhillon RN - 06/05/2012 4:20 PM EDT Urology Resident in to see pt at this time Cora Thornton MD - 06/05/2012 3:44 PM EDT Chief Complaint Patient presents with ??? Constipation HPI Pat had prostatectomy done laparoscopically done on 06/03/12. He passed some flautus in the hospital and started eating as usual, but did not pass any stool and since his been home, no flautus either. He took colace and miralax at home with no change, he complains of abd discomfort, distension, no nausea or vomiting. No fever. HO hernia surgery in 68' and 98' and appendicitis 90'. No ho DM or hypertension. Pat wants to be admitted, is particularly anxious, because the animals that had ilieus and nothing could be done for them. Allergies Allergen Reactions ??? Gentamicin Hives Review of Systems Constitutional: Positive for appetite change. Negative for fever and chills. Because of abd discomfort no more hunger. HENT: Positive for sore throat. Negative for neck pain. Some hoarsness from tube during op Eyes: Negative for visual disturbance. Respiratory: Negative for chest tightness and shortness of breath. Cardiovascular: Negative for chest pain. Gastrointestinal: Positive for abdominal pain, constipation and abdominal distention. Negative for nausea, vomiting and rectal pain. Some acid reflux, that is atypical for him. Genitourinary: Negative for flank pain. Musculoskeletal: Negative for back pain and arthralgias. Neurological: Positive for light-headedness. Negative for weakness and headaches. Pat describes some lightheadedness. Psychiatric/Behavioral: The patient is nervous/anxious. Physical Exam Constitutional: He is oriented to person, place, and time. He appears well- developed and well-nourished. HENT: Head: Normocephalic and atraumatic. Mouth/Throat: Oropharynx is clear and moist. Eyes: Conjunctivae are normal. Pupils are equal, round, and reactive to light. Neck: Neck supple. Cardiovascular: Normal rate, regular rhythm, normal heart sounds and intact distal pulses. Pulses: Dorsalis pedis pulses are 2+ on the right side, and 2+ on the left side. Posterior tibial pulses are 2+ on the right side, and 2+ on the left side. Pulmonary/Chest: Effort normal and breath sounds normal. Abdominal: He exhibits distension. He exhibits no shifting dullness, no pulsatile liver, no fluid wave, no abdominal bruit, no ascites and no pulsatile midline mass. Bowel sounds are increased. Tenderness is present in the right upper quadrant, right lower quadrant, left upper quadrant and left lower q uadrant. He has rigidity. Neurological: He is alert and oriented to person, place, and time. Psychiatric: His mood appears anxious. Procedures MDM Postop ileus. ED Course: Reg labs and LFT, Udip and abd xr. Bolus saline. Urologist went to see him and decided to admit him. Josh Stewart MD Resident 06/05/12 1627 Patient seen and examined with Dr. Stewart. Please see her note for further details. I have seen and examined the patient myself, reviewed labs and imaging, and agree with Dr. Stewart's assessment, exam findings, and plan of care. Medical decision making is my own. Summary: Postoperative constipation. Reassuring exam. Likely ileus. Plan as above. Cora Thornton MD 06/11/12 1438 Ganesh Dhillon RN - 06/05/2012 3:11 PM EDT Pt to room 12 pt in obvious distress very anxious guarding pain noted abd softly distened non tenderpt able to eat and drink has nielsen in draining clear yellow urine appears to be sufficient for the amount of fluid he is drinking also present documented in this encounter Miscellaneous Notes Miscellaneous - Provider, Scanning - 06/06/2012 8:19 PM EDT Miscellaneous - Provider, Scanning - 06/06/2012 8:12 PM EDT Discharge Summary - Herminio Little - 06/06/2012 9:29 AM EDT General Surgery Discharge Summary Primary Diagnosis: Postoperative ileus Secondary Diagnosis: Operations and Procedures: Previously admitted for robotic prostatectomy with lymphadenectomy on 06/03/12. Surgeons: Jennifer (06/03) History of Present Illness: Mr. Pereira presents for radical robotic prostatectomy. He has a PSA of7.7 and he has had prostate biopsy which revealed 2/13 cores with [place] 3+4. 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 He has poor erectile function. He has opted for robotic prostatectomy. Hospital Course: Dalton Pereira is a 66 y.o. male who was admitted on 06/05/2012 after arriving inthe ED for concerns for constipation. His prior operative course from 06/03/12 was uneventful. His acute abdominal series revealed distended ascending and transverse colon and dilated colon at the splenic flexure. He began passing gas on the night of admission and had several bowel movements this morning. He has a small amount of serous fluid drainage from his lower right trochar site and expects to change the dressing over it as necessary. The skin is intact, non fluctuant, without erythema or pustulant drainage. All other sites are clean, dry and intact. Prior to discharge on 06/06/12 Dalton Pereira was afebrile, with stable vital signs. On POD#3, he is being discharged to home in stable condition. Vital Signs Last value Range last 24hrs Temperature Temp: 36.9 ??C (98.4 ??F) Temp: [36.7 ??C (98.1 ??F)-37.4 ??C (99.3 ??F)] Heart Rate Heart Rate: 72 Heart Rate: [72-90] Blood Pressure BP: 135/84 mmHg BP: (124-173)/(77-95) Respiratory Rate Resp: 16 Resp: [15-18] SpO2 SpO2: 93 % SpO2: [91 %-96 %] Pertinent Lab Data: Recent Labs Basename 06/06/12 0247 06/05/12 1535 ??? WBC 12.3* 15.6* ??? HGB 14.6 16.1 ??? HCT 43.4 46.8 ??? PLATELET 184 202 ??? PT -- -- ??? INR -- -- ??? PTT -- -- Recent Labs Basename 06/06/12 0646 06/05/12 1535 ??? NA 140 137 ??? K 3.9 3.8 ??? CL 107 103 ??? CO2 22 22 ??? BUN 16 -- ??? CREATININE 1.20 1.04 ??? GLUCOSE -- 120 ??? CALCIUM 8.5 -- ??? MAGNESIUM -- -- ??? PHOS -- -- Physical Exam: General: NAD, resting comfortably, pleasant, conversant HEENT: PERRL, anicteric sclerae CVS: RRR Pulm: CTAB Abd: soft, nontender, non-distended. Lower Right trochar site minimal serous drainage as noted. All other sites C/I/D. : urethral catheter, good urine output. Skin: warm, dry Ext: no c/c/e, cap refill <2sec Neuro: CN 2-12 grossly intact, nonfocal,moving all four extremities spontaneously Imaging: No results found. 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 acetaminophen (TYLENOL) 500 mg tablet Take 2 tablets by mouth every 8 hours. 90 tablet 0 ??? docusate sodium (COLACE) 100 mg capsule Take 1 capsule by mouth 2 times daily for 10 days. 60 capsule 0 ??? OXYcodone (ROXICODONE) 5 mg immediate release tablet Take 1-2 tablets by mouth every 4 hours as needed for Pain (SEVERE PAIN). 30 tablet 0 Disposition:Stable to home. Allergies: Allergies Allergen Reactions ??? Gentamicin Hives Outpatient Services/Studies: No discharge procedures on file. Scheduled Appointments: No future appointments. Instructions Given to Patient at Discharge: Provider Instructions Instructions for Patient: Call your doctor if: You develop any of the following sings or symptoms of infection: Redness or swelling of your incision (some mild redness around the incision and the staple sites isnormal) Drainage or bleeding from your incision Fever over 100.5 F Increased pain or discomfort at the incision site Persistent vomiting or the inability to keep foods or fluids down in a 24 hour period. Signs or symptoms of dehydration: Dry mouth Dark, concentrated urine, or lack of urine Lightheadedness Or any other concern, such as trouble breathing, pain with urination, new leg pain/swelling, increasing abdominal pain, abdominal firmness, if you stop passing gas for an extended period of time, or bloody bowel movements or vomitus. Call the Urology clinic at [phone] if you have any questions or concerns during office hours during the week. After hours and on weekends, call [phone] and ask for the urology resident conciliator. Activity level: No heavy lifting greater than 10 pounds (about equal to a full gallon jug) for the next 4 weeks or until cleared to do so at follow-up appointment. Otherwise activity as tolerated by comfort level. Diet: Resume your regular diet as tolerated. Driving: No driving while still taking opioid pain medications (wait at least 6-8 hours since last dose). No driving if you are still sore from surgery as it may limit your ability to react quickly if necessary. Shower/Bath: You may shower and get incision(s) wet. Pat dry immediately following. Do not scrub them vigorously for the next 2-3 weeks. Do not soak incision(s) for the next 2 weeks (i.e. soaking in bath or swimming) as this may promote a wound infection. Wound Care: Wash incision with soap and water, pat dry, and leave open to air. Allow steri- strips (pieces of tape) to fall off on their own if you have them. You may cover with gauze as needed to prevent incision rubbing on clothes. Follow up Appointments: You will have a follow up appointment in the next couple of weeks. If you do not hear from the general surgery clinic in the next week, please call at the number above. General Instructions None Signed: JOJO ALBARADO MD 06/06/2012 Primary [place] Physician: HO PARHAM MD [address] [place] [id number] Plan of Care - Candelaria Khoury RN - 06/05/2012 9:48 PM EDT Problem: Trauma/Injury Risk (Adult, Obstetric) Goal: Trauma/Injury Risk: Absence of Trauma/Injury/Falls Outcome: Absent and monitoring Patient remains injury free this hospital stay, will continue to monitor for safety. Miscellaneous - Provider, Scanning - 06/05/2012 5:19 PM EDT Miscellaneous - Provider, Scanning - 06/05/2012 4:59 PM EDT ED Triage - Kenna Mckeon RN - 06/05/2012 2:11 PM EDT Patient presents stating he was discharged yesterday and since he has been home he has not been feeling well. He states he is worried because he has not had a bowel movement since Wednesday. He has an indwelling nielsen. He states he has not been able to eat because he feels so full and is not passing flatus. He has generalized abdominal pain. He doesn't think he has had a fever, but feels as though he has been trying to get one. He seems a bit anxious and states he is not getting better and is getting worse. The urine in his nielsen bag is yellow. He denies any peripheral edema. He states he has some phlegm from the ETT tube. documented in this encounter Plan of Treatment Upcoming Encounters Date Type Specialty Care Team Description 07/30/2022 Office Visit Radiation Oncology Alecia Lion APRN [facility] RADI[facility] [place], [place] [address] (Wo rk) documented as of this encounter Procedures Procedure Name Priority Date/Time Associated Comments Diagnosis BMP W/FASTING GLUCOSE STAT 06/06/2012 6:46 AM Results for this EDT procedure are i n the results section. DIFFERENTIAL, Routine 06/06/2012 2:47 AM Results for this AUTOMATED EDT procedure are i n the results section. CBC (WITH DIFF) Routine 06/06/2012 2:47 AM Result s for this EDT procedure are i n the results section. XR ABDOMEN ACUTE STAT 06/05/2012 4:04 PM Resul ts for this SERIES W PA CHEST EDT procedure are in the results section. URINALYSIS WITH STAT 06/05/2012 3:45 PM Result s for this REFLEX CULTURE EDT procedure are in the results section. SCAN, PERIPHERAL STAT 06/05/2012 3:35 PM Resul ts for this BLOOD EDT procedure are i n the results section. DIFFERENTIAL, STAT 06/05/2012 3:35 PM Results for this AUTOMATED EDT procedure are i n the results section. CREATININE STAT 06/05/2012 3:35 PM Results f or this EDT procedure are i n the results section. CBC (WITH DIFF) STAT 06/05/2012 3:35 PM Result s for this EDT procedure are i n the results section. GLUCOSE, RANDOM STAT 06/05/2012 3:35 PM Result s for this EDT procedure are i n the results section. HEPATIC FUNCTION STAT 06/05/2012 3:35 PM Resul ts for this PANEL EDT procedure are i n the results section. ELECTROLYTES PANEL STAT 06/05/2012 3:35 PM Res ults for this EDT procedure are i n the results section. POCT URINE DIPSTICK STAT 06/05/2012 Results for this procedure are i n the results section. documented in this encounter Results (ABNORMAL) BMP w/fasting Glucose (06/06/2012 6:46 AM EDT) athologist Signature Glucose 110 (H) 65 - 99 CERNER Fasting mg/dL MILLENNIUM Comment: ?Fasting* Glucose Interpretive C riteria Normal ?65-99 mg/dL Impaired Fasting glucose ?100-125 mg/dL Consistent with Diabetes Mellitus ? >or= 126 mg/dL *Fasting is defined as no caloric intake for at least 8 hours In the absence of unequivocal hypergly cemia a plasma glucose value of >or= 126 mg/dL should be repeated on a subseq uent day. Diagnosis and Classification of Diabetes Mellitus, Position Statement from the [place] [employer]. ??Diabete s Care, Volume 33, Supplement 1, Nov 2009 BUN 16 10 - 20 mg/dL CERNER MILLENNIU M Creatinine 1.20 0.80 - 1.50 mg/dL CERNER MILL ENNIUM Comment: Please note that the pediatric reference intervals supplied above were not validated at [facility]. Results from pediatri [...] if there are any qu estions. Chloride 107 98 - 107 mmol/L CERNER MILLENN IUM CO2 22 22 - 31 mmol/L CERNER MILLENNI UM Anion Gap 11 5 - 15 mmol/L CERNER MILLENNIU M Calcium 8.5 8.5 - 10.5 mg/dL CERNER SOFIA NIUM Estimated GFR >60 >=60 CERNER MILLENNIU M Comment: The National Kidney Disease Education Pr ogram (NKDEP) has recommended all laboratories report estimated GFR (eGFR) along with plasma creatinine measurements to assist you with recognit ion of early kidney disease. Caveats: ??Plasma creatinine should be a t steady-state (unchanged within the past week). For patient s multiply eGFR by 1.2. The MDRD equation was developed using patients be tween the ages of 18 and 70 years. ?? The MDRD equation has not been validated for patients < 18 years of age and should not be used to assess renal function in the pediatric population. ??The MDRD eGFR equation will also overestimate the true GFR of patients above the age of 70. ??This overestimation is variable bu t increases with age. At present, NKDEP does NOT recommend usi ng the MDRD equation for drug dosing purposes and pharmacists should continue to use their current dosing methods. In addition, numerical eGFR values great er than 60 ml/min/1.73 square meters should be treated as > 60, and not an ex act number due to greater inaccuracies at these higher values. Per NKDEP, they classify normal renal function as any GFR >60ml/min/1.73 square meters; chronic kidney disease wh en GFR <60, and renal failure when GFR <15. ??This calculation may not be valid for patients with atypical muscle mass (very lean or obese), acute renal failur e, and in patients with diabetic kidney disease. References: http://nkdep.nih.gov/resources/NKDEP_Sug gestn4Labs_0606_508.pdf http://www.kidney.org/professionals/kls/ pdf/faq_gfr.pdf Abdiaziz K, Yuri NA, Alicia AK, Ananth TS, Alison AD, Jessa LOUIE. Relative performance of the MDRD and CKD-EPI equa tions for estimating glomerular filtration rate among patients with vari ed clinical presentations. Clin J Am Soc Nephrol;6:1963-72. Specimen Anatomical Collection Method Collection Time Receive d Time (Source) Location / / Volume Laterality Blood specimen 06/06/2012 6:46 AM 012 6:55 (specimen) EDT AM EDT Resulting Agency Comment Spec In Lab Pascual May Jr., MD CHEMISTRY ORDERABLES Performing Organization Address City/State/ZIP Code Phon e Number [place] [phone] CERNER MILLENNIUM (ABNORMAL) DIFFERENTIAL, AUTOMATED (06/06/2012 2:47 AM EDT) [facility] Method Time Signature Neutrophils % 76.3 (H) 34.0 - CERNER 71.0 % MILLENNIUM Neutr Abs (ANC) 9.41 (H) 1.50 - CERNER 6.30 MILLENNIUM x10(3)/mc L Lymphocytes % 10.1 (L) 19.0 - CERNER 53.0 % MILLENNIUM Lymphocytes Abs 1.2 1.0 - 3.6 CERNER x10(3)/mc MILLENNIUM L Monocytes % 12.7 4.0 - CERNER 13.0 % MILLENNIUM Monocyte Abs 1.6 (H) 0.2 - 1.0 CERNER x10(3)/mc MILLENNIUM L Eosinophils % 0.7 0.0 - 7.0 CERNER % MILLENNIUM Eosinophils Abs 0.1 0.0 - 0.5 CERNER x10(3)/mc MILLENNIUM L [...] Location / / Volume Laterality Blood specimen 06/06/2012 2:47 AM 012 2:56 (specimen) EDT AM EDT Pascual May Jr., MD HEMATOLOGY ORDERABLES Performing Organization Address City/[facility]/ZIP Code Phon e Number [place] [id number] CERNER MILLENNIUM (ABNORMAL) CBC (with Diff) (06/06/2012 2:47 AM EDT) P athologist Signature WBC 12.3 (H) 4.0 - 10.0 CERNER x10(3)/mcL MILLENNIUM RBC 4.95 4.63 - CERNER 6.08 MILLENNIUM x10(6)/mcL Hemoglobin 14.6 13.7 - CERNER 17.5 gm/dL MILLENNIUM Hematocrit 43.4 40.0 - CERNER 51.0 % MILLENNIUM MCV 87.7 79.0 - CERNER 92.0 fL MILLENNIUM MCH 29.5 25.6 - CERNER 32.2 pg MILLENNIUM MCHC 33.6 32.0 - CERNER 36.5 gm/dL MILLENNIUM Platelets 184 145 - 370 CERNER x10(3)/mcL MILLENNIUM RDWSD 47.0 (H) 35.0 - CERNER 46.0 fL MILLENNIUM RDWCV 14.8 (H) 10.9 - CERNER 14.4 % MILLENNIUM MPV 11.6 9.0 - 12.0 CERNER fL MILLENNIUM Specimen Anatomical Collection Method Collection Time Receive d Time (Source) Location / / Volume Laterality Blood specimen 06/06/2012 2:47 AM 012 2:56 (specimen) EDT AM EDT Resulting Agency Comment Spec In Lab Pascual May Jr., MD HEMATOLOGY ORDERABLES Performing Organization Address City/State/ZIP [place] [address] VIKTOR GlarityENNIUM XR ABDOMEN ACUTE SERIES WITH PA CHEST (06/05/2012 4:04 PM EDT) Anatomical Region Laterality Modality Abdomen, Chest N/A Radiographic Imaging Specimen (Source) Anatomical Collection Method Collection Time Re ceived Time Location / / Volume Laterality 06/05/2012 4:04 PM EDT Narrative 06/09/2012 4:24 PM EDT Examination ABD SERIES WITH PA UPRIGHT CHEST, 2011 Clinical History Abdominal distention no BM for 3days. Comparison None. Technique PA upright views of the chest; AP supine AP and upright views of the abdomen. Findings The lung volumes are low with bibasilar subsegmental scarring versus atelectasis and/or vascular crowding. No pneumothorax. ??Unremarkable cardiomediastinal silhouette and pulmona ry vasculature. There is a small amount of free subdiaphragmatic air seen above the liver. ??In the abdomen, there are multiple mildly dilated air-filled loops of small bowel, as well as mildly dilated air and stool-filled colon to th e level of the proximal descending colon. The osseous structures are notabl e for degenerative changes of the spine and hips. Diffuse subcutaneous air noted throughout the abdomen and in both groins. Impression ? 1. Small amount of free intraperi toneal air. ??Upon discussion with the ordering clinician, it was revealed that the patient is 5 days status post laparoscopic prostatectomy. ??The free a ir is likely an expected postoperative finding. Additionally, likely postproced ural subcutaneous air. ? 2. Dilated small and large bowel are most suggestive of a postoperative ileus. ??However, cannot rule out a dist al obstruction. ? 3. Incomplete lung inflation with mild bibasilar subsegmental atelectasis/scarring and/or vascular microwave oven assembler wding. Film and interpretation reviewed by the attending Procedure Note Maritza Mustafa MD - 06/09/2012Formatt ing of this note might be different from the original. Examination ABD SERIES WITH PA UPRIGHT CHEST, 2011 Clinical History Abdominal distention no BM for 3days. Comparison None. Technique PA upright views of the chest; AP supine AP and upright views of the abdomen. Findings The lung volumes are low with bibasilar subsegmental scarring versus atelectasis and/or vascular crowding. No pneumothorax. Unremarkable cardiomediastinal silhouette and pulmona ry vasculature. There is a small amount of free subdiaphragmatic air seen above the liver. In the abdomen, there are multiple mildly dilated air-filled loops of small bowel, as well as mildly dilated air and stool-filled colon to th e level of the proximal descending colon. The osseous structures are notabl e for degenerative changes of the spine and hips. Diffuse subcutaneous air noted throughout the abdomen and in both groins. Impression 1. Small amount of free intraperitoneal air. Upon discussion with the ordering clinician, it was revealed that the patient is 5 days status post laparoscopic prostatectomy. The free air is likely an expected postoperative finding. Additionally, likely postproced ural subcutaneous air. 2. Dilated small and large bowel are mo st suggestive of a postoperative ileus. However, cannot rule out a distal obstruction. 3. Incomplete lung inflation with mild bibasilar subsegmental atelectasis/scarring and/or vascular microwave oven assembler wding. Film and interpretation reviewed by the attending Cora Thornton MD IMG DX ORDERABLES (ABNORMAL) Urinalysis with microscopic (06/05/2012 3:45 PM EDT) [facility] Method Time Signature Glucose UA Negative Negative CERNER mg/dL MILLENNIUM Protein UA 30 (A) Neg mg/dL CERNER MILLENNIUM Bilirubin UA Negative Negative CERNER mg/dL MILLENNIUM Urobilinogen UA Normal mg/dL CERNER MILLENNIUM pH UA 7.5 5.0 - 8.0 CERNER MILLENNIUM Blood UA Large (A) Neg CERNER MILLENNIUM Ketones UA Negative mg/dL CERNER MILLENNIUM Nitrite UA Negative CERNER MILLENNIUM Leukocytes UA Large (A) Neg CERNER MILLENNIUM Appearance UA Clear Clear CERNER MILLENNIUM Spec [place] UA 1.010 1.002 - CERNER 1.030 MILLENNIUM Color UA Yellow Yellow CERNER MILLENNIUM RBC UA >182 (H) 0 - 3 /HPF CERNER MILLENNIUM WBC UA 39 (H) 0 - 3 /HPF CERNER MILLENNIUM Bacteria UA Rare (A) None /HPF CERNER MILLENNIUM Specimen Anatomical Collection Method Collection Time Receive d Time (Source) Location / / Volume Laterality Urine specimen 06/05/2012 3:45 PM 012 3:56 (specimen) EDT PM EDT Resulting Agency Comment Spec In Lab Cora Thornton MD URINE ORDERABLES Performing Organization Address City/[facility]/ZIP Code Phon e Number [address] CERNER MILLENNIUM SCAN, PERIPHERAL BLOOD (06/05/2012 3:35 PM EDT) athologist Signature Plat Estimate Normal CERNER MILLENNIUM RBC Morphology Normal CERNER MILLENNIUM Specimen Anatomical Collection Method Collection Time Receive d Time (Source) Location / / Volume Laterality Blood specimen 06/05/2012 3:35 PM 012 3:41 (specimen) EDT PM EDT Resulting Agency Comment Spec In Lab Cora Thornton MD HEMATOLOGY ORDERABLES Performing Organization Address City/[facility]/ZIP Code Phon e Number [address] CERNER MILLENNIUM (ABNORMAL) DIFFERENTIAL, AUTOMATED (06/05/2012 3:35 PM EDT) Patholo gist Method Time Signature Neutrophils % 83.7 (H) 34.0 - CERNER 71.0 % MILLENNIUM Neutr Abs (ANC) 13.04 (H) 1.50 - CERNER 6.30 MILLENNIUM x10(3)/mc L Lymphocytes % 10.3 (L) 19.0 - CERNER 53.0 % MILLENNIUM Lymphocytes Abs 1.6 1.0 - 3.6 CERNER x10(3)/mc MILLENNIUM L Monocytes % 5.4 4.0 - CERNER 13.0 % MILLENNIUM Monocyte Abs 0.8 0.2 - 1.0 CERNER x10(3)/mc MILLENNIUM L Eosinophils % 0.2 0.0 - 7.0 CERNER % MILLENNIUM Eosinophils Abs 0.0 0.0 - 0.5 CERNER x10(3)/mc MILLENNIUM L Basophils % 0.1 0.0 - 2.0 CERNER % MILLENNIUM Basophils Abs 0.0 0.0 - 0.2 CERNER x10(3)/mc MILLENNIUM L Immature Gran % 0.30 0.00 - CERNER 0.66 % MILLENNIUM Comment: Immature granulocytes(IG's)percentage an d absolute count will include metamyelocytes, myelocytes, and promyelo cytes. Blood smears from CBCs yielding IG's will be scanned manually for concor dance. If this scan disagrees with the automated IG or if promyelocytes are not ed, a manual differential will be performed. Mitzi Gran Abs 0.04 0.00 - 0.05 x10(3)/mcL CER NER MILLENNIUM Specimen Anatomical Collection Method Collection Time Receive d Time (Source) Location / / Volume Laterality Blood specimen 06/05/2012 3:35 PM 012 3:41 (specimen) EDT PM EDT Cora Thornton MD HEMATOLOGY ORDERABLES Performing Organization Address [facility] [place] [address] CERNER MILLENNIUM (ABNORMAL) Hepatic Function Panel (06/05/2012 3:35 PM EDT) athologist Signature Total Protein 6.8 6.4 - 8.3 CERNER gm/dL MILLENNIUM Albumin 3.8 3.2 - 5.2 CERNER gm/dL MILLENNIUM AST 25 0 - 39 CERNER unit/L MILLENNIUM ALT 21 0 - 55 CERNER unit/L MILLENNIUM Alk Phos 65 40 - 120 CERNER unit/L MILLENNIUM Total 1.5 (H) 0.2 - 1.3 CERNER Bilirubin mg/dL MILLENNIUM Bili, Direct 0.4 (H) 0.0 - 0.3 CERNER mg/dL MILLENNIUM Specimen Anatomical Collection Method Collection Time Receive d Time (Source) Location / / Volume Laterality Blood specimen 06/05/2012 3:35 PM 012 3:41 (specimen) EDT PM EDT Resulting Agency Comment Spec In Lab Cora Thornton MD CHEMISTRY ORDERABLES Performing Organization Address [facility] [place] [address] CERNER MILLENNIUM Glucose, random (06/05/2012 3:35 PM EDT) athologist Signature Glucose Lvl 120 60 - 199 CERNER mg/dL MILLENNIUM Comment: Diabetes: >=200 mg/dL plus symp toms Specimen Anatomical Collection Method Collection Time Receive d Time (Source) Location / / Volume Laterality Blood specimen 06/05/2012 3:35 PM 012 3:41 (specimen) EDT PM EDT Resulting Agency Comment Spec In Lab Cora Thornton MD CHEMISTRY ORDERABLES Performing Organization Address City/State/ZIP [place] [address] CERNER MILLENNIUM Creatinine, serum (06/05/2012 3:35 PM EDT) athologist Signature Creatinine 1.04 0.80 - 1.50 CERNER mg/dL MILLENNIUM Comment: Please note that the pediatric reference intervals supplied above were not validated at [facility]. Results from pediatri c patients should be interpreted in conjunction to the patient's age, height and muscle mass. Estimated GFR >60 >=60 VIKTOR Lewis Comment: The National Kidney Disease Education Pr ogram (NKDEP) has recommended all laboratories report estimated GFR (eGFR) along with plasma creatinine measurements to assist you with recognit ion of early kidney disease. Caveats: ??Plasma creatinine should be a t steady-state (unchanged within the past week). For patient s multiply eGFR by 1.2. The MDRD equation was developed using patients be tween the ages of 18 and 70 years. ?? The MDRD equation has not been validated for patients < 18 years of age and should not be used to assess renal function in the pediatric population. ??The MDRD eGFR equation will also overestimate the true GFR of patients above the age of 70. ??This overestimation is variable bu t increases with age. At present, NKDEP does NOT recommend i ng the MDRD equation for drug dosing purposes and pharmacists should continue to use their current dosing methods. In addition, numerical eGFR values great er than 60 ml/min/1.73 square meters should be treated as > 60, and not an ex act number due to greater inaccuracies at these higher values. Per NKDEP, they classify normal renal function as any GFR >60ml/min/1.73 square meters; chronic kidney disease wh en GFR <60, and renal failure when GFR <15. ??This calculation may not be valid for patients with atypical muscle mass (very lean or obese), acute renal failur e, and in patients with diabetic kidney disease. References: http://nkdep.nih.gov/resources/NKDEP_Sug gestn4Labs_0606_508.pdf http://www.kidney.org/professionals/kls/ pdf/faq_gfr.pdf Abdiaziz K, Yuri NA, Alicia AK, Ananth TS, Alison AD, Jessa LOUIE. Relative performance of the MDRD and CKD-EPI equa tions for estimating glomerular filtration rate among patients with vari ed clinical presentations. Clin J Am Soc Nephrol;6:1963-72. Specimen Anatomical Collection Method Collection Time Receive d Time (Source) Location / / Volume Laterality Blood specimen 06/05/2012 3:35 PM 012 3:41 (specimen) EDT PM EDT Resulting Agency Comment Spec In Lab Cora Thornton MD CHEMISTRY ORDERABLES Performing Organization Address City/[facility]/[place] [address] CERNER MILLENNIUM Electrolytes panel (06/05/2012 3:35 PM EDT) athologist Signature Sodium 137 135 - 145 CERNER mmol/L MILLENNIUM Potassium 3.8 3.5 - 5.0 CERNER mmol/L MILLENNIUM Comment: Please note: ??Patients with WBC >100,00 0 may have falsely elevated Potassium levels. ??For accurate Potassium quantif ication in these patients send serum separator tube (gold top) for subsequent determinations. ??Contact the Clinical Chemistry Laboratory if there are any qu estions. Chloride 103 98 - 107 mmol/L CERNER MILLENN IUM CO2 22 22 - 31 mmol/L CERNER MILLENNI UM Anion Gap 12 5 - 15 mmol/L CERNER MILLENNIU M Specimen Anatomical Collection Method Collection Time Receive d Time (Source) Location / / Volume Laterality Blood specimen 06/05/2012 3:35 PM 012 3:41 (specimen) EDT PM EDT Resulting Agency Comment Spec In Lab Cora Thornton MD CHEMISTRY ORDERABLES Performing Organization Address City/[facility]/[place] [address] CERNER MILLENNIUM (ABNORMAL) CBC (with Diff) (06/05/2012 3:35 PM EDT) P athologist Signature WBC 15.6 (H) 4.0 - 10.0 CERNER x10(3)/mcL MILLENNIUM RBC 5.38 4.63 - CERNER 6.08 MILLENNIUM x10(6)/mcL Hemoglobin 16.1 13.7 - CERNER 17.5 gm/dL MILLENNIUM Hematocrit 46.8 40.0 - CERNER 51.0 % MILLENNIUM MCV 87.0 79.0 - CERNER 92.0 fL MILLENNIUM MCH 29.9 25.6 - CERNER 32.2 pg MILLENNIUM MCHC 34.4 32.0 - CERNER 36.5 gm/dL MILLENNIUM Platelets 202 145 - 370 CERNER x10(3)/mcL MILLENNIUM RDWSD 46.7 (H) 35.0 - CERNER 46.0 fL MILLENNIUM RDWCV 14.7 (H) 10.9 - CERNER 14.4 % MILLENNIUM MPV 11.4 9.0 - 12.0 CERNER fL MILLENNIUM Specimen Anatomical Collection Method Collection Time Receive d Time (Source) Location / / Volume Laterality Blood specimen 06/05/2012 3:35 PM 012 3:41 (specimen) EDT PM EDT Resulting Agency Comment Spec In Lab Cora Thornton MD HEMATOLOGY ORDERABLES Performing Organization Address City/[facility]/[place] [address] CERNER MILLENNIUM POCT urine dipstick (06/05/2012) Patholo gist Method Time Signature POC Sp [place] 1.010 1.002 - 1.030 POC pH, UA 8 5.0 - 8.5 POC Leuk, UA ++ Negative - Negative POC Nitrite, negative Negative - UA Negative POC Protein, 30 Negative - UA Negative mg/dL POC Glucose, normal Normal - UA Normal mg/dL POC Ketone, UA negative Negative - Negative POC Urobil, UA normal 0.2 - 1.0 mg/dL POC Bili, UA negative Negative - Negative POC Blood, UA large Negative - Negative keila/uL Specimen (Source) Anatomical Location Collection Method / Collectio n Time Received Time / Laterality Volume Urine specimen (specimen) Cora Thornton MD POINT OF CARE TEST ORDERABLE S documented in this encounter Visit Diagnoses Diagnosis Constipation Unspecified constipation documented in this encounter Administered Medications Inactive Administered Medications - up to 3 most recent administrations Medication Order MAR Action Action Date Dose Rate Site docusate sodium (COLACE) capsule Given 06/06/2012 9:00 AM EDT 10 0 mg 100 mg 100 mg, Oral, 2 TIMES DAILY, First dose on 06/05/12 at 2100, Until Discontinued, Routine Given 06/05/2012 9:00 PM EDT 100 mg enoxaparin (LOVENOX) injection 30 mg Given 06/05/2012 7:00 PM EDT 30 mg 30 mg, Subcutaneous, DAILY, First dose on 06/05/12 at 1900, Until Discontinued, Routine esomeprazole (NEXIUM) capsule 40 mg Given 06/06/2012 9:00 AM EDT 40 mg 40 mg, Oral, DAILY, First dose on 06/05/12 at 1900, Until Discontinued, If unable to take PO, may give IV, Routine esomeprazole (NEXIUM) injection 40 mg Given 06/05/2012 7:00 PM EDT 40 mg 40 mg, Intravenous, DAILY, First dose on 06/05/12 at 1900, Until Discontinued, Routine lactated ringers infusion New Bag 06/05/2012 11:49 PM EDT 150 mL/hr 150 mL/hr 150 mL/hr, Intravenous, CONTINUOUS, Starting on Wed06/05/12 at 1715, Until 06/06/12 at 1555 New Bag 06/05/2012 5:00 PM EDT 150 mL/hr 150 mL/hr Left Arm sodium chloride 0.9 % flush 5 mL Given 06/05/2012 6:30 PM EDT 5 mLs 5 mL, Intravenous, EVERY 12 HOURS, First dose on Wed06/05/12 at 1830, Until Discontinued sodium chloride 0.9% 1,000 mL IV bolus Given 06/05/2012 3:45 PM EDT 1 L Left Arm 1 L, Intravenous, ONCE, 1 dose, On Wed06/05/12 at 1630 documented in this encounter Active and Recently Administered Medications Times are shown in EDT. Scheduled Medication Order 06/04/2012 06/05/2012 06/06/2012 docusate sodium (COLACE) capsule 100 mg (CANCELED) 2100 (Given - Provider: Candelaria Khoury RN) 0900 (Given - Provider: Melinda moon, RN) 100 mg, Oral, 2 TIMES DAILY, First dose on 06/05/12 at 2100, Until Discontinued, Routine enoxaparin (LOVENOX) injection 30 mg (CANCELED) 1900 (Given - Provider: Candelaria Khoury RN) 30 mg, Subcutaneous, DAILY, First dose o n 06/05/12 at 1900, Until Discontinued, Routine esomeprazole (NEXIUM) capsule 40 mg (CANCELED) 1900 (See Alternative - Provider: Candelaria Khoury RN) 0900 (Given - Provider: Melinda moon, RN) 40 mg, Oral, DAILY, First dose on Sun 05/11 at 1900, Until Discontinued, If unable to take PO, may give IV, Routine esomeprazole (NEXIUM) injection 40 mg (CANCELED) 1900 (Given - Provider: Candelaria Khoury RN) 0900 (See Alternative - Provider: Michael Kulkarni RN) 40 mg, Intravenous, DAILY, First dose on 06/05/12 at 1900, Until Discontinued, Routine sodium chloride 0.9 % flush 5 mL (CANCELED) 1830 (Given - Provider: Candelaria Khoury RN) 0751 (Not Given - Provider: Melinda ovalle RN - Reason: See comment - Comment: no IV present; pt being d/c home) 5 mL, Intravenous, EVERY 12 HOURS, First dose on 06/05/12 at 1830, Until Discontinued, Routine sodium chloride 0.9% 1,000 mL IV bolus (COMPLETED) 1545 (Given - Provider: Ganesh Dhillon RN) 1 L, Intravenous, ONCE, 1 dose, 06/05/12 at 1630 Continuous Medication Order 06/04/2012 06/05/2012 06/06/2012 lactated ringers infusion (CANCELED) 170 0 (New Bag - Provider: Ganesh Dhillon RN)2349 (New Bag - Provider: Candelaria Khoury, RN) 9071 (Stopped - Provider: Candelaria Khoury, RN - Comment: per ) 150 mL/hr, at 150 mL/hr, Intravenous, CO NTINUOUS, Starting 06/05/12 at 1715, Until 06/06/12 at 1555 documented in this encounter Care Teams Dust Collector Treater Relationship Specialty Start Date End Date Ho Parham MD PCP - General 10/14/[address] [place] [phone] documented as of this encounter
--- OUTSIDE RECORDS SUMMARY | 2022-07-24 15:20 | XMS_ITS | Encounter Summary ---
:1945 [place] [address] Care Team Providers Name Role Phone Santos Guallpa MD Primary Care Provider Encounter Details Date Type Department Care Team Description 06/23/2012 Anesthesia Event Main Operating Room José Miguel Murry MD [facility] [place] [address] [facility] Santos [facility] [place] [address] [place] [phone] Anesthesia Record Procedure Summary Procedure Name Responsible Anesthesia Start Anesthesia Stop Time Anesthesiologist Time MODIFIER José Miguel Horton MD 06/23/12 0725 06/23/12 111 8 MESH,ATRIUM,PROLITE (DELETED) (Left Abdomen) Events Date Time Event Comment 06/23/2012 0714 0725 Start 1118 Stop No medications on file. Agents No agents on file. Blood No blood administrations on file. Lines, Drains, and Airways Type Details Placement Removal Urethral Catheter 06/03/12; 0915; 06/03/12 0915 by indwelling double lumen Bijan Nicole, JESSICA catheter; latex; 16; inserted (Inserted by Ksenia Farrell RN.); 1; drainage bag to dependent drainage Incision 06/03/12; 0918; abdomen 06/03/12 0918 by 2 1715 by (Trocar sites x6.); Bijan Nicole, Paul Mcknight 07/06/22 (LDA cleanup utility RA#[id number]); 1715 (LDA cleanup utility RA#[id number]) PIV 06/23/12; 0632; 06/23/12 0632 by 06/23/12 1512 b y 06/23/12; 1512 Jess Tapia RN Gage, Myles Lewis RN Incision abdomen; 07/06/22 (LDA 06/23/12 0813 by 07/06/22 1715 by cleanup utility Liz Burrcecilia Almaguer RA#[id number]); 1715 (LDA cleanup utility RA#[id number]) documented in this encounter Social History Tobacco Use Types Packs/Day Years Used Date Never Smoker Smokeless Tobacco: Never Used Alcohol Use Standard Drinks/Week Comments No 0 (1 standard drink = 0.6 oz pure alcoho l) Sex Assigned at Date Recorded Not on file documented as of this encounter OR Notes Anesthesia Postprocedure Evaluation - José Miguel Horton MD - 06/23/2012 11:07 PM EDT Patient: Dalton Pereira Procedure(s) Performed: Procedure(s): MODIFIER MESH,ATRIUM,PROLITE HERNIA REPAIR, INITIAL INGUINAL AGE 5 OR OVER, REDUCIBLE INCARCERATED Patient location: PACU Post-op pain: Adequate analgesia Post-op nausea: no nausea or vomiting Last Vitals: Filed Vitals: 06/23/12 1410 BP: 154/82 Pulse: 80 Temp: Resp: 12 Post-op cardiovascular and respiratory status: is stable Level of consciousness: awake Complications: no apparent complications Fluid Status: normal Anesthesia Preprocedure Evaluation - José Miguel Horton MD - 06/23/2012 7:11 AM EDT Anesthesia Evaluation Patient summary reviewed and Nursing notes reviewed No hx of anesthetic complications Airway Mallampati: III TM distance: >3 FB Neck ROM: full Dental (+) upper dentures and lower dentures Pulmonary breath sounds clear to auscultation (-) COPD, asthma and shortness of breath Cardiovascular - normal exam (-) hypertension, past OR, dysrhythmias, angina and murmur Rhythm: regular Rate: normal Neuro/Psych (-) seizures and CVA GI/Hepatic/Renal (+) chronic renal disease (Obstructive nephropathy, creatinine as high as 2.5 with recent epididymitis, now improved to 1.34), (-) GERD and liver disease Endo/Other (+) hypothyroidism, (-) Type II DM Abdominal Abdomen: soft. Patient Active Problem List Diagnoses Code ??? Urinary retention 788.20B ??? Elevated PSA 790.93A ??? Follow-up exam V67.9C Past Surgical History Procedure Date ??? Lap, prostatectomy, radical, w/nerve spare 06/03/2012 @LAPAROSCOPIC PROSTATECTOMY, ROBOTICS ASSISTED performed by TERESA CAREY at [facility] MA[facility] OR ??? Remove pelvis lymph nodes 06/03/2012 @LYMPHADENECTOMY, PELVIC, INCLUDING MULTIPLE NODES-JAZMINE performed by TERESA CAREY at [facility] MA[facility] OR Past Medical History Diagnosis Date ??? Follow-up exam 06/22/2012 Allergies Allergen Reactions ??? Gentamicin Hives Current facility-administered medications ordered prior to encounter Medication Dose Route Frequency Provider Last Rate Last Dose ??? sodium chloride 0.9 % flush 5 mL 5 mL Intravenous Q12H José Miguel Horton MD ??? ceFAZolin (ANCEF) 1g in dextrose 5% 50mL 1 g Intravenous Q8H Ronda Dhaliwal MD Current outpatient prescriptions ordered prior to encounter Medication Sig Dispense Refill ??? acetaminophen (TYLENOL) 500 mg tablet Take 2 tablets by mouth every 8 hours. 90 tablet 0 History Social History ??? Marital Status: Spouse Name: N/A Number of Children: N/A ??? Years of Education: N/A Occupational History ??? Not on file. Social History Main Topics ??? Smoking status: Never Smoker ??? Smokeless tobacco: Never Used ??? Alcohol Use: No ??? Drug Use: No ??? Sexually Active: Other Topics Concern ??? Not on file Social History Narrative ??? No narrative on file Anesthesia Plan ASA 2 General with intravenous induction ETT vs. LMA for general anesthesia. Anesthetic plan and risks discussed with patient. Plan discussed with ROCK WOOL APPLICATOR. documented in this encounter Miscellaneous Notes Addendum Note - Sybil Metzger - 07/05/2012 2:55 PM EDT Addendum Note - Sybil Metzger - 07/05/2012 2:44 PM EDT Addendum created 07/05/12 1444 by Sybil Metzger Modules edited:Anesthesia Events, Anesthesia Responsible Staff Addendum Note - Trinidad Quintero - 06/24/2012 11:22 AM EDT Addendum created 06/24/12 1122 by Trinidad Quintero Modules edited:Anesthesia Events, Anesthesia Responsible Staff documented in this encounter Plan of Treatment Upcoming Encounters Date Type Specialty Care Team Description 07/30/2022 Office Visit Radiation Oncology Alecia Lion, [facility]AN [facility] RADIATION [place], [place] [address] (Wo rk) documented as of this encounter Visit Diagnoses Not on filedocumented in this encounter Care Teams Machine Sole Leveler Relationship Specialty Start Date End Date Santos Guallpa MD PCP - General 10/14/[address] [place] [phone] documented as of this encounter
--- OUTSIDE RECORDS SUMMARY | 2022-07-24 15:20 | XMS_ITS | Encounter Summary ---
:1945 [place] [address] Care Team Providers Name Role Phone Santos Guallpa MD Primary Care Provider Encounter Details Date Type Department Care Team Description 06/03/2012 - Hospital Encounter 2 [facility] Juan Manuel Way MD 06/04/2012 [facility] Tammi UROLOGY [place] [phone] Social History Tobacco Use Types Packs/Day Years Used Date Never Smoker Smokeless Tobacco: Never Used Alcohol Use Standard Drinks/Week Comments No 0 (1 standard drink = 0.6 oz pure alcoho l) Sex Assigned at Date Recorded Not on file documented as of this encounter Last Filed Vital Signs Vital Sign Reading Time Taken Comments Blood Pressure 139/65 06/04/2012 1:11 PM EDT Pulse 58 06/04/2012 1:11 PM EDT Temperature 36.8 ??C (98.2 ??F) 06/04/2012 1:11 PM EDT Respiratory Rate 18 06/04/2012 1:11 PM EDT Oxygen Saturation 94% 06/04/2012 1:11 PM EDT Inhaled Oxygen Concentration - - Weight 74.8 kg (165 lb) 06/03/2012 7:26 AM EDT Height 168.9 cm (5' 6.5) 06/03/2012 7:26 AM EDT Body Mass Index 26.23 06/03/2012 7:26 AM EDT documented in this encounter Discharge Instructions Patient InstructionsIndio Shrestha MD - 06/04/2012 1:02 PM EDT Pain Control: As indicated above Bowel regimen: Take colace twice daily to keep bowel movements soft. If you experience diarrhea, stop taking the colace. Call your doctor for: fevers greater than 100.5 severe nausea or vomiting increasing pain not controlled by pain medications increasing redness or drainage from incisions decreased urine output our if your catheter is no longer draining. The number for questions is [phone] before 5 PM weekdays and [phone] after 5 PM and weekends. Activity level: No heavy lifting greater than 10 pounds (about equal to a full gallon jug) for the next 4 weeks or until cleared to do so at follow-up appointment. Otherwise activity as tolerated by comfort level. Nielsen Catheter Care: Keep the catheter in place, to gravity. May attach leg bag to Right leg as tolerated. Diet: You may resume your regular diet as tolerated. Driving: No driving while still taking opioid pain medications (wait at least 6- 8 hours since last dose). No driving with your catheter in place as it may limit your ability to react quickly if necessary. Shower/Bath: You may shower and get incision(s) wet. Pat dry immediately following. Do not scrub them vigorously for the next 2-3 weeks. Do not soak incision(s) (i.e. soaking in bath or swimming) untiltold you may do so by a doctor, as this may promote a wound infection. Wound Care: You may cover wounds with sterile gauze as needed to prevent incision rubbing on clothesor for any seepage. Follow up Appointments: Follow-up appointment will be scheduled with Dr. Carey in 2 week for a voiding trial and wound check. Appointment will be mailed to you. You will have another appointment in 4-6 weeks for PSA check. Please call [phone] (clinic number for appointments) to confirm date and time of your appointment if you do not receive your apointment in 2-3 days. documented in this encounter Medications at Time of Discharge Medication Sig Dispensed Refills Start Date End Date docusate sodium (COLACE) Take 1 capsule by 60 capsule 0 05/0906/14/2012 100 mg capsule mouth 2 times daily for 10 days. acetaminophen (TYLENOL) Take 2 tablets by 90 tablet 0 06/0407/14/2012 500 mg tablet mouth every 8 hours. documented as of this encounter Progress Notes Radha Bonilla RN - 06/04/2012 2:06 PM EDT Pt eager for discharge, stating he is familiar with catheter care. Declines leg bag supplies, planning to use regular drainage bag. IV's removed, sites benign. Tolerating a regular diet without N/V. AVS reviewed completely with pt and , and all questions were answered. They verbalized an understanding of when to notify an MD for questions/ concerns, and how to monitor for signs/symptoms of infection, urinary obstruction or low urine output. Pt's is picking up the Rx from the [facility] pharmacy and they plan to leave shortly. Analgesic offered prior to departing but pt declines, and has no further questions. Kate Joe RN - 06/03/2012 6:17 PM EDT Admission: Patient arrived to floor via bed, family at bedside. Patient oriented to room, call bernal, IS. Patient denies chest pain, shortness of breath or chest pain. Pt has chattering teeth, denies chills current temp 36.4. See full assessment as noted on flow sheet. Candelaria Godinez RN - 06/03/2012 5:49 PM EDT 1745 report to Kate putnam. Pt sleeping, easily arousable. States pain tolerable. Candelaria Godinez RN - 06/03/2012 5:11 PM EDT Extra warm blankets applied to pt for low temp, pt immediately became diaphoretic and nauseated and wanted blankets off. documented in this encounter H&P Notes Juan Manuel Carey MD - 06/03/2012 8:14 AM EDT No change in history or examination since I last saw him. I added lymphadenectomy to the consent. He initalled this. He is ready to proceed with Radical prostatectomy and bilateral lymphadenectomy All questions answered. Juan Manuel Carey documented in this encounter Miscellaneous Notes Miscellaneous - Provider, Scanning - 06/05/2012 11:28 AM EDT Discharge Summary - Indio Shrestha MD - 06/04/2012 1:02 PM EDT Inpatient - Discharge Summary Patient Name: Molina Pereira Patient Age: 66 y.o. Birthdate: 1945 Admit date: 06/03/2012 Discharge date and time: 06/04/2012 Attending Physician: Juan Manuel Carey MD Discharge Diagnoses (Hospital Problems) and Secondary Diagnoses (Chronic Problems): There are no hospital problems to display for this patient. Active Non-Hospital Problems Diagnoses ??? Urinary retention ??? Elevated PSA Operations/Major Procedures: Operations: @LAPAROSCOPIC PROSTATECTOMY, ROBOTICS ASSISTED - DORSAL LITHOTOMY (YELLOW FINS), ROBOT, ALL FILMS, OLD MEDICAL RECORD; @LYMPHADENECTOMY, PELVIC, INCLUDING MULTIPLE NODES-JAZMINE Other Major Procedures: none History of Presentation: Patient has been diagnosed with prostate cancer and after discussing pros and cons of multiple management approaches patient decided to undergo RALP Hospital Course: Patient tolerated procedure and was taken to the regular floor on the same day. He was able to pass gas, tolerate a regular diet, urinate and ambulate. He has met criteria for discharge. There were no complications throughout. His drain put out only 40ml after he ambulated in the morning and this was removed. Patient will be discharged with nielsen catheter in place. Last value Range last 24 hrs Temperature Temp: 36.9 ??C (98.4 ??F) Temp: [36 ??C (96.8 ??F)-37.3 ??C (99.1 ??F)] Heart Rate Heart Rate: 60 Heart Rate: [60-88] Blood Pressure BP: 119/59 mmHg BP: (110-160)/(53-83) Respiratory Rate Resp: 18 Resp: [16-20] SpO2 SpO2: 93 % SpO2: [91 %-97 %] Art BP BP (Arterial Line): -- NAD, pleasant and cooperative AT, RICARDA, hydrated Supple, no JVD RRR CLTA bl abd is soft nt nd Incisions were closed and dry with no erythema Nielsen catheter in place with clear urine Drain site with serous output, covered with 4x4 dressing Moves all four Alert orientedx3 Neurologically intact Skin anicteric Important Studies and Lab Data: Labs: none Studies: none Pending Studies and Lab Data: The patient will need the following 14 tests completed on: 04/11/2012 1. Full code 8. Place sequential compression devices (SCDs) 2. Vital signs per unit protocol 9. Vital signs - notify MD 3. Record Output 10. Nielsen / urology care: URETHral catheter 4. Advance diet as tolerated to (RN Communication order) 11. Insert peripheral IV 5. Call doctor 12. Call doctor 6. If respiratory rate less than 6 OR the patient is unable to arouse OR SpO2 is declinin. Incentive spirometry 10 times per hour while awake. 7. Regular diet 14. Ambulating with assistance, Walk in [place] Authorizing Provider: Juan Manuel Carey MD Discharge Conditions/Prognosis: stable Discharge to: home Discharge Medications: Current Discharge Medication List New Meds Dose Details acetaminophen (TYLENOL) 500 mg tablet 1,000 mg Take 2 tablets by mouth every 8 hours. Qty: 90 tablet Refills: 0 docusate sodium (COLACE) 100 mg capsule 100 mg Take 1 capsule by mouth 2 times daily for 10 days. Qty: 60 capsule Refills: 0 OXYcodone (ROXICODONE) 5 mg immediate release tablet 5-10 mg Take 1-2 tablets by mouth every 4 hours as needed for Pain (SEVERE PAIN). Qty: 30 tablet Refills: 0 Updated Allergies/ADRs: Allergies Allergen Reactions ??? Gentamicin Hives Follow-up Recommendations for Providers: In [address] Avina for post-op check and voiding trial with nurses Instructions Given to Patient at Discharge: Provider Instructions Pain Control: As indicated above Bowel regimen: Take colace twice daily to keep bowel movements soft. If you experience diarrhea, stop taking the colace. Call your doctor for: fevers greater than 100.5 severe nausea or vomiting increasing pain not controlled by pain medications increasing redness or drainage from incisions decreased urine output our if your catheter is no longer draining. The number for questions is [phone] before 5 PM weekdays and [phone] after 5 PM and weekends. Activity level: No heavy lifting greater than 10 pounds (about equal to a full gallon jug) for the next 4 weeks or until cleared to do so at follow-up appointment. Otherwise activity as tolerated by comfort level. Nielsen Catheter Care: Keep the catheter in place, to gravity. May attach leg bag to Right leg as tolerated. Diet: You may resume your regular diet as tolerated. Driving: No driving while still taking opioid pain medications (wait at least 6- 8 hours since last dose). No driving with your catheter in place as it may limit your ability to react quickly if necessary. Shower/Bath: You may shower and get incision(s) wet. Pat dry immediately following. Do not scrub them vigorously for the next 2-3 weeks. Do not soak incision(s) (i.e. soaking in bath or swimming) untiltold you may do so by a doctor, as this may promote a wound infection. Wound Care: You may cover wounds with sterile gauze as needed to prevent incision rubbing on clothesor for any seepage. Follow up Appointments: Follow-up appointment will be scheduled with Dr. Carey in 2 week for a voiding trial and wound check. Appointment will be mailed to you. You will have another appointment in 4-6 weeks for PSA check. Please call [phone] (clinic number for appointments) to confirm date and time of your appointment if you do not receive your apointment in 2-3 days. General Instructions Provider Contact Information: [phone] Discharge References/Attachments: Discharge References/Attachments None Signed: INDIO SHAIKH MD 06/04/2012 Plan of Care - Noemi Peters RN - 06/04/2012 12:39 PM EDT Problem: Trauma/Injury Risk (Adult, Obstetric) Goal: Trauma/Injury Risk: Absence of Trauma/Injury/Falls Outcome: Present (see interventions, notes) Molina Pereira is at risk to fall. He needs occasional assistance with getting OOB or chair. Ambulates independently with IV pole & at side for several walks. Call bernal remains within reachhe does utilize call bernal appropriately. Encouraged to ring with any questions or concerns. See additional interventions in doc flow sheets. Problem: Pain, Acute (Adult, Obstetric) Goal: Acute Pain: Acceptable Pain Control/Comfort Level - Pain, Acute (Adult, Obstetric) Outcome: Present (see interventions, notes) Molina Pereira rates His pain a mild, moderate at times with activity and describes pain as aching and dull and is intermittent and is associated with activities. Pain is controlled with oral analgesia, tylenol changed to scheduled this morning & oxycodone used PRN. Pt educated on need for proper pain control to allow for recovery activities including repositioning, ambulation, coughing & deep breathing & how each of those contribute to recovery. Encouraged to call & let staff know if pain level or character changes. Pt verbalizes understanding & agreeable to current pain control plan. Plan of Care - Catie Marshall RN - 06/04/2012 2:21 AM EDT Problem: Trauma/Injury Risk (Adult, Obstetric) Goal: Trauma/Injury Risk: Absence of Trauma/Injury/Falls Outcome: Present (see interventions, notes) Free of injuries/falls. Ambulated in [place] x2 tonight with standby assist using IV pole. Tolerated well. Uses call bernal appropriately Problem: Pain, Acute (Adult, Obstetric) Goal: Acute Pain: Acceptable Pain Control/Comfort Level - Pain, Acute (Adult, Obstetric) Outcome: Present (see interventions, notes) Reports mild to moderate pain - felt relief from Percocet but now no longer wants to take it - afraid of Constipation and doesn't feel he needs it. Prefers regular tylenol. Pt experiencing a lot of gaspain & referred pain. Experiencing belching/hiccups. Some relief from ambulation & heat application Op Note - Gene Reese MD - 06/03/2012 3:41 PM EDT [facility] Operative Note Patient Name: Molina Pereira : [id number] MR#: [id number] Case Date: 06/03/2012 Surgeon: Surgeon(s) and Role: * JUAN MANUEL CAREY MD - Primary * GENE REESE MD - Resident-Surgeon Chief * SENTHIL LUIS MD - Resident-Surgeon Jerome Preoperative diagnosis: PROSTATE CANCER Postoperative diagnosis: PROSTATE CANCER Procedure(s): @LAPAROSCOPIC PROSTATECTOMY, ROBOTICS ASSISTED @LYMPHADENECTOMY, PELVIC, INCLUDING MULTIPLE NODES-JAZMINE Anesthesia: General Estimated Blood Loss: 50cc Drains: LINDA, nielsen Disposition: awakened from anesthesia, extubated and taken to the recovery room in a stable condition, having suffered no apparent untoward event. Condition: doing well without problems (Please see the Surgical Encounter Summary for any Implant and Specimen details pertinent to this patient.) HPI/Surgical Indications: see note Procedure Description: Procedure: After informed consent was obtained and adequate general endotracheal anesthesia induced, the patient was placed in the dorsal lithotomy position and carefully secured to the operating room table. The abdomen and perineum were prepped and draped in the standard sterile fashion. A small supraumbilical incision was placed. A Veress needle was inserted in the abdomen and confirmed to be in the correct position using the usual maneuvers. The abdomen was insufflated, and the robotic camera was placed through the umbilicus. On careful viewing of the abdomen, there was no evidence of any injury to any intra-abdominal structures. Additional trocars were placed with two robotic trocars on the right in a fan-shaped fashion, one robotic trocar on the left, and one AirSeal on the left, as well as a 5-mm suction port slightly superior to the umbilicus. The robot was docked. The bladder was lifted superiorly and an incision was made in the pouch of Keagan, allowing the rectum to be reflected inferiorly, dissecting to the apex of the prostate, dissecting out both seminal vesicles, and dividing the vasa deferentia. Bilateral pelvic lymph node dissections were then performed . The bladder was mobilized from the anterior abdominal wall and reflected inferiorly. The left obturator fossa was exposed initially, and all elton tissue from the lateral aspect of the prostate down the internal iliac artery and in the obturator fossa and the internal iliac area were excised. With clips being placed on any lymphatic vessels and with use of bipolar cautery, all the elton tissue was dissected around the vessels and obturator nerve and placed in a bag. A similar procedure was performed on the right side. There were no obvious positive lymph nodes. Once the node dissections had been performed and initial posterior dissection performed, we then turned our attention anteriorly, divided the endopelvic fascia on either side of the prostate, partially divided the puboprostatic ligaments, and placed two dorsal venous complex stitches distally and one proximally. We then turned our attention to the bladder neck. The bladder neck was divided and the bladder was reflected superiorly. A small bladder neck opening was made. Dissection was continued posteriorly into the plane of the prior dissection. The prostate was then elevated, and the left pedicle was then divided between clips. On the right side, the pedicle was divided in a similar fashion between clips. We performed a bilateral non-nerve sparing procedure. The dorsal venous complex was divided. The urethra was mobilized and divided. The prostate was then dissected off the anterior surface of the rectum and placed in a bag. Excellent hemostasis was achieved in the pelvis. A posterior suture was then performed between Denonvilliers' fascia posterior to the bladder and the divided edge of Denonvilliers' fascia just proximal to the urethra. This was secured with Lapra-Tys. A uretherovesical anastomosis was then performed using 3-0 Monocryl . Prior to tying down the anastomosis, a Nielsen catheter was placed. The anastomosis was then tied down and confirmed to be watertight. A 15-Blaze drain was then brought into the abdomen exiting from the right-sided robot port. Pressure in the abdomen was decreased to 5 cm of water. Hemostasis was confirmed. The ports were removed under direct vision. The AirSeal port was closed with use of a port closure device and a 0 Vicryl ligature. A 2-cm supraumbilical incision was made. The fascia was divided, and the prostate and elton tissue was delivered and sent for pathologic analysis. The fascial incision was closed with a running 0 PDS suture with a 4-0 Monocryl suture to the skin and Dermabond. The patient was awoken from anesthesia and returned to the recovery room in stable condition. There were no complications. Operative Findings: 1. No gross evidence of elton disease. 2. Tumor grossly confined to the prostate. 3. Bilateral non-nerve sparing Brief Op Note - Senthil Luis - 06/03/2012 2:56 PM EDT Brief Operative Note Patient Name: Molina Pereira : [id number] MR#: [id number] Case Date: 06/03/2012 Surgeon: Surgeon(s) and Role: * JUAN MANUEL CAREY MD - Primary * GENE REESE MD - Resident-Surgeon Chief * SENTHIL LUIS MD - Resident-Surgeon Jerome Preoperative diagnosis: PROSTATE CANCER Postoperative diagnosis: PROSTATE CANCER Procedure(s): @LAPAROSCOPIC PROSTATECTOMY, ROBOTICS ASSISTED @LYMPHADENECTOMY, PELVIC, INCLUDING MULTIPLE NODES-JAZMINE Anesthesia: General Findings: Expected findings Complications: None Fluids: 1700 cc LR Estimated Blood Loss: 50 CC Drains: LINDA and 18 Fr Nielsen Disposition: PACU Condition: Stable (Please see the Surgical Encounter Summary for any Implant and Specimen details pertinent to this patient.) OR Attestation - Juan Manuel Carey MD - 06/03/2012 2:36 PM EDT Attestation: Case Date: 06/03/2012 I performed the procedure with the assistance of the resident. I performed or directly supervising all critical aspects. Bilateral pelvic lymphadenectomy Radical Prostatectomy Non nerve sparing Good urethral preservation and anaestomosis Left inguinal hernia Juan Manuel CAREY MD 06/03/2012 Miscellaneous - Provider, Scanning - 06/03/2012 8:14 AM EDT Miscellaneous - Provider, Scanning - 06/03/2012 8:14 AM EDT documented in this encounter Plan of Treatment Upcoming Encounters Date Type Specialty Care Team Description 07/30/2022 Office Visit Radiation Oncology Alecia Lion, [facility] RADIATION [place], [place] [address] (Wo rk) documented as of this encounter Procedures Procedure Name Priority Date/Time Associated Comments Diagnosis SPECIMEN TO PATHOLOGY Routine 06/03/2012 2:19 PM Results for this EDT procedure are i n the results section. SPECIMEN TO PATHOLOGY Routine 06/03/2012 2:19 PM Results for this EDT procedure are i n the results section. SPECIMEN TO PATHOLOGY Routine 06/03/2012 2:19 PM Results for this EDT procedure are i n the results section. SURGICAL PATHOLOGY Routine 06/03/2012 2:14 PM Res ults for this REPORT EDT procedure are i n the results section. SPECIMEN TO PATHOLOGY Routine 06/03/2012 1:43 PM Results for this EDT procedure are i n the results section. SPECIMEN TO PATHOLOGY Routine 06/03/2012 1:43 PM Results for this EDT procedure are i n the results section. @LYMPHADENECTOMY, 06/03/2012 8:14 AM PROSTATE CANCER PELVIC, INCLUDING EDT MULTIPLE NODES-JAZMINE (WRVU 14.06) LAPAROSCOPIC 06/03/2012 8:14 AM PROSTATE CANCER PROSTATECTOMY, EDT ROBOTICS ASSISTED (WRVU 21.36) ECG SCAN 06/03/2012 12:00 AM EDT documented in this encounter Results Specimen to Pathology (surgical or derm) (06/03/2012 2:19 PM EDT) Specimen Anatomical Collection Method Collection Time Receive d Time (Source) Location / / Volume Laterality AP Specimen 06/03/2012 2:19 PM 2 2:19 EDT PM EDT Narrative CERNER MILLENNIUM - 06/03/2012 2:19 PM E DT Specimen requisition ordered. ??Separate Pathology report to follow Juan Manuel Carey MD PATHOLOGY/CYTOLOGY ORDERABLE S Performing Organization Address City/[facility]/[place]IP [place] [address] CERNER MILLENNIUM Specimen to Pathology (surgical or derm) (06/03/2012 2:19 PM EDT) Specimen Anatomical Collection Method Collection Time Receive d Time (Source) Location / / Volume Laterality AP Specimen 06/03/2012 2:19 PM 2 2:19 EDT PM EDT [facility]ative [facility] 06/03/2012 2:19 PM E DT Specimen requisition ordered. ??Separate Pathology report to follow Juan Manuel Carey MD PATHOLOGY/CYTOLOGY ORDERABLE S Performing Organization Address [facility]/ZIP Code Phon e Number [address] CERNER MILLENNIUM Specimen to Pathology (surgical or derm) (06/03/2012 2:19 PM EDT) Specimen Anatomical Collection Method Collection Time Receive d Time (Source) Location / / Volume Laterality AP Specimen 06/03/2012 2:19 PM 2 2:19 EDT PM EDT Narrative CERNER MILLENNIUM - 06/03/2012 2:19 PM E DT Specimen requisition ordered. ??Separate Pathology report to follow Juan Manuel Carey MD PATHOLOGY/CYTOLOGY ORDERABLE S Performing Organization Address City/[facility] [place] [address] CERNER MILLENNIUM SURGICAL PATHOLOGY REPORT (06/03/2012 2:14 PM EDT) Component Value Ref Test Analysis Performed At [facility] Range Method Time Signature Surgical C[facility]ER Pathology ? [facility] ? Provider: ?? JUAN MANUEL CAREY ?Pt. Name: ?? NOAH STEVENSMOLINA SEE ? Acc #: ?[id number] ?Pt. MRN: ?[id number] ? Col Date: ?? 2 ? /Sex: ?1945,(66 years),Male ? Rec Date: ?? 06/03/2012 ? LOC: ?2WST ? SURGICAL PATHOLOGY ? ---Pathologic Diagnosis--- ? A - Soft tissue, (additional tissue): ? Fibroadipose tissue, negative for malignancy. ? B - Additional bladder and neck, biopsies: ? Benign prostatic glands and stroma. ? C - Left pelvic lymph nodes, lymphadenectomy: ? Seven lymph nodes, negative for malignancy (0/7 ). ? D - Right pelvic lymph nodes, lymphadenectomy: ? Eleven lymph nodes, negative for malignancy (0/ 11). ? E - ? Specimen type: ?Proctectomy ? 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 Maynor grades: ? 3 + 3, teritary pattern 4 is 3% ? Mokane score: ?6 ? Location of tumor: ?Bilateral lobes ? % prostate involved by tumor: 5% ? Extracapsular extension (ELYSSA):Absent ? Seminal vesicle invasion: ? Absent ? Margins: ?Margins uninvolved by invasive carcinoma ? Perineural invasion: ?Present ? Lymphovascular invasion: ?Absent ? Additional findings: ?Stromal and glan dular hyperplasia ? TNM STAGING (AJCC, 7th ed., 2009): ? Extent of invasion: ? pT2c: (organ confined, bilateral disease) ? Regional lymph nodes: ? pN0 (no regional LN metastasis) ? Distant metastasis: ? pMX (cannot be ass essed) ? [facility] ? Provider: ?? JUAN MANUEL CAREY ?Pt. Name: ?? MOLINA AMEZQUITA ? Acc #: ?[id number] ?Pt. MRN: ?[id number] ? Col Date: ?? 2 ? /Sex: ?1945,(66 years),Male ? Rec Date: ?? 06/03/2012 ? LOC: ?2WST ? SURGICAL PATHOLOGY ? CR-0 ? 06/09/12 ? JLL ? 06/10/12 Verified by: ? CLAUDINE WALLACE MD ? Pathologist ? (Electronic Si gnature) ? The attending pathologist whose signature appears o n this report has ? reviewed all diagnostic slides and has edited the belen ss and/or ? microscopic portion of the report in rendering the fi nal pathologic ? diagnosis. ? ---Microscopic Description--- ? Slides reviewed, microscopic description not recorded . ? ---Gross Description--- ? A - Labeled/Fixative: Additional tissue, fresh. ? Qty/Size/Weight: ?One, 1.0 x 0.5 x 0.5 cm. ? Tissue Description: ?? Brown, firm fibrous tissue. ? Sections/Processing: ??The tissue is quadrisected and submitted entirely. ? (T1) ? B - Labeled/Fixative: Additional bladder neck, blue tracey margin; fresh. ? Qty/Size/Weight: ?One, 1.5 x 1.5 x 0.6 cm. ? Tissue Description: ?? Brown, fir m, fibrous tissue with one edge marked ? blue. ?Cut Surface: ? White and brown. ? Sections/Processing: ??The specimen is serially sectioned perpendicular to ? the blue margin and submitted in entirety. ??(T3) ? C - Labeled/Fixative: Left pelvic lymph nodes, fresh. ? Qty/Size/Weight: ?Multiple, aggregating 5.0 x 2.0 x 1.5 cm. ? Tissue Description: ? ? Yellow and brown, lobulated, fatty tissue. ??There are ? seven probable lymph nodes, ranging from ? 0.5 x 0.2 x 0.4 cm to as large as 3.1 x 1.9 x 1.0 cm. ? Sections/Processing: ??(C1) four nodes; (C2-C3) one node; (C4-C5) one node; ? (C6-C8) one node. ?? (R8) ? D - Labeled/Fixative: Right pelvic lymph nodes, fresh . ? Qty/Size/Weight: ?Multiple, aggregating 8.0 x 8.0 x 2.5 cm. ? Tissue Description: ? ? Yellow, lobular, fatty tissue. ??There are thirteen ? probable lymph nodes, ranging from 0.5 x 0.2 x 0.4 cm ? to as large as 4.5 x 1.5 x 1.0 cm. ? [facility] ? Provider: ?? JUAN MANUEL CAREY ?Pt. Name: ?? MOLINA AMEZQUITA ? Acc #: ?[id number] ?Pt. MRN: ?[id number] ? Col Date: ?? 2 ? /Sex: ?1945,(66 years),Male ? Rec Date: ?? 06/03/2012 ? LOC: ?2WST ? SURGICAL PATHOLOGY ? Sections/Processing: ??(D1) three nodes; (D2) three probably nodes; (D3) one ? node; (D4) one node; (D5) one node; (D6) one node; (D 7) one ? node; (D8-D9) one node; (D10-D11) one node. ?? (R11) ? E - Labeled/Fixative: ?Prostate, stitch at r ight apex; fresh. ? Size/Weight: ? 4.1 cm apex to base . ?4.4 cm trans verse. ? 4.3 cm anterior to posterior. ?57 g. ? Tissue Description: ?Length of adnexa: ? Rt Seminal Vesicle: ??3.0 cm. ? Lt Seminal Vesicle: ??3.3 cm. ? Rt Vas Deferens: ? 2.2 cm. ? Lt Vas Deferens: ? 3.0 cm. ?Outer Surface: ?Glistening, brown. ?Cut Surface: ?The specimen is serially sectioned into fourteen ?sections. ??The cut surface reveals many white, ? firm nodules in slices III-XVII. ? Sections/Processing: ? The right half of the specimen is inked with ?Yee ink and the left half with yellow ink. ? The prostate is serially sectione d from apex to base at 3-mm intervals. ? Each slice is quadris ected and submitted in the ??following sequence: ??Right ? anterior quadrant, ri ght posterior quadrant, left anterior quadrant, and ? left posterior quadrant. ??Each seminal vesicle is serially sectioned ? longitudinally and en tirely submitted. ??The bilateral vas deferens margins ? are submitted. ??(1-3 ) bladder neck margin; (4-5) apical slice anterior; (6- ? 7) apical slice poste rior. ??Slices are entirely submitted in the sequence ? of quadrants as noted above and a few of the later sections were trimmed ? and submitted with pr efixes A, B, as follows: ??(8-11) slice II; (12-15) ? slice III; (16-19) sl ice IV; (20-23) slice V; (24-27) slice ; slice VII ? (28-31); slice VIII ( 32-35); ??slice IX (36-39); slice X ??(40-43); slice XI ? (44-47); slice XII (4 8-51); (52) slice XIII right middle; (53) slice XIII ? right posterior; (54) slice XIII left anterior; (55 ) slice XIII left ? posterior; (56) slice XIIIA right posterior; (57) sli ce XIIIA left ? posterior; (58) slice XIIIIB right posterior; (59) slice XIV right middle; ? (60) slice XV ??right anterior; (61) slice XV right posterior; (62) slice XV ? left posterior; (63) slice XVI right middle; (64) sli ce XVI right ? posterior; (65) slice XVII right posterior; (66) vas deferens margins; (67- ? 71) right seminal ves icle; (72-76) left seminal vesicle. ??(R76) ??aje/CPH ? [facility] ? Provider: ?? JUAN MANUEL CAREY ?Pt. Name: ?? NOAH WASHINGTON, MOLINA Izaguirre ? Acc #: ?[id number] ?Pt. MRN: ?[id number] ? Col Date: ?? 2 ? /Sex: ?1945,(66 years),Male ? Rec Date: ?? 06/03/2012 ? LOC: ?2WST ? SURGICAL PATHOLOGY ? ---Clinical Information--- ? Specimen Submitted: ? A - Additional tissue ? B - Additional bladder neck blue tracey margin ? C - Left pelvic lymph nodes ? D - Right pelvic lymph nodes ? E - Prostate, stitch at right apex ? Clinical History/Diagnosis: ? Prostate cancer Specimen (Source) Anatomical Collection Method Collection Time Re ceived Time Location / / Volume Laterality 06/03/2012 2:14 PM EDT Juan Manuel Carey MD PATHOLOGY/CYTOLOGY ORDERABLE S Performing Organization Address City/[facility]/[place]IP [place] [address] CERNER MILLENNIUM Specimen to Pathology (surgical or derm) (06/03/2012 1:43 PM EDT) Specimen Anatomical Collection Method Collection Time Receive d Time (Source) Location / / Volume Laterality AP Specimen 06/03/2012 1:43 PM 2 1:43 EDT PM EDT Narrative CERNER MILLENNIUM - 06/03/2012 1:43 PM E DT Specimen requisition ordered. ??Separate Pathology report to follow Juan Manuel Carey MD PATHOLOGY/CYTOLOGY ORDERABLE S Performing Organization Address City/[facility] [place] [address] CERNER MILLENNIUM Specimen to Pathology (surgical or derm) (06/03/2012 1:43 PM EDT) Specimen Anatomical Collection Method Collection Time Receive d Time (Source) Location / / Volume Laterality AP Specimen 06/03/2012 1:43 PM 2 1:43 EDT PM EDT Narrative VIKTOR VARMAIUM - 06/03/2012 1:43 PM E DT Specimen requisition ordered. ??Separate Pathology report to follow Juan Manuel Carey MD PATHOLOGY/CYTOLOGY ORDERABLE S Performing Organization Address City/State/[place] [address] VIKTOR GALVAN SCAN DOC: ECG (06/03/2012 12:00 AM EDT) Narrative This result has an attachment that is no t available. Unknown MEDIA MGR SCAN EXT ORDR/RSLT documented in this encounter Visit Diagnoses Not on filedocumented in this encounter Administered Medications Inactive Administered Medications - up to 3 most recent administrations Medication Order MAR Action Action Date Dose Rate Site acetaminophen (TYLENOL) tablet Given 06/04/2012 2:13 PM EDT 1,00 0 mg 1,000 mg 1,000 mg, Oral, EVERY 8 HOURS SCHEDULED, First dose (after last modification) on 06/04/12 at 0915, Until Discontinued, Maximum dose of acetaminophen is 4000 mg from all sources in 24 hours., Routine Given 06/04/2012 9:15 AM EDT 1,000 mg acetaminophen (TYLENOL) tablet 650 mg Given 06/04/2012 12:21 AM EDT 650 mg 650 mg, Oral, EVERY 6 HOURS PRN, Starting on 06/04/12 at 0004, Until 06/04/12 at 0855, Pain, Maximum dose of acetaminophen is 4000 mg from all sources in 24 hours., Routine docusate sodium (COLACE) capsule 100 mg Given 06/04/2012 8:18 AM EDT 100 mg 100 mg, Oral, 2 TIMES DAILY, First dose on Wed06/03/12 at 2100, Until Discontinued, Recovery (Recovery-Hospital Unit), Routine Given 06/03/2012 8:58 PM EDT 100 mg HYDROmorphone (DILAUDID) injection 0.2-0 .4 mg Given 06/03/2012 4:52 PM EDT 0.4 mg 0.2-0.4 mg, Intravenous, EVERY 5 MIN PRN, Starting on Wed06/03/12 at 1538, Until Wed06/03/12 at 1738, Pain, For moderate pain give: 0.2 mg every 5 minute prn For severe pain give: 0.4 mg every 5 minutes prn Maximum dose: 4 mg per hour Hold for respiratory rate less than 10 per minute., PACU Recovery, Routine lactated ringers infusion 1,000 New Bag 06/03/2012 7:43 AM EDT 1,000 mLs 100 mL/hr mL 1,000 mL, at 100 mL/hr, Intravenous, CONTINUOUS, Starting on Wed06/03/12 at 0730, Until Wed06/03/12 at 1738, Day of Surgery (Day of Procedure) OXYcodone (ROXICODONE) immediate release tablet Given 06/04/2012 2:12 PM EDT 5 mg 5-10 mg 5-10 mg, Oral, EVERY 4 HOURS PRN, Starting on 06/04/12 at 0855, Until 06/04/12 at 1640, Pain, SEVERE PAIN, Routine OXYcodone-acetaminophen (PERCOCET) 5-325 mg Given 05/09 8:18 AM EDT 1 tablet per tablet 1-2 tablet 1-2 tablet, Oral, EVERY 4 HOURS PRN, Starting on Wed06/03/12 at 1532, Until 06/04/12 at 0855, Pain, Maximum dose of acetaminophen is 4000 mg from all sources in 24 hours., Recovery (Recovery-Hospital Unit), Routine Given 06/03/2012 7:42 PM EDT 1 tablet promethazine (PHENERGAN) injection 6.25 mg Given 06/03/2012 5:08 PM EDT 6.25 mg 6.25 mg, Intravenous, EVERY 6 HOURS PRN, Starting on Wed06/03/12 at 1519, Until 06/04/12 at 1640, Nausea, Avoid extravasation, Routine sodium chloride 0.9 % flush 5 mL Given by Other 06/03/2012 7:30 AM EDT 5 mLs 5 mL, Intravenous, EVERY 12 HOURS, First dose on Wed06/03/12 at 0730, Until Discontinued, Day of Surgery (Day of Procedure) sodium chloride 0.9 % flush 5 mL Given 06/04/2012 8:21 AM EDT 5 mLs 5 mL, Intravenous, EVERY 12 HOURS, First dose on Wed06/03/12 at 1830, Until Discontinued, Recovery (Recovery-Hospital Unit) sodium chloride 0.9% infusion New Bag 06/04/2012 11:00 AM EDT 1,000 mLs 100 mL/hr 1,000 mL, at 100 mL/hr, Intravenous, CONTINUOUS, Starting on Wed06/03/12 at 1600, Until 06/04/12 at 1640, Recovery (Recovery-Hospital Unit) New Bag 06/04/2012 12:07 AM EDT 1,000 mLs 100 mL/hr New Bag 06/03/2012 4:00 PM EDT 1,000 mLs 100 mL/hr documented in this encounter Active and Recently Administered Medications Times are shown in EDT. Scheduled Medication Order 06/02/2012 06/03/2012 06/04/2012 acetaminophen (TYLENOL) tablet 1,000 mg 0915 (Given - Provider: Noemi Peters RN)1413 (Given - Provider: Noemi Peters RN) 1,000 mg, Oral, EVERY 8 HOURS SCHEDULED, First dose on Wed06/04/12 at 0915, Until Discontinued, Maximum dose of acetaminophen is 4000 mg from all sources in 24 hours., Routine ceFAZolin (ANCEF) 1g in dextrose 5% 50mL (COMPLETED) 729 (Due)0844 (Given - Provider: Chan Hinson MD) 1 g = 1,000 mg, Intravenous, ONCE, 1 dos e, Wed06/03/12 at 0730, for 30 Minutes, Day of Surgery (Day of Procedure) docusate sodium (COLACE) capsule 100 mg 2057 (Given - Provider: Catie Marshall RN) 08 (Given - Provider: Noemi Varma RN) 100 mg, Oral, 2 TIMES DAILY, First dose on Wed06/03/12 at 2100, Until Discontinued, Recovery (Recovery-Hospital Unit), Routine heparin (porcine) subcutaneous injection 5,000 Units (COMPLE SURY) 0730 (Due)0904 (Given - Provider: Chan Hinson MD) 5,000 Units, Subcutaneous, ONCE, 1 dose, Wed06/03/12 at 0730, Day of Surgery (Day of Procedure), Routine sodium chloride 0.9 % flush 5 mL (CANCELED) 0730 (Given by Other - Provider: Candelaria Godinez RN - Comment: pre op) 5 mL, Intravenous, EVERY 12 HOURS, First dose on Wed06/03/12 at 0730, Until Discontinued, Day of Surgery (Day of Procedure), Routine sodium chloride 0.9 % flush 5 mL (CANCELED) 1830 (Not Given - Provider: Catie Marshall RN - Reason: See comment - Comment: IV infusing w/o difficulty) 0821 (Given - Provider: Noemi Varma RN) 5 mL, Intravenous, EVERY 12 HOURS, First dose on Wed06/03/12 at 1830, Until Discontinued, Recovery (Recovery-Hospital Unit), Routine Continuous Medication Order 06/02/2012 06/03/2012 06/04/2012 lactated ringers infusion 1,000 mL (CANCELED) 0743 (New Bag - Provider: Alecia Gutierrez RN) 1,000 mL, at 100 mL/hr, Intravenous, CON TINUOUS, Starting Wed06/03/12 at 0730, Until Wed06/03/12 at 1738, Day of Surgery (Day of Procedure) sodium chloride 0.9% infusion (CANCELED) 1600 (New Bag - Provider: Candelaria Godinez, JESSICA) 0007 (New Bag - Provider: Catie bashir, RN)1100 (New Bag - Provider: Noemi Peters RN)1343 (Stopped - Provider: Radha Bonilla RN) 1,000 mL, at 100 mL/hr, Intravenous, CON TINUOUS, Starting Wed06/03/12 at 1600, Until 06/04/12 at 1640, Recovery (Recovery-Hospital Unit) PRN Medication Order 06/02/2012 06/03/2012 06/04/2012 acetaminophen (TYLENOL) tablet 650 mg (CANCELED) 0021 (Given - Provider: Catie Marshall RN) 650 mg, Oral, EVERY 6 HOURS PRN, Startin g 06/04/12 at 0004, Until 06/04/12 at 0855, Pain, Maximum dose of acetaminophen is 4000 mg from all sources in 24 hours., Routine BUpivacaine (PF) (MARCAINE) 0.25 % (2.5 mg/mL) injection (CA NCELED) 0920 (Given - Provider: Juna Manuel Carey MD - Comment: 20 mL administered.) ONCE PRN, Starting Wed06/03/12 at 0920, Until 06/03/12 at 1738, Intra- Operative (Intra-Procedure), Routine HYDROmorphone (DILAUDID) injection 0.2-0.4 mg (CANCELED) 165 (Given - Provider: Candelaria Godinez, JESSICA) 0.2-0.4 mg, Intravenous, EVERY 5 MIN PRN , Starting Wed06/03/12 at 1538, Until Wed06/03/12 at 1738, Pain, For moderate pain give: 0.2 mg every 5 minute prn For severe pain give: 0.4 mg every 5 minutes pr n Maximum dose: 4 mg per hour Hold for r espiratory rate less than 10 per minute., PACU Recovery, Routine OXYcodone (ROXICODONE) immediate release tablet 5-10 mg 141 (Given - Provider: Noemi Peters RN) 5-10 mg, Oral, EVERY 4 HOURS PRN, Starti ng Sat 06/04/12 at 0855, Until 06/04/12 at 1640, Pain, SEVERE PAIN, Routine OXYcodone-acetaminophen (PERCOCET) 5-325 mg per tablet 1-2 t ablet (CANCELED) 194 (Given - Provider: Catie Marshall RN) 0818 (Given - Provider: Noemi Peters RN) 1-2 tablet, Oral, EVERY 4 HOURS PRN, Sta rting Wed06/03/12 at 1532, Until 06/04/12 at 0855, Pain, Maximum dose of acetaminophen is 4000 mg from all sources in 24 hours., Recovery (Recovery-Hospital Unit), Routine promethazine (PHENERGAN) injection 6.25 mg (CANCELED) 170 (Given - Provider: Candelaria Godinez, JESSICA) 6.25 mg, Intravenous, EVERY 6 HOURS PRN, Starting 06/03/12 at 1519, Until 06/04/12 at 1640, Nausea, Avoid extravasation, Routine documented in this encounter Care Teams E Commerce Solution Architect Relationship Specialty Start Date End Date Santos Guallpa MD PCP - General 10/14/[address] [place] [phone] documented as of this encounter
--- OUTSIDE RECORDS SUMMARY | 2022-07-24 15:20 | XMS_ITS | Encounter Summary ---
:1945 Author Organization [facility] [place] [address] Care Team Providers Name Role Phone Santos Guallpa MD Primary Care Provider Reason for Visit Reason Onset Date Comments Fatigue 06/05/2012 Encounter Details Date Type Department Care Team Description 06/05/2012 Telephone Urology at [facility] Ezra Shrestha Fatigue [facility] [place] [phone] [facility] [phone] UROLOGY DEPT [place], [place] [address] (Wo rk) Social History Tobacco Use Types Packs/Day Years Used Date Never Smoker Smokeless Tobacco: Never Used Alcohol Use Standard Drinks/Week Comments No 0 (1 standard drink = 0.6 oz pure alcoho l) Sex Assigned at Date Recorded Not on file documented as of this encounter Miscellaneous Notes Telephone Encounter - Ezra Shrestha MD - 06/05/2012 1:45 PM EDT POD#2 sp RALP who was dc yesterday. His postop course was uncomplicated. called me this AM stating that patient has not been able to have a BM. I explained that was expected and that may take up to 3 days to have one. Patient does not have severe pain, fever or erythema spreading in his abdominal incisions. His nielsen catheter is in place draining clear urine. However patient does not feel right. He feels weak and has not been able to eat. I reassured him that this was expected and that as long he was able to drink and keep fluids down he would be ok. He then stated that he is feeling nauseous, has not had emesis, has not passed gas and at that point I offering to see him. Patient lives more than an hour away from [facility] but agreed and asked to be seen in the ED. Please order CBC, BMP, Abdominal X-ray series and page me x [phone]. Ezra Hayward Urology Resident PGY-4 documented in this encounter Plan of Treatment Upcoming Encounters Date Type Specialty Care Team Description 07/30/2022 Office Visit Radiation Oncology Alecia Lion, [facility] ER RADI[facility] [place], [place] [address] (Wo rk) documented as of this encounter Visit Diagnoses Not on filedocumented in this encounter Care Teams Delicatessen Clerk Relationship Specialty Start Date End Date Santos Guallpa MD PCP - General 10/14/[address] [place] [phone] documented as of this encounter
--- OUTSIDE RECORDS SUMMARY | 2022-07-24 15:20 | XMS_ITS | Encounter Summary ---
:1945 Author Organization [facility] Address [place] [id number] Care Team Providers Name Role Phone Santos Guallpa MD Primary Care Provider Encounter Details Date Type Department Care Team Description 06/03/2012 Surgery Main Operating Room Juan Manuel Carey MD [facility] (WRVU 21.36) [facility] UROLOGY [address] [address] [phone] Social History Tobacco Use Types Packs/Day Years [...] longer draining. The number for questions is [phone] before 5 PM weekdays and [phone] after 5 PM and weekends. Activity level: [...] 4-6 weeks for PSA check. Please call [phone] (clinic number for appointments) to confirm date [...] is picking up the Rx from the [facility] pharmacy and they plan to leave shortly. [...] this encounter Miscellaneous Notes Miscellaneous - Provider, Khushbu - 06/05/2012 11:28 AM EDT Discharge Summary [...] longer draining. The number for questions is [phone] before 5 PM weekdays and [phone] after 5 PM and weekends. Activity level: [...] 4-6 weeks for PSA check. Please call [phone] (clinic number for appointments) to confirm date and time of your appointment if you do not receive your apointment in 2-3 days. General Instructions Provider Contact Information: [phone] Discharge References/Attachments: Discharge References/Attachments None Signed: INDIO [...] Reese MD - 06/03/2012 3:41 PM EDT [facility] Operative Note Patient Name: Molina Pereira : [id number] MR#: [id number] Case Date: 06/03/2012 Surgeon: Surgeon(s) and Role: [...] Operative Note Patient Name: Molina Pereira : [id number] MR#: [id number] Case Date: 06/03/2012 Surgeon: Surgeon(s) and Role: [...] APRN [facility] ER RADIATION [place], [place] [address] (Wo rk) documented as of [...] Organization Address City/State/[place] [address] CERNER MILLENNIUM Specimen to Pathology (surgical or derm) (06/03/2012 2:19 PM EDT) Specimen Anatomical Collection Method Collection Time Receive d Time (Source) Location / / Volume Laterality AP Specimen 06/03/2012 2:19 PM 2 2:19 EDT PM EDT Narrative [facility] - 06/03/2012 2:19 PM E DT Specimen requisition ordered. ??Separate Pathology report to follow Juan Manuel Carey MD PATHOLOGY/CYTOLOGY ORDERABLE S Performing Organization Address City/[facility] Code Phon e Number [address] [facility] Specimen to Pathology (surgical or derm) (06/03/2012 2:19 PM EDT) Specimen Anatomical Collection Method Collection Time Receive d Time (Source) Location / / Volume Laterality AP Specimen 06/03/2012 2:19 PM 2 2:19 EDT PM EDT Narrative [facility] - 06/03/2012 2:19 PM E DT Specimen requisition ordered. ??Separate Pathology report to follow Juan Manuel Carey MD PATHOLOGY/CYTOLOGY ORDERABLE S Performing Organization Address City/[facility] [place] [address] CERNER MILLENNIUM SURGICAL PATHOLOGY REPORT (06/03/2012 2:14 PM EDT) Component Value Ref Test Analysis Performed At Patholo gist Range Method Time Signature Surgical CERNER Pathology ? [facility] Report ? Provider: ?? JUAN MANUEL CAREY ?Pt. Name: ?? NOAH WASHINGTONMOLINA ? Acc #: ?[id number] ?Pt. MRN: ?[id number] ? Col Date: ?? 2 ? /Sex: [...] type: ?Proctectomy ? 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 Dalzell grades: ? 3 + 3, teritary pattern 4 is 3% ? Maynor score: ?6 ? Location of tumor: ?Bilateral [...] ? pMX (cannot be ass essed) ? [facility] ? Provider: ?? JUAN MANUEL CAREY ?Pt. Name: ?? MOLINA AMEZQUITA ? Acc #: ?[id number] ?Pt. MRN: ?[id number] ? Col Date: ?? 2 ? /Sex: ?1945,(66 years),Male ? Rec Date: ?? 06/03/2012 ? LOC: ?2WST ? SURGICAL PATHOLOGY ? CR-0 ? 06/09/12 ? JLL ? 06/10/12 Verified by: ? RODRIGO KNAPP, CLAUDINE RODARTE ? Pathologist ? (Electronic Si gnature) ? [...] 4.5 x 1.5 x 1.0 cm. ? [facility] ? Provider: ?? JUAN MANUEL CAREY ?Pt. Name: ?? MOLINA AMEZQUITA ? Acc #: ?[id number] ?Pt. MRN: ?[id number] ? Col Date: ?? 2 ? /Sex: [...] ves icle; (72-76) left seminal vesicle. ??(R76) ??aje/DILLON ? [facility] ? Provider: ?? JUAN MANUEL CAREY ?Pt. Name: ?? NOAH PADMINI, MOLINA Izaguirre ? Acc #: ?[id number] ?Pt. MRN: ?[id number] ? Col Date: ?? 2 ? /Sex: [...] MD PATHOLOGY/CYTOLOGY ORDERABLE S Performing Organization Address [facility]/[place] [address] CERNER MILLENNIUM Specimen to [...] MD PATHOLOGY/CYTOLOGY ORDERABLE S Performing Organization Address [facility] [place] [address] CERNER MILLENNIUM Specimen to Pathology (surgical or derm) (06/03/2012 1:43 PM EDT) Specimen Anatomical Collection Method Collection Time Receive d Time (Source) Location / / Volume Laterality AP Specimen 06/03/2012 1:43 PM 2 1:43 EDT PM EDT Narrative VIKTOR GALVAN - 06/03/2012 1:43 PM E DT Specimen requisition ordered. ??Separate Pathology report to follow Juan Manuel Carey MD PATHOLOGY/CYTOLOGY ORDERABLE S Performing Organization Address City/State/[place] [address] VIKTOR GALVAN SCAN DOC: ECG (06/03/2012 12:00 AM EDT) Narrative This result has an attachment that is no t available. Unknown MEDIA MGR SCAN EXT ORDR/RSLT documented in this encounter Visit Diagnoses Not on filedocumented in this encounter Administered Medications Inactive Administered Medications - up to 3 most recent administrations Medication Order MAR Action Action Date Dose Rate Site BUpivacaine (PF) Given 06/03/2012 9:20 AM 50 mg 19- Surgical Site (MARCAINE) 0.25 % (2.5 EDT mg/mL) injection ONCE PRN, Starting on Wed06/03/12 at 0920, Until Wed06/03/12 at 1738, Intra-Operative (Intra-Procedure), Routine ceFAZolin (ANCEF) 1g in dextrose 5% 50mL Given 06/03/2012 8:44 AM EDT 1 g Left Arm 1,000 mg (1 g), Intravenous, ONCE, 1 dose, On Wed06/03/12 at 0730, Administer over 30 Minutes, Day of Surgery (Day of Procedure), Indication for (Active or Suspected): Prophylaxis heparin (porcine) subcutaneous Given 06/03/2012 9:04 AM EDT 5,00 0 Units Left Arm injection 5,000 Units 5,000 Units, Subcutaneous, ONCE, 1 dose, On Wed06/03/12 at 0730, Day of Surgery (Day of Procedure), Routine documented in this encounter Active and Recently Administered Medications Times are shown in EDT. Scheduled Medication Order 06/02/2012 06/03/2012 06/04/2012 acetaminophen (TYLENOL) tablet 1,000 mg 0915 (Given - Provider: Noemi Peters, JESSICA)1413 (Given - Provider: Noemi Peters RN) 1,000 [...] (porcine) subcutaneous injection 5,000 Units (COMPLE SURY) 07 (Due)0904 (Given - Provider: Chan Hinson MD) [...] (CANCELED) 1600 (New Bag - Provider: Candelaria Godinez RN) 0007 (New Bag - Provider: Catie bashir, RN)1100 (New Bag - Provider: Noemi Peters, JESSICA)1343 (Stopped - Provider: Radha Bonilla RN) 1,000 mL, at 100 mL/hr, Intravenous, CON TINUOUS, Starting 06/03/12 at 1600, Until 06/04/12 at 1640, Recovery [...] injection (CA NCELED) 0920 (Given - Provider: Juan Manuel Carey MD - Comment: 20 mL administered.) ONCE PRN, Starting Wed06/03/12 at 0920, Until Wed06/03/12 at 1738, Intra- Operative (Intra-Procedure), Routine HYDROmorphone (DILAUDID) injection 0.2-0.4 mg (CANCELED) 1652 (Given - Provider: Candelaria Godinez RN) 0.2-0.4 mg, Intravenous, EVERY 5 MIN PRN [...] OXYcodone (ROXICODONE) immediate release tablet 5-10 mg 1412 (Given - Provider: Noemi Peters RN) 5-10 mg, Oral, EVERY 4 HOURS PRN, Starti ng Sat 06/04/12 at 0855, Until 06/04/12 at 1640, Pain, SEVERE PAIN, Routine OXYcodone-acetaminophen (PERCOCET) 5-325 mg per tablet 1-2 t ablet (CANCELED) 1941 (Given - Provider: Catie Marshall, RN) 0818 (Given - Provider: Noemi Peters, JESSICA) 1-2 tablet, Oral, EVERY 4 HOURS PRN, Sta rting 06/03/12 at 1532, Until 06/04/12 at 0855, Pain, Maximum dose of acetaminophen is 4000 mg from all sources in 24 hours., Recovery (Recovery-Hospital Unit), Routine promethazine (PHENERGAN) injection 6.25 mg (CANCELED) 1707 (Given - Provider: Candelaria Godinez, JESSICA) 6.25 mg, Intravenous, EVERY 6 HOURS PRN, Starting 06/03/12 at 1519, Until 06/04/12 at 1640, Nausea, Avoid extravasation, Routine documented in this encounter Care Teams Card Grinder Helper Relationship Specialty Start Date End Date Santos Guallpa MD PCP - General 10/14/[address] [place] [phone] documented as of this encounter
--- OUTSIDE RECORDS SUMMARY | 2022-07-24 15:20 | XMS_ITS | Encounter Summary ---
:1945 Author Organization [facility] [place] [address] Care Team Providers Name Role Phone Santos Guallpa MD Primary Care Provider Reason for Visit Reason Comments Other possible strangulated hernia Encounter Details Date Type Department Care Team Description 06/22/2012 Office Visit General Surgery at Caleb Fernandez MD Inguinal hernia [facility] (Primary Dx) [facility] DR Cadena GENERAL SURGERY [place] [phone] Social History Tobacco Use Types Packs/Day Years Used Date Never Smoker Smokeless Tobacco: Never Used Alcohol Use Standard Drinks/Week Comments No 0 (1 standard drink = 0.6 oz pure alcoho l) Sex Assigned at Date Recorded Not on file documented as of this encounter Last Filed Vital Signs Vital Sign Reading Time Taken Comments Blood Pressure 139/69 06/22/2012 1:42 PM EDT Pulse 82 06/22/2012 1:42 PM EDT Temperature 36.7 ??C (98.1 ??F) 06/22/2012 1:42 PM EDT Respiratory Rate 16 06/22/2012 1:42 PM EDT Oxygen Saturation 99% 06/22/2012 1:42 PM EDT Inhaled Oxygen Concentration - - Weight 77.8 kg (171 lb 9.6 oz) 06/22/2012 1:42 PM EDT Height 167.6 cm (5' 5.98) 06/22/2012 1:42 PM EDT Body Mass Index 27.71 06/22/2012 1:42 PM EDT documented in this encounter Progress Notes Ronda Dhaliwal MD - 06/22/2012 2:20 PM EDT Subjective: Patient ID: Dalton Pereira is a 66 y.o. male with history of recurrent Right inguinal hernias s/prepair x2, recent laparoscopic radical prostatectomy (06/05) who was referred from Urology clinic forsuspected strangulated Left inguinal hernia. HPI: Pt reports issues with inguinal hernias since he was a teenager. His first inguinal hernia was noticed as a teenager after heavy lifting. That hernia was repaired without mesh and subsequently recurred 10 years later. The recurrence was repaired in 1998 with mesh and he hasn't had issues on the right side since. Around the time of his second right hernia repair, he noted a bulge in his left groin. The hernia was asymptomatic for years until he got a cold with a bad cough. The hernia became worse with persistent coughing so he began to wear a Truss which reduced the hernia nicely. He continued to use the Truss on and off as needed for symptoms and did relatively well until his recently. He underwent an uneventful laparoscopic radical prostatectomy on 06/05, but postoperatively developed worsening pain from the left inguinal hernia due to straining with constipation postop. He called saw his PCP last week who was very concerned he had a strangulated hernia. The PCP was going to send him to [facility] for evaluation, but pt wanted to be seen at [facility]. He had a scheduled appointment with Urology for voiding trial today and was referred to General Surgery by Dr. Adrian for further evaluation. Pt denies any nausea, emesis, abdominal pain or distension, or any overlying skin changes. He hasbeen passing flatus and having normal bowel movements. No fevers or chills. No chest pain or shortness of breath. He is nervous about his hernia and would like to have it repaired this week so he can get back to his normal activities. 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 Denies EtOH, no drugs Objective: Physical Exam Temp: [36.7 ??C (98.1 ??F)] Heart Rate: [77-82] Resp: [16] BP: (139-143)/(69-72) SpO2: [99 %] Gen: in NAD, alert and oriented CV: RRR Pulm:CTAB Abd: soft, non-tender, non-distended, port site incisions c/d/i, healing well with residual steri strips : left inguinal hernia palpated, reducible, no overlying skin changes Ext: warm, well perfused Assessment and Plan: Dalton Pereira is a 66 yo man with history of recurrent inguinal hernias on the right s/p repair x2who presents with worsening symptomatic left sided inguinal hernia. Initial concern for strangulatedhernia by PCP, however, hernia now reduced. No obstructive symptoms or overlying skin changes so no indication for urgent surgery. Hernia is painful at times and interferes with his lifestyle so repairin the near future would be beneficial to him. Will plan on elective left inguinal hernia repair tomorrow. Procedure and risks discussed with the patient and his . They are in agreement with the plan. Consent has been obtained. Open left inguinal hernia repair w/wo mesh through [facility] tomorrow Consent has been obtained Pt is to be NPO at midnight documented in this encounter Plan of Treatment Upcoming Encounters Date Type Specialty Care Team Description 07/30/2022 Office Visit Radiation Oncology Alecia Lion APRN [facility] RADIATION [place], [place] [address] (Wo rk) documented as of this encounter Visit Diagnoses Diagnosis Inguinal hernia - Primary Inguinal hernia without mention of obstr uction or gangrene, unilateral or unspecified, (not specified as recurrent ) documented in this encounter Care Teams Commercial Leasing Manager Relationship Specialty Start Date End Date Santos Guallpa MD PCP - General 10/14/[address] [place] [phone] documented as of this encounter
--- OUTSIDE RECORDS SUMMARY | 2022-07-24 15:20 | XMS_ITS | Encounter Summary ---
:1945 Author Organization [facility] [place] [address] Care Team Providers Name Role Phone Santos Guallpa MD Primary Care Provider Encounter Details Date Type Department Care Team Description 05/16/2012 Clinical [place] [address] Social History Tobacco Use Types Packs/Day Years Used Date Never Smoker Smokeless Tobacco: Never Used Alcohol Use Standard Drinks/Week Comments No 0 (1 standard drink = 0.6 oz pure alcoho l) Sex Assigned at Date Recorded Not on file documented as of this encounter Last Filed Vital Signs Vital Sign Reading Time Taken Comments Blood Pressure - - Pulse - - Temperature - - Respiratory Rate - - Oxygen Saturation 100% 05/16/2012 3:18 PM EDT Inhaled Oxygen Concentration - - Weight - - Height - - Body Mass Index - - documented in this encounter Progress Notes Elsi España RN - 05/16/2012 3:33 PM EDT Patient Name: Dalton Pereira Patient Age: 66 y.o. Birthdate: 1945 Admit date: (Not on file) Attending Physician: No att. providers found Anesthesia questionnaire reviewed with patient while in pre-admission testing. Pre-operative teaching folder reviewed with Patient. Patient expresses a good understanding of all information reviewed There were no orders in EDH at todays PAT visit. Patient's states that she has not noticed any episodes of sleep apnea . documented in this encounter Plan of Treatment Upcoming Encounters Date Type Specialty Care Team Description 07/30/2022 Office Visit Radiation Oncology Alecia Lion, [facility] ER RADIATION [place], [place] [address] (Wo rk) documented as of this encounter Visit Diagnoses Not on filedocumented in this encounter Care Teams Cycle Repairer Relationship Specialty Start Date End Date Santos Guallpa MD PCP - General 10/14/[address] [place] [phone] documented as of this encounter
--- OUTSIDE RECORDS SUMMARY | 2022-07-24 15:20 | XMS_ITS | Encounter Summary ---
:1945 Author Organization [facility] Address [facility] [place] [address] Care Team Providers Name Role Phone Santos Guallpa MD Primary Care Provider Reason for Visit Reason Comments Post-op Problem Encounter Details Date Type Department Care Team Description 06/22/2012 Office Visit Urology at [facility] Santos Ibanez MD [facility] [address] [place] [address] Inguinal hernia, [facility] Santos Ibanez MD [facility] [place] [address] unilateral (Primary Drive Dx) [place] [phone] Social History Tobacco Use Types Packs/Day Years Used Date Never Smoker Smokeless Tobacco: Never Used Alcohol Use Standard Drinks/Week Comments No 0 (1 standard drink = 0.6 oz pure alcoho l) Sex Assigned at Date Recorded Not on file documented as of this encounter Last Filed Vital Signs Vital Sign Reading Time Taken Comments Blood Pressure 143/72 06/22/2012 8:53 AM EDT Pulse 77 06/22/2012 8:53 AM EDT Temperature - - Respiratory Rate - - Oxygen Saturation - - Inhaled Oxygen Concentration - - Weight 77.1 kg (170 lb) 06/22/2012 8:53 AM EDT Height 168.9 cm (5' 6.5) 06/22/2012 8:53 AM EDT Body Mass Index 27.03 06/22/2012 8:53 AM EDT documented in this encounter Progress Notes Santos Ibanez MD - 06/22/2012 10:07 AM EDT Subjective: Patient ID: Dalton Pereira is a 66 y.o. male. HPI This man is post op Laparoscopic Radical Prostatectomy and still has his catheter in. He has developed a painful left inguinal hernia which he was barely able to reduce yesterday. His PCP saw him yesterday and described the hernia a strangulated. The patient has had hernia problems before with a repeated repair on the right. Review of Systems Post Radical Prostatectomy. Objective: Physical Exam Abdomen is soft. The patient is wearing a truss on the left. He is very tender in the left groin. The lap port sites are healing as expected. There is a left inguinal hernia that has beenreduced. Assessment and Plan: No problem-specific visit notes found for this encounter. Imp: Acute left inguinal hernia. reducible but with impending strangulation. Plan: General surgery consult. documented in this encounter Plan of Treatment Upcoming Encounters Date Type Specialty Care Team Description 07/30/2022 Office Visit Radiation Oncology Alecia Lion, PROMOTIONS MANAGER [facility] RADIATION [place], [place] [address] (Wo rk) documented as of this encounter Visit Diagnoses Diagnosis Inguinal hernia, unilateral - Primary Inguinal hernia without mention of obstr uction or gangrene, unilateral or unspecified, (not specified as recurrent ) documented in this encounter Care Teams Dog Or Animal Sitter Relationship Specialty Start Date End Date Santos Guallpa MD PCP - General 10/14/[address] [place] [phone] documented as of this encounter
--- OUTSIDE RECORDS SUMMARY | 2022-07-24 15:21 | XMS_ITS | Encounter Summary ---
:1945 Author Organization [place] [address] Care Team Providers Name Role Phone Santos Guallpa MD Primary Care Provider Reason for Visit Reason Onset Date Comments Medication Refill 05/09/2012 Encounter Details Date Type Department Care Team Description 05/09/2012 Telephone Urology at [facility] John Rodriguez MD Medication Refill [facility] [place] [phone] UROLOGY [phone] [place], [place] [address] (Wo rk) Social History Tobacco Use Types Packs/Day Years Used Date Never Smoker Smokeless Tobacco: Never Used Sex Assigned at Date Recorded Not on file documented as of this encounter Miscellaneous Notes Telephone Encounter - Taylor Benedict LPN - 05/09/2012 5:01 PM EDT Mr. Pereira calls requesting prescription refill for chlorhexidine (HIBICLENS) 4 % external liquid.He notes that it is working very well for him. Prescription sent to Eliud Patel in [facility]. documented in this encounter Plan of Treatment Upcoming Encounters Date Type Specialty Care Team Description 07/30/2022 Office Visit Radiation Oncology Alecia Lion, RESIDENTIAL BUILDER [facility] ER RADIATION [place], [place] [address] (Wo rk) documented as of this encounter Visit Diagnoses Diagnosis Urinary retention - Primary Retention of urine, unspecified documented in this encounter Care Teams Skip Pitman Relationship Specialty Start Date End Date Santos Guallpa MD PCP - General 10/14/[address] [place] [phone] documented as of this encounter
--- OUTSIDE RECORDS SUMMARY | 2022-07-24 15:21 | XMS_ITS | Encounter Summary ---
:1945 Author Organization [facility] Address [address] [place] [address] Care Team Providers Name Role Phone Santos Guallpa MD Primary Care Provider Reason for Visit Reason Onset Date Comments Medication Refill 02/15/2012 Encounter Details Date Type Department Care Team Description 02/15/2012 Refill Urology at [facility] John Rodriguez MD Urinary retention [facility] (Pr imary Dx) [place] [address] UROLOGY [phone] [place], [place] [address] (Wo rk) Social History Tobacco Use Types Packs/Day Years Used Date Never Smoker Sex Assigned at Date Recorded Not on file documented as of this encounter Plan of Treatment Upcoming Encounters Date Type Specialty Care Team Description 07/30/2022 Office Visit Radiation Oncology Alecia Lion APRN [facility] ER RADIATION [address] [place], [place] [address] (Wo rk) documented as of this encounter Visit Diagnoses Diagnosis Urinary retention - Primary Retention of urine, unspecified documented in this encounter Care Teams Silvering Department Supervisor Relationship Specialty Start Date End Date Santos Guallpa MD PCP - General 10/14/[address] [place] [phone] documented as of this encounter
--- OUTSIDE RECORDS SUMMARY | 2022-07-24 15:21 | XMS_ITS | Encounter Summary ---
:1945 Author Organization [facility] Address [address] [place] [address] Care Team Providers Name Role Phone Santos Guallpa MD Primary Care Provider Encounter Details Date Type Department Care Team Description 01/13/2012 Office Visit Urology at [facility] Urinary retention (Primary [facility] D rive Dx) [place] [address] Social History Tobacco Use Types Packs/Day Years Used Date Never Smoker Sex Assigned at Date Recorded Not on file documented as of this encounter Last Filed Vital Signs Vital Sign Reading Time Taken Comments Blood Pressure 146/91 01/13/2012 1:17 PM EST Pulse 90 01/13/2012 1:17 PM EST Temperature - - Respiratory Rate - - Oxygen Saturation - - Inhaled Oxygen Concentration - - Weight - - Height - - Body Mass Index - - documented in this encounter Progress Notes Ashlie Kelley MD - 04/16/2012 3:26 PM EDT Pt here for UDS. He has retention and caths. He was unable to void during the test and therefore obstruction can not be determined. He also has a high PSA and will continue to follow with Mary Jane and John Rodriguez for this. In the meantime he needs to continue to cath. documented in this encounter Plan of Treatment Upcoming Encounters Date Type Specialty Care Team Description 07/30/2022 Office Visit Radiation Oncology Alecia Lion, EARLY CHILDHOOD EDUCATION COORDINATOR [facility] RADIATION [place], [place] [address] (Wo rk) documented as of this encounter Visit Diagnoses Diagnosis Urinary retention - Primary Retention of urine, unspecified documented in this encounter Care Teams Clerk Travel Reservations Relationship Specialty Start Date End Date Santos Guallpa MD PCP - General 10/14/[address] [place] [phone] documented as of this encounter
--- OUTSIDE RECORDS SUMMARY | 2022-07-24 15:21 | XMS_ITS | Encounter Summary ---
:1945 Author Organization [facility] [place] [address] Care Team Providers Name Role Phone Santos Guallpa MD Primary Care Provider Encounter Details Date Type Department Care Team Description 01/13/2012 Hospital Encounter Laboratory John Rodriguez MD Elevated PSA [facility] [place] [address] UROLOGY [phone] [place], [place] [address] (Wo rk) Social History Tobacco Use Types Packs/Day Years Used Date Never Smoker Sex Assigned at Date Recorded Not on file documented as of this encounter Medications at Time of Discharge Medication Sig Dispensed Refills Start Date End Date tamsulosin (FLOMAX) 0.4 mg Take 0.4 mg by 0 05/16/2012 capsule mouth 2 times daily. dutasteride (AVODART) 0.5 Take 0.5 mg by 0 05/16/2012 mg capsule mouth daily. documented as of this encounter Plan of Treatment Upcoming Encounters Date Type Specialty Care Team Description 07/30/2022 Office Visit Radiation Oncology Alecia Lion APRN [facility] ER RADIATION [place], [place] [address] (Wo rk) documented as of this encounter Procedures Procedure Name Priority Date/Time Associated Diagnosis Comme nts PSA Routine 01/13/2012 1:26 PM Elevated PSA Results f or this (ULTRASENSITIVE) EST procedure a re in the results section. documented in this encounter Results (ABNORMAL) PSA (01/13/2012 1:26 PM EST) Analysis [facility] At [facility] Time Signature PSA Total 7.71 (H) 0.00 - CERNER (Ultrasensitiv 4.00 ng/mL MILLENNIUM e) Specimen Anatomical Collection Method Collection Time Receive d Time (Source) Location / / Volume Laterality Blood specimen 01/13/2012 1:26 PM 012 1:34 (specimen) EST PM EST Resulting Agency Comment Spec In Lab John Rodriguez MD CHEMISTRY ORDERABLES Performing Organization Address City/State/[place] [address] CERNER MILLENNIUM documented in this encounter Visit Diagnoses Diagnosis Elevated PSA Elevated prostate specific antigen (PSA) documented in this encounter Care Teams Bank Sales And Service Manager Relationship Specialty Start Date End Date Santos Guallpa MD PCP - General 10/14/[address] [place] [phone] documented as of this encounter
--- OUTSIDE RECORDS SUMMARY | 2022-07-24 15:21 | XMS_ITS | Encounter Summary ---
:1945 Author Organization [facility] [place] [address] Care Team Providers Name Role Phone Santos Guallpa MD Primary Care Provider Encounter Details Date Type Department Care Team Description 03/30/2012 Clinical Support [place] [address] Social History Tobacco Use Types Packs/Day Years Used Date Never Smoker Smokeless Tobacco: Never Used Sex Assigned at Date Recorded Not on file documented as of this encounter Plan of Treatment Upcoming Encounters Date Type Specialty Care Team Description 07/30/2022 Office Visit Radiation Oncology Alecia Lion APRN [facility] ER RADIATION [place], [place] [address] (Wo rk) documented as of this encounter Visit Diagnoses Not on filedocumented in this encounter Care Teams Human Resource Management Instructor Relationship Specialty Start Date End Date Santos Guallpa MD PCP - General 10/14/[address] [place] [phone] documented as of this encounter
--- OUTSIDE RECORDS SUMMARY | 2022-07-24 15:21 | XMS_ITS | Encounter Summary ---
:1945 Author Organization [place] [address] Care Team Providers Name Role Phone Santos Guallpa MD Primary Care Provider Encounter Details Date Type Department Care Team Description 03/30/2012 Clinical [place] [address] Social History Tobacco Use Types Packs/Day Years Used Date Never Smoker Smokeless Tobacco: Never Used Sex Assigned at Date Recorded Not on file documented as of this encounter Plan of Treatment Upcoming Encounters Date Type Specialty Care Team Description 07/30/2022 Office Visit Radiation Oncology Alecia Lion APRN [facility] RADIATION [place], [place] [address] (Wo rk) documented as of this encounter Visit Diagnoses Not on filedocumented in this encounter Care Teams Flame Cutting Supervisor Relationship Specialty Start Date End Date Santos Guallpa MD PCP - General 10/14/[address] [place] [phone] documented as of this encounter
--- OUTSIDE RECORDS SUMMARY | 2022-07-24 15:21 | XMS_ITS | Encounter Summary ---
:1945 Author Organization [facility] Address [address] [place] [address] Care Team Providers Name Role Phone Ho Parham MD Primary Care Provider Reason for Visit Reason Comments Bladder Outlet Obstruction Encounter Details Date Type Department Care Team Description 12/21/2011 Office Visit [place]rology [place] [facility] John Rodriguez MD Urinary retention [facility] (Pr imary Dx) Drive [address] [place] UROLOGY [phone] [place] [id number] [phone] Social History Tobacco Use Types Packs/Day Years Used Date Never Smoker Sex Assigned at Date Recorded Not on file documented as of this encounter Last Filed Vital Signs Vital Sign Reading Time Taken Comments Blood Pressure 151/83 12/21/2011 3:00 PM EST Pulse 93 12/21/2011 3:00 PM EST Temperature - - Respiratory Rate - - Oxygen Saturation - - Inhaled Oxygen Concentration - - Weight 74.8 kg (165 lb) 12/21/2011 3:00 PM EST Height 167.6 cm (5' 6) 12/21/2011 3:00 PM EST Body Mass Index 26.63 12/21/2011 3:00 PM EST documented in this encounter Progress Notes John Rodriguez MD - 12/21/2011 3:16 PM EST Patient Name: Dalton Pereira Date of Service: 12/21/2011 Primary Care Provider: HO PARHAM MD Reason for Visit: Dalton Pereira is a 66 y.o. male who is referred for evaluation of Urinary Retention. He knows Joe Lopez, one of my patients. He has had slowly worsening voiding symptoms for years, with slow stream, frequency, needing to push. In ~ 08/2011 he developed npocturnal leaking and he was noted to have an elevated PVR and saw Dr Isbell in [place] and was started on CIC. He has been performing CIC since that time with PVR's of ~ 700cc. He was started on Flomax and dutasteride. He had one complicated UTI for which he was admitted for 2 days Currently the patient voids periodically between self catheterization. His stream is poor. He has noblood. Erectile function is poor. He has not had intercourse x 15 years. Appetite is good weight is stable. There is no bone pain. His creatinine at the time of dx was ~ 2.5 and now is ~ 1.7 He has not had Urodynamics PSA was 1.5 5 years ago and 6.5 in the summer. I do not have records of further PSA's since that time. He has not had a prostate biopsy. Past Medical History: None Past Surgical History: Hernia Appendix Medications: Reviewed Allergies: Reviewed Family History: His father had TURP, Brother has LUTS. Mother of breast cancerNo diseases run in the family. Social History: The patient works as [employer] (55 head). The patient has been for 39 years with 2 children. The patient drinks no ETOH per day. Tobacco: None Systems review: He is very active. No physical limitations. HEENT: Denies problems with vision, hearing, runny nose, epistaxis, sore throat, hoarseness Cardiovascular: Denies Chest pain, palpitations, shortness of breath, ankle swelling, claudication Respiratory: Denies cough, phlegm, hemoptysis,wheeze, Gastrointestinal: Denies nausea, difficulty swallowing, vomiting, hematemesis, constipation, diarrhea, blood per rectum Neurological: Denies dizziness, double vision, headache, weakness of one side of the body or the other,sudden loss of vision in one eye, Bones and muscles: Denies bone pain, radiating pain, muscle weakness or sore ness. All other systems negative. Physical Exam: Vital Signs are reviewed. The patient appears well developed and healthy. There is no lymphadenopathy The abdomen is benign without masses. He has a small easily reducible left inguinal hernia.. The liver, spleen and kidneys are impalpable. External genitalia are normal. The scrotal skin is healthy and there are no masses The phallus has no masses scaring or abnormality The urethra is in normal position without discharge The testis are normal without masses The epididymis are normal without masses Rectal exam Anus and perineum are visibly normal Rectal tone normal. No palpable masses in the rectal vault. Prostate is 40 grams and symmetrical without tenderness or masses. The seminal vesicals are not palpable. Lab values are not availble for review X-rays are are not availble for review Impression: #1: LUTS with Urinary retention and elevated PVR, currently managed by CIC #2: ? Elevated PSA #3: Minimal comorbidity Plan: PSA and Creatinine today Continue CIC F/u with CMG/Flow rate and pressure flow study to assess feasiblity of surgical therapy We willl also assess his prostate cancer risk and need for biopsy at that time. All questions answered. John Rodriguez documented in this encounter Plan of Treatment Upcoming Encounters Date Type Specialty Care Team Description 07/30/2022 Office Visit Radiation Oncology Alecia Lion APRN [facility] RADIATION [place], [place] [address] (Wo rk) documented as of this encounter Procedures Procedure Name Priority Date/Time Associated Comments Diagnosis CREATININE Routine 12/21/2011 3:57 PM Urinary retention Resu lts for this EST procedure are i n the results section. PSA (ULTRASENSITIVE) STAT 12/21/2011 3:57 PM Urinary retent ion Results for this EST procedure are i n the results section. documented in this encounter Results (ABNORMAL) PSA (12/21/2011 3:57 PM EST) Analysis Performed At Patho logist Time Signature PSA Total 8.27 (H) 0.00 - CERNER (Ultrasensitiv 4.00 ng/mL MILLENNIUM e) Specimen Anatomical Collection Method Collection Time Receive d Time (Source) Location / / Volume Laterality Blood specimen 12/21/2011 3:57 PM 012 4:07 (specimen) EST PM EST John Rodriguez MD CHEMISTRY ORDERABLES Performing Organization Address City/State/ZIP [place] [address] CERNER MILLENNIUM (ABNORMAL) Creatinine, serum (12/21/2011 3:57 PM EST) P athologist Signature Creatinine 1.45 0.80 - CERNER 1.50 mg/dL MILLENNIUM Estimated GFR 49 (L) >=60 CERNER MILLENNIUM Comment: The National Kidney Disease Education Pr ogram (NKDEP) has recommended all laboratories report estimated GFR (eGFR) along with plasma creatinine measurements to assist you with recognit ion of early kidney disease. Caveats: ??Plasma creatinine should be a t steady-state (unchanged within the past week). For patient s multiply eGFR by 1.2. The MDRD equation has not been validated for pedi atric patients and is only valid for patients with age >= 18 years. At present, NKDEP does NOT recommend usi [...] kidney disease. References: http://nkdep.nih.gov/resources/NKDEP_Sug gestn4Labs_0606_508.pdf http://www.kidney.org/professionals/kls/ pdf/faq_gfr.pdf Specimen Anatomical Collection Method Collection Time Receive d Time (Source) Location / / Volume Laterality Blood specimen 12/21/2011 3:57 PM 012 4:07 (specimen) EST PM EST John Rodriguez MD CHEMISTRY ORDERABLES Performing Organization Address City/State/ZIP Code Phon e Number [address] LABORATORY [facility] documented in this encounter Visit Diagnoses Diagnosis Urinary retention - Primary Retention of urine, unspecified documented in this encounter Care Teams Lead Applications Developer Relationship Specialty Start Date End Date Ho Parham MD PCP - General 10/14/[address] [place] [phone] documented as of this encounter
--- OUTSIDE RECORDS SUMMARY | 2022-07-24 15:21 | XMS_ITS | Encounter Summary ---
:1945 Author Organization [facility] [place] [address] Care Team Providers Name Role Phone Santos Guallpa MD Primary Care Provider Reason for Visit Reason Onset Date Comments Medication Refill 02/01/2012 Encounter Details Date Type Department Care Team Description 02/01/2012 Refill Urology at [facility] Mary Jane Hook SUPERVISORY FORESTER [facility] Formerly named [facility] [place] [phone] UROLOGY DEPT. [phone] [place], [place] [address] (Wo rk) Social History Tobacco Use Types Packs/Day Years Used Date Never Smoker Sex Assigned at Date Recorded Not on file documented as of this encounter Plan of Treatment Upcoming Encounters Date Type Specialty Care Team Description 07/30/2022 Office Visit Radiation Oncology Alecia Lion SUPERVISORY FORESTER [facility] ER RADIATION [place], [place] [address] (Wo rk) documented as of this encounter Visit Diagnoses Not on filedocumented in this encounter Care Teams Counter Professional Relationship Specialty Start Date End Date Santos Guallpa MD PCP - General 10/14/[address] [place] [phone] documented as of this encounter
--- OUTSIDE RECORDS SUMMARY | 2022-07-24 15:21 | XMS_ITS | Encounter Summary ---
:1945 Author Organization [facility] [address] Care Team Providers Name Role Phone Santos Guallpa MD Primary Care Provider Reason for Visit Reason Onset Date Comments Results 12/23/2011 Encounter Details Date Type Department Care Team Description 12/23/2011 Telephone Urology at [facility] John Rodriguez MD Results [facility] [place] [phone] UROLOGY [phone] [place], [place] [address] (Wo rk) Social History Tobacco Use Types Packs/Day Years Used Date Never Smoker Sex Assigned at Date Recorded Not on file documented as of this encounter Miscellaneous Notes Telephone Encounter - John Rodriguez MD - 12/23/2011 5:05 PM EST Left message on phone PSA ~ 8 Will repeat when he comes down for UDS and if needed do a prostate biopsy that day John Rodriguez documented in this encounter Plan of Treatment Upcoming Encounters Date Type Specialty Care Team Description 07/30/2022 Office Visit Radiation Oncology Alecia Lion APRN [facility] ER RADIATION [place], [place] [address] (Wo rk) documented as of this encounter Results (ABNORMAL) PSA (01/13/2012 1:26 PM EST) Analysis Performed At Patho logist Time Signature PSA Total 7.71 (H) 0.00 - CERNER (Ultrasensitiv 4.00 ng/mL MILLENNIUM e) Specimen Anatomical Collection Method Collection Time Receive d Time (Source) Location / / Volume Laterality Blood specimen 01/13/2012 1:26 PM 012 1:34 (specimen) EST PM EST Resulting Agency Comment Spec In Lab John Rodriguez MD CHEMISTRY ORDERABLES Performing Organization Address City/State/[place] [address] [facility] documented in this encounter Visit Diagnoses Diagnosis Elevated PSA - Primary Elevated prostate specific antigen (PSA) documented in this encounter Care Teams Site Medical Director Relationship Specialty Start Date End Date Santos Guallpa MD PCP - General 10/14/[address] [place] [phone] documented as of this encounter
--- OUTSIDE RECORDS SUMMARY | 2022-07-24 15:21 | XMS_ITS | Encounter Summary ---
:1945 Author Organization [facility] [place] [address] Care Team Providers Name Role Phone Santos Guallpa MD Primary Care Provider Reason for Visit Reason Onset Date Comments Other 02/04/2012 pre PSA clinic call Encounter Details Date Type Department Care Team Description 02/04/2012 Telephone Urology [place] [facility] [place] Cain, Other (pre PSA clinic [facility] RN call) [place] [address] Social History Tobacco Use Types Packs/Day Years Used Date Never Smoker Sex Assigned at Date Recorded Not on file documented as of this encounter Miscellaneous Notes Telephone Encounter - Santos Cain, RN - 02/04/2012 1:15 PM EDT Reason for call: PSA clinic appointment on 02/15/12. Scheduled for Bx at this time? Yes__X_ No___ If yes, ABX script given Yes_X__ No___ RX for Sonu Joe az Meds/Allergies: updated 02/04/12 (reviewed and charted) Review for anti-coag medications: (Coumadin, Plavix, ASA, NSAIDS) No _X_ Yes __ If yes instruct pt to contact PCP or prescribing physician for further instruction as to discontinuing and restarting anti-coagulant therapy for Biopsy. If unable to discontinue medication as per PCP pt to keep appointment and if biopsy warranted will be scheduled for a later date. Review OTC, herbal and vitamin supplements for potential anti-coag effect: (ginko biloba, chris, fever few, garlic, herbal teas with supplements added, Vit C,) No _X_ Yes __ If yes and recommended by PCP: check with PCP and follow instructions given for discontinuing and restarting OTC and supplements If yes and pt started: pt to stop supplements for 1 week prior and 1 week after biopsy. Labs: Repeat PSA Yes _X_ Free PSA (must be at least 10 days prior to clinic) Yes __ when done ____ Have all labs faxed to Dr Rodriguez's office (fax # [phone]) or hand carried the day of the appointment. Pt to do C/S one wk prior to appt (lab slip mailed to pt); DJR F/U on 02/10 at [facility]. Patient Hx: Leaky heart valve, artifical heart valve, hx of heart attack and/or problems No _X_ Yes__ if yes, when contact Dr Rodriguez Artifical Joint Replacement No _X_ Yes __ if yes, when contact Dr. Rodriguez Other 1.Ref JSi note dtd 01/12 2. DJR to F/U on C/S Patient Instructions/Information: Patient does not need to be NPO for biopsy. Patient to purchase Fleet Enema and use according to directions the morning of appointment if pt agreeable to have biopsy if offered at this appointment. If patient chooses to reschedule biopsy for a later date then no enema needed. Patient will meet with Dr Rodriguez to discuss lab results and have a ANDREAS to determine need for biopsy. Patient may park in Parking Garage Registration is at Hem/Onc law office receptionist on 3rd floor. Questionaires: Has pt filled out: Urinary Function Questionaire? Yes___ No___ Elevated PSA Clinic Questionaire? Yes___ No___ Patient understands and is able to verbalize back to this nurse the above information. Patient agrees to the POC, knows when and how to call if need arises. documented in this encounter Plan of Treatment Upcoming Encounters Date Type Specialty Care Team Description 07/30/2022 Office Visit Radiation Oncology Alecia Lion, DENTAL LAB TECHNICIAN [facility] RADIATION [place], [place] [address] (Wo rk) documented as of this encounter Visit Diagnoses Not on filedocumented in this encounter Care Teams Medical Accountant Relationship Specialty Start Date End Date Santos Guallpa MD PCP - General 10/14/[address] [place] [phone] documented as of this encounter
--- OUTSIDE RECORDS SUMMARY | 2022-07-24 15:21 | XMS_ITS | Encounter Summary ---
:1945 Author Organization [facility] [place] [address] Care Team Providers Name Role Phone Santos Guallpa MD Primary Care Provider Encounter Details Date Type Department Care Team Description 04/09/2012 Telephone Urology [place] [facility] [place] Rodriguez MD [facility] [place] [address] UROLOGY [phone] [place], [place] [address] (Wo rk) Social History Tobacco Use Types Packs/Day Years Used Date Never Smoker Smokeless Tobacco: Never Used Sex Assigned at Date Recorded Not on file documented as of this encounter Miscellaneous Notes Telephone Encounter - John Rodriguez MD - 04/09/2012 11:39 AM EDT Call from [place] ER UTI progressing to Epididymitis. Not very high fevers WCC 26 Was on Augmentin (prior culture showed it was sensitive (E.Coli I believe) Started on IC ceftriax q 24 with f/u in [place] tomorrow. I agree with plan with low threshold for admission or further evaluation if he does not improve. Continue CIC. John Rodriguez documented in this encounter Plan of Treatment Upcoming Encounters Date Type Specialty Care Team Description 07/30/2022 Office Visit Radiation Oncology Alecia Lion, CASH TELLER [facility] RADIATION ON[facility] [facility] [place] [address] (Wo rk) documented as of this encounter Visit Diagnoses Not on filedocumented in this encounter Care Teams Supply Coordinator Relationship Specialty Start Date End Date Santos Guallpa MD PCP - General 10/14/[address] [place] [phone] documented as of this encounter
--- OUTSIDE RECORDS SUMMARY | 2022-07-24 15:21 | XMS_ITS | Encounter Summary ---
:1945 Author Organization [facility] Address [address] [place] [address] Care Team Providers Name Role Phone Santos Guallpa MD Primary Care Provider Reason for Visit Reason Comments Follow-up Encounter Details Date Type Department Care Team Description 04/20/2012 Office Visit Urology at [facility] Teresa Rodriguez MD Urinary retention [facility]ly [facility] (Pr imary Dx) Drive [address] [place] [address] [place] [address] [phone] Social History Tobacco Use Types Packs/Day Years Used Date Never Smoker Smokeless Tobacco: Never Used Sex Assigned at Date Recorded Not on file documented as of this encounter Last Filed Vital Signs Vital Sign Reading Time Taken Comments Blood Pressure 144/76 04/20/2012 2:01 PM EDT Pulse 83 04/20/2012 2:01 PM EDT Temperature - - Respiratory Rate 20 04/20/2012 2:01 PM EDT Oxygen Saturation - - Inhaled Oxygen Concentration - - Weight 74.8 kg (165 lb) 04/20/2012 2:01 PM EDT Height 167.6 cm (5' 6) 04/20/2012 2:01 PM EDT Body Mass Index 26.63 04/20/2012 2:01 PM EDT documented in this encounter Progress Notes Teresa Rodriguez MD - 04/20/2012 2:00 PM EDT Reason for Visit:.The patient comes for follow up after a recent admission for epididymitis and a preop visit for a radical prostatectomy Recent admission for a complicated epididymitis due to fluroquinolone resistant antibiotics.He was initially treated with Ceftriaxone and then discharged on Bactrim. He has no complaints today and has started work again. Testicle is still swollen but nontender. No fever or chills. Appetite is good. Prostate [...] elevated PVR and saw Dr Isbell in [place] and was started on CIC. He has [...] seen: Left mid Excerpt from path report: [facility] Provider: TERESA RODRIGUEZ Pt. Name: MOLINA PEREIRA Acc #: [id number] Pt. Col Date: 02/15/2012 /Sex: 1945,(66 years),Male [...] noted. External genitalia normal, except for right swollen testicle and thickened epididymis. Impression: #1: [id number] Maynor 3+4=7 Prostate Cancer with a PSA of [...] discussed with him the prostate imaging studies [facility] [id number]( ex vivo study). I discussed the risks,experimental and voluntary nature. I gave him a copy of the Informed consent. We will sign on the morning f surgery if he agrees to participate. Teresa Rodriguez. documented in this encounter Plan of Treatment Upcoming Encounters Date Type Specialty Care Team Description 07/30/2022 Office Visit Radiation Oncology Alecia Lion, [employer] [facility] RADIATION [place], [place] [address] (Wo rk) documented as of this encounter Procedures Procedure Name Priority Date/Time Associated Diagnosis Comme nts URINE CULTURE Routine 04/20/2012 6:18 PM Urinary retention Res ults for this EDT procedure are i n the results section . documented in this encounter Results Urine culture Straight Catheter Urine (04/20/2012 6:18 PM EDT) [facility] Method Time Signature Urine Culture CERNER ? Patient Name: MOLINA PEREIRA ? Ordered By: TERESA RODRIGUEZ ? MR#: [id number] ?LOC: ??5B ? /Sex: ??1945 (66 years), ? Male ? PROCEDURE: Urine Culture ?SOURCE: [facility] ? COLLECTED: 04/20/2012 18:18 ? STARTED: 04/20/2012 18:18 ? FINAL REPORT ? Final Report ? Verified:04/22/2012 10:50 ? No growth (Less than 100 cfu/ml). ? PRELIMINARY REPORT ? Preliminary Report ? Verified:04/21/2012 18:34 ? No growth to date. ? Specimen Anatomical Collection Method Collection Time Receive d Time (Source) Location / / Volume Laterality Urine specimen 04/20/2012 6:18 PM 012 6:18 obtained via EDT PM EDT straight catheter (specimen) Resulting Agency Comment Spec In Lab Teresa Rodriguez MD MICROBIOLOGY - GENERAL ORDER SUSAN Performing Organization Address City/State/ZIP Code Phon e Number [place] [phone] [facility] documented in this encounter Visit Diagnoses Diagnosis Urinary retention - Primary Retention of urine, unspecified documented in this encounter Care Teams Medical Coding Instructor Relationship Specialty Start Date End Date Santos Guallpa MD PCP - General 10/14/[address] [place] [phone] documented as of this encounter
--- OUTSIDE RECORDS SUMMARY | 2022-07-24 15:21 | XMS_ITS | Encounter Summary ---
:1945 Author Organization [facility] [place] [address] Care Team Providers Name Role Phone Santos Guallpa MD Primary Care Provider Reason for Visit Reason Onset Date Comments Elevated PSA Elevated PSA 02/15/2012 Encounter Details Date Type Department Care Team Description 02/15/2012 Initial consult Hematology and Teresa Carey Elevate d PSA (Primary Oncology at [facility] MD Dx) [facility] [address] [place] [address] [place] [address] [phone] Social History Tobacco Use Types Packs/Day Years Used Date Never Smoker Sex Assigned at Date Recorded Not on file documented as of this encounter Last Filed Vital Signs Vital Sign Reading Time Taken Comments Blood Pressure 161/80 02/15/2012 7:42 AM EDT Pulse 73 02/15/2012 7:42 AM EDT Temperature 36.7 ??C (98.1 ??F) 02/15/2012 7:42 AM EDT Respiratory Rate 16 02/15/2012 7:42 AM EDT Oxygen Saturation - - Inhaled Oxygen Concentration - - Weight 77 kg (169 lb 12.1 oz) 02/15/2012 7:42 AM EDT Height - - Body Mass Index 27.4 12/21/2011 3:00 PM EST documented in this encounter Patient Instructions Patient InstructionsAshlie Hayes MD - 02/15/2012 8:40 AM EDT You will receive a phone call with your biopsy results early next week. documented in this encounter Progress Notes Santos Cain RN - 02/15/2012 3:04 PM EDT Post Prostate Biopsy Procedure Teaching done using the Prostate Biopsy Discharge Information Sheet (given to patient along with sanitary pads). Patient stated he understood the discharge information, phone numbers to call with any concerns regarding excessive bleeding or signs or symptoms of infection. Patient voiced no complaints and left the unit in a stable condition. Ashlie Hayes MD - 02/15/2012 8:40 AM EDT Follow-up Office Visit for Elevated PSA HPI: Molina Randhawa returns in follow-up for an elevated PSA. He plans to have a prostate biopsy today. The patient is on CIC for chronic urinary retention. Urine culture last week showed enterococcus sensitive to amox, vanco, pcn. He was started on PO amoxicillin on Wednesday. He had 2 doses Sat and Sun and one dose this morning. He denies any sx of UTI. No fevers. No other illnesses. PSA History: 01/13/12 - 7.71 12/21/11 - 8.27 He denies any worsening/changes to his lower urinary tract symptoms. He has had no new bone pain. He has had no changes to his PMH. UA: negative Urine Culture: [facility] 02/11/2012 Enterococcus Faecalis Amp R Cipro I Gent R Levo R NitroF R PCN S Rifamp I Stretomycin R Synercid R Tetra R Vanco S Imp: Risk and benefits discussed concerning the prostate biopsy at last visit, revisited today. He has no questions. Plan: TRUS guided prostate biopsy. Pt is not on any blood thinners. Will give 1g vancomycin IV andCipro 500mg po prior to biopsy. Consent obtained. Procedure Note Procedure: Transrectal ultrasound and prostate biopsy Surgeon: Teresa Booker Preoperative Diagnosis: Abnormal PSA/Free PSA Urinary Retention Post Operative Diagnosis: Successful Biopsy Complications: None Procedure: A time out procedure was performed. It was confirmed the patient had a urinanalysis that did not show evidence of a urinary infection prior to the biopsy. It was confirmed that the patient had received his antibiotics. See above. The TRUS probe was inserted into the rectum and the prostate imaged in the sagittal and transverse dimensions. Prostate volume was 57cc. The prostate was homogeneous. Prostate calcifications were observed at the junction of the peripheral and transition zones. Hypochoic areas:Left mid/base Rectum, periprostatic structures, visualized areas of the bladder, vas deferens and seminal vesiclesall appeared normal Prostatic anaesthesia was achieved in the standard fashion. A series of prostatic biopsies were obtained from the lateral apex, mid,and base as well as mid sagittal apex, mid and base. Biopsies were obtained from both the right and left side of the prostate. Additional biopsies: Left hypo A total of 13 biopsies were obtained. The patient tolerated the procedure without difficulty. I will contact him in about a weeks time with the results. He understands that if he does not hear from me or has any problems to contact my office. Teresa Carey documented in this encounter Miscellaneous Notes Miscellaneous - Carlos Hernández - 02/24/2012 3:16 PM EDT documented in this encounter Plan of Treatment Upcoming Encounters Date Type Specialty Care Team Description 07/30/2022 Office Visit Radiation Oncology Alecia Lion, [facility] RADIATION [place], [place] [address] (Wo rk) documented as of this encounter Procedures Procedure Name Priority Date/Time Associated Diagnosis Comme nts SURGICAL PATHOLOGY Routine 02/15/2012 12:10 PM Re sults for this REPORT EDT procedure are i n the results section. SPECIMEN TO Routine 02/15/2012 8:40 AM Elevated PSA Results f or this PATHOLOGY EDT procedure are i n the results section. documented in this encounter Results SURGICAL PATHOLOGY REPORT (02/15/2012 12:10 PM EDT) Component Value Ref Test Analysis Performed At [facility] Range Method Time Signature Surgical CERNER Pathology ? [facility] Report ? Provider: ?? TERESA CAREY ?Pt. Name: ?? MOLINA AMEZQUITA ? Acc #: ?[id number] ?Pt. MRN: ?[id number] ? Col Date: ?? 02/15/2012 ?/Sex: ?1945,(66 years),Male ? Rec Date: ?? 02/15/2012 ?LOC: ?3K ? SURGICAL PATHOLOGY ? ---Pathologic Diagnosis--- ? A - Prostatic core needle biopsy, right base: ? Benign prostatic tissue. ? B - Prostatic core needle biopsy, right mid: ? Benign prostatic tissue. ? C - Prostatic core needle biopsy, right apex: ? Benign prostatic tissue with focal chronic infl ammation. ? D - Prostatic core needle biopsy, right lateral base: ? Benign prostatic tissue. ? E - Prostatic core needle biopsy, right lateral mid: ? Benign prostatic tissue. ? F - Prostatic core needle biopsy, right lateral apex: ? Benign prostatic tissue with adenosis. ? Immunohistochemistry is suportive. ? G - Prostatic core needle biopsy, left base: ? Benign prostatic tissue. ? H - Prostatic core needle biopsy, left mid: ? Adenocarcinoma, Maynor grade 3 + 4, involving approximately ? 10% of one of one needle core biopsy. ? I - Prostatic core needle biopsy, left apex: ? Benign prostatic tissue. ? J - Prostatic core needle biopsy, left lateral base: ? Benign prostatic tissue. ? K - Prostatic core needle biopsy, left lateral mid: ? Benign prostatic tissue. ? L - Prostatic core needle biopsy, left lateral apex: ? Benign prostatic tissue. ? M - Prostatic core needle biopsy, left nodule: ? Adenocarcinoma, Maynor grade 3 + 4, involving approximately ? 25% of one of one needle core biopsy. ? [facility] ? Provider: ?? TERESA CAREY ?Pt. Name: ?? MOLINA AMEZQUITA ? Acc #: ?[id number] ?Pt. MRN: ?[id number] ? Col Date: ?? 02/15/2012 ?/Sex: ?1945,(66 years),Male ? Rec Date: ?? 02/15/2012 ?LOC: ?3K ? SURGICAL PATHOLOGY ? CR-0 ? 02/16/12 ? VMS ? 02/18/12 Verified by: ? RODRIGO KNAPP, CLAUDINE RODARTE ? Pathologist ? (Electronic Si gnature) ? The attending pathologist whose signature appears o n this report has ? reviewed all diagnostic slides and has edited the belen ss and/or ? microscopic portion of the report in rendering the fi nal pathologic ? diagnosis. ? ---Microscopic Description--- ? Slides reviewed, microscopic description not recorded . ? Immunohistochemistry Studies: ? Formalin-fixed, paraf fin-embedded tissue sections are studied using the B- ? SA system technique w ith appropriate positive and negative controls. ??These ? IHC studies provide t he pathologist with adjunctive diagnostic information. ? Antibody specificity has been verified by testing antibodies on a series of ? in-house tissues with known immunohistochemical perfo rmance ? characteristics. The clinical interpretation of any antibody positive ? staining or its absence is evaluated within the rashaad xt of clinical ? presentation, morphol ogy, histopathological criteria and other diagnostic ? tests. ? Block ?Antibody ? Result (Posi tive/Negative) ? F ?34BE12, P63 ?Intermittent staining ?P504S ?Negative ? ---Gross Description--- ? A - Labeled/Fixative: Right base prostate, formalin. ? Qty/Size/Weight: ?Single trevizo-white needle core biopsy, 1.8 x 0.1 cm. ? Sections/Processing: ??(T1) ? B - Labeled/Fixative: Right mid prostate, formalin. ? Qty/Size/Weight: ?Single trevizo-white needle core biopsy, 1.5 x 0.1 cm. ? Sections/Processing: ??(T1) ? C - Labeled/Fixative: Right apex prostate, formalin. ? Qty/Size/Weight: ?Single trevizo-white needle core biopsy, 1.5 x 0.1 cm. ? Sections/Processing: ??(T1) ? D - Labeled/Fixative: Right lateral base prostate, fo rmalin. ? [facility] ? Provider: ?? TERESA CAREY ?Pt. Name: ?? NOAH WASHINGTON MOLINA Dmitriy ? Acc #: ?[id number] ?Pt. MRN: ?[id number] ? Col Date: ?? 02/15/2012 ?/Sex: ?1945,(66 years),Male ? Rec Date: ?? 02/15/2012 ?LOC: ?3K ? SURGICAL PATHOLOGY ? Qty/Size/Weight: ?Single trevizo-white needle core biopsy, 1.5 x 0.1 cm. ? Sections/Processing: ??(T1) ? E - Labeled/Fixative: Right lateral mid prostate, for xiomara. ? Qty/Size/Weight: ?Single trevizo-white needle core biopsy, 1.7 x 0.1 cm. ? Sections/Processing: ??(T1) ? F - Labeled/Fixative: Right lateral apex prostate, fo rmalin. ? Qty/Size/Weight: ?Single trevizo-white needle core biopsy, 1.6 x 0.1 cm. ? Sections/Processing: ??(T1) ? G - Labeled/Fixative: Left base prostate, formalin. ? Qty/Size/Weight: ?Single trevizo-white needle core biopsy, 1.7 x 0.1 cm. ? Sections/Processing: ??(T1) ? H - Labeled/Fixative: Left mid prostate, formalin. ? Qty/Size/Weight: ?Single trevizo-white needle core biopsy, 1.8 x 0.1 cm. ? Sections/Processing: ??(T1) ? I - Labeled/Fixative: Left apex prostate, formalin. ? Qty/Size/Weight: ?Single trevizo-white needle core biopsy, 2.0 x 0.1 cm. ? Sections/Processing: ??(T1) ? J - Labeled/Fixative: Left lateral base prostate, for xiomara. ? Qty/Size/Weight: ?Single trevizo-white needle core biopsy, 1.3 x 0.1 cm. ? Sections/Processing: ??(T1) ? K - Labeled/Fixative: Left lateral mid prostate, form [place]. ? Qty/Size/Weight: ?Single trevizo-white needle core biopsy, 1.8 x 0.1 cm. ? Sections/Processing: ??(T1) ? L - Labeled/Fixative: Left lateral apex prostate, for xiomara. ? Qty/Size/Weight: ?Single trevizo-white needle core biopsy, 1.6 x 0.1 cm. ? Sections/Processing: ??(T1) ? M - Labeled/Fixative: LN prostate, formalin. ? Qty/Size/Weight: ?Single trevizo-white needle core biopsy, 1.7 x 0.1 cm. ? Sections/Processing: ??(T1) vms/SHB ? ---Clinical Information--- ? Specimen Submitted: ? Prostate ? A - Right base ? B - Right mid ? [facility] ? Provider: ?? TERESA CAREY ?Pt. Name: ?? MOLINA AMEZQUITA ? Acc #: ?[id number] ?Pt. MRN: ?[id number] ? Col Date: ?? 02/15/2012 ?/Sex: ?1945,(66 years),Male ? Rec Date: ?? 02/15/2012 ?LOC: ?3K ? SURGICAL PATHOLOGY ? C - Right apex ? D - Right lateral base ? E - Right lateral mid ? F - Right lateral apex ? G - Left base ? H - Left mid ? I - Left apex ? J - Left lateral base ? K - Left lateral mid ? L - Left lateral apex ? M - Left nodule ? Clinical History/Diagnosis: ? Elevated PSA Specimen (Source) Anatomical Collection Method Collection Time Re ceived Time Location / / Volume Laterality 02/15/2012 12:10 PM EDT Teresa Carey MD PATHOLOGY/CYTOLOGY ORDERABLE S Performing Organization Address City/State/[place] [address] [facility] Q-Bot US guided transrectal biopsy (02/15/2012 10:47 AM EDT) Anatomical Region Laterality Modality Pelvis Ultrasound Specimen (Source) Anatomical Collection Method Collection Time Re ceived Time Location / / Volume Laterality 02/15/2012 10:47 AM EDT Addenda Addendum on 03/01/2012 8:36 AM EDT Addendum Begins Ultrasound guidance was provided for Dr. Carey of the section of Urology who performed a total of 13 biopsies at [facility]K c linic location. ?? Addendum Ends Addendum on 02/29/2012 12:26 PM EDT Addendum Begins Ultrasound guidance was provided for Dr. Carey of the section of Urology who performed a total of 13 biopsies at [facility] c linic location. ?? Addendum Ends Narrative 02/15/2012 3:44 PM EDT ?Male Pe lvis ? (Signed Final 02/15/2012 03 :44 pm) Patient Info ID: ? [id number] ? : ??[birth year] (66 yrs) Name: ? MOLINA Izaguirre SYDNEE ? Visit Date: 02/15/2012 10:45 am Performed By Performed By: ?Rene Reid RDMS Attending: ? Gabrielle KNAPP, Stanley Taylor Referred By: ? TERESA CAREY MD Service(s) Provided UTRBX - Ultrasound - Prostate Biopsy - ?[id number], [id number], [id number] Indications Elevated PSA Technique/Scan Quality Technique: ?Transducer #: [id number] -------- Prostate -------- Size (cm) ?L: ??5.12 ?AP: ?? 4.44 ?TV: ??4.79 Vol (ml): ?57 Comment: ?Hypoechoic area seen: ??L eft mid Impression Ultrasound - Prostate Ultrasound - Summ debi Transrectal ultrasound was performed. Hypoechoic area seen: ??Left mid Ultrasound - Prostate Biopsy - Summary Ultrasound guidance was provided for Dr Abad Carey of the section of Urology who performed I ??viewed the images and agree with amy stone above interpretation. Thank you for allowing us to participat e in the care of MOLINA RANDHAWA. Please do not hesita te to call if you have any questions. ? Stanley adkins MD Electronically Signed Final Report ?? 03:44 pm Procedure Note Stanley Anthony MD - 03/01/2012Format ting of this note might be different from the original. Male Pelvis (Signed Final 02/15/2012 03:44 pm) Patient Info ID: [id number] : [birth year] (66 yrs ) Name: MOLINA RANDHAWA Visit Date: 07/2012 10:45 am Performed By Performed By: Rene Reid RDMS Attending: Stanley Anthony MD Referred By: TERESA CAREY MD Service(s) Provided UTRBX - Ultrasound - Prostate Biopsy - [id number], [id number], [id number] Indications Elevated PSA Technique/Scan Quality Technique: Transducer #: 27 -------- Prostate -------- Size (cm) L: 5.12 AP: 4.44 TV: 4.79 Vol (ml): 57 Comment: Hypoechoic area seen: Left mid Impression Ultrasound - Prostate Ultrasound - Summ debi Transrectal ultrasound was performed. Hypoechoic area seen: Left mid Ultrasound - Prostate Biopsy - Summary Ultrasound guidance was provided for Dr Abad Carey of the section of Urology who performed I viewed the images and agree with the above interpretation. Thank you for allowing us to participat e in the care of MOLINA RANDHAWA. Please do not hesita te to call if you have any questions. Stanley Anthony MD Electronically Signed Final Report 02/14 03:44 pm Teresa Carey MD IMG US PROC ORDERABLES Specimen to Pathology (surgical or derm) (02/15/2012 8:40 AM EDT) Specimen Anatomical Collection Method Collection Time Receive d Time (Source) Location / / Volume Laterality AP Specimen 02/15/2012 8:40 AM 2 8:40 EDT AM EDT Narrative CERNER ZAMZAMENNIUM - 02/15/2012 8:41 AM E DT Specimen requisition ordered. ??Separate Pathology report to follow Teresa Carey MD PATHOLOGY/CYTOLOGY ORDERABLE S Performing Organization Address City/State/[place] [address] [facility] documented in this encounter Visit Diagnoses Diagnosis Elevated PSA - Primary Elevated prostate specific antigen (PSA) Elevated PSA Elevated prostate specific antigen (PSA) documented in this encounter Administered Medications Inactive Administered Medications - up to 3 most recent administrations Medication Order MAR Action Action Date Dose Rate Site vancomycin 1 g in sodium Given 02/15/2012 8:56 AM EDT 1,000 mg 250 mL/hr chloride 0.9% 250 mL 1,000 mg (1 g), Intravenous, EVERY 12 HOURS, First dose on 02/15/12 at 0900, Until Discontinued, Administer over 60 Minutes, This medication may have an associated drug lab level. Please check for lab orders, Indication for (Active or Suspected): for Urinary Tract/Pyelonephritis documented in this encounter Care Teams Lmft Relationship Specialty Start Date End Date Santos Guallpa MD PCP - General 10/14/11 [address] [place] [phone] documented as of this encounter
--- OUTSIDE RECORDS SUMMARY | 2022-07-24 15:21 | XMS_ITS | Encounter Summary ---
:1945 Author Organization [facility] [place] [address] Care Team Providers Name Role Phone Santos Guallpa MD Primary Care Provider Reason for Visit Reason Onset Date Comments Dysuria 02/13/2012 Positive Urine Culture 02/13/2012 Encounter Details Date Type Department Care Team Description 02/13/2012 Telephone Urology at [facility] Bruce Tao, Dysuria; Positive [facility] [place] [phone] UROLOGY DEPT. [place], [place] [address] (Wo rk) Social History Tobacco Use Types Packs/Day Years Used Date Never Smoker Sex Assigned at Date Recorded Not on file documented as of this encounter Miscellaneous Notes Telephone Encounter - Bruce Tao MD - 02/13/2012 1:30 PM EDT Patient scheduled for prostate biospy on Wednesday. Urine culture from is Enteroccocus Fecalis which is sensitive to Penicillin, Ampicillin and Vancomycin. It is resistant to every other drug reported. As such I will start 7 days of Ampicillin. I have advised the patient that he should also take the Levoquin prior to his biopsy for broader coverage of rectal valerie. documented in this encounter Plan of Treatment Upcoming Encounters Date Type Specialty Care Team Description 07/30/2022 Office Visit Radiation Oncology Alecia Lion, PNEUMATIC [employer]IV[employer] [facility] RADIATION [place], [place] [address] (Wo rk) documented as of this encounter Visit Diagnoses Not on filedocumented in this encounter Care Teams Milk Deliverer Relationship Specialty Start Date End Date Santos Guallpa MD PCP - General 10/14/[address] [place] [phone] documented as of this encounter
--- OUTSIDE RECORDS SUMMARY | 2022-07-24 15:21 | XMS_ITS | Encounter Summary ---
:1945 Author Organization [facility] [place] [address] Care Team Providers Name Role Phone Santos Guallpa MD Primary Care Provider Encounter Details Date Type Department Care Team Description 02/15/2012 Hospital Encounter XRay at [facility], DR BETH Oconnor [address] Teresa Brady MD [facility] [place] [address] [place] [address] Social History Tobacco Use Types Packs/Day Years Used Date Never Smoker Sex Assigned at Date Recorded Not on file documented as of this encounter Medications at Time of Discharge Medication Sig Dispensed Refills Start Date End Date chlorhexidine (HIBICLENS) Apply topically 120 mL 11 02/1403/30/2012 4 % external daily as needed. liquidIndications: Urinary retention ciprofloxacin (CIPRO) 500 Take 500 mg by mouth 0 02/15/2012 02/17/2012 mg tablet 2 times daily. Amoxicillin 500 mg Tab Take 500 mg by mouth 14 tablet 0 05/201202/20/2012 2 times daily for 7 days. tamsulosin (FLOMAX) 0.4 Take 0.4 mg by mouth 0 05/16/2012 mg capsule 2 times daily. dutasteride (AVODART) 0.5 Take 0.5 mg by mouth 0 05/16/2012 mg capsule daily. documented as of this encounter Plan of Treatment Upcoming Encounters Date Type Specialty Care Team Description 07/30/2022 Office Visit Radiation Oncology Alecia Lion, CONTRACT MANAGER [facility] [place], [place] [address] (Wo rk) documented as of this encounter Procedures Procedure Name Priority Date/Time Associated Diagnosis Comme nts US GUIDED BIOPSY Routine 02/15/2012 10:47 AM Elevated PSA Resu lts for this PROSTATE (OLATON EDT procedure are in ONLY) the results section. documented in this encounter Results US guided transrectal biopsy (02/15/2012 10:47 AM EDT) Anatomical Region Laterality Modality Pelvis Ultrasound Specimen (Source) Anatomical Collection Method Collection Time Re ceived Time Location / / Volume Laterality 02/15/2012 10:47 AM EDT Addenda Addendum on 03/01/2012 8:36 AM EDT Addendum Begins Ultrasound guidance was provided for Dr. Rodriguez of the section of Urology who performed a total of 13 biopsies at [facility] l[facility] location. ?? Addendum Ends Addendum on 02/29/2012 12:26 PM EDT Addendum Begins Ultrasound guidance was provided for Dr. Rodriguez of the section of Urology who performed a total of 13 biopsies at [facility] l[facility] location. ?? Addendum Ends Narrative 02/15/2012 3:44 PM EDT ?Male Pe lvis ? (Signed Final 02/15/2012 03 :44 pm) Patient Info ID: ? [id number] ? : [birth year] (66 yrs) Name: ? MOLINA PEREIRA ? Visit Date: 02/15/2012 10:45 am Performed By Performed By: ?Rene Reid RDMS Attending: ? Stanley Anthony MD. Referred By: ? TERESA RODRIGUEZ MD Service(s) Provided UTRBX - Ultrasound - Prostate Biopsy - ?[id number], [id number], [id number] Indications Elevated PSA Technique/Scan Quality Technique: ?Transducer #: [id number] -------- Prostate -------- Size (cm) ?L: ??5.12 ?AP: ?? 4.44 ?TV: ??4.79 Vol (ml): ?57 Comment: ?Hypoechoic area seen: ??L eft mid Impression Ultrasound - Prostate Ultrasound - Summ debi Transrectal ultrasound was performed. Hypoechoic area seen: ??Left mid Ultrasound - Prostate Biopsy - Summary Ultrasound guidance was provided for Dr Abad Rodriguez of the section of Urology who performed I ??viewed the images and agree with amy stone above interpretation. Thank you for allowing us to participat e in the care of MOLINA PEREIRA. Please do not hesita te to call if you have any questions. ? Stanley adkins MD Electronically Signed Final Report ?? 03:44 pm Procedure Note Stanley Anthony MD - 03/01/2012Format ting of this note might be different from the original. Male Pelvis (Signed Final 02/15/2012 03:44 pm) Patient Info ID: [id number] : [birth year] (66 yrs ) Name: MOLINA PEREIRA Visit Date: 07/2012 10:45 am Performed By Performed By: Rene Reid RDMS Attending: Stanley Anthony MD Referred By: TERESA RODRIGUEZ MD Service(s) Provided UTRBX - Ultrasound - Prostate Biopsy - [id number], [id number], [id number] Indications Elevated PSA Technique/Scan Quality Technique: Transducer #: 27 -------- Prostate -------- Size (cm) L: 5.12 AP: 4.44 TV: 4.79 Vol (ml): 57 Comment: Hypoechoic area seen: Left mid Impression Ultrasound - Prostate Ultrasound - Summ debi Transrectal ultrasound was performed. Hypoechoic area seen: Left mid Ultrasound - Prostate Biopsy - Summary Ultrasound guidance was provided for Dr Abad Rodriguez of the section of Urology who performed I viewed the images and agree with the above interpretation. Thank you for allowing us to participat e in the care of MOLINA PEREIRA. Please do not hesita te to call if you have any questions. Stanley Anthony MD Electronically Signed Final Report 02/14 03:44 pm Teresa Rodriguez MD IMG US PROC ORDERABLES documented in this encounter Visit Diagnoses Diagnosis Elevated PSA Elevated prostate specific antigen (PSA) documented in this encounter Care Teams Crop And Soil Technician Relationship Specialty Start Date End Date Santos Guallpa MD PCP - General 12/7/11 [address] [place] [phone] documented as of this encounter
--- OUTSIDE RECORDS SUMMARY | 2022-07-24 15:21 | XMS_ITS | Encounter Summary ---
:1945 Author Organization [facility] [address] Care Team Providers Name Role Phone Santos Guallpa MD Primary Care Provider Reason for Referral Consultation (Routine) - Closed Specialty Diagnoses / Procedures Referred By Contact Refer red To Contact Radiation Oncology Diagnoses Prostate cancer Mary Jane Hook, [facility] [place] LANDSCAPE MANAGER Treatment [facility] D [facility] [place] [address] [place] [address] Phone: Fax: Referral ID Status Reason Start Date Expiration Date Visits V isits Requested Authorized [id number] Closed Consult, 02/22/2012 08/20/2012 1 1 Test & Treat Reason for Visit Reason Onset Date Comments Results 02/22/2012 Encounter Details Date Type Department Care Team Description 02/22/2012 Telephone [place] [facility] [place] Jane Hook, Results [facility] [place] [address] [facility] [phone] UROLOGY DEPT. [place], [place] [address] (Wo rk) Social History Tobacco Use Types Packs/Day Years Used Date Never Smoker Sex Assigned at Date Recorded Not on file documented as of this encounter Miscellaneous Notes Telephone Encounter - Mary Jane Hook, BENITO - 02/22/2012 7:25 AM EDT Molina Randhawa [address] [facility] [phone] Dear Abad Sydnee, This is a short note in follow up on our telephone discussion regarding your most recent prostate biopsy. As you will recall, Dr. Rodriguez evaluated you on 02/15/2012 for a PSA of 8.27 and more recently 7.71. Your prostate on rectal exam was normal. Again, at your most recent visit we performed a transrectal ultrasound and prostate biopsy. The biopsy found prostate cancer. Attached below is an excerpt from your pathology report: [facility] Provider: TERESA RODRIGUEZ Pt. Name: MOLINA RANDHAWA Acc #: [id number] Pt. Col Date: 02/15/2012 /Sex: 1945,(66 years),Male [...] Prostatic core needle biopsy, left mid: Adenocarcinoma, Milam grade 3 + 4, involving approximately 10% [...] by: RODRIGO KNAPP, ALICE Pathologist (Electronic Signature) I have staged your prostate cancer as [id number] Milam score 3 +4 =7 . Thank you for letting me know about your bladder infection and that you saw Dr. Guallpa regarding your fever/chills. I will try to get your urine culture results from his office as you indicated thathe did send a urine culture when you saw him. Please complete your 7 day course of antibiotics. As I indicated, there is considerable controversy about the best management of prostate cancer. I enclose with this letter some information about the various treatment options for prostate cancer. As you will see there are several excellent alternatives which you will be able to discuss at your upcoming appointment with Dr. Rodriguez. I know that you are in favor of prostatectomy given your voiding symptoms. Someone from my office should be contacting you to arrange a follow-up appointment in 1-2 [address]Dr. Rodriguez to review your prostate cancer diagnosis more completely. Please call us if you do NOT receive an appointment to see you. I will not refer you to radiation oncology at this time as you favor prostatectomy for your voiding symptoms as well. However, if you decide you would like a referral, please let me know and I will put one in so that you may be seen. In the meantime if you have any questions please contact my office at . Yours sincerely, Mary Jane Arce APRN Section of Urology, [place] [address] documented in this encounter Plan of Treatment Upcoming Encounters Date Type Specialty Care Team Description 07/30/2022 Office Visit Radiation Oncology Alecia Lion APRN [facility] DR VICTOR MAN[place], [place] [address] (Wo rk) Scheduled Referrals Name Type Priority Associated Diagnoses Order S chedule REFERRAL TO Outpatient Referral Routine Prostate cancer Order ed: RADIATION ONCOLOGY 2 documented as of this encounter Visit Diagnoses Diagnosis Prostate cancer Malignant neoplasm of prostate documented in this encounter Care Teams Postmaster Relationship Specialty Start Date End Date Santos Guallpa MD PCP - General 10/14/[address] [place] [phone] documented as of this encounter
--- OUTSIDE RECORDS SUMMARY | 2022-07-24 15:21 | XMS_ITS | Encounter Summary ---
:1945 Author Organization [facility] [place] [address] Care Team Providers Name Role Phone Santos Guallpa MD Primary Care Provider Reason for Visit Reason Onset Date Comments Other 02/12/2012 [place] prior to BX Encounter Details Date Type Department Care Team Description 02/12/2012 Telephone Internal Medicine at [facility] ([place] prior to BX) [facility] [place] [address] Social History Tobacco Use Types Packs/Day Years Used Date Never Smoker Sex Assigned at Date Recorded Not on file documented as of this encounter Miscellaneous Notes Telephone Encounter - Santos Cain RN - 02/12/2012 2:47 PM EDT Pt has BX scheduled for 02/14. Prelim urine c/s done at [facility] showed 10-100,000 gram pos cocci. Sensitivity will not be available until 1300 on 02/12. Spoke with Dr. Rodriguez, plan as follows: Will add to list for Resident extrusion die template maker for 02/12 (Dr. Tao) to start ABX depending on sensitivity results. (spoke with Amy she will add to residents list for Sat). Resident to decide if Levaquin should be taken as ordered prior to BX ?? Pharm for ABX will be [facility] I spoke with patient and he will be home on Wednesday to speak with resident. BX to proceed as planned. Pt can call [phone] if he has questions or concerns. documented in this encounter Plan of Treatment Upcoming Encounters Date Type Specialty Care Team Description 07/30/2022 Office Visit Radiation Oncology Alecia Lion, SUPERVISOR OF OFFICIALS [facility] RADIATION [place], [place] [address] (Wo rk) documented as of this encounter Visit Diagnoses Not on filedocumented in this encounter Care Teams Office Manager Receptionist Relationship Specialty Start Date End Date Santos Guallpa MD PCP - General 10/14/[address] [place] [phone] documented as of this encounter
--- OUTSIDE RECORDS SUMMARY | 2022-07-24 15:21 | XMS_ITS | Encounter Summary ---
:1945 [place] [address] Care Team Providers Name Role Phone Ho Parham MD Primary Care Provider Encounter Details Date Type Department Care Team Description 04/11/2012 - Hospital Encounter [facility] [place] Juan Manuel Stevenson MD 04/12/2012 [facility] [address] [place] UROLOGY [place] [id number] [phone] Social History Tobacco Use Types Packs/Day Years Used Date Never Smoker Smokeless Tobacco: Never Used Sex Assigned at Date Recorded Not on file documented as of this encounter Last Filed Vital Signs Vital Sign Reading Time Taken Comments Blood Pressure 133/74 04/12/2012 9:01 AM EDT Pulse 79 04/12/2012 9:01 AM EDT Temperature 36.9 ??C (98.4 ??F) 04/12/2012 9:01 AM EDT Respiratory Rate 18 04/12/2012 9:01 AM EDT Oxygen Saturation 98% 04/12/2012 9:01 AM EDT Inhaled Oxygen Concentration - - Weight 78.2 kg (172 lb 6.4 oz) 04/11/2012 1:28 AM EDT Height 167.6 cm (5' 6) 04/11/2012 1:28 AM EDT Body Mass Index 27.83 04/11/2012 1:28 AM EDT documented in this encounter Discharge Instructions Patient InstructionsTasha Scanlon - 04/12/2012 11:39 AM EDT Pain Control: Take pain medication as prescribed. Tylenol for mild pain and oxycodone for severe pain. Bowel regimen: Take colace twice daily to keep bowel movements soft. If you experience diarrhea, stop taking the colace. Call your doctor for: fevers greater than 100.5 severe nausea or vomiting increasing pain not controlled by pain medications increasing redness or drainage from incisions decreased urine output our if your catheter is no longer draining. The number for questions is [phone] before 5 PM weekdays and [phone] after 5 PM and weekends. Activity level: Avoid strenuous activity for the next 2 weeks. Avoid activities that involve straddling (ride on mover helper, bke or motorcycle) as these will definitely cause pain. Otherwise activity as tolerated by comfort level. Diet: You may resume your regular diet as tolerated. Driving: No driving while still taking opioid pain medications (wait at least 6- 8 hours since last dose). No driving with your catheter in place as it may limit your ability to react quickly if necessary. Shower/Bath: No restrictions Follow up Appointments: Follow-up appointment will be scheduled with Dr. Carey in 1 week. Please call [phone] (clinic number for appointments) to confirm date and time of your appointment if you do not hear from us in the next few days. You have been prescribed an antibiotic (Bactrim). This should be taken as prescribed for the next 10days. documented in this encounter Medications at Time of Discharge Medication Sig Dispensed Refills Start Date End Date docusate sodium (COLACE) Take 1 capsule by 60 capsule 0 05/0906/14/2012 100 mg capsule mouth 2 times daily for 10 days. acetaminophen (TYLENOL) Take 2 tablets by 90 tablet 0 06/0407/14/2012 500 mg tablet mouth every 8 hours. acetaminophen (TYLENOL) Take 1-2 tablets by 30 tablet 0 03/201205/16/2012 500 mg tablet mouth every 6 hours as needed for Pain. OXYcodone (ROXICODONE) 5 Take 1 tablet by 20 tablet 0 04/1205/16/2012 mg immediate release mouth every 4 hours tablet as needed for Pain (SEVERE PAIN). sulfamethoxazole-trimeth Take 1 tablet by 20 tablet 0 04/1205/16/2012 oprim (BACTRIM DS) mouth 2 times daily. 800-160 mg per tablet chlorhexidine Apply topically 120 mL 11 03/30/20122011 (HIBICLENS) 4 % external daily as needed. liquidIndications: Urinary retention tamsulosin (FLOMAX) 0.4 Take 0.4 mg by mouth 0 05/16/2012 mg capsule 2 times daily. dutasteride (AVODART) Take 0.5 mg by mouth 0 05/16/2012 0.5 mg capsule daily. documented as of this encounter Progress Notes Gale Figueroa RN - 04/12/2012 12:25 PM EDT Patient and state understanding of discharge instructions, follow up appointments and prescriptions. Discharged via ambulating without staff assistance. Tasha Scanlon - 04/12/2012 9:37 AM EDT Urology Inpatient Progress Note ID: Molina Randhawa is a 66 y.o. male admitted w/ epididymis and fevers. 24hr events: ?? Afebrile - Good pain control ?? No acute 24hr events Subjective: no complaints this AM, denies n/v/cp. No subjective fevers/chills O: Last value Range last 24hrs Temperature Temp: 36.9 ??C (98.4 ??F) Temp: [36.5 ??C (97.7 ??F)-37 ??C (98.6 ??F)] Heart Rate Heart Rate: 79 Heart Rate: [57-79] Blood Pressure BP: 133/74 mmHg BP: (107-146)/(65-78) Respiratory Rate Resp: 18 Resp: [16-18] SpO2 SpO2: 98 % SpO2: [93 %-99 %] In: 2540 [P.O.:840; I.V.:1700] Out: 3900 [Urine:3900] Physical Exam: General: NAD, resting comfortably, pleasant, conversant CVS: nRRR Pulm: CTABl Abd: soft, nontender, non-distended : Right hemiscrotum still swollen. Right testicle tender and firm relative to left (improved per patient) Skin: warm, dry Ext: no c/c/e, cap refill <2sec Recent Labs Basename 04/12/128 04/11/1257 ??? WBC 7.7 10.8* ??? HGB 15.6 13.8 ??? HCT 44.4 40.3 ??? PLATELET 213 161 ??? PT -- -- ??? INR -- -- ??? PTT -- -- Recent Labs Basename 04/12/12 0328 04/11/12656 ??? NA 141 136 ??? K 3.9 3.5 ??? CL 108* 105 ??? CO2 24 22 ??? BUN 19 18 ??? CREATININE 1.34 1.29 ??? GLUCOSE -- -- ??? CALCIUM -- 8.1* ??? MAGNESIUM -- -- ??? PHOS -- -- ASSESSMENT: Molina Randhawa is a 66 y.o. male w/ epididymitis. Afebrile for >24hrs. WCC normalized. Pain control improved. PLAN: Continue PO bactrim x 10 days Will obtain scrotal U/S today to assess RIGHT testicle Plan to discharge home this afternoon if patient remains stable Rishi Robertson - 04/11/2012 1:43 PM EDT Smoking Pipes Cleaner Encounter Note Patient Name: Molina Randhawa : [id number] MR#: [id number] Admit Date: 04/11/2012 1:08 AM Hospital Day 0 days Narrative:Visited to introduce and assess acceptance of Smoking Pipes Cleaner services. Assessment:Patient experiencing difficulty coping with stresses of illness/hospitalization. Intervention and Outcome:pt was with tears and tired. Pt is worried about his health. Pt was there and pt has good family support. Pt has support from shinto Community. Pt is hoping that it will get better. Follow-up: Follow patient/family for continuing assessment of needs, support, and pastoral care as indicated. Time in Direct Care: 15 Min Rishi Robertson 04/11/2012 Bess Bruce RN - 04/11/2012 4:07 AM EDT 0125 Pt arrived via wheelchair to Rm 211B, able to easily ambulate, and is oriented x3, his is with him (drove him here from [facility]). He has a HC in his left arm, denies pain, vitals checked, masimo monitor applied, Dr. Maikel Florian here to examine pt. And took culture swab at pen is/meatus 0200 Dr. Scanlon here to examine pt. 0300 Pt. Had IVF started, reviewed plan of care with him and his (she was directed to the lounge related to her request to stay overnight-and was provided with comfort measures). Pt and I discussed that he should ring nurse call bernal when he wants to cath himself and we will assist him with this/importance of measuring each volume was stressed. He denies need for pain med, appears comfortable inbed. 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 HPI Please refer to Dr Scanlon's H&P for complete records Patient started 4 days ago with symptoms and was given ceftriaxone 1gr IV daily and started on Augmentin once cultures came back. However patient had another episode of fever and was not feeling well. He went to [facility] and WBC was 14 down from ~20 at the time of diagnosis. Patient was feeling poorly and having chills. Impression Right Acute Epididymitis Assessment and plan Admitted for observation. Patient etiology is related to his urinary retention and CDC guidelines recommend fluor-quinolones. However urine culture at the time of diagnosis showed resistance to levaquine, gatifloxacin and ciprofloxacin. Will change antibiotic to TMP-SMX and re-dose with ceftriaxone IV tomorrow if he does not cl inically improve. Will hold NSAID's to preserve renal function. I dw Dr Carey and reviewed Dr Scanlon's note. documented in this encounter H&P Notes Juan Manuel Carey MD - 04/11/2012 1:53 AM EDT UROLOGY HISTORY AND PHYSICAL Molina Randhawa Age: 66 y.o. 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 He began having pain and fevers last 04/07 and he was seen by his PCP the next day (04/08) and told to go to the ED if his symptoms worsened, which they did. He then went [facility] on Monday 04/09 where he was found with groin pain and fevers (up to 102.7) and a WCC of 26K. He was given a dose of Ceftriaxone and sent home with instruction to return to the ED on Wednesday for another dose. He felt generally well following his second dose of antibiotics but at the end of the day he again noted fevers and chills. He returned to [facility] and though his WCC was now down to 14K he was still feverish. At this time transfer was arranged to [facility] for further care. Social History: Lives with spouse at home. Review of Systems: Constitutional: denies CURRENT fever, chills or sweats (Feverish earlier this afternoon) Skin: denies any changes in coloration, new growths/rashes etc HEENT: denies head ache, vision changes, no recent upper respiratory sx Resp: denies any SOB, TAVARES, orthopnea CV: No CP,no palpitations GI: denies abd pain, diarrhea, constipation, vomiting, blood in stools, recent appetite poor, any change in bowel habits : RIGHT testicular pain, swelling, redness. Requires CIC for bladder atony MS: denies joint pain, swelling, erythema Neuro: denies weakness, numbness, or any change in motor function/sensation Heme/Lymph: denies anemia, bruising, bleeding, past transfusion reaction Endo: no troubles with sugar, denies any fatigue Physical Exam: AVSS GENERAL: No acute distress, resting comfortably. A/O x 3. LUNGS: Breath sounds CTA b/l, no wheezes/rales/rhonci. COR: Regular rate and rhythm. No murmurs/rubs/gallops. ABD: soft, non-tender, non-distended. Bowel sounds normoactive. : Obvious swelling in RIGHT scrotum. TTP over right testicle which is firm. Prurulent urethral discharge noted. No appreciable inguinal hernias. EXTREMITIES: Skin WWP Labs From OSH (04/10 @ 2200) WCC: 14K Hgb: 14.9 Plt: 190 Na: 137 K: 3.7 BUN: 18 Cr: 1.3 Micro: Urine Cx From OSH E. Coli - Resistent to Amp/Sulbactam, Cipro, Levofloxacin Assessment: Molina Randhawa is a 66 y.o. male recently diagnosed with prostate cancer who is on CIC for Atonic bladder transferred from OSH with epididymis Plan: - Tylenol / Oxycodone - Continue CIC - Will start Bactrim for now considering E. Coli urine culture from OSH - Repeat AM CBC, will consider re-dosing Ceftriaxone if WCC is up or if patient spikes - IVF - Admit to Urology for observation. Possibly home in afternoon if patient continues aliza improve. Seen and examined with the resident staff. Right epididymitis with fever and WCC 26 Clinically looks well. Continue Ceftriaxone. Add Bactrim Home on Bactrim if afebrile x 24 hours and WCC normalizes. Juan Manuel Carey documented in this encounter Miscellaneous Notes Plan of Care - Gale Figueroa RN - 04/12/2012 10:59 AM EDT Problem: Trauma/Injury Risk (Adult, Obstetric) Goal: Trauma/Injury Risk: Absence of Trauma/Injury/Falls Patient free from falls and injuries. Able to ambulate independently while holding onto IV pole. Bedlow and locked, side rails up x 2, call light within reach and used appropriately. Plan of Care - Fredrick Helm RN - 04/12/2012 12:20 AM EDT Problem: Trauma/Injury Risk (Adult, Obstetric) Goal: Trauma/Injury Risk: Absence of Trauma/Injury/Falls Outcome: Absent and monitoring Pt up in chair and then ambulating independently. Pt using call bernal appropriately. Will continue tomonitor. Miscellaneous - Provider, Scanning - 04/11/2012 11:32 PM EDT Initial Assessments - Ara Finney RN - 04/11/2012 12:48 PM EDT Office of Care Management (OCM) / Clinical Pack Operator (CRC)/ Initial Assessment Discussed patient with Provider Team Reviewed record and interviewed patient. Introduced/reviewed CRC role and services accepted. 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 H/o prostate cancer,hypotonic bladder, ESC225, oral Bactrim bid, I&O, nielsen BSD,Fever now resolved. 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 He lives with his , Jessica mercado is independent in all activities. ADVANCE DIRECTIVES: None on file. INSURANCE COVERAGE / FINANCIAL ISSUES: Blue Shield with prescription coverage through his 's employment, and prescription coverage with co-pays,Medicare A CURRENT HOME/COMMUNITY SERVICES/EQUIPMENT: DME: None Home Health Agency: None Other: DEDICATED DRIVER REFERRAL: No needs identified at this time. DEDICATED DRIVER - Support/Financial/Medication Assistance; See DEDICATED DRIVER notes for further needs. PRIMARY CARE PHYSICIAN: HO PARHAM MD [address] [facility] [address] POTENTIAL DISCHARGE NEEDS: None anticipated at this time. PATIENT/FAMILY EDUCATION NEEDS:Fluid intake, activity, medications, ANTICIPATED BARRIERS TO DISCHARGE:None identified at this time. TRANSPORTATION @ D/C: Family or friends. PLAN: CRC will continue to monitor progress, follow for continuity of care and assist with dischargeplanning while hospitalized RN to review instructions, activity, medications and f/u appointment with this patient and/or family prior to discharge. ARA FINNEY RN04/11/2012 . 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 He began having pain and fevers last 04/07 and he was seen by his PCP the next day (04/08) and told to go to the ED if his symptoms worsened, which they did. He then went [facility] on Monday 04/09 where he was found with groin pain and fevers (up to 102.7) and a WCC of 26K. He was given a dose of Ceftriaxone and sent homewith instruction to return to the ED on Wednesday for another dose. He felt generally well following his second dose of antibiotics but at the end of the day he again noted fevers and chills. He returned to [facility] and though his WCC was now down to 14K he was still feverish. At this time transfer was arranged to [facility] for further care. Hospital Course: Molina Randhawa is a 66 y.o. male who was admitted on 04/11/2012 with the above presentation. Urine cultures from OSH showed E. Coli sensitive to Bactrim which was started on admission. He remained afebrile throughout his admission with a downtrending WCC and creatinine. A scrotal ultr asound was obtained on 04/12 which was consistent with epididymorchitis and he was discharged home on 04/12 with PO antibiotics. He was given instruction to complete a 10 day course of Bactrim and follow-up with Dr. Carey in clinic in 1 week. Vital Signs Last value Range last 24hrs Temperature Temp: 37.7 ??C (99.9 ??F) Temp: [36.8 ??C (98.2 ??F)-37.7 ??C (99.9 ??F)] Heart Rate Heart Rate: 81 Heart Rate: [69-81] Blood Pressure BP: 147/83 mmHg BP: (135-147)/(70-83) Respiratory Rate Resp: 18 Resp: [18] SpO2 SpO2: 94 % SpO2: [94 %-95 %] Pertinent Lab Data: Recent Labs Basename 04/11/12 0657 ??? WBC 10.8* ??? HGB 13.8 ??? HCT 40.3 ??? PLATELET 161 ??? PT -- ??? INR -- ??? PTT -- Recent Labs Basename 04/11/12 0657 ??? NA 136 ??? K 3.5 ??? CL 105 ??? CO2 22 ??? BUN 18 ??? CREATININE 1.29 ??? GLUCOSE -- ??? CALCIUM 8.1* ??? MAGNESIUM -- ??? PHOS -- Physical Exam: GENERAL: No acute distress, resting comfortably. A/O x 3. LUNGS: Breath sounds CTA b/l, no wheezes/rales/rhonci. COR: Regular rate and rhythm. No murmurs/rubs/gallops. ABD: soft, non-tender, non-distended. Bowel sounds normoactive. : Obvious swelling in RIGHT scrotum. TTP over right testicle which is firm. Prurulent urethral discharge noted. No appreciable inguinal hernias. EXTREMITIES: Skin WWP Condition at discharge: Stable Mental Status: awake and alert, oriented x 3 Medications: Not reviewed P[employer] OUT CREW MEMBER meds Medication Sig Dispense Refill ??? chlorhexidine (HIBICLENS) 4 % external liquid Apply topically daily as needed. 120 mL 11 ??? tamsulosin (FLOMAX) 0.4 mg capsule Take 0.4 mg by mouth 2 times daily. ??? dutasteride (AVODART) 0.5 mg capsule Take 0.5 mg by mouth daily. Disposition: Home Allergies: Allergies Allergen Reactions ??? Gentamicin Hives Outpatient Services/Studies: No discharge procedures on file. Signed: TASHA SCANLON MD 04/11/2012 Primary More Physician: HO PARHAM MD [address] [facility] [address] documented in this encounter Plan of Treatment Upcoming Encounters Date Type Specialty Care Team Description 07/30/2022 Office Visit Radiation Oncology Alecia Lion, FAMILY COURT COUNSELLOR [facility] RADIATION [place], [place] [address] (Wo rk) documented as of this encounter Procedures Procedure Name Priority Date/Time Associated Comments Diagnosis US SCROTUM Routine 04/12/2012 10:12 Results for this AM EDT procedure are i n the results section. DIFFERENTIAL, Routine 04/12/2012 3:28 AM Results for this AUTOMATED EDT procedure are i n the results section. CREATININE Routine 04/12/2012 3:28 AM Results f or this EDT procedure are i n the results section. CBC (WITH DIFF) Routine 04/12/2012 3:28 AM Result s for this EDT procedure are i n the results section. BUN Routine 04/12/2012 3:28 AM Results f or this EDT procedure are i n the results section. ELECTROLYTES PANEL Routine 04/12/2012 3:28 AM Res ults for this EDT procedure are i n the results section. BMP W/FASTING GLUCOSE STAT 04/11/2012 6:57 AM Results for this EDT procedure are i n the results section. DIFFERENTIAL, STAT 04/11/2012 6:57 AM Results for this AUTOMATED EDT procedure are i n the results section. CBC (WITH DIFF) STAT 04/11/2012 6:57 AM Result s for this EDT procedure are i n the results section. BODY FLUID CULTURE, STAT 04/11/2012 2:00 AM AEROBIC & ANAEROBIC EDT BODY FLUID CULTURE, STAT 04/11/2012 2:00 AM Re sults for this AEROBIC EDT procedure are i n the results section. documented in this encounter Results US scrotum (04/12/2012 10:12 AM EDT) Anatomical Region Laterality Modality Pelvis Ultrasound Specimen (Source) Anatomical Collection Method Collection Time Re ceived Time Location / / Volume Laterality 04/12/2012 10:12 AM EDT Narrative 04/12/2012 10:24 AM EDT ?Scrotal ? (Signed Final 04/12/2012 10 :23 am) Patient Info ID: ? [id number] ? : [birth year] (66 yrs) Name: ? MOLINA RANDHAWA ? Visit Date: 04/12/2012 10:08 am Performed By Performed By: ?Jessica Denson RDMS Attending: ? Gabrielle KNAPP, Stanley Taylor Referred By: ? TASHA Moya Service(s) Provided [facility] - Ultrasound Scrotum and Contents w ith ?[id number], [id number] Vascular - [id number], [id number] Indications Admitted with epididimitis on RIGHT. ?? Please evaluate RIGHT testicle; Right Testicle Measurement(cm) ? L: ??4.6 ?AP: ?? 3.8 ? TV: ??3.8 Vol (ml): ?34.8 Vascularity: ?Hyperemia Comment: ?Slightly ??heterogenous Right Epididymis Head: ?Epididymal cyst. enlarged Body: ?Hyperemia Tail: ?Visualized ------- Lesions ------- # ?Date ?Location ?Description ? L ? AP ? TV (cm) 1 ?04/12/12 ?Head ?Epididymal ? 0.7 ?0.8 ?0.7 ?cyst Right Other Hydrocele: ? Moderate hydrocele Varicocele: ?Not visualized Left Testicle Measurement(cm) ? L: ??5.6 ?AP: ?? 2.2 ? TV: ??4.2 Vol (ml): ?27.1 Vascularity: ?Normal vascularity Left Epididymis Head: ?Normal Body: ?Normal Tail: ?Normal Left Other Hydrocele: ? Mild hydrocele Varicocele: ?Not visualized Impression Ultrasound - Testicular - Summary The right epididymis is enlarged and hy peremic and the right testicle is slightly heteroge nous in echogenicity and hyperemic c/w right ep ididymorchitis. There are moderate bilateral hydroceles right larger than left. I ??viewed the images and agree with amy stone above interpretation. Thank you for allowing us to participat e in the care of MOLINA RANDHAWA. Please do not hesita te to call if you have any questions. ? Stanley Anthony MD Electronically Signed Final Report ?? 10:23 am Procedure Note Stanley Anthony MD - 04/12/2012Format ting of this note might be different from the original. Scrotal (Signed Final 04/12/2012 10:23 am) Patient Info ID: [id number] : 45 (66 yrs ) Name: MOLINA RANDHAWA Visit Date: 03/2012 10:08 am Performed By Performed By: Jessica Denson RDMS Attending: Stanley Anthony MD. Referred By: TASHA SCANLON MD Service(s) Provided [facility] - Ultrasound Scrotum and Contents [place] [id number], [address] Vascular - [id number], [id number] Indications Admitted with epididimitis on RIGHT. Pl ease evaluate RIGHT testicle; Right Testicle Measurement(cm) L: 4.6 AP: 3.8 TV: 3.8 Vol (ml): 34.8 Vascularity: Hyperemia Comment: Slightly heterogenous Right Epididymis Head: Epididymal cyst. enlarged Body: Hyperemia Tail: Visualized ------- Lesions ------- # Date Location Description L AP TV (cm ) 1 04/12/12 Head Epididymal 0.7 0.8 0.7 cyst Right Other Hydrocele: Moderate hydrocele Varicocele: Not visualized Left Testicle Measurement(cm) L: 5.6 AP: 2.2 TV: 4.2 Vol (ml): 27.1 Vascularity: Normal vascularity Left Epididymis Head: Normal Body: Normal Tail: Normal Left Other Hydrocele: Mild hydrocele Varicocele: Not visualized Impression Ultrasound - Testicular - Summary The right epididymis is enlarged and hy peremic and the right testicle is slightly heteroge nous in echogenicity and hyperemic c/w right ep ididymorchitis. There are moderate bilateral hydroceles right larger than left. I viewed the images and agree with the above interpretation. Thank you for allowing us to participat e in the care of MOLINA RANDHAWA. Please do not hesita te to call if you have any questions. Stanley Anthony MD Electronically Signed Final Report 04/12 10:23 am Juan Manuel Carey MD IMG US GEN ORDERABLES (ABNORMAL) DIFFERENTIAL, AUTOMATED (04/12/2012 3:28 AM EDT) [facility] Method Time Signature Neutrophils % 68.9 34.0 - CERNER 71.0 % MILLENNIUM Neutr Abs (ANC) 5.32 1.50 - CERNER 6.30 MILLENNIUM x10(3)/mc L Lymphocytes % 12.3 (L) 19.0 - CERNER 53.0 % MILLENNIUM Lymphocytes Abs 1.0 1.0 - 3.6 CERNER x10(3)/mc MILLENNIUM L Monocytes % 15.9 (H) 4.0 - CERNER 13.0 % MILLENNIUM Monocyte Abs 1.2 (H) 0.2 - 1.0 CERNER x10(3)/mc MILLENNIUM L Eosinophils % 2.5 0.0 - 7.0 CERNER % MILLENNIUM Eosinophils Abs 0.2 0.0 - 0.5 CERNER x10(3)/mc MILLENNIUM L Basophils % 0.3 0.0 - 2.0 CERNER % MILLENNIUM Basophils [...] Location / / Volume Laterality Blood specimen 04/12/2012 3:28 AM 012 3:36 (specimen) EDT AM EDT Juan Manuel Carey MD HEMATOLOGY ORDERABLES Performing Organization Address City/State/[place] [address] CERNER MILLENNIUM (ABNORMAL) Creatinine, serum (04/12/2012 3:28 AM EDT) athologist Signature Creatinine 1.34 0.80 - 1.50 CERNER mg/dL MILLENNIUM Comment: Please note that the pediatric reference intervals supplied above were not validated at [facility]. Results from pediatri c patients should be interpreted in conjunction to the patient's age, height and muscle mass. Estimated GFR 53 (L) >=60 CERNER CHANTAL Lewis Comment: The National Kidney Disease Education [...] Location / / Volume Laterality Blood specimen 04/12/2012 3:28 AM 012 3:36 (specimen) EDT AM EDT Resulting Agency Comment Spec In Lab Juan Manuel Carey MD CHEMISTRY ORDERABLES Performing Organization Address City/State/[place] [address] CERNER MILLENNIUM BUN (04/12/2012 3:28 AM EDT) athologist Signature BUN 19 10 - 20 CERNER mg/dL MILLENNIUM Specimen Anatomical Collection Method Collection Time Receive d Time (Source) Location / / Volume Laterality Blood specimen 04/12/2012 3:28 AM 012 3:36 (specimen) EDT AM EDT Resulting Agency Comment Spec In Lab Juan Manuel Carey MD CHEMISTRY ORDERABLES Performing Organization Address City/State/ZIP Code Phon e Number [address] CERNER MILLENNIUM (ABNORMAL) Electrolytes panel (04/12/2012 3:28 AM EDT) athologist Signature Sodium 141 135 - 145 CERNER mmol/L MILLENNIUM Potassium 3.9 3.5 - 5.0 CERNER mmol/L MILLENNIUM Comment: Please note: ??Patients with WBC >100,00 0 may have falsely elevated Potassium levels. ??For accurate Potassium quantif ication in these patients send serum separator tube (gold top) for subsequent determinations. ??Contact the Clinical Chemistry Laboratory if there are any qu estions. Chloride 108 (H) 98 - 107 mmol/L CERNER MILLENN IUM CO2 24 22 - 31 mmol/L CERNER MILLENNI UM Anion Gap 9 5 - 15 mmol/L CERNER MILLENNIU M Specimen Anatomical Collection Method Collection Time Receive d Time (Source) Location / / Volume Laterality Blood specimen 04/12/2012 3:28 AM 012 3:36 (specimen) EDT AM EDT Resulting Agency Comment Spec In Lab Juan Manuel Carey MD CHEMISTRY ORDERABLES Performing Organization Address City/State/ZIP Code Phon e Number [address] CERNER MILLENNIUM (ABNORMAL) CBC (with Diff) (04/12/2012 3:28 AM EDT) athologist Signature WBC 7.7 4.0 - 10.0 CERNER x10(3)/mcL MILLENNIUM RBC 5.14 4.63 - CERNER 6.08 MILLENNIUM x10(6)/mcL Hemoglobin 15.6 13.7 - CERNER 17.5 gm/dL MILLENNIUM Hematocrit 44.4 40.0 - CERNER 51.0 % MILLENNIUM MCV 86.4 79.0 - CERNER 92.0 fL MILLENNIUM MCH 30.4 25.6 - CERNER 32.2 pg MILLENNIUM MCHC 35.1 32.0 - CERNER 36.5 gm/dL MILLENNIUM Platelets 213 145 - 370 CERNER x10(3)/mcL MILLENNIUM RDWSD 46.9 (H) 35.0 - CERNER 46.0 fL MILLENNIUM RDWCV 14.8 (H) 10.9 - CERNER 14.4 % MILLENNIUM MPV 11.4 9.0 - 12.0 CERNER fL MILLENNIUM Specimen Anatomical Collection Method Collection Time Receive d Time (Source) Location / / Volume Laterality Blood specimen 04/12/2012 3:28 AM 012 3:36 (specimen) EDT AM EDT Resulting Agency Comment Spec In Lab Juan Manuel Carey MD HEMATOLOGY ORDERABLES Performing Organization Address City/State/[place] [address] CERNER MILLENNIUM (ABNORMAL) DIFFERENTIAL, AUTOMATED (04/11/2012 6:57 AM EDT) [facility] Method Time Signature Neutrophils % 81.0 (H) 34.0 - CERNER 71.0 % MILLENNIUM Neutr Abs (ANC) 8.78 (H) 1.50 - CERNER 6.30 MILLENNIUM x10(3)/mc L Lymphocytes % 5.6 (L) 19.0 - CERNER 53.0 % MILLENNIUM Lymphocytes Abs 0.6 (L) 1.0 - 3.6 CERNER x10(3)/mc MILLENNIUM L Monocytes % 12.2 4.0 - CERNER 13.0 % MILLENNIUM Monocyte Abs 1.3 (H) 0.2 - 1.0 CERNER x10(3)/mc MILLENNIUM L Eosinophils % 0.9 0.0 - 7.0 CERNER % MILLENNIUM Eosinophils [...] Location / / Volume Laterality Blood specimen 04/11/2012 6:57 AM 012 7:04 (specimen) EDT AM EDT Juan Manuel Carey MD HEMATOLOGY ORDERABLES Performing Organization Address City/State/ZIP Code Phon e Number [place] [phone] CERNER MILLENNIUM (ABNORMAL) BMP w/fasting Glucose (04/11/2012 6:57 AM EDT) athologist Signature Glucose 121 (H) 65 - 99 CERNER Fasting mg/dL [...] of Diabetes Mellitus, Position Statement from the [place] [employer]. ??Diabete s Care, Volume 33, Supplement 1, Nov 2009 BUN 18 10 - 20 mg/dL CERNER MILLENNIU M Creatinine 1.29 0.80 - 1.50 mg/dL CERNER MILL ENNIUM Comment: Please note that the pediatric reference intervals supplied above were not validated at [facility]. Results from pediatri c patients should be interpreted in conjunction to the patient's age, height and muscle mass. Sodium 136 135 - 145 mmol/L CERNER SOFIA NIUM Potassium 3.5 3.5 - 5.0 mmol/L CERNER SOFIA NIUM [...] 31 mmol/L CERNER MILLENNI UM Anion Gap 9 5 - 15 mmol/L CERNER MILLENNIU M Calcium 8.1 (L) 8.5 - 10.5 mg/dL CERNER SOFIA NIUM Estimated GFR 56 (L) >=60 CERNER MILLENNIU M Comment: The National [...] Location / / Volume Laterality Blood specimen 04/11/2012 6:57 AM 012 7:04 (specimen) EDT AM EDT Resulting Agency Comment Spec In Lab Juan Manuel Carey MD CHEMISTRY ORDERABLES Performing Organization Address City/State/[place] [address] CERNER MILLENNIUM (ABNORMAL) CBC (with Diff) (04/11/2012 6:57 AM EDT) P athologist Signature WBC 10.8 (H) 4.0 - 10.0 CERNER x10(3)/mcL MILLENNIUM RBC 4.76 4.63 - CERNER 6.08 MILLENNIUM x10(6)/mcL Hemoglobin 13.8 13.7 - CERNER 17.5 gm/dL MILLENNIUM Hematocrit 40.3 40.0 - CERNER 51.0 % MILLENNIUM MCV 84.7 79.0 - CERNER 92.0 fL MILLENNIUM MCH 29.0 25.6 - CERNER 32.2 pg MILLENNIUM MCHC 34.2 32.0 - CERNER 36.5 gm/dL MILLENNIUM Platelets 161 145 - 370 CERNER x10(3)/mcL MILLENNIUM RDWSD 44.4 35.0 - CERNER 46.0 fL MILLENNIUM RDWCV 14.3 10.9 - CERNER 14.4 % MILLENNIUM MPV 11.6 9.0 - 12.0 CERNER fL MILLENNIUM Specimen Anatomical Collection Method Collection Time Receive d Time (Source) Location / / Volume Laterality Blood specimen 04/11/2012 6:57 AM 012 7:04 (specimen) EDT AM EDT Resulting Agency Comment Spec In Lab Juan Manuel Carey MD HEMATOLOGY ORDERABLES Performing Organization Address City/State/[place] [address] [facility] (04/11/2012 2:00 AM EDT) Component Value Ref Test Analysis Performed At [facility] gist Range Method Time Signature Body Fluid CERNER Culture ? Patient Name: JOE Mccormack, MOLINA Izaguirre ? Ordered By: JUAN MANUEL CAREY ? MR#: [id number] ?LOC: ??2WST ? /Sex: ??1945 (66 years), ? Male ? PROCEDURE: Body Fluid Culture ?SOURCE: Other ? COLLECTED: 04/11/2012 02:00 ?FREE TEXT SOURCE: Urethral swab ? STARTED: 04/11/2012 03:16 ? STAINS / PREPARATIONS ? Gram Stain Report ? Verified:04/11/2012 03:34 ? Few White Blood Cells seen ? No microorganisms seen. ? Results called to and read back by Dr. Maikel Florian ? FINAL REPORT ? Final Report ? Verified:04/14/2012 11:58 ? No growth ? PRELIMINARY REPORT ? Preliminary Report ? Verified:04/12/2012 10:18 ? No growth to date. ? Specimen Anatomical Collection Method Collection Time Receive d Time (Source) Location / / Volume Laterality Specimen of 04/11/2012 2:00 AM 2 3:16 unknown material EDT AM EDT (specimen) Comment: URETHRAL SWAB Resulting Agency Comment Spec In Lab Juan Manuel Carey MD MICROBIOLOGY - GENERAL ORDER SUSAN Performing Organization Address City/State/ZIP [place] [address] [facility] documented in this encounter Visit Diagnoses Not on filedocumented in this encounter Administered Medications Inactive Administered Medications - up to 3 most recent administrations Medication Order MAR Action Action Date Dose Rate Site acetaminophen (TYLENOL) tablet Given 04/11/2012 8:04 PM EDT 1,00 0 mg 500-1,000 mg 500-1,000 mg, Oral, EVERY 6 HOURS PRN, Starting on Wed04/11/12 at 0232, Until Wed04/12/12 at 1430, Pain, Maximum dose of acetaminophen is 4000 mg from all sources in 24 hours., Routine Given 04/11/2012 12:45 PM EDT 1,000 mg cefTRIaxone (ROCEPHIN) 1g in dextrose 5% Given 04/12/2012 8: 39 AM EDT 1 g 100 mL/hr 50mL 1 g, Intravenous, EVERY 24 HOURS SCHEDULED (Daily), First dose on Wed04/11/12 at 1730, Until Discontinued, Administer over 30 Minutes, Indication for (Active or Suspected): Other (See Comment) Given 04/11/2012 5:55 PM EDT 1 g 100 mL/hr sodium chloride 0.9 % flush 5 mL Given 04/12/2012 3:00 AM EDT 5 mLs 5 mL, Intravenous, EVERY 12 HOURS, First dose on Wed04/11/12 at 0300, Until Discontinued Given 04/11/2012 3:00 PM EDT 5 mLs Given 04/11/2012 3:15 AM EDT 5 mLs sodium chloride 0.9% infusion New Bag 04/12/2012 1:11 AM EDT 1,000 mLs 100 mL/hr 1,000 mL, at 100 mL/hr, Intravenous, CONTINUOUS, Starting on Wed04/11/12 at 0300, Until Wed04/12/12 at 1430 New Bag 04/11/2012 12:46 PM EDT 1,000 mLs 100 mL/hr New Bag 04/11/2012 3:15 AM EDT 1,000 mLs 100 mL/hr sulfamethoxazole-trimethoprim (BACTRIM DS) Given 04/12 5:55 AM EDT 1 tablet 800-160 mg per tablet 1 tablet 1 tablet, Oral, EVERY 12 HOURS SCHEDULED (2 times per day), First dose on Wed04/11/12 at 0600, Until Discontinued, Routine Given 04/11/2012 5:56 PM EDT 1 tablet Given 04/11/2012 6:53 AM EDT 1 tablet documented in this encounter Active and Recently Administered Medications Times are shown in EDT. Scheduled Medication Order 04/10/2012 04/11/2012 04/12/2012 cefTRIaxone (ROCEPHIN) 1g in dextrose 5% 50mL (CANCELED) 1755 (Given - Provider: Jessica Lester RN) 0839 (Given - Provider: Gale Figueroa RN) 1 g, Intravenous, EVERY 24 HOURS SCHED ED (Daily), First dose on Wed04/11/12 at 1730, Until Discontinued, for 30 Minutes sodium chloride 0.9 % flush 5 mL (CANCELED) 0315 (Given - Provider: Bess Bruce RN)1500 (Given - Provider: Jessica Lester RN) 0300 (Given - Provider: Fredrick Helm RN) 5 mL, Intravenous, EVERY 12 HOURS, First dose on Wed04/11/12 at 0300, Until Discontinued, Routine sulfamethoxazole-trimethoprim (BACTRIM DS) 800-160 mg per ta blet 1 tablet 0653 (Given - Provider: Bess Bruce RN)1756 (Given - Provider: Jessica Lester RN) 0555 (Given - Provider: Fredrick jean RN) 1 tablet, Oral, EVERY 12 HOURS SCHEDULED (2 times per day), First dose on Wed04/11/12 at 0600, Until Discontinued, Routine Continuous Medication Order 04/10/2012 04/11/2012 04/12/2012 sodium chloride 0.9% infusion (CANCELED) 0315 (New Bag - Provider: Bess Bruce RN)1246 (New Bag - Provider: Jessica Lester, JESSICA) 0111 (New Bag - Provider: Fredrick Helm, JESSICA) 1,000 mL, at 100 mL/hr, Intravenous, CON TINUOUS, Starting Wed04/11/12 at 0300, Until Wed04/12/12 at 1430 PRN Medication Order 04/10/2012 04/11/2012 04/12/2012 acetaminophen (TYLENOL) tablet 500-1,000 mg 1245 (Given - Provider: Jessica Lester, JESSICA)2003 (Given - Provider: Fredrick Helm RN) 500-1,000 mg, Oral, EVERY 6 HOURS PRN, S tarting Wed04/11/12 at 0232, Until Wed04/12/12 at 1430, Pain, Maximum dose of acetaminophen is 4000 mg from all sources in 24 hours., Routine OXYcodone (ROXICODONE) immediate release tablet 5 mg 5 mg, Oral, EVERY 4 HOURS PRN, Starting Wed04/11/12 at 0233, Until Wed04/12/12 at 1430, Pain, SEVERE PAIN, Routine documented in this encounter Care Teams [employer] Cook Relationship Specialty Start Date End Date Ho Parham MD PCP - General 10/14/[address] [place] [address] [phone] documented as of this encounter
--- OUTSIDE RECORDS SUMMARY | 2022-07-24 15:21 | XMS_ITS | Encounter Summary ---
:1945 Author Organization [facility] [place] [address] Care Team Providers Name Role Phone Santos Guallpa MD Primary Care Provider Encounter Details Date Type Department Care Team Description 03/08/2012 Notes Only Urology at [facility] Mary Jane Hook, [facility] [place] [address] [facility] [phone] UROLOGY DEPT. [place], [place] [address] (Wo rk) Social History Tobacco Use Types Packs/Day Years Used Date Never Smoker Sex Assigned at Date Recorded Not on file documented as of this encounter Progress Notes Mary Jane Hook APRN - 03/08/2012 5:22 PM EDT Notes from PCP regarding urine testing s/p biopsy indicate: 02/28/12: urine microUA: 10-25 wbc, 0-2 rbc, few bacteria. Leuk estrace positive There was no culture done His white count was 12.7 on 02/28/12, cre was 1.6 documented in this encounter Plan of Treatment Upcoming Encounters Date Type Specialty Care Team Description 07/30/2022 Office Visit Radiation Oncology Alecia Lion APRN [facility] RADIATION [place], [place] [address] (Wo rk) documented as of this encounter Visit Diagnoses Not on filedocumented in this encounter Care Teams Dicer Operator Relationship Specialty Start Date End Date Santos Guallpa MD PCP - General 10/14/[address] [place] [address] [phone] documented as of this encounter
--- OUTSIDE RECORDS SUMMARY | 2022-07-24 15:21 | XMS_ITS | Encounter Summary ---
:1945 Author Organization [facility] [address] Care Team Providers Name Role Phone Santos Guallpa MD Primary Care Provider Encounter Details Date Type Department Care Team Description 01/13/2012 Office Visit Urology at [facility] Ashlie Kelley Urinary retention [facility] MD Tiffanie (Primary Dx) [place] [address] UROLOGY DEPT. [phone] [place], [place] [address] (Wo rk) Social History Tobacco Use Types Packs/Day Years Used Date Never Smoker Sex Assigned at Date Recorded Not on file documented as of this encounter Progress Notes Ashlie Kelley MD - 04/16/2012 3:23 PM EDT Reason for Visit:Dalton Pereira is a 66 y.o. male who is here for urodynamics and a discussion oftreatment options. Dalton has a history of Retention. This is .his 1st study. He has been doing CIC and feels like he is doing better. He still gets high volumes with cathing. He is on flomax. OBJECTIVE: Well looking male in no acute distress. Vital signs: see flow sheet PVR: 200 cc measured when the urodynamic catheter was inserted, immediately after the patient had voided. Dipstick Urinalysis: neg URODYNAMICS/Injection of Contrast: The patient was filled with cystograffin at a rate of 50ml/min. via a 10 Fr urodynamic catheter in the urethra with an abdominal catheter in the rectum and EMG pads placed on the perineum. 600 ml of high osmolar contrast was instilled. 0 ml were wasted. Cystogram: Fluoroscopic imaging at rest during bladder filling revealed a smooth bladder with the bladder neck closed at rest. Additional fluoroscopic images were obtained at rest, during filling, at capacity, and after emptying. Complex Cystometrogram: The detrusor (bladder minus abdominal) pressure was stable to a volume of 600 ml. There was normal compliance. The DLPP was not measured. Filling sensation was Abnormal, in that it was delayed. Bladder capacity: 600 ml Pressure Flow: The patient was given permission to void and was unable to void. Pad EMG: EMG activity was unremarkable during filling and somewhat noicy with attempted emptying. I was present for the pertinent portions of the urodynamics. I reviewed the results with the patientfollowing the procedure. I reviewed and edited the final report which is in the chart. IMPRESSION: pt with an atonic bladder PLAN: continue with flomax Continue to cath. documented in this encounter Plan of Treatment Upcoming Encounters Date Type Specialty Care Team Description 07/30/2022 Office Visit Radiation Oncology Alecia Lion APRN [facility] RADIATION [place], [place] [address] (Wo rk) documented as of this encounter Procedures Procedure Name Priority Date/Time Associated Diagnosis Comme nts UROLOGY SCAN 01/13/2012 12:00 AM EST documented in this encounter Results SCAN DOC: UROLOGY (01/13/2012 12:00 AM EST) Narrative This result has an attachment that is no t available. Unknown MEDIA MGR SCAN EXT ORDR/RSLT documented in this encounter Visit Diagnoses Diagnosis Urinary retention - Primary Retention of urine, unspecified documented in this encounter Care Teams Trigonometry Teacher Relationship Specialty Start Date End Date Santos Guallpa MD PCP - General 10/14/[address] [place] [phone] documented as of this encounter
--- OUTSIDE RECORDS SUMMARY | 2022-07-24 15:21 | XMS_ITS | Encounter Summary ---
:1945 Author Organization [facility] Address [facility] [place] [place] [address] Care Team Providers Name Role Phone Santos Guallpa MD Primary Care Provider Reason for Visit Reason Comments Prostate Cancer Encounter Details Date Type Department Care Team Description 03/30/2012 Office Visit Urology at [facility] Teresa Rodriguez MD Urinary retention (Primary Dx); [facility] [address] [place] [address] [place] [address] [phone] Social History Tobacco Use Types Packs/Day Years Used Date Never Smoker Smokeless Tobacco: Never Used Sex Assigned at Date Recorded Not on file documented as of this encounter Last Filed Vital Signs Vital Sign Reading Time Taken Comments Blood Pressure 144/79 03/30/2012 8:33 AM EDT Pulse 74 03/30/2012 8:33 AM EDT Temperature - - Respiratory Rate - - Oxygen Saturation - - Inhaled Oxygen Concentration - - Weight 74.8 kg (165 lb) 03/30/2012 8:33 AM EDT Height 167.6 cm (5' 5.98) 03/30/2012 8:33 AM EDT Body Mass Index 26.64 03/30/2012 8:33 AM EDT documented in this encounter Progress Notes Teresa Rodriguez MD - 03/30/2012 9:20 AM EDT Reason for Visit:.The patient comes for discussion of the treatment options for his newly diagnosed prostate cancer. He tolerated the biopsy without difficulty. He received the information package. DATA PSA was 1.5 5 years ago [...] elevated PVR and saw Dr Isbell in [place] and was started on CIC. He has [...] seen: Left mid Excerpt from path report: [facility] Provider: TERESA RODRIGUEZ Pt. Name: MOLINA PEREIRA Acc #: [id number] Pt. Col Date: 02/15/2012 /Sex: 1945,(66 years),Male [...] Prostatic core needle biopsy, left mid: Adenocarcinoma, [place] grade 3 + 4, involving approximately 10% [...] morphology, histopathological criteria and other diagnostic tests. According to the [facility] Nomogram his chance: Organ confined disease is: Seminal Vesical involvement: Lymph node involvement: According to the [facility] nomogram his chance of 5 yr biochemical disease free survival is: Radical prostatectomy: External Radiation: Brachytherapy: Impression: [id number] [place] 3+4=7 Prostate Cancer with a PSA of 7.7(on Dutasteride) at diagnosis. Plan: The entire 45 minute visit was spent discussing the natural history and treatment options of prostate cancer. I discussed the options for management of his prostate cancer including watchful waiting, hormonal therapy, radiation therapy(including I125 and Pd 103 seed implant, IMRT, 3D conformal, Proton therapy, High Dose Rate), radical prostatectomy (open and laparoscopic)as well as less common options such as cryotherapy. The patient understands that he has significant choice in terms of treatment In summary the patient has intermediate risk prostate cancer He is not an ideal a candidate for Active surveillance given his level of PSA (. We discussed the rationale and risk, specifically of missing the window of opportunity to cure his prostate cancer. He is a candidate for surgery. I am less enthusiastic about radiation or brachytherapy given his baseline urinary retention and need for CIC. We spent significant time discussing radical prostatectomy. We discussed the various approaches and then focused on the robot assisted laparoscopic radical prostatectomy . We discussed why at [facility] we preferred this approach. We discussed my experience. I discussed the risks of procedure including the results with regard to incontinence and erectile function. We also reviewed the other potential complications of surgery (injury to surrounding structures, open surgery, fistula, rectal injury, colostomy, unexpected problems etc). He understands that hemay still have to perfom CIC. I discussed the options for a second opinion with a radiation therapist and or other surgeon. All questions were answered. We will schedule surgery today. He needs a Urine culture ~ 1 week priorto surgery and any UTI treated.. Teresa Rodriguez. documented in this encounter Plan of Treatment Upcoming Encounters Date Type Specialty Care Team Description 07/30/2022 Office Visit Radiation Oncology Alecia Lion APRN [facility] RADIATION [place], [place] [address] (Wo rk) documented as of this encounter Visit Diagnoses Diagnosis Urinary retention - Primary Retention of urine, unspecified Prostate cancer Malignant neoplasm of prostate documented in this encounter Care Teams Curriculum Manager Relationship Specialty Start Date End Date Santos Guallpa MD PCP - General 10/14/[address] [place] [address] [phone] documented as of this encounter
--- OUTSIDE RECORDS SUMMARY | 2022-07-24 15:26 | XMS_ITS | Encounter Summary ---
:1945 Author Organization [facility] Address [address] [place] [address] Care Team Providers Name Role Phone Ry Kong Primary Care Provider Reason for Visit Reason Comments Chronic Kidney Disease Encounter Details Date Type Department Care Team Description 09/30/2011 Office Visit [facility] Stew Barboza kidney Nephrology - Al Anderson MD disease, stage III 1 [facility] 1 [facility] (modera te) (Primary Street Street Dx) [place] [address] Rehab, [place] [address] (Wo rk) Social History Tobacco Use Types Packs/Day Years Used Date Never Assessed Sex Assigned at Date Recorded Not on file documented as of this encounter Last Filed Vital Signs Vital Sign Reading Time Taken Comments Blood Pressure 149/78 09/30/2011 1356 EST Pulse 82 09/30/2011 1356 EST Temperature - - Respiratory Rate - - Oxygen Saturation - - Inhaled Oxygen Concentration - - Weight 78.4 kg (172 lb 13.5 oz) 09/30/2011 1356 EST Height - - Body Mass Index - - documented in this encounter Progress Notes Stew Barboza MD - 09/30/2011 1343 EST Nephrology CKD New Note ??? Smart Text Reason for Visit: Dalton Maravilla is being seen for chronic kidney disease. Problems: There is no problem list on file for this patient. Subjective: The patient has known of kidney disease for ~1 years. Review of relevant laboratory data indicates that an elevated creatinine has been present for at least 1 years. He is a very good historian. About 1 year ago, he began noticing urinary incontinence and decreased urinary stream and gradually felt more weak and developed abdominal bloating. He had not been getting any medical care prior to that but decided to seek attention. He was found to have urinary retention and was treated with an indwelling Don for 4 weeks. He was treated with Flomax and Avodart. He regained normal feeling and started self catheterization. He developed a UTI and was treated with reimplantation of the Don and Cipro. He h ad the Don removed today and will start catheterizations again. His peak creatinine was 2.5 with anormal urinalysis and has subsequently fallen to 1.7. There is no history of kidney stones, urinary infections, exposure to nephrotoxins (iodinated contrast, NSAIDs, antibiotics, etc). Family history is negative for kidney disease but positive for prostatism. With regard to symptoms related to chronic kidney disease, there is no fatigue, anorexia, dysguesia,nausea, vomiting, somnolence, pruritus, myotonic twitching, or decrease in cognitive function. The patient denies hematuria, frothiness, dysuria, oliguria, or decrease in urinary stream. Review of Systems: A ten-point review of system was obtained and the pertinent positives and negatives are noted above. Family history of renal disease: No Social history: Current Medications: No current outpatient prescriptions on file. Physical Examination: He appears clinically euvolemic, is comfortable and in no acute distress. Weight today is . There were no vitals taken for this visit. The patient does home blood pressures No Psych: Alert and oriented x 3 Skin: Warm and without acute rash, lesions, or ecchymosis. HEENT: AT/NC, EOMI, PERRL, no scleral pallor. Neck: Supple, no jugular venous distention or lymphadenopathy. Lungs: Normal on percussion and clear on auscultation. CVS. There is no murmur and no rub. Extremities show no edema bilaterally. Peripheral pulses are intact. Abdomen: Soft, non-tender, with normal bowel sounds. There is no CVA tenderness. Neuro: Grossly non-focal and without asterixis. Labs: Labs are reviewed below: The most recent urinalysis: Chronic Kidney Disease: creatinine 1.5, eGFR 47 ml/min Dalton has CKD Stage III. The recent creatinine and estimated GFR values are listed below and kidneyfunction has improved over the past few months. Uremic symptoms are not present. No results found for this basename: CREATININE, calcGFR Complications of chronic kidney disease: Hypervolemia: He has no evidence of extracellular fluid volume overload. Hypertension: Blood pressure is controlled in target range of systolic less than 130 mmHg. Proteinuria: Overt proteinuria or microalbuminuria is not present. The patient is not on an MICHOACANO inhibitor or an ARB. Electrolytes: Na 137, K 5.1,CO2 27 No evidence of significant hypotonicity, hyperkalemia, or metabolic acidosis. Anemia: hgb 14.8 He does not have anemia (hgb<13.5 g/dL). The target hemoglobin range is 10-12 g/dL. There is, however, no indication for additional iron or erythropoietic stimulating agents (ESAs). Mineral and Bone Disorder (CKD-MBD): calcium 9.6, phos 3.1 Hyperphosphatemia is not present (phos < 4.5 mg/dL). 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 Complications of CKD include: NONE Diagnostic Plan: 1. Special labs/studies: 2. Renal biopsy indicated: No Therapeutic Plan: 1. Medications to have a change in dose: None 2. Medications to be added: None 3. Medications to be discontinued: None 4. Routine labs for next visit: Nephrology profile (creatinine, lytes, calcium, phos), iPTH, Hemagram 5. Special labs to be ordered: None 6. Other: Increase water intake and cranberry juice to prevent UTI. Follow-up with me in approximately 6 months or earlier if needed. Stew Barboza MD Attending in Nephrology documented in this encounter Plan of Treatment Not on filedocumented as of this encounter Visit Diagnoses Diagnosis Chronic kidney disease, stage III (moder ate) ([facility]) - Primary Chronic kidney disease, Stage III (moder ate) documented in this encounter Historical Medications This list may reflect changes made after this encounter. Medication Sig Dispensed Refills Start Date End Date tamsulosin (FLOMAX) 0.4 mg Take 0.4 mg by mouth 0 capsule 2 times daily. dutasteride (AVODART) 0.5 Take 0.5 mg by mouth 0 mg capsule daily. added in this encounter Care Teams Wedding Planner Relationship Specialty Start Date End Date Ry Kong PA PCP - General 07/16/[address] [place] [address] [place] [address] documented as of this encounter
--- OUTSIDE RECORDS SUMMARY | 2022-07-24 15:26 | XMS_ITS | Encounter Summary ---
:1945 Author Organization [facility] Address [address] [place] [address] Care Team Providers Name Role Phone yR Kong Primary Care Provider Encounter Details Date Type Department Care Team Description 03/28/2021 Lab Requisition [facility] Outr Resulting Lab, Pathology & Laboratory Provider [facility] [address] [id number] Social History Tobacco Use Types Packs/Day Years Used Date Never Assessed Sex Assigned at Date Recorded Not on file documented as of this encounter Plan of Treatment Not on filedocumented as of this encounter Procedures Procedure Name Priority Date/Time Associated Diagnosis Comme nts T3, TOTAL Routine 03/28/2021 9:30 EDT Results for this procedure are i n the results section . documented in this encounter Results (ABNORMAL) T3, TOTAL (03/28/2021 9:30 EDT) Pathologist Sig nature T3, Total 269 (H) 97 - 169 ng/dL [facility] Specimen Blood - Venous blood (substance) Performing Organization Address City/State/ZIP Code Phon e Number [facility] [address] [place] [address] SERVICES documented in this encounter Visit Diagnoses Not on filedocumented in this encounter Care Teams Automatic Head Sawyer Relationship Specialty Start Date End Date Ry Kong PA PCP - General 07/16/11 [facility] MEDICAL [facility] [address] [place] [id number] documented as of this encounter
--- OUTSIDE RECORDS SUMMARY | 2022-07-24 15:26 | XMS_ITS | Encounter Summary ---
:1945 Author Organization [facility] Address [address] [place] [address] Care Team Providers Name Role Phone Ry Kong Primary Care Provider Encounter Details Date Type Department Care Team Description 09/30/2021 Lab Requisition [facility] Outr Resulting Lab, Pathology & Laboratory Provider [facility] [address] [place], [place] [address] Social History Tobacco Use Types Packs/Day Years Used Date Never Assessed Sex Assigned at Date Recorded Not on file documented as of this encounter Plan of Treatment Not on filedocumented as of this encounter Procedures Procedure Name Priority Date/Time Associated Diagnosis Comme nts T3, TOTAL Routine 09/30/2021 8:00 EST Results for this procedure are i n the results section . documented in this encounter Results (ABNORMAL) T3, TOTAL (09/30/2021 8:00 EST) Pathologist Sig nature T3, Total 281 (H) 97 - 169 ng/dL [facility] Specimen Blood - Venous blood (substance) Performing Organization Address City/State/ZIP Code Phon e Number [facility] [address] [place] [address] SERVICES documented in this encounter Visit Diagnoses Not on filedocumented in this encounter Care Teams Compound Specialist Relationship Specialty Start Date End Date Ry Kong PA PCP - General 07/16/11 [facility] MEDICAL [facility] [address] [place] [id number] documented as of this encounter
--- OUTSIDE RECORDS SUMMARY | 2022-07-24 15:26 | XMS_ITS | Encounter Summary ---
:1945 Author Organization [facility] Address [address] [place] [address] Care Team Providers Name Role Phone Ry Kong Primary Care Provider Encounter Details Date Type Department Care Team Description 10/06/2019 Lab Requisition [facility] Unknown, Provider, Pathology & Laboratory [facility] [address] [place] [address] [place], [place] [id number] Social History Tobacco Use Types Packs/Day Years Used Date Never Assessed Sex Assigned at Date Recorded Not on file documented as of this encounter Plan of Treatment Not on filedocumented as of this encounter Procedures Procedure Name Priority Date/Time Associated Diagnosis Comme nts T3, TOTAL Routine 10/06/2019 9:30 EST Results for this procedure are i n the results section . documented in this encounter Results (ABNORMAL) T3, TOTAL (10/06/2019 9:30 EST) Pathologist Sig nature T3, Total 255 (H) 97 - 169 ng/dL [facility] Specimen Blood - Venous blood (substance) Performing Organization Address City/State/ZIP Code Phon e Number [facility] [address] [place] [address] SERVICES documented in this encounter Visit Diagnoses Not on filedocumented in this encounter Care Teams Elevator Mechanic Relationship Specialty Start Date End Date Ry Kong PA PCP - General 07/16/11 [facility] MEDICAL [facility] [address] [place] [id number] documented as of this encounter
--- OUTSIDE RECORDS SUMMARY | 2022-07-24 15:26 | XMS_ITS | Encounter Summary ---
:1945 Author Organization [facility] Address [address] [place] [address] Care Team Providers Name Role Phone Ry Kong Primary Care Provider Encounter Details Date Type Department Care Team Description 12/01/2021 Lab Requisition [facility] Outr Resulting Lab, Pathology & Laboratory Provider [facility] [address] [place], [place] [address] Social History Tobacco Use Types Packs/Day Years Used Date Never Assessed Sex Assigned at Date Recorded Not on file documented as of this encounter Plan of Treatment Not on filedocumented as of this encounter Procedures Procedure Name Priority Date/Time Associated Diagnosis Comme nts T3, TOTAL Routine 12/01/2021 10:30 EST Results for this procedure are i n the results section . documented in this encounter Results (ABNORMAL) T3, TOTAL (12/01/2021 10:30 EST) Pathologist Sig nature T3, Total 357 (H) 97 - 169 ng/dL [facility] Specimen Blood - Venous blood (substance) Performing Organization Address City/State/ZIP Code Phon e Number [facility] [address] [place] [address] SERVICES documented in this encounter Visit Diagnoses Not on filedocumented in this encounter Care Teams Wheel Alignment Technician Relationship Specialty Start Date End Date Ry Kong PA PCP - General 07/16/11 [facility] MEDICAL [facility] [address] [place] [id number] documented as of this encounter
--- OUTSIDE RECORDS SUMMARY | 2022-07-24 15:26 | XMS_ITS | Clinical Summary ---
:1945 Author Organization [facility] Address [address] [place] [address] Care Team Providers Name Role Phone Ry Kong Primary Care Provider Medications Medication Sig Dispensed Refills Start Date End Date Status dutasteride (AVODART) Take 0.5 mg by 0 Active 0.5 mg capsule mouth daily. tamsulosin (FLOMAX) 0.4 Take 0.4 mg by 0 Active mg capsule mouth 2 times daily. Active Problems Problem Noted Date Chronic kidney disease, stage III (moderate) 1 Prostatism 09/30/2011 Social History Tobacco Use Types Packs/Day Years [...] - - Body Mass Index - - Plan of Treatment Health Maintenance Due Date Last Done Comments Hepatitis C Screen 1945 COVID-19 Vaccine (1) 1950 Fall Risk Screening 2010 Care Teams Portable Router Operator Relationship Specialty Start Date End Date Ry Kong PA PCP - General 07/16/[address] [place] [address] [place] [address]
--- OUTSIDE RECORDS SUMMARY | 2022-07-24 15:26 | XMS_ITS | Encounter Summary ---
:1945 Author Organization [facility] Address [address] [place] [address] Care Team Providers Name Role Phone Ry Kong Primary Care Provider Encounter Details Date Type Department Care Team Description 04/01/2022 Lab Requisition [facility] Outr Resulting Lab, Pathology & Laboratory Provider [facility] [address] [id number] Social History Tobacco Use Types Packs/Day Years Used Date Never Assessed Sex Assigned at Date Recorded Not on file documented as of this encounter Plan of Treatment Not on filedocumented as of this encounter Procedures Procedure Name Priority Date/Time Associated Diagnosis Comme nts T3, TOTAL Routine 04/01/2022 8:00 EDT Results for this procedure are i n the results section . documented in this encounter Results (ABNORMAL) T3, TOTAL (04/01/2022 8:00 EDT) Pathologist Sig nature T3, Total 315 (H) 97 - 169 ng/dL [facility] Specimen Blood - Venous blood (substance) Performing Organization Address City/State/ZIP Code Phon e Number [facility] [address] [place] [address] SERVICES documented in this encounter Visit Diagnoses Not on filedocumented in this encounter Care Teams Chief Drafter Relationship Specialty Start Date End Date Ry Kong PA PCP - General 07/16/11 [facility] MEDICAL [facility] [address] [place] [id number] documented as of this encounter
[2022-07-25 12:29] LABS: PSA, Ultrasensitive 0.06 ng/mL (<= 6.5)
[2022-07-29 16:21] LABS: Testosterone, Total 331 ng/dL (240-950)
== END 2022-07-24 15:09 | disposition home or self-care (01) ==
LOC: LBO 15:15
PROVIDERS: PCP Family Medicine; Visit Provider Nurse Practitioner Family
DX: C61 Malignant neoplasm of prostate (principal)
CPT/HCPCS: 36415; 84153; 84403

== ENCOUNTER 2023-01-28 04:21 | Outpatient (CLI) | payer BC, SELFPAY ==
[2023-01-29 17:20] LABS: PSA, Ultrasensitive 0.03 ng/mL (<= 6.5)
[2023-02-01 13:05] LABS: Testosterone, Total 477 ng/dL (240-950)
== END 2023-01-28 04:22 | disposition home or self-care (01) ==
LOC: LBO 04:22
PROVIDERS: PCP Family Medicine; Visit Provider Nurse Practitioner Family
DX: C61 Malignant neoplasm of prostate (principal)
CPT/HCPCS: 36415; 84153; 84403

== ENCOUNTER 2023-05-12 16:49 | Outpatient (CLI) | payer BC, SELFPAY ==
[2023-05-15 15:04] LABS: PSA, Ultrasensitive 0.03 ng/mL (<= 6.5)
[2023-05-17 23:24] LABS: Testosterone, Total 267 ng/dL (240-950)
== END 2023-05-12 16:50 | disposition home or self-care (01) ==
LOC: LBO 16:51
PROVIDERS: PCP Family Medicine; Visit Provider Nurse Practitioner Family
DX: C61 Malignant neoplasm of prostate (principal)
CPT/HCPCS: 36415; 84153; 84403

== ENCOUNTER 2024-08-31 10:16 | Outpatient (CLI) | payer BC, SELFPAY ==
[2024-09-02 14:27] LABS: PSA, Ultrasensitive 0.04 ng/mL (<= 6.5)
[2024-09-05 11:48] LABS: Testosterone, Total 614 ng/dL (240-950)
== END 2024-08-31 10:17 | disposition home or self-care (01) ==
LOC: LBO 10:17
PROVIDERS: PCP Family Medicine; Visit Provider Colon & Rectal Surgery
DX: C61 Malignant neoplasm of prostate (principal); Z00.6 Encounter for examination for normal comparison and control in clinical research program
CPT/HCPCS: 36415; 84153; 84403